=== PATIENT | female | born 1955 | race Caucasian/White ===

== ENCOUNTER 2018-04-19 10:20 | Emergency (ER) | payer SELFPAY ==
--- OUTSIDE RECORDS SUMMARY | 2018-04-19 10:22 | XMS REPORT | Clinical Summary ---
:1955 Author Organization [facility] Address [address] [place] [address] Care Team Providers Name Role Phone Carlos Mccann MD Primary Care Provider Allergies No Known Allergies Medications Medication Sig Dispensed Refills Start Date End Date Status venlafaxine (EFFEXOR) Take 75 mg by 0 Active 75 MG tablet mouth 2 (two) times a day. citalopram (CeleXA) 40 Take 40 mg by 0 Active MG tablet mouth daily. carBAMazepine Take 200 mg by 0 Active (TEGretol) 200 mg mouth 3 (three) tablet times a day. baclofen (LIORESAL) 10 Take 10 mg by 0 Active MG tablet mouth 2 (two) times a day. amLODIPine (NORVASC) 5 Take 5 mg by 0 Active mg tablet mouth 2 (two) times a day. clonAZEPAM (KlonoPIN) Take 0.5 mg by 0 Active 0.5 MG tablet mouth nightly. gabapentin (NEURONTIN) Take 600 mg by 0 Active 600 mg tablet mouth 3 (three) times a day. methocarbamol (ROBAXIN) Take 500 mg by 0 Active 500 MG tablet mouth 4 (four) times a day. clopidogrel (PLAVIX) 75 Take 75 mg by 0 Active mg tablet mouth daily. traMADol (ULTRAM) 50 mg Take 50 mg by 0 Active tablet mouth every 8 (eight) hours as needed for moderate pain. atorvastatin (LIPITOR) Take 40 mg by 0 Active 40 MG tablet mouth daily. aspirin (ECOTRIN) 81 MG Take 81 mg by 0 Active enteric coated tablet mouth daily. Active Problems Problem Noted Date Carotid artery disease 11/13/2016 Overview: Added automatically from request for surgery [id number] Cerebrovascular accident (CVA) 10/15/2016 Bilateral carotid artery disease 10/15/2016 Spinal cord compression 04/18/2016 Family History Medical History Relation Name Comments Dementia Mother Relation Name Status Comments Mother Social History Tobacco Use Types Packs/Day Years Used Date Current Every Day Smoker 1 45 Comments: "Last cigarette an hour ago"04/18/2016 Alcohol Use Drinks/Week oz/Week Comments No "Quit 1992" Sex Assigned at Date Recorded Not on file Job Start Date Occupation Industry Not on file Not on file Not on file Travel History Travel Start Travel End No recent travel history available. Last Filed Vital Signs Not on file Plan of Treatment Health Maintenance Due Date Last Done Comments CERVICAL CANCER SCREENING 11/29/1975 BREAST CANCER SCREENING 2004 COLON CANCER SCREENING 2004 SHINGLES VACCINES (1 of 2) 2004 INFLUENZA VACCINE 10/01/2017 Implants Implanted Type Area Precast Concrete Ironworker Device Shelf Model / Identifier Expiration Serial / Date Lot Kit Hmstc Mtrx W/ F2 8ml Surgiflo - [id number] Surgical N/A: N/A ETHICON - 10/31/2017 [id number] / Implanted: Qty: 1 on 04/21/2016 by Edward Rivera MD Implants; / Expanders; [id number] Extenders; Surgical Wires Results Not on fileafter 04/18/2017 Advance Directives Patient has advance care planning documents on file. For more information, please contact:Ger Jacobson[address] [place] [address]
--- NOTE | 2018-04-19 11:28 | RAD REPORT ---
EXAM DESCRIPTION: CT - Head C Spine Mpr Wo Con - 04/19/2018 11:02 am CLINICAL HISTORY: Seizure. Head and neck injury status post fall. Head and neck pain COMPARISON: 2016 TECHNIQUE: Computed axial tomography of the head and cervical spine was obtained. Sagittal and coronal reconstruction was performed. All CT scans are performed using dose optimization technique as appropriate and may include automated exposure control or mA/KV adjustment according to patient size. FINDINGS: 5 centimeter low-density area has developed within the posterior right frontal/ anterior r ight parietal lobe. Additional low-density within the right cerebrum is secondary to an old infarction. An intracranial bleed is not seen. The ventricles are normal in caliber. An extra-axial fluid collect ion is not noted.Fluid within the visualized sinuses and mastoids is not seen A cervical fracture is not visualized. No dislocation is noted. Spondylosis involves the cervical spi ne. Postsurgical changes are noted. Minimal anterior subluxation of C4 on C5 probably chronic. IMPRESSION: 5 centimeter acute infarct posterior right frontal/anterior right parietal lobe suspecte d. Additional old right cerebral infarct. A cervical fracture is not visualized. If the patient continues to have symptoms to suggest spinal cord/spinal canal pathology then MRI would be recommended
--- NOTE | 2018-04-19 11:33 | RAD REPORT ---
EXAM DESCRIPTION: RAD - Pelvis - 04/19/2018 11:11 am CLINICAL HISTORY: Pelvic pain status post injury FINDINGS: No fracture or dislocation is seen. The bones are osteoporotic If the patient continues to have symptoms to suggest an occult fracture then MRI recommended
[2018-04-19 12:09] LABS: Absolute Lymphocytes (CBC) 1.3 K/uL (0.7-4.9); Absolute Neutrophil 9.6 K/uL (1.8-8.0); Basophils % 0.3 % (0-1.3); Eosinophils % 0.1 % (0-4.4); Hematocrit 40.1 % (36.0-45.0); MPV 8.5 fL (7.6-11.3); Monocytes % 8.3 % (3.3-12.3); RBC Red Blood Cell Count 4.57 M/uL (3.86-4.86)
[2018-04-19 12:19] LABS: Protime INR 1.03
[2018-04-19 12:29] LABS: BUN Blood Urea Nitrogen 14 mg/dL (7-18); Bicarbonate 27 mmol/L (21-32); Creatine Phosphokinase 153 U/L (26-192); Glucose Level 109 mg/dL (74-106); Potassium 3.8 mmol/L (3.5-5.1); Sodium Level 138 mmol/L (136-145)
--- NOTE | 2018-04-19 12:58 | RAD REPORT ---
EXAM DESCRIPTION: Dru Single View04/19/2018 12:41 pm CLINICAL HISTORY: Code stroke / malaise COMPARISON: 2016 FINDINGS: The lungs appear clear of acute infiltrate. The heart is normal size IMPRESSION: No acute abnormalities displayed
--- NOTE | 2018-04-19 13:24 | EDPHYS ---
Physician Documentation [facility] Name: Lynne Urena Age: 62 yrs Sex: Female : 1955 Arrival Date: 04/19/2018 Time: 10:21 Bed 2 Private MD: ED Physician Osiel Delgadillo HPI: 04/19 13:11 This 62 yrs old Female presents to ER via EMS with complaints of Fall Injury, gs Seizure, S/S of Possible Stroke. 13:11 Onset: The symptoms/episode began/occurred this morning, at 04:30. Associated injuries: gs The patient sustained injury to the head, hematoma. Severity of symptoms: At their worst the symptoms were moderate, in the emergency department the symptoms are unchanged. was found on floor by roommate at 430 in am helped her back to bed. last known well last pm. Historical: - Allergies: 10:28 NKA; hj - Home Meds: 10:28 Plavix 75 mg Oral tab [Active]; amlodipine oral [Active]; Baclofen Oral [Active]; hj citalopram oral [Active]; gabapentin Oral [Active]; Robaxin Oral [Active]; meloxicam Oral [Active]; Tegretol Oral [Active]; - PMHx: 10:28 Chronic pain; epilepsy; Hypertension; hj - PSHx: 10:28 Hysterectomy; cervical laminectomy; Carotid surgery; hj - Immunization history:: Adult Immunizations unknown. - Social history:: Smoking status: Patient uses tobacco products, Patient/guardian denies using alcohol. - Immunization history: Last tetanus immunization: - up to date. - Ebola Screening: : Patient negative for fever greater than or equal to 101.5 degrees Fahrenheit, and additional compatible Ebola Virus Disease symptoms Patient denies exposure to infectious person Patient denies travel to an Ebola-affected area in the 21 days before illness onset. ROS: 13:11 All other systems are negative. gs Exam: 13:19 Constitutional: This is a well developed, well nourished patient who is awake, alert, gs and in no acute distress. Eyes: Pupils equal round and reactive to light, extra-ocular motions intact. Lids and lashes normal. Conjunctiva and sclera are non-icteric and not injected. Cornea within normal limits. Periorbital areas with no swelling, redness, or edema. ENT: Nares patent. No nasal discharge, no septal abnormalities noted. Tympanic membranes are normal and external auditory canals are clear. Oropharynx with no redness, swelling, or masses, exudates, or evidence of obstruction, uvula midline. Mucous membranes moist. Chest/axilla: Normal chest wall appearance and motion. Nontender with no deformity. No lesions are appreciated. Cardiovascular: Regular rate and rhythm with a normal S1 and S2. No gallops, murmurs, or rubs. Normal PMI, no JVD. No pulse deficits. Respiratory: Lungs have equal breath sounds bilaterally, clear to auscultation and percussion. No rales, rhonchi or wheezes noted. No increased work of breathing, no retractions or nasal flaring. Abdomen/GI: Soft, non-tender, with normal bowel sounds. No distension or tympany. No guarding or rebound. No evidence of tenderness throughout. 13:19 Back: No spinal tenderness. No costovertebral tenderness. Full range of motion. Skin: Warm, dry with normal turgor. Normal color with no rashes, no lesions, and no evidence of cellulitis. 13:19 Head/face: Noted is contusion, that is superficial. 13:19 Musculoskeletal/extremity: Extremities: noted in the left hip and right hip: Circulation is intact in all extremities. 13:19 Neuro: Orientation: to person, place, time \T\ situation. Cranial nerves: facial droop noted on left, Motor: strength is 5/5 in the right arm and right leg, Strength is 3/5 in the left leg, Strength is 1/5 in the left arm. Vital Signs: 10:30 BP 144 / 86; Pulse 81; Resp 18; Temp 98.1(O); Pulse Ox 95% on 2 lpm NC; Weight 47.17 hj kg; Height 5 ft. 2 in. (157.48 cm); Pain 10/10; 11:14 BP 132 / 90; Pulse 80; Resp 18; Pulse Ox 96% on 2 lpm NC; hj 12:26 BP 154 / 99; Pulse 88; Resp 18; Pulse Ox 99% on 2 lpm NC; hj 13:45 BP 154 / 91; Pulse 84; Resp 18; Pulse Ox 98% on 2 lpm NC; hj 10:30 Body Mass Index 19.02 (47.17 kg, 157.48 cm) NIH Stroke Scale Scores: 12:09 NIHSS Score: 10 gs Arnold Coma Score: 10:33 Eye Response: spontaneous(4). Verbal Response: oriented(5). Motor Response: obeys commands(6). Total: 15. Trauma Score (Adult): 10:33 Eye Response: spontaneous(1); Verbal Response: oriented(1); Motor Response: obeys commands(2); Systolic BP: > 89 mm Hg(4); Respiratory Rate: 10 to 29 per min(4); Arnold Score: 15; Trauma Score: 12 MDM: 10:56 Patient medically screened. gs 13:19 Differential diagnosis: closed head injury, fracture, multiple trauma, cva. Data gs reviewed: vital signs, nurses notes. Response to treatment: the patient's symptoms have mildly improved after treatment. ED course: transfer [facility] neuro. 04/19 11:53 Order name: Basic Metabolic Panel; Complete Time: 12:34 04/19 11:53 Order name: CBC with Diff; Complete Time: 12:34 04/19 10:28 Order name: CT Head C Spine; Complete Time: 11:47 04/19 11:00 Order name: Pelvis XRAY; Complete Time: 11:47 04/19 11:53 Order name: Protime (+inr); Complete Time: 12:34 04/19 11:54 Order name: CPK; Complete Time: 12:34 04/19 11:53 Order name: Stroke CXR 1 View; Complete Time: 13:10 04/19 11:53 Order name: EKG; Complete Time: 11:55 04/19 11:53 Order name: Accucheck; Complete Time: 11:54 04/19 11:53 Order name: Cardiac monitoring; Complete Time: 11:54 04/19 11:53 Order name: EKG - Nurse/Tech; Complete Time: 12:05 04/19 11:53 Order name: IV Saline Lock; Complete Time: 11:55 04/19 11:53 Order name: Labs collected and sent; Complete Time: 12:05 04/19 11:53 Order name: NPO; Complete Time: 11:55 04/19 11:53 Order name: O2 Per Protocol; Complete Time: 11:55 04/19 11:53 Order name: O2 Sat Monitoring; Complete Time: 11:55 gs 04/19 11:53 Order name: Stroke Swallow Screen; Complete Time: 12:26 gs Administered Medications: 13:11 Drug: Aspirin Chewable Tablet 324 mg Route: PO; 13:30 Follow up: Response: No adverse reaction Point of Care Testing: Blood Glucose: 12:26 Blood Glucose: 100 mg/dL; Ranges: Critical Glucose Levels:Adult <50 mg/dl or >400 mg/dl <40 mg/dl or >180 mg/dl Disposition: 04/19/18 13:23 Transfer ordered to Other Acute Care Facility. Diagnosis is Cerebral infarction. - Reason for transfer: Higher level of care. - Accepting physician is raimundo. - Condition is Stable. - Problem is new. - Symptoms are unchanged. Critical care time excluding procedures: 13:23 Critical care time: Bedside Care: 10 minutes, Consultation: 10 minutes, Family gs Intervention: 10 minutes. Total time: 30 minutes NIH Stroke Scale - NIH Stroke Score Date: 04/19/2018 Time: 12:09 Total Score = 10 1a. Level of Consciousness (LOC) - 0(Alert) 1b. Level of Consciousness (LOC) (Year \T\ Age) - 0(Both) 1c. LOC Commands (Open \T\ Closes Eyes/Conical Mixer) - 0(Both) 2. Best Gaze (Lateral Gaze Paresis) - 0(Normal) 3. Visual Field Loss - 0(No visual loss) 4. Facial Palsy - 2(Partial paralysis) 5a. Left Arm: Motor (10-second hold) - 4(No movement) 5b. Right Arm: Motor (10-second hold) - 0(No drift) 6a. Left Leg: Motor (5-second hold - always test supine) - 2(Drift, some effort against gravity) 6b. Right Leg: Motor (5-second hold - always test supine) - 0(No drift) 7. Limb Ataxia (finger/nose \T\ heel/keen - test with eyes open) - 0(Absent) 8. Sensory Loss (pinprick arms/legs/face) - 0(Normal) 9. Best Language: Aphasia (description/naming/reading) - 0(No aphasia) 10. Dysarthria (speech clarity - read or repeat words) - 1(Mild to Moderate) 11. Extinction and Inattention (visual/tactile/auditory/spatial/personal) - 1(Present) Initials: gs Addendum: 04/24/2018 21:00 Addendum: no tpa outside of window of treatment, cerebral infarction not gs traumatic. Signatures: Dispatcher [employer] Osbaldo Springer RN RN hj Osiel Delgadillo MD MD gs Corrections: (The following items were deleted from the chart) 04/19 14:03 13:23 04/19/2018 13:23 Transfer ordered to Other Acute Care Facility. Diagnosis hj is Cerebral infarction. Reason for transfer: Higher level of care. Accepting physician is [facility]. Condition is Stable. Problem is new. Symptoms are unchanged. gs
--- NOTE | 2018-04-19 13:24 | ER ---
Nurse's Notes [facility] Name: Lynne Urena Age: 62 yrs Sex: Female : 1955 Arrival Date: 04/19/2018 Time: 10:21 Bed 2 Private MD: Diagnosis: Cerebral infarction Presentation: 04/19 10:22 Presenting complaint: EMS states: from home, pt had a seizure episode and fell from a hj standing position, with positive LOC per EMS, complaints of L back side of head hematoma, lower back pain, L side deficit from previous strike, BGL- 160; per EMS O2 on RA- 85%, with 2L O2 went up to 93%; hx of COPD; 18g R AC, fentanyl 45 mcg IV given with zofran 4 mg 5 mins BOX OFFICE MANAGER:. Transition of care: patient was not received from another setting of care. Onset of symptoms was April 19, 2018. Risk Assessment: Do you want to hurt yourself or someone else? Patient reports no desire to harm self or others. Initial Sepsis Screen: Does the patient meet any 2 criteria? No. Patient's initial sepsis screen is negative. Does the patient have a suspected source of infection? No. Patient's initial sepsis screen is negative. Care prior to arrival: None. 10:22 Method Of Arrival: EMS: [facility] 10:22 Acuity: YEIMI 2 10:34 Mechanism of Injury: Fall from standing position. Trauma event details: Injury occurred hj in the [facility], Injury occurred: at home. Injury occurred: April 19, 2018. Triage Assessment: 10:29 General: Appears in no apparent distress. uncomfortable, Behavior is calm, cooperative, hj appropriate for age. Pain: Complains of pain in head, neck, lower back. Trauma Activation: Alert Physician: ED Physician; Name: he; Notified At: 10:34; Arrived At: Physician: General Surgeon; Name: ; Notified At: 10:34; Arrived At: Physician: Radiology; Name: ; Notified At: 10:34; Arrived At: Physician: Respiratory; Name: ; Notified At: 10:34; Arrived At: Physician: Lab; Name: ; Notified At: 10:34; Arrived At: Historical: - Allergies: 10:28 NKA; hj - Home Meds: 10:28 Plavix 75 mg Oral tab [Active]; amlodipine oral [Active]; Baclofen Oral [Active]; hj citalopram oral [Active]; gabapentin Oral [Active]; Robaxin Oral [Active]; meloxicam Oral [Active]; Tegretol Oral [Active]; - PMHx: 10:28 Chronic pain; epilepsy; Hypertension; hj - PSHx: 10:28 Hysterectomy; cervical laminectomy; Carotid surgery; hj - Immunization history:: Adult Immunizations unknown. - Social history:: Smoking status: Patient uses tobacco products, Patient/guardian denies using alcohol. - Immunization history: Last tetanus immunization: - up to date. - Ebola Screening: : Patient negative for fever greater than or equal to 101.5 degrees Fahrenheit, and additional compatible Ebola Virus Disease symptoms Patient denies exposure to infectious person Patient denies travel to an Ebola-affected area in the 21 days before illness onset. Screenin:33 Abuse screen: Denies threats or abuse. Denies injuries from another. Nutritional hj screening: No deficits noted. Tuberculosis screening: No symptoms or risk factors identified. Fall Risk Fall in past 12 months (25 points). 12:25 Patient has been NPO before screening. The patient is alert, able to follow commands. hj The patient does not exhibit slurred or garbled speech The patient is not exhibiting difficulty speaking. The patient does not exhibit difficulty understanding words. The patient is able to swallow own secretions with no drooling or need for suction. Patient tolerated one teaspoon of water. No drooling, immediate coughing, gurgling, or clearing of the throat was noted. The patient tolerated 90mL of water. No drooling, immediate coughing, gurgling, or clearing of the throat was noted. The patient passed the bedside swallow screening. Oral medications may be given as ordered. Contact Physician for further diet orders. Provider notified of bedside swallow screening results: Osbaldo King RN. Primary Survey: 10:31 NO uncontrolled hemorrhage observed. A: The patient is alert. Airway: patent, No hj supplemental oxygen in use on arrival. Oral cavity: clear, gag reflex present, Trachea midline. Breathing/Chest: Respiratory pattern: regular, Respiratory effort: spontaneous, unlabored, Breath sounds: clear, Chest inspection: symmetrical rise and fall of the chest. Circulation: Cardiac rhythm: sinus rhythm Heart tones present. Pulses: palpable right radial artery and left radial artery. Skin color: pink, Skin temperature: warm, dry. Disability Alert. Exposure/Environment: All clothing and personal items were removed. Forensic evidence collection is not deemed to be indicated at this time. Items placed in patient belonging bag. There is no evidence of uncontrolled external bleeding. No obvious injuries are noted at this time. A warming method has been applied: A warm blanket has been provided to the patient. Reassessment Airway Airway Patent Oxygen No O2 Oral cavity Clear +Gag reflex Trachea Midline Breathing/Chest Respiratory pattern Regular Respiratory effort Spontaneous Unlabored Breath sounds Clear Chest inspection Symmetrical Circulation Heart rhythm Sinus rhythm Heart tones Present Pulses Palpable Color [place] Temperature Warm Dry Arterial Line Disability Alert. Secondary Survey: 10:43 HEENT: Head Other hematoma back area Face No injury/deformity Eyes: No injury or hj deformity noted. Ears: clear Nose: clear Throat: No injury or deformity noted. is clear. Gastrointestinal: No deficits noted. : No signs and/or symptoms were reported regarding the genitourinary system. Musculoskeletal: Reports pain in head, neck, back. Assessment: 10:51 Reassessment: Pt taken to CT via stretcher. ph 10:51 Reassessment: see triage assessment;. Reassessment: pt wheeled to CT;. hj 11:53 Reassessment: provider in room, per family symptoms of L sided deficits started around hj 4:30 am;. 11:53 Reassessment: code strike called;. hj Vital Signs: 10:30 BP 144 / 86; Pulse 81; Resp 18; Temp 98.1(O); Pulse Ox 95% on 2 lpm NC; Weight 47.17 hj kg; Height 5 ft. 2 in. (157.48 cm); Pain 10/10; 11:14 BP 132 / 90; Pulse 80; Resp 18; Pulse Ox 96% on 2 lpm NC; hj 12:26 BP 154 / 99; Pulse 88; Resp 18; Pulse Ox 99% on 2 lpm NC; hj 13:45 BP 154 / 91; Pulse 84; Resp 18; Pulse Ox 98% on 2 lpm NC; hj 10:30 Body Mass Index 19.02 (47.17 kg, 157.48 cm) hj Arnold Coma Score: 10:33 Eye Response: spontaneous(4). Verbal Response: oriented(5). Motor Response: obeys hj commands(6). Total: 15. Trauma Score (Adult): 10:33 Eye Response: spontaneous(1); Verbal Response: oriented(1); Motor Response: obeys hj commands(2); Systolic BP: > 89 mm Hg(4); Respiratory Rate: 10 to 29 per min(4); Meredith Score: 15; Trauma Score: 12 NIH Stroke Scale Scores: 12:09 NIHSS Score: 10 gs ED Course: 10:21 Patient arrived in ED. hj 10:25 Triage completed. hj 10:28 Osiel He MD is Attending Physician. gs 10:[address] via stretcher. kw1 10:34 Arm band placed on right wrist. hj 10:35 Patient has correct armband on for positive identification. Placed in gown. Bed in low hj position. Call light in reach. Side rails up X2. 10:35 Patient maintains SpO2 saturation greater than 95% on room air. hj 10:35 Thermoregulation: warm blanket given to patient. hj 10:36 Osbaldo King, RN is Primary Nurse. hj 10:44 Inserted saline lock: 18 gauge in right antecubital area, using aseptic technique. hj Blood collected. 11:02 CT completed. Patient tolerated procedure well. Patient moved to CT via stretcher. kw1 Patient moved to radiology. 11:05 CT Head C Spine In Process Unspecified. EDMS 11:11 Pelvis XRAY In Process Unspecified. EDMS 12:41 Stroke CXR 1 View In Process Unspecified. EDMS 13:10 No provider procedures requiring assistance completed. Patient transferred, IV remains hj in place. intact. Administered Medications: 13:11 Drug: Aspirin Chewable Tablet 324 mg Route: PO; hj 13:30 Follow up: Response: No adverse reaction hj Point of Care Testing: Blood Glucose: 12:26 Blood Glucose: 100 mg/dL; hj Ranges: Intake: 13:23 PO: 40ml; Total: 40ml. hj Output: 13:23 Urine: 150ml (Voided); Total: 150ml. hj Outcome: 13:11 Transferred by ground EMS to [facility], Transfer form completed. X-rays sent hj w/ patient. 13:11 Condition: stable 13:11 Instructed on the need for admit, Demonstrated understanding of instructions. 13:23 ER care complete, transfer ordered by . 13:44 Patient's length of stay in the Emergency Department was greater than 2 hours. hj Patient's length of stay was extended due to receiving facility on divert. transferPatient's length of stay extended due to 14:03 Patient left the ED. jaqueline NIH Stroke Scale - NIH Stroke Score Date: 04/19/2018 Time: 12:09 Total Score = 10 1a. Level of Consciousness (LOC) - 0(Alert) 1b. Level of Consciousness (LOC) (Year \T\ Age) - 0(Both) 1c. LOC Commands (Open \T\ Closes Eyes/Maintenance And Engineering Manager) - 0(Both) 2. Best Gaze (Lateral Gaze Paresis) - 0(Normal) 3. Visual Field Loss - 0(No visual loss) 4. Facial Palsy - 2(Partial paralysis) 5a. Left Arm: Motor (10-second hold) - 4(No movement) 5b. Right Arm: Motor (10-second hold) - 0(No drift) 6a. Left Leg: Motor (5-second hold - always test supine) - 2(Drift, some effort against gravity) 6b. Right Leg: Motor (5-second hold - always test supine) - 0(No drift) 7. Limb Ataxia (finger/nose \T\ heel/keen - test with eyes open) - 0(Absent) 8. Sensory Loss (pinprick arms/legs/face) - 0(Normal) 9. Best Language: Aphasia (description/naming/reading) - 0(No aphasia) 10. Dysarthria (speech clarity - read or repeat words) - 1(Mild to Moderate) 11. Extinction and Inattention (visual/tactile/auditory/spatial/personal) - 1(Present) Initials: Signatures: Dispatcher [employer] EDHilda Stewart RN RN Osbaldo King RN RN hj Starr, Gregory, MD MD Mildred Barr1
[2018-04-19] MEDS ORDERED: ASPIRIN 81 MG CHEWABLE TABLET ONE (13:37)
[2018-04-19 14:36] VITALS: TEMP 98.1
[2018-04-19 14:40] VITALS: BP 154/91; O2SAT 98
--- NOTE | 2018-04-20 08:52 | EKG ---
Test Date: 2018-04-19 Test Time: 12:07:10 Senior Systems Developer: PAVITHRA MEASUREMENT RESULTS: Intervals: Rate: 97 MS: 152 QRSD: 88 QT: 370 QTc: 469 Dubois: P: 76 MS: 152 QRS: 56 T: 72 INTERPRETIVE STATEMENTS: Normal sinus rhythm Biatrial enlargement Abnormal ECG Compared to ECG 08/29/2016 10:29:07 Atrial abnormality now present Electronically Signed On 04-20-18 08:52:04 PRESS CLEANER by Julian Brand
== END 2018-04-19 14:03 ==
LOC: ER 10:20
DX: I63.9 Cerebral infarction, unspecified (principal); I10 Essential (primary) hypertension; R29.710 NIHSS score 10; G40.909 Epilepsy, unspecified, not intractable, without status epilepticus; W19.XXXA Unspecified fall, initial encounter; Y93.9 Activity, unspecified; Y92.9 Unspecified place or not applicable; Z72.0 Tobacco use; Z79.01 Long term (current) use of anticoagulants
CPT/HCPCS: 36415; 70450; 71045; 72125; 72170; 80048; 82550; 82962; 85025; 85610; 93005; 99285

== ENCOUNTER 2018-09-24 13:05 | Emergency (ER) | payer OTHER, SELFPAY ==
--- OUTSIDE RECORDS SUMMARY | 2018-09-24 13:07 | XMS REPORT | Clinical Summary ---
:1955 Author Organization [facility] Address [address] [place] [address] Care Team Providers Name Role Phone Carlos [...] Overview: Added automatically from request for surgery [id number] Cerebrovascular accident (CVA) 10/15/2016 Bilateral carotid artery [...] Health Maintenance Due Date Last Done Comments BREAST CANCER SCREENING 2004 COLONOSCOPY SCREENING 2004 SHINGLES VACCINES (#1) 2004 INFLUENZA VACCINE 10/01/2018 Implants Implanted Type Area Coin Machine Servicer Repairer Device Shelf Model / Identifier Expiration Serial / Date Lot Kit Hmstc Mtrx W/ F2 8ml Surgiflo - [id number] Surgical N/A: N/A ETHICON - 10/31/2017 [id number] / Implanted: Qty: 1 on 04/21/2016 by Edward Rivera MD Implants; / Expanders; [id number] Extenders; Surgical Wires Results Not on fileafter 09/23/2017 Advance Directives Patient has advance care planning documents on file. For more information, please contact:Ger Jacobson[address] [place] [address]
--- NOTE | 2018-09-24 13:40 | EDPHYS ---
Physician Documentation [facility] Name: Lynne Urena Age: 62 yrs Sex: Female : 1955 Arrival Date: 09/24/2018 Time: 13:08 Bed 28 Private MD: ED Physician Ace Feng HPI: 09/24 14:57 This 62 yrs old Female presents to ER via Ambulatory with complaints of Leg jr8 Pain, Leg Swelling. 14:57 The patient presents with swelling, local swelling/small mass to right lower leg. The jr8 complaints affect the anterior right keen. Context: noticed it yesterday. Onset: The symptoms/episode began/occurred at an unknown time. Modifying factors: The symptoms are alleviated by nothing. the symptoms are aggravated by nothing. Associated signs and symptoms: Pertinent negatives calf tenderness, pain. Severity of symptoms: At their worst the symptoms were very mild, in the emergency department the symptoms are unchanged, a " 0" out of "10". The patient has not experienced similar symptoms in the past. The patient has not recently seen a physician. Patient reports noticing a small area of localized swelling to right anterior keen yesterday. Denies pain, tenderness, or recent trauma. No generalized swelling to leg. Historical: - Allergies: 13:09 NKA; hj - PMHx: 13:09 Chronic pain; epilepsy; Hypertension; CVA; hj - PSHx: 13:09 Hysterectomy; cervical laminectomy; Carotid surgery; hj - Immunization history:: Flu vaccine status is unknown. - Social history:: Smoking status: unknown. - Ebola Screening: : No symptoms or risks identified at this time. ROS: 14:57 Constitutional: Negative for fever, chills, and weight loss, Eyes: Negative for injury, jr8 pain, redness, and discharge, ENT: Negative for injury, pain, and discharge, Cardiovascular: Negative for chest pain, palpitations, and edema, Respiratory: Negative for shortness of breath, cough, wheezing, and pleuritic chest pain, Abdomen/GI: Negative for abdominal pain, nausea, vomiting, diarrhea, and constipation, Back: Negative for injury and pain, MS/Extremity: Negative for injury and deformity, Neuro: Negative for headache, weakness, numbness, tingling, and seizure. 14:57 Skin: Positive for swelling, of the anterior right keen. Exam: 14:57 Constitutional: This is a well developed, well nourished patient who is awake, alert, jr8 and in no acute distress. Head/Face: Normocephalic, atraumatic. Cardiovascular: Regular rate and rhythm with a normal S1 and S2. No gallops, murmurs, or rubs. Normal PMI, no JVD. No pulse deficits. Respiratory: Lungs have equal breath sounds bilaterally, clear to auscultation and percussion. No rales, rhonchi or wheezes noted. No increased work of breathing, no retractions or nasal flaring. Abdomen/GI: Soft, non-tender, with normal bowel sounds. No distension or tympany. No guarding or rebound. No evidence of tenderness throughout. 14:57 Musculoskeletal/extremity: Extremities: grossly normal except: noted in the brace to left upper arm: 14:57 Skin: Appearance: normal except for affected area, lesion(s), noted, and can be described as nontender, raised, nodule(s) noted, located on the right anterior keen, small, flesh colored nodule to right anterior keen, just lateral to tibia. Nodule is superficial, mobile, non-tender. 14:57 Neuro: Exam negative for acute changes, focal neuro deficits, Orientation: to person, place, time \\T\\ situation. Vital Signs: 13:10 BP 133 / 82; Pulse 73; Resp 18; Temp 98.8(TE); Pulse Ox 96% on R/A; Weight 49.9 kg; hj Height 5 ft. 2 in. (157.48 cm); Pain 0/10; 13:29 BP 137 / 91; Pulse 56; Resp 18; Pulse Ox 100% on R/A; Pain 0/10; mg2 13:10 Body Mass Index 20.12 (49.90 kg, 157.48 cm) MDM: 13:14 Patient medically screened. 8 14:57 Differential diagnosis: closed fracture, contusion, abrasion, lipoma, cyst, hematoma. jr8 Data reviewed: vital signs, nurses notes, and as a result, I will discharge patient. Data interpreted: Pulse oximetry: on room air is 97 %. Interpretation: normal. Counseling: I had a detailed discussion with the patient and/or guardian regarding: the historical points, exam findings, and any diagnostic results supporting the discharge/admit diagnosis, the need for outpatient follow up. ED course: Discussed with patient and family benign appearance of nodule - flesh colored, mobile, superficial, non-tender. No generalized swelling to the calf, no erythema, no calf tenderness, -Jose Luis's sign. No concern for DVT. Patient and family instructed to watch the area and follow up with dermatology or general surgery for any increased size or discomfort. Return to ER for any new or worsening symptoms. Administered Medications: No medications were administered Disposition: 09/25 06:45 Co-signature as Attending Physician, Ace Feng MD I agree with the assessment and kdr plan of care. Disposition: 09/24/18 13:39 Discharged to Home. Impression: Localized swelling, mass and lump of skin and subcutaneous tissue. - Condition is Stable. - Discharge Instructions: Lipoma, Epidermal Cyst. - Medication Reconciliation Form, Thank You Letter, Antibiotic Education, Prescription Opioid Use form. - Follow up: Private Physician; When: As needed; Reason: Recheck today's complaints, Continuance of care, Re-evaluation by your physician. - Problem is new. - Symptoms are unchanged. Signatures: Ace Feng MD MD kdr Marah Boone RN RN iw Dc Chavarria PA PA jr8 Osbaldo King, RN RN Rao Kenney RN RN mg2 Corrections: (The following items were deleted from the chart) 09/24 13:50 13:39 09/24/2018 13:39 Discharged to Home. Impression: Localized swelling, mass and iw lump of skin and subcutaneous tissue. Condition is Stable. Forms are Medication Reconciliation Form, Thank You Letter, Antibiotic Education, Prescription Opioid Use. Follow up: Private Physician; When: As needed; Reason: Recheck today's complaints, Continuance of care, Re-evaluation by your physician. Problem is new. Symptoms are unchanged. jr8
--- NOTE | 2018-09-24 13:40 | ER ---
Nurse's Notes [facility] Name: Lynne Urena Age: 62 yrs Sex: Female : 1955 Arrival Date: 09/24/2018 Time: 13:08 Bed 28 Private MD: Diagnosis: Localized swelling, mass and lump of skin and subcutaneous tissue Presentation: 09/24 13:08 Presenting complaint: Patient states: i have a knot that i noticed on my R leg area, hj just wanna make sure its not a blood clot; denies trauma to the area;. Transition of care: patient was not received from another setting of care. Onset of symptoms was September 24, 2018. Risk Assessment: Do you want to hurt yourself or someone else? Patient reports no desire to harm self or others. Initial Sepsis Screen: Does the patient meet any 2 criteria? No. Patient's initial sepsis screen is negative. Does the patient have a suspected source of infection? No. Patient's initial sepsis screen is negative. Care prior to arrival: None. 13:08 Method Of Arrival: Ambulatory 13:08 Acuity: YEIMI 4 hj Historical: - Allergies: 13:09 NKA; hj - PMHx: 13:09 Chronic pain; epilepsy; Hypertension; CVA; hj - PSHx: 13:09 Hysterectomy; cervical laminectomy; Carotid surgery; hj - Immunization history:: Flu vaccine status is unknown. - Social history:: Smoking status: unknown. - Ebola Screening: : No symptoms or risks identified at this time. Screenin:29 Abuse screen: Denies threats or abuse. Denies injuries from another. Nutritional mg2 screening: No deficits noted. Tuberculosis screening: No symptoms or risk factors identified. Fall Risk Secondary diagnosis (15 points) seizures, CVA, Ambulatory Aid- None/Bed Rest/Nurse Assist (0 pts). Assessment: 13:30 General: Appears in no apparent distress. comfortable, Behavior is calm, cooperative. mg2 Pain: Denies pain. Neuro: Level of Consciousness is awake, alert, obeys commands, Oriented to person, place, time, situation. Cardiovascular: Capillary refill < 3 seconds Patient's skin is warm and dry. Respiratory: Airway is patent Respiratory effort is even, unlabored, Respiratory pattern is regular, symmetrical. GI: No deficits noted. : No deficits noted. EENT: No deficits noted. Derm: Skin is intact, is healthy with good turgor, Skin is pink, warm \T\ dry. normal. Musculoskeletal: Circulation, motion, and sensation intact. Capillary refill < 3 seconds, swelling in the right leg. Vital Signs: 13:10 BP 133 / 82; Pulse 73; Resp 18; Temp 98.8(TE); Pulse Ox 96% on R/A; Weight 49.9 kg; hj Height 5 ft. 2 in. (157.48 cm); Pain 0/10; 13:29 BP 137 / 91; Pulse 56; Resp 18; Pulse Ox 100% on R/A; Pain 0/10; mg2 13:10 Body Mass Index 20.12 (49.90 kg, 157.48 cm) ED Course: 13:08 Patient arrived in ED. as 13:09 Triage completed. hj 13:09 Arm band placed on right wrist. hj 13:14 [facility] jr[facility] 13:14 Ace Feng MD is Attending Physician. jr8 13:29 Rao Kenney, NEGRA is Primary Nurse. mg2 13:29 No provider procedures requiring assistance completed. Patient did not have IV access mg2 during this emergency room visit. 13:32 Patient has correct armband on for positive identification. Pulse ox on. NIBP on. mg2 Administered Medications: No medications were administered Outcome: 13:39 Discharge ordered by . jr8 13:50 Discharged to home ambulatory, with family. iw 13:50 Condition: good 13:50 Discharge instructions given to patient, family, Instructed on discharge instructions, follow up and referral plans. Demonstrated understanding of instructions, follow-up care. 13:50 Patient left the ED. iw Signatures: Glenny Maynard Irene, RN RN Dc Chavarria PA PA jr8 Osbaldo King RN RN Rao Kenney RN RN mg2 Corrections: (The following items were deleted from the chart) 13:11 13:10 Pulse 73bpm; Resp 18bpm; Pulse Ox 96% RA; Temp 98.8F Temporal; 49.9 kg; Height 5 hj ft. 2 in.; BMI: 20.1; Pain 0/10; hj
[2018-09-24 14:17] VITALS: BP 137/91; O2SAT 100
[2018-09-24 14:19] VITALS: TEMP 98.8
== END 2018-09-24 13:50 | disposition home or self-care (01) ==
LOC: ER 13:05
DX: R22.41 Localized swelling, mass and lump, right lower limb (principal); I10 Essential (primary) hypertension; Z86.73 Personal history of transient ischemic attack (TIA), and cerebral infarction without residual deficits
CPT/HCPCS: 99283

== ENCOUNTER 2019-06-19 03:22 | Emergency (ER) | payer OTHER ==
[2019-06-19] MEDS ORDERED: LIDOCAINE 1% MPF 5 ML VIAL ONE (03:45)
[2019-06-19 03:46] LABS: Absolute Lymphocytes (CBC) 1.6 K/uL (0.7-4.9); Basophils % 0.6 % (0-1.3); Hematocrit 38.1 % (36.0-45.0); Lymphocytes % 14.5 % (15.3-44.8); MPV 7.7 fL (7.6-11.3); RBC Red Blood Cell Count 4.54 M/uL (3.86-4.86)
[2019-06-19] MEDS ORDERED: TETANUS & DIPHTHERIA TOX,ADULT 0.5 ML VIAL ONE (03:46)
[2019-06-19 04:00] LABS: Potassium 3.7 mmol/L (3.5-5.1)
[2019-06-19 04:29] LABS: Urine Blood NEGATIVE (NEG); Urine Glucose NEGATIVE (NEG); Urine Protein NEGATIVE (NEG); Urine Specific Gravity 1.015 (1.005-1.030)
[2019-06-19 04:36] LABS: Barbiturates NEGATIVE (NEGATIVE); Benzodiazepines NEGATIVE (NEGATIVE); Cocaine NEGATIVE (NEGATIVE); METHAMPHETAM NEGATIVE (NEGATIVE); Methadone NEGATIVE (NEGATIVE); Opiates NEGATIVE (NEGATIVE); Phencyclidine NEGATIVE (NEGATIVE); THC Cannibis POSITIVE (NEGATIVE)
[2019-06-19] MEDS ORDERED: DERMABOND SKIN ADHESIVE TOP ONE (04:36)
--- NOTE | 2019-06-19 04:41 | ER ---
Nurse's Notes [facility] Name: Lynne Urena Age: 63 yrs Sex: Female : 1955 Arrival Date: 06/19/2019 Time: 03:24 Bed 6 Private MD: Diagnosis: Laceration without foreign body of unspecified part of head;Contusion of unspecified part of head;Concussion without loss of consciousness;Cannabis abuse, uncomplicated Presentation: 06/18 03:20 Chief complaint: EMS states: that they were toned for pt falling off sofa. Pt has fc fallen asleep sitting up and fell forward, hitting head on ground. Was on ground for approx 2 hrs and then found by roommate. Unable to get up due to floor being slippery. Positive blood thinner, Negative LOC. C/O neck pain. Care prior to arrival: Bleeding of injury controlled. Injury dressed. Mechanism of Injury: Fall Sofa. Trauma event details: Injury occurred in the [facility], Injury occurred: at home. Injury occurred: June 19, 2019 Injury occurred at: 01:00. 03:20 Acuity: YEIMI 3 fc 03:20 Method Of Arrival: EMS: [facility] fc 03:20 Coronavirus screen: Proceed with normal triage. Ebola Screen: Patient negative for fc fever greater than or equal to 101.5 degrees Fahrenheit, and additional compatible Ebola Virus Disease symptoms Patient denies exposure to infectious person. Patient denies travel to an Ebola-affected area in the 21 days before illness onset. Initial Sepsis Screen: Does the patient meet any 2 criteria? No. Patient's initial sepsis screen is negative. Does the patient have a suspected source of infection? No. Patient's initial sepsis screen is negative. Risk Assessment: Do you want to hurt yourself or someone else? Patient reports no desire to harm self or others. Onset of symptoms was June 19, 2019 at 01:00. Transition of care: patient was not received from another setting of care. Trauma Activation: Alert Physician: ED Physician; Name: Kashif; Notified At: 03:26; Arrived At: 03:26 Physician: General Surgeon; Name: ; Notified At: 03:26; Arrived At: Physician: Radiology; Name: Yolanda High; Notified At: 03:26; Arrived At: 03:26 Physician: Respiratory; Name: ; Notified At: 03:26; Arrived At: Physician: Lab; Name: ; Notified At: 03:26; Arrived At: Historical: - Allergies: 03:42 NKA; fc - Home Meds: 03:42 amlodipine 5 mg oral tab 1 tab twice a day [Active]; Plavix 75 mg Oral tab 1 tab once fc daily [Active]; gabapentin 600 mg oral tab 1 tab 3 times per day [Active]; atorvastatin 40 mg oral tab 1 tab nightly [Active]; Tegretol 200 mg oral tab 1 tab every 8 hours [Active]; memantine 5 mg oral tab 1 tabs 2 times per day [Active]; citalopram 40 mg oral tab 1 tab once daily [Active]; - PMHx: 03:42 Chronic pain; CVA; epilepsy; Hypertension; High Cholesterol; fc - PSHx: 03:42 Hysterectomy; cervical laminectomy; Carotid surgery; fc - Immunization history: Last tetanus immunization: - up to date. - Social history:: Smoking status: Patient reports the use of cigarette tobacco products, smokes one pack cigarettes per day. Patient/guardian denies using alcohol, street drugs. Screenin:20 Abuse screen: Denies threats or abuse. Tuberculosis screening: No symptoms or risk fc factors identified. 03:20 Nutritional screening: No deficits noted. Fall Risk Fall in past 12 months (25 points). fc Secondary diagnosis (15 points) CVA, No IV (0 pts). Ambulatory Aid- Crutches/Cane/Walker (15 pts). Gait- Weak (10 pts.). Mental Status- Overestimates/Forgets Limitations (15 pts.). Total Collins Fall Scale indicates High Risk Score (45 or more points). Fall prevention measures have been instituted. Side Rails Up X 2 Placed Close to Nursing Station Frequent Obs/Assessments Occuring As available patient and family educated on Fall Prevention Program and Strategies. Primary Survey: 03:38 NO uncontrolled hemorrhage observed. A: The patient is alert. Airway: patent. bb Breathing/Chest: Respiratory pattern: regular, Respiratory effort: spontaneous, unlabored, Breath sounds: coarse, bilaterally. Chest inspection: symmetrical rise and fall of the chest. Circulation: Heart tones present. Pulses: palpable right radial artery and left radial artery. Skin color: pink, Skin temperature: warm. Disability Alert. Exposure/Environment: All clothing and personal items were removed. Forensic evidence collection is not deemed to be indicated at this time. Items placed in patient belonging bag. A warming method has been applied: A warm blanket has been provided to the patient. 04:40 Reassessment Airway Airway Patent Breathing/Chest Respiratory pattern Regular rv Circulation Heart rhythm Sinus rhythm Disability Alert. Secondary Survey: 03:38 HEENT: Face Other laceration to forehead. Gastrointestinal: No deficits noted. : No bb deficits noted. No signs and/or symptoms were reported regarding the genitourinary system. Musculoskeletal: Capillary refill < 3 seconds. Assessment: 03:35 General: Appears uncomfortable, slender, unkempt, Behavior is calm, cooperative. Pain: bb Complains of pain in head. Neuro: Level of Consciousness is awake, alert, obeys commands, Oriented to person, place, situation. Cardiovascular: Heart tones S1 S2 present. Respiratory: Airway is patent Respiratory effort is even, unlabored, Respiratory pattern is regular, Breath sounds are coarse bilaterally. GI: Abdomen is non-distended, Abd is soft and non tender X 4 quads. Derm: laceration to forehead bleeding slightly bandage applied. Musculoskeletal: Circulation, motion, and sensation intact. Injury Description: fall onto coffee table when sitting on couch. 03:35 Reassessment: PATIENT IN CT SCAN. rv 03:53 Reassessment: PATIENT BACK FROM CT SCAN. rv 04:38 Reassessment: CT SCAN REPORT IS NEGATIVE. C COLLAR REMOVED. DERMABOND AND STERI STRIPS rv APPLIED BY DR CARREON ON THE LACERATION ON THE FOREHEAD. 04:48 Reassessment: AWAITING FOR THE SON TO COME AND STRIPPER AND OPAQUER APPRENTICE THE PATIENT. rv Vital Signs: 03:20 BP 159 / 90; Pulse 81; Resp 18; Temp 98.1(O); Pulse Ox 94% on R/A; Weight 44.91 kg (R); fc Height 5 ft. 2 in. (157.48 cm) (R); Pain 8/10; 04:39 BP 145 / 83; Pulse 75; Resp 17; Temp 98; Pulse Ox 94% on R/A; rv 03:20 Body Mass Index 18.11 (44.91 kg, 157.48 cm) fc Skippers Coma Score: 03:20 Eye Response: spontaneous(4). Verbal Response: oriented(5). Motor Response: obeys fc commands(6). Total: 15. 04:39 Eye Response: spontaneous(4). Verbal Response: oriented(5). Motor Response: obeys rv commands(6). Total: 15. Trauma Score (Adult): 03:20 Eye Response: spontaneous(1); Verbal Response: oriented(1); Motor Response: obeys fc commands(2); Systolic BP: > 89 mm Hg(4); Respiratory Rate: 10 to 29 per min(4); Arnold Score: 15; Trauma Score: 12 ED Course: 03:20 Fall risk band placed. Bed in low position. Call light in reach. Side rails up X2. fc 03:20 Arm band placed on right wrist. Patient placed in an exam room. fc 03:20 Patient maintains SpO2 saturation greater than 95% on room air. fc 03:20 No provider procedures requiring assistance completed. fc 03:23 C-collar applied. fc 03:24 Patient arrived in ED. ds1 03:25 Thermoregulation: warm blanket given to patient. fc 03:26 Jasen Carreon MD is Attending Physician. tw4 03:30 Inserted saline lock: 18 gauge in right forearm, using aseptic technique. Blood rv collected. 03:30 Initial lab(s) drawn, by wa, sent to lab. rv 03:33 Triage completed. fc 03:36 Ketan Dickey, RN is Primary Nurse. rv 03:58 CT Head C Spine In Process Unspecified. EDMS 04:41 Assist provider with laceration repair on FOREHEAD using DERMABOND AND STERISTRIPS.. rv Performed by Jasen Carreon MD Patient tolerated well. IV discontinued, intact, bleeding controlled, No redness/swelling at site. Pressure dressing applied. 04:45 Contacted [facility] to initiate transfer. Spoke with Ayesha Ambrose. Administered Medications: 03:42 Not Given (Patient Refused): ADAcel 0.5 ml IM once; indicated for adults and teenagers bb 11 to 64 years of age Intake: 03:38 PO: 0ml; Total: 0ml. bb Outcome: 04:40 Discharged to home via wheelchair, with family. rv 04:40 Condition: good 04:41 Discharge ordered by . tw4 04:42 Patient's length of stay was not longer than 2 hours. rv 04:48 Discharge instructions given to patient, Instructed on discharge instructions, follow rv up and referral plans. wound care, Demonstrated understanding of instructions, follow-up care, wound care. 06:54 Patient left the ED. rv Signatures: Dispatcher [employer] EDAR Ines Carr RN RN Rachel Browne ds1 Shweta Perdue RN RN bb Jasen Carreon MD MD tw4 Ketan Dickey RN RN Abdiel Brown 4 Corrections: (The following items were deleted from the chart) 03:36 03:30 Thermoregulation: warm blanket given to patient. [facility]
--- NOTE | 2019-06-19 04:42 | EDPHYS ---
Physician Documentation [facility] Name: Lynne Urena Age: 63 yrs Sex: Female : 1955 Arrival Date: 06/19/2019 Time: 03:24 Bed 6 Private MD: ED Physician Jasen Rowland HPI: 06/18 03:27 This 63 yrs old Female presents to ER via Unassigned with complaints of Fall tw4 Injury. 03:27 Details of fall: The patient fell from seated position, out of a chair. Onset: The tw4 symptoms/episode began/occurred today. Associated injuries: The patient sustained injury to the head, neck injury, contusion, upper back injury, pain, swelling. Severity of symptoms: At their worst the symptoms were moderate, in the emergency department the symptoms are unchanged. The patient has not experienced similar symptoms in the past. Historical: - Allergies: 03:42 NKA; fc - Home Meds: 03:42 amlodipine 5 mg oral tab 1 tab twice a day [Active]; Plavix 75 mg Oral tab 1 tab once fc daily [Active]; gabapentin 600 mg oral tab 1 tab 3 times per day [Active]; atorvastatin 40 mg oral tab 1 tab nightly [Active]; Tegretol 200 mg oral tab 1 tab every 8 hours [Active]; memantine 5 mg oral tab 1 tabs 2 times per day [Active]; citalopram 40 mg oral tab 1 tab once daily [Active]; - PMHx: 03:42 Chronic pain; CVA; epilepsy; Hypertension; High Cholesterol; fc - PSHx: 03:42 Hysterectomy; cervical laminectomy; Carotid surgery; fc - Immunization history: Last tetanus immunization: - up to date. - Social history:: Smoking status: Patient reports the use of cigarette tobacco products, smokes one pack cigarettes per day. Patient/guardian denies using alcohol, street drugs. ROS: 03:27 Constitutional: Negative for fever, chills, and weight loss, Eyes: Negative for injury, tw4 pain, redness, and discharge, Cardiovascular: Negative for chest pain, palpitations, and edema, Respiratory: Negative for shortness of breath, cough, wheezing, and pleuritic chest pain, Abdomen/GI: Negative for abdominal pain, nausea, vomiting, diarrhea, and constipation, Back: Negative for injury and pain, MS/Extremity: Negative for injury and deformity, Skin: Negative for injury, rash, and discoloration. 03:27 Neck: Positive for injury or acute deformity, pain with movement, swollen nodes. Exam: 03:27 Constitutional: This is a well developed, well nourished patient who is awake, alert, tw4 and in no acute distress. Head/Face: Normocephalic, atraumatic. 03:27 ENT: Nares patent. No nasal discharge, no septal abnormalities noted. Tympanic membranes are normal and external auditory canals are clear. Oropharynx with no redness, swelling, or masses, exudates, or evidence of obstruction, uvula midline. Mucous membranes moist. 03:27 Cardiovascular: Regular rate and rhythm with a normal S1 and S2. No gallops, murmurs, or rubs. Normal PMI, no JVD. No pulse deficits. Respiratory: Lungs have equal breath sounds bilaterally, clear to auscultation and percussion. No rales, rhonchi or wheezes noted. No increased work of breathing, no retractions or nasal flaring. Abdomen/GI: Soft, non-tender, with normal bowel sounds. No distension or tympany. No guarding or rebound. No evidence of tenderness throughout. Back: No spinal tenderness. No costovertebral tenderness. Full range of motion. 03:27 Neck: External neck: C-spine: C-collar placed in ED, Nexus Criteria: tenderness to the posterior midline, the patient shows decreased alertness. Vital Signs: 03:20 BP 159 / 90; Pulse 81; Resp 18; Temp 98.1(O); Pulse Ox 94% on R/A; Weight 44.91 kg (R); fc Height 5 ft. 2 in. (157.48 cm) (R); Pain 8/10; 04:39 BP 145 / 83; Pulse 75; Resp 17; Temp 98; Pulse Ox 94% on R/A; rv 03:20 Body Mass Index 18.11 (44.91 kg, 157.48 cm) Arnold Coma Score: 03:20 Eye Response: spontaneous(4). Verbal Response: oriented(5). Motor Response: obeys commands(6). Total: 15. 04:39 Eye Response: spontaneous(4). Verbal Response: oriented(5). Motor Response: obeys rv commands(6). Total: 15. Trauma Score (Adult): 03:20 Eye Response: spontaneous(1); Verbal Response: oriented(1); Motor Response: obeys fc commands(2); Systolic BP: > 89 mm Hg(4); Respiratory Rate: 10 to 29 per min(4); [place] Score: 15; Trauma Score: 12 Laceration: 04:36 Wound Repair of 5cm ( 2.0in ) subcutaneous laceration to forehead. Distal tw4 neuro/vascular/tendon intact. Anesthesia: Local anesthetic administered with 1% lidocaine. Skin closed with 1-0 Adhesive skin closure using simple sutures and sterile technique. Dressed with bandaid. Patient tolerated well. MDM: 03:26 Patient medically screened. tw4 04:36 Differential diagnosis: abrasion, closed head injury. Data reviewed: vital signs, tw4 nurses notes. Data interpreted: Pulse oximetry: Interpretation: normal. Counseling: I had a detailed discussion with the patient and/or guardian regarding: the historical points, exam findings, and any diagnostic results supporting the discharge/admit diagnosis. Special discussion: Based on the patient's history, exam and DX evaluation, there is no indication for emergent intervention or inpatient TX. It is understood by the patient/guardian that if the SXs persist or worsen they need to return immediately for re-evaluation. I discussed with the patient/guardian in detail that at this point there is no indication for admission to the hospital. It is understood, however, that if the symptoms persist or worsen the patient needs to return immediately for re-evaluation. 04:36 Medication response: Response to treatment: the patient's symptoms have markedly tw4 improved after treatment, and as a result, I will discharge patient. 06/18 03:26 Order name: Basic Metabolic Panel; Complete Time: 04:35 tw4 06/18 04:35 Interpretation: Normal except: GLUC 116; GFR 86. tw4 06/18 03:26 Order name: CBC with Diff; Complete Time: 04:35 tw4 06/18 04:35 Interpretation: Normal except: WBC 11.1; MCV 83.8; LYM% 14.5; TATA% 79.0; RDW 15.5; NEUT tw4 A 8.8. 06/18 03:26 Order name: Creatinine for Radiology; Complete Time: 04:35 tw4 06/18 04:35 Interpretation: Within normal limits: CRE 0.68. tw4 06/18 03:31 Order name: UDS; Complete Time: 04:39 tw4 06/18 04:39 Interpretation: Normal except: THC POSITIVE. tw4 06/18 03:26 Order name: CT Head C Spine tw4 06/18 03:26 Order name: Labs collected and sent; Complete Time: 03:37 tw4 06/18 03:41 Order name: Creatine Phosphokinase; Complete Time: 04:35 EDAZ 06/18 03:42 Order name: Alcohol Serum/Plasma; Complete Time: 04:35 EDAZ 06/18 04:36 Interpretation: Within normal limits: ETOH < 10. tw4 06/18 04:25 Order name: Urine Dipstick--Ancillary (enter results); Complete Time: 04:35 [facility] 06/18 04:35 Interpretation: Normal except: U NIT POSITIVE. tw4 Administered Medications: 03:42 Not Given (Patient Refused): ADAcel 0.5 ml IM once; indicated for adults and teenagers bb 11 to 64 years of age Disposition: 06/19/19 04:41 Discharged to Home. Impression: Laceration without foreign body of unspecified part of head, Contusion of unspecified part of head, Concussion without loss of consciousness, Cannabis abuse, uncomplicated. - Condition is Stable. - Discharge Instructions: Contusion, Cannabis Use Disorder, Substance Use Disorder, Head Injury, Adult, [id number]. - Medication Reconciliation Form, Thank You Letter, Antibiotic Education, Prescription Opioid Use form. - Follow up: Private Physician; When: Upon discharge from the Emergency Department; Reason: Recheck today's complaints, Continuance of care, Re-evaluation by your physician. Signatures: Dispatcher [employer] EDAZ Ines Carr RN RN Jasen Lima MD MD tw4 Ketan Dickey RN RN rv Ballard, Brenda RN bb Corrections: (The following items were deleted from the chart) 03:40 03:31 CREATINE PHOSPHOKINASE+C.LAB.BRZ ordered. EDMS EDMS 03:41 03:27 ETHANOL+C.LAB.BRZ ordered. EDAZ EDMS 04:42 04:41 06/19/2019 04:41 Discharged to Home. Impression: Laceration without foreign body tw4 of unspecified part of head; Contusion of unspecified part of head; Concussion without loss of consciousness. Condition is Stable. Forms are Medication Reconciliation Form, Thank You Letter, Antibiotic Education, Prescription Opioid Use. Follow up: Private Physician; When: Upon discharge from the Emergency Department; Reason: Recheck today's complaints, Continuance of care, Re-evaluation by your physician. tw4 06:54 04:42 06/19/2019 04:41 Discharged to Home. Impression: Laceration without foreign body rv of unspecified part of head; Contusion of unspecified part of head; Concussion without loss of consciousness; Cannabis abuse, uncomplicated. Condition is Stable. Forms are Medication Reconciliation Form, Thank You Letter, Antibiotic Education, Prescription Opioid Use. Follow up: Private Physician; When: Upon discharge from the Emergency Department; Reason: Recheck today's complaints, Continuance of care, Re-evaluation by your physician. tw4
--- NOTE | 2019-06-20 11:46 | RAD REPORT ---
EXAM DESCRIPTION: Head C Spine Mpr Wo Con CLINICAL HISTORY: PAIN COMPARISON: 04/19/2018 TECHNIQUE: Axial CT of the head obtained from the skull apex to the skull base without contrast. Axi al CT images of the cervical spine obtained from the skull base through the thoracic inlet. Sagittal and coronal reformatted images available. FINDINGS: CT head: No acute intracranial hemorrhage identified. No mass, mass effect, shift of the midline, abnormal ext ra-axial fluid collection or CT evidence of acute ischemic change identified. Encephalomalacia in the right frontal, parietal, and temporal lobes compatible with remote infarction. Scattered areas of hy podensity supratentorial white matter are nonspecific and may represent sequela of chronic small vess el ischemic change. The ventricular system and sulcal spaces are age appropriate. The visualized paranasal sinuses and the mastoids are clear. No skull fracture identified. Visual ized orbits and globes are unremarkable. Cervical CT: Straightening of the cervical lordosis may be secondary to patient positioning. Posterior laminectomi es at C3-C6. The atlantoaxial, atlantodental, and occipitoatlantal intervals are preserved. No fr acture identified. Vertebral body height preserved. Prevertebral soft tissues are unremarkable. Moderate to severe multilevel loss of intervertebral disc height with endplate spondylosis and facet arthropathy. Multilevel mild osseous neural foraminal narrowing. Spurring of the atlantodental articu lation. Visualized skull base is intact. No fracture of the visualized facial bones. Visualized mastoid air c ells and paranasal sinuses are well aerated. Visualized thyroid is unremarkable. No cervical lymphadenopathy. No pneumothorax in the visualized lung apices. Atherosclerotic calcification of the carotid arteries. IMPRESSION: 1. No acute intracranial abnormality. 2. No acute fracture or subluxation of the cervical spine. 3. Remote right cerebral infarction. 4. Multilevel degenerative change of the cervical spine with postoperative change at C3-C6. This exam was performed according to our departmental dose-optimization program, which includes autom ated exposure control, adjustment of the mA and/or kV according to patient size and/or use of iterati ve reconstruction technique. Electronically signed by: Allan Vang 06/19/2019 4:13 AM CDT Due to temporary technical issues with the PACS/Fluency reporting system, reports are being signed by the in house radiologist as a courtesy to ensure prompt reporting. The interpreting radiologist is charmaine ully responsible for the content of the report.
== END 2019-06-19 06:54 | disposition home or self-care (01) ==
LOC: ER 03:22
PROC: 0JQ10ZZ Repair Face Subcutaneous Tissue and Fascia, Open Approach (ICD-10-PCS; principal; 2019-06-19)
DX: S06.0X0A Concussion without loss of consciousness, initial encounter (principal); F12.10 Cannabis abuse, uncomplicated; S00.93XA Contusion of unspecified part of head, initial encounter; W07.XXXA Fall from chair, initial encounter; Y93.9 Activity, unspecified; Y92.9 Unspecified place or not applicable; Z79.01 Long term (current) use of anticoagulants; Z86.73 Personal history of transient ischemic attack (TIA), and cerebral infarction without residual deficits; I10 Essential (primary) hypertension; E78.00 Pure hypercholesterolemia, unspecified; G40.909 Epilepsy, unspecified, not intractable, without status epilepticus; F17.210 Nicotine dependence, cigarettes, uncomplicated
CPT/HCPCS: 36415; 70450; 72125; 80048; 80307; 80320; 81003; 82550; 85025; 90714; 99284

== ENCOUNTER 2020-06-01 07:49 | Inpatient (IN) | payer OTHER ==
[2020-06-01] MEDS ORDERED: ETOMIDATE 20 MG/10 ML VIAL IV ONE ×2 (07:50→08:16)
[2020-06-01] MEDS ORDERED: SUCCINYLCHOLINE 20 MG/ML (10 ML) IV ONE (07:50)
[2020-06-01] MEDS ORDERED: RSI MEDICATION KIT IV ONE (08:07)
[2020-06-01] MEDS ORDERED: NA CHLORIDE 0.9% 1,000 ML ONE ×2 (08:17→13:16)
[2020-06-01] MEDS ORDERED: propofoL 1,000 MG/100 ML VIAL IV ONE ×3 (08:22→18:38)
--- NOTE | 2020-06-01 08:39 | RAD REPORT ---
EXAM DESCRIPTION: Dru Single View06/01/2020 8:18 am CLINICAL HISTORY: Endotracheal tube placement COMPARISON: 2018 FINDINGS: The tip of an endotracheal tube lies 8 millimeters above the top of the aortic arch Nasogastric tube within the gastric fundus The lungs appear clear of acute infiltrate. The heart is normal size
--- NOTE | 2020-06-01 09:11 | RAD REPORT ---
EXAM DESCRIPTION: CT - Head C Spine Cap Chris Deshpande - 06/01/2020 8:44 am CLINICAL HISTORY: Head and neck injury with chest and abdominal pain status post fall. Head and neck pain . TECHNIQUE: Computed axial tomography of the head and cervical spine was obtained Computed axial tomography of the chest, abdomen and pelvis was obtained. 100 cc Isovue-300 was given intravenously coronal and sagittal reconstruction was performed. All CT scans are performed using dose optimization technique as appropriate and may include automated exposure control or mA/KV adjustment according to patient size. COMPARISON: CT head and C-spine 2019 FINDINGS: Large right scalp hematoma. No underlying skull fracture is seen. An intracranial bleed is not seen. Large areas of cystic encephalomalacia right cerebral. Presumably this is secondary to an old infarct. An extra-axial fluid collection is not noted. A cervical fracture is not seen. No dislocation is seen. Postsurgical changes involve the cervical sp ine A mediastinal hematoma is not noted. A pleural effusion is not present. Ground-glass opacities are pr esent within the anterior right upper lobe. Endotracheal tube with its tip well above the francesca. A n asogastric tube has its tip in the gastric fundus up against the wall. The liver, spleen, pancreas, adrenals, kidneys and bladder do not demonstrate a traumatic injury. A F oley catheter is present within the bladder. IMPRESSION: 1. No acute intracranial abnormality is seen 2. A cervical fracture is not visualized. If the patient continues have symptoms to suggest intracran ial/spinal cord pathology then MRI would be recommended. 3. No traumatic injury involving the chest, abdomen or pelvis is seen. 4. Ground-glass opacities within the right lung may be secondary to a pneumonia or pneumonitis
--- NOTE | 2020-06-01 09:15 | RAD REPORT ---
EXAM DESCRIPTION: CTOrbits Wo Con W/ Mpr06/01/2020 8:43 am CLINICAL HISTORY: Facial injury status post fall COMPARISON: None. TECHNIQUE: Computed axial tomography of the sinuses were obtained with coronal and sagittal reconstr uction. All CT scans are performed using dose optimization technique as appropriate and may include automated exposure control or mA/KV adjustment according to patient size. FINDINGS: Large right preseptal hematoma extending into the right frontal scalp. The globes are normal size and density. No fracture seen. No TMJ dislocation IMPRESSION: Large right preseptal hematoma extending into the right frontal scalp No fracture visualized
[2020-06-01 10:17] LABS: Barbiturates NEGATIVE (NEGATIVE); Benzodiazepines NEGATIVE (NEGATIVE); Cocaine NEGATIVE (NEGATIVE); METHAMPHETAM NEGATIVE (NEGATIVE); Methadone NEGATIVE (NEGATIVE); Opiates NEGATIVE (NEGATIVE); Phencyclidine NEGATIVE (NEGATIVE); THC Cannibis POSITIVE (NEGATIVE)
[2020-06-01 10:32] LABS: Absolute Lymphocytes (CBC) 0.7 K/uL (0.7-4.9); Basophils % 0.3 % (0-1.3); Hematocrit 34.2 % (36.0-45.0); MPV 7.4 fL (7.6-11.3); RBC Red Blood Cell Count 4.24 M/uL (3.86-4.86)
[2020-06-01 10:40] LABS: Protime INR 1.03
[2020-06-01 10:54] LABS: ALT/SGPT 39 U/L (12-78); AST/SGOT 61 U/L (15-37); Albumin 3.6 g/dL (3.4-5.0); Alkaline Phosphatase 110 U/L (45-117); BUN Blood Urea Nitrogen 7 mg/dL (7-18); Bicarbonate 26 mmol/L (21-32); Bilirubin Direct 0.1 mg/dL (0-0.2); Bilirubin Total 0.5 mg/dL (0.2-1.0); Glucose Level 121 mg/dL (74-106); Magnesium 2.2 mg/dL (1.8-2.4); NT PRO-BNP 174 pg/mL (<125); Potassium 3.9 mmol/L (3.5-5.1); Protein, Total 6.9 g/dL (6.4-8.2); Sodium Level 128 mmol/L (136-145); Troponin (Emerg Dept Use Only) 0.06 ng/mL (0.0-0.045)
[2020-06-01 10:55] LABS: Arterial Blood Carboxyhemoglob 1.6 % (0-1.5); Blood Gas Oxyhemoglobin 94.6 % (94-97); Blood O2 Saturation 97.2 % (92-98.5)
[2020-06-01] MEDS ORDERED: CEFTRIAXONE/SWI 1gm 1 GM/10 ML SYR ONE (11:43)
[2020-06-01 11:47] LABS: Blood Morphology Comment NOTED (NOT SEEN); Platelet Estimate ADEQ
[2020-06-01 11:48] LABS: Anisocytosis SLIGHT; Burr Cells FEW; Hypochromasia 1+
[2020-06-01] MEDS ORDERED: levETIRAcetam 1,000 MG in NA CHLORIDE 0.9% 100 ML IV ONE (12:15)
[2020-06-01] MEDS ORDERED: LORazepam 2 MG/ML VIAL ONE ×3 (12:32→20:35)
[2020-06-01] MEDS ORDERED: NA CHLORIDE 0.9% 500 ML ONE (13:16)
--- NOTE | 2020-06-01 13:43 | EDPHYS ---
Physician Documentation [facility] Name: Lynne Urena Age: 64 yrs Sex: Female : 1955 Arrival Date: 06/01/2020 Time: 07:53 Bed 3 Private MD: ED Physician Ace Feng HPI: 06/01 08:07 This 64 yrs old Female presents to ER via Unassigned with complaints of AMS. kdr 08:07 The patient presents with agitation, confusion, decreased responsiveness, kdr disorientation, to person, to place, to time. Onset: The symptoms/episode began/occurred at an unknown time. The patient was found down at home by her son. He states that she ws striking herself with her hands. She has apparently not been any distress when last seen yesterday but an exact time is not known. Possible causes: CVA or TIA, drug use, alcohol, head injury, seizure. Associated signs and symptoms: The patient has no apparent associated signs or symptoms, Pertinent positives: agitation, combativeness. Current symptoms: In the emergency department the patient's symptoms are unchanged from the initial presentation, EMS had given Ativan IM without much impact. Patient's baseline: Unkown. It is unknown whether or not the patient has had similar symptoms in the past. It is unknown whether or not the patient has recently seen a physician. Historical: - Allergies: 08:22 NKA; sv - PMHx: 08:22 Chronic pain; CVA; epilepsy; High Cholesterol; Hypertension; sv - PSHx: 08:22 Hysterectomy; cervical laminectomy; Carotid surgery; sv - Immunization history: Last tetanus immunization: unknown. - Social history:: Smoking status: unknown. ROS: 08:07 Constitutional: Unable to obtain kdr 08:07 Unable to obtain ROS due to altered mental status, patient's speech is incomprehensible. Exam: 08:11 Constitutional: This is a well developed, well nourished patient who is awake, alert, kdr and in no acute distress. Neck: Trachea midline, no thyromegaly or masses palpated, and no cervical lymphadenopathy. Supple, full range of motion without nuchal rigidity, or vertebral point tenderness. No Meningismus. Chest/axilla: Normal chest wall appearance and motion. Nontender with no deformity. No lesions are appreciated. Cardiovascular: Regular rate and rhythm with a normal S1 and S2. No gallops, murmurs, or rubs. Normal PMI, no JVD. No pulse deficits. Respiratory: Lungs have equal breath sounds bilaterally, clear to auscultation and percussion. No rales, rhonchi or wheezes noted. No increased work of breathing, no retractions or nasal flaring. Abdomen/GI: Soft, non-tender, with normal bowel sounds. No distension or tympany. No guarding or rebound. No evidence of tenderness throughout. Back: No spinal tenderness. No costovertebral tenderness. Full range of motion. 08:11 Head/face: Noted is contusion, that is superficial, of the right eye, ecchymosis, of the right eye, of the The patient has multiple abrasions and hematoma mostly new around her body., hematoma, that is mild, of the right eye. 08:11 Neuro: Orientation: unable to test, Mentation: inappropriate for stated age, confused, Memory: unable to test, Cranial nerves: Motor: the patient is contracted, The patient has had a prior stroke and has left sided hemapresis. 11:19 ECG was reviewed by the Attending Physician. kdr Vital Signs: 07:53 BP 172 / 114; Pulse 115; Resp 23; Pulse Ox 100% on R/A; ss 08:03 BP 199 / 127; Pulse 120; Resp 18 A; Pulse Ox 100% on ETT ambu; ss 08:30 BP 156 / 102; Pulse 95; Resp 18; Pulse Ox 99% on 40% FiO2 ETT vent; hb 08:42 Weight 49.9 kg (R); ss 08:45 BP 145 / 97; Pulse 91; Resp 19; Pulse Ox 100% on 40% FiO2 ETT vent; hb 09:18 BP 140 / 104; Pulse 90; Resp 17; Temp 96.3(C); Pulse Ox 100% on ETT vent; ss 09:30 BP 126 / 96; Pulse 82; hb 09:45 BP 128 / 83; Pulse 95; Temp 96.7; Pulse Ox 100% on R/A; hb 10:00 BP 117 / 88; Pulse 94; Resp 25; Temp 97.1(C); Pulse Ox 99% on 35% FiO2 ETT vent; hb 10:15 BP 120 / 87; Pulse 99; Resp 24; Temp 97.2(C); Pulse Ox 98% on 35% FiO2 ETT vent; hb 10:45 BP 116 / 93; Pulse 92; Resp 25; Temp 97.1(C); Pulse Ox 100% on 35% FiO2 ETT vent; hb 11:00 BP 132 / 99; Pulse 92; Resp 24; Temp 97.2(C); Pulse Ox 100% on 35% FiO2 ETT vent; hb 11:15 BP 143 / 102; Pulse 94; hb 11:30 BP 141 / 98; Pulse 94; Resp 24; Pulse Ox 100% on 35% FiO2 ETT vent; hb 11:45 BP 132 / 88; Pulse 98; Pulse Ox 100% ; hb 12:15 BP 123 / 97; Pulse 98; Resp 24; Temp 98(C); Pulse Ox 100% on 35% FiO2 ETT vent; hb 12:45 BP 135 / 96; Pulse 97; Pulse Ox 100% on 30% FiO2 ETT vent; ss 13:00 BP 124 / 87; Pulse 92; Resp 24; Temp 97.4(C); Pulse Ox 100% on ETT vent; ss 13:15 BP 124 / 87; Pulse 87; Resp 24; Pulse Ox 100% on ETT vent; ss 13:30 BP 147 / 102; Pulse 90; Resp 24; Pulse Ox 100% on ETT vent; ss Pandora Coma Score: 07:53 Eye Response: spontaneous(4). Verbal Response: confused(4). Motor Response: localizes ss pain(5). Total: 13. Trauma Score (Adult): 07:53 Eye Response: spontaneous(1); Verbal Response: confused(1); Motor Response: localizes ss pain(1); Systolic BP: > 89 mm Hg(4); Respiratory Rate: 10 to 29 per min(4); Arnold Score: 13; Trauma Score: 11 08:45 Eye Response: to pain(0); Verbal Response: none(0); Motor Response: withdraws from hb pain(1); Systolic BP: > 89 mm Hg(4); Respiratory Rate: 10 to 29 per min(4); Pandora Score: 7; Trauma Score: 9 09:45 Eye Response: to pain(0); Verbal Response: none(0); Motor Response: withdraws from hb pain(1); Systolic BP: > 89 mm Hg(4); Respiratory Rate: 10 to 29 per min(4); Pandora Score: 7; Trauma Score: 9 10:45 Eye Response: to pain(0); Verbal Response: none(0); Motor Response: withdraws from hb pain(1); Systolic BP: > 89 mm Hg(4); Respiratory Rate: 10 to 29 per min(4); Pandora Score: 7; Trauma Score: 9 11:45 Eye Response: to pain(0); Verbal Response: none(0); Motor Response: extension hb (decerebrate)(0); Systolic BP: > 89 mm Hg(4); Respiratory Rate: 10 to 29 per min(4); Arnold Score: 5; Trauma Score: 8 12:45 Eye Response: to pain(0); Verbal Response: none(0); Motor Response: extension hb (decerebrate)(0); Systolic BP: > 89 mm Hg(4); Respiratory Rate: 10 to 29 per min(4); Arnold Score: 5; Trauma Score: 8 13:45 Eye Response: none(0); Verbal Response: none(0); Motor Response: extension hb (decerebrate)(0); Systolic BP: > 89 mm Hg(4); Respiratory Rate: 10 to 29 per min(4); Arnold Score: 4; Trauma Score: 8 Procedures: 08:14 Intubation: Ventilated with 100% NRB prior to procedure. O2 saturation prior to kdr procedure was 100 %. Intubated orally using # 3 Mary Ellen blade with 7.0 mm ETT. Successful on second attempt. Ventilated with Ambu bag. ventilator. Cricoid pressure applied during procedure. Tube secured with ETT suazo Placement verified by CXR, CO2 detector with (+) color change, auscultating bilateral breath sounds, O2 saturation after procedure was 100 %. Patient tolerated well. MDM: 08:14 Data reviewed: vital signs, nurses notes, lab test result(s). kdr 13:43 Patient medically screened. kdr 06/01 08:05 Order name: Basic Metabolic Panel; Complete Time: 11:11 kdr 06/01 08:05 Order name: CBC with Diff; Complete Time: 13:09 kdr 06/01 08:05 Order name: LFT's; Complete Time: 11:11 kdr 06/01 08:05 Order name: Magnesium; Complete Time: 11:11 kdr 06/01 08:05 Order name: NT PRO-BNP; Complete Time: 11:11 kdr 06/01 08:05 Order name: PT-INR; Complete Time: 11:11 kdr 06/01 08:05 Order name: Troponin (emerg Dept Use Only); Complete Time: 11:11 kdr 06/01 08:05 Order name: ETOH Level; Complete Time: 11:11 kdr 06/01 08:05 Order name: UDS; Complete Time: 11:11 kdr 06/01 10:25 Order name: SARS-COV-2 RT PCR; Complete Time: 11:11 EDMS 06/01 10:26 Order name: ABG; Complete Time: 11:11 em1 06/01 10:40 Order name: Manual Differential; Complete Time: 13:09 EDMS 06/01 11:42 Order name: Blood Culture Adult (2) sv 06/01 08:02 Order name: Chest Single View XRAY; Complete Time: 09:31 em1 06/01 08:05 Order name: CT Traumagram (Head C Spine CAP W Con); Complete Time: 09:31 kdr 06/01 08:10 Order name: Orbits Wo Con W/ Mpr; Complete Time: 09:31 EDMS 06/01 11:42 Order name: Lactate; Complete Time: 13:09 sv 06/01 11:42 Order name: Procalcitonin; Complete Time: 13:09 sv 06/01 12:00 Order name: CT Head Angio kdr 06/01 12:09 Order name: Tegretol Level; Complete Time: 13:09 em1 06/01 13:11 Order name: UPPER EXTREMITY VENOUS UNILATE; Complete Time: 14:15 EDMS 06/01 13:16 Order name: CT Head Brain wo Cont kdr 06/01 13:23 Order name: CREATININE WHOLE BLOOD; Complete Time: 13:43 EDMS 06/01 14:28 Order name: Blood Culture EDMS 06/01 16:59 Order name: Lactate Sepsis 2 HR Follow-up EDMS 06/01 20:01 Order name: Creatine Phosphokinase EDMS 06/01 20:01 Order name: CKMB Creatine Kinase MB EDMS 06/01 20:01 Order name: Troponin I EDMS 06/01 08:05 Order name: EKG; Complete Time: 08:06 kdr 06/01 08:05 Order name: Cardiac monitoring; Complete Time: 08:11 kdr 06/01 08:05 Order name: EKG - Nurse/Tech; Complete Time: 08:11 kdr 06/01 08:05 Order name: IV Saline Lock; Complete Time: 08:10 kdr 06/01 08:05 Order name: Labs collected and sent; Complete Time: 08:10 kdr 06/01 08:05 Order name: O2 Per Protocol; Complete Time: 08:10 kdr 06/01 08:05 Order name: O2 Sat Monitoring; Complete Time: 08:10 kdr 06/01 08:05 Order name: Black; Complete Time: 08:34 kdr 06/01 13:38 Order name: Forearm Right XRAY kdr 06/01 13:38 Order name: Hand Right 3 View XRAY kdr 06/01 14:30 Order name: RAD; Complete Time: 15:52 EDMS 06/01 14:32 Order name: RAD; Complete Time: 15:52 EDMS 06/01 15:22 Order name: US; Complete Time: 15:52 EDMS 06/01 15:58 Order name: CT EDMS EC:19 Rate is 105 beats/min. Rhythm is regular, Sinus tachycardia with No ectopy. QRS Ceres is kdr Normal. VA interval is normal. QRS interval is normal. QT interval is normal. Clinical impression: NSR w/ Non-specific ST/T Changes and Sinus tachycardia. Administered Medications: 07:56 Drug: Etomidate 20 mg Route: IVP; Site: right upper arm; hb 08:05 Follow up: Response: No adverse reaction; Patient is sedated ss 08:00 Drug: Succinylcholine 100 mg Route: IVP; Site: right upper arm; hb 08:05 Follow up: Response: No adverse reaction; Patient is sedated ss 08:15 Drug: Propofol 5 mcg/kg/min {Note: began at 5mcg/kg/min.} Route: IV; Rate: calculated ss rate; Site: right upper arm; 11:36 Not Given (Other Intervention Used): Rocephin - (cefTRIAXone) 1 grams IVPB once over 30 ss mins; (mix in 50 mL NS) 12:22 Drug: Ativan 1 mg Route: IVP; Site: left upper arm; hb 12:30 Follow up: Response: No adverse reaction; No change in condition ss 12:56 Drug: Rocephin (cefTRIAXone) 1 grams Route: IV; Rate: calculated rate; Site: right ss femoral; 13:00 Follow up: IV Status: Completed infusion ss 12:56 Drug: Keppra 1000 mg Route: IV; Rate: calculated rate; Site: right femoral; ss 13:12 Follow up: IV Status: Completed infusion ss 13:01 Drug: NS 0.9% (30 ml/kg) 30 ml/kg Route: IV; Rate: bolus; Site: right femoral; hb 14:00 Follow up: IV Status: Completed infusion; IV Intake: 1500ml ss 13:25 CANCELLED (Duplicate Order): NS 0.9% (30 ml/kg) 30 ml/kg IV at bolus once; Sepsis sv Protocol Disposition: 06/01/20 13:43 Hospitalization ordered by Chava Roque for Inpatient Admission. Preliminary diagnosis are Altered mental status, unspecified, Hypo-osmolality and hyponatremia. - Bed requested for Intensive Care Unit. - Status is Inpatient Admission. bb - Condition is Guarded. - Problem is new. - Symptoms are unchanged. Signatures: [facility] Keli Schroeder, RN RN sv Ace Feng MD MD [facility] Shweta Perdue RN RN bb Poornima Morales RN RN Shannan Leyva, NEGRA RN Corrections: (The following items were deleted from the chart) 09:44 08:47 CORONAVIRUS+MR.LAB.BRZ ordered. EDRI EDMS 13:11 13:09 Extremity Venous Uni Ltd+US.RAD.BRZ ordered. EDRI EDMS 13:25 13:10 NS 0.9% (30 ml/kg) 30 ml/kg IV at bolus once; Sepsis Protocol ordered. kdr sv 13:44 13:43 Hospitalization Ordered by Chava Roque DO for Inpatient Admission. Preliminary kdr diagnosis is Altered mental status, unspecified. Bed requested for Telemetry/MedSurg (Inpatient). Status is Inpatient Admission. Condition is Guarded. Problem is new. Symptoms are unchanged. kdr 13:47 13:44 06/01/2020 13:43 Hospitalization Ordered by Chava Roque DO for Inpatient sv Admission. Preliminary diagnosis is Altered mental status, unspecified; Hypo-osmolality and hyponatremia. Bed requested for Telemetry/MedSurg (Inpatient). Status is Inpatient Admission. Condition is Guarded. Problem is new. Symptoms are unchanged. kdr 22:01 13:47 06/01/2020 13:43 Hospitalization Ordered by Chava Roque DO for Inpatient bb Admission. Preliminary diagnosis is Altered mental status, unspecified; Hypo-osmolality and hyponatremia. Bed requested for [facility] ER HOLD. Status is Inpatient Admission. Condition is Guarded. Problem is new. Symptoms are unchanged. sv 22:22 22:01 06/01/2020 13:43 Hospitalization Ordered by Chava Roque DO for Inpatient bb Admission. Preliminary diagnosis is Altered mental status, unspecified; Hypo-osmolality and hyponatremia. Bed requested for Intensive Care Unit. Status is Inpatient Admission. Condition is Guarded. Problem is new. Symptoms are unchanged. bb
--- NOTE | 2020-06-01 13:43 | ER ---
Nurse's Notes [facility] Name: Lynne Urena Age: 64 yrs Sex: Female : 1955 Arrival Date: 06/01/2020 Time: 07:53 Bed 3 Private MD: Diagnosis: Altered mental status, unspecified;Hypo-osmolality and hyponatremia Presentation: 06/01 07:53 Chief complaint: EMS states: Found in her room, altered and hitting herself at 0700 ss this morning by son. Last seen normal last night. Multiple bruises and scrapes noted to all extremities. Hematoma noted to R upper eyelid and eyebrow. Appears patient may have fallen. Care prior to arrival: Medication(s) given: Ativan 3 mg IM Glucose check: 167. Mechanism of Injury: probable fall. Unwitnessed. Trauma event details: Injury occurred in the [facility], Injury occurred: at home. 07:53 Acuity: YEIMI 1 ss 07:53 Method Of Arrival: EMS: [facility] 07:53 Coronavirus screen: Client denies travel out of the [place] in the last 14 days. Initial ss Sepsis Screen: Does the patient meet any 2 criteria? Altered Mental Status. HR > 90 bpm. Does the patient have a suspected source of infection? No. Patient's initial sepsis screen is negative. Risk Assessment: Do you want to hurt yourself or someone else? Unable to obtain. Onset of symptoms is unknown. 14:30 Ebola Screen: Unable to complete the Ebola screening because: Patient is intubated. Triage Assessment: 08:41 General: SEE INITIAL GENERAL ASSESSMENT . ss Trauma Activation: Alert Physician: ED Physician; Name: ; Notified At: ; Arrived At: Physician: General Surgeon; Name: ; Notified At: ; Arrived At: Physician: Radiology; Name: ; Notified At: ; Arrived At: Physician: Respiratory; Name: ; Notified At: ; Arrived At: Physician: Lab; Name: ; Notified At: ; Arrived At: Historical: - Allergies: 08:22 NKA; sv - PMHx: 08:22 Chronic pain; CVA; epilepsy; High Cholesterol; Hypertension; sv - PSHx: 08:22 Hysterectomy; cervical laminectomy; Carotid surgery; sv - Immunization history: Last tetanus immunization: unknown. - Social history:: Smoking status: unknown. Screenin:03 Abuse screen: Unable to assess at this time. Pt is intubated and sedated. Unknown ss exactly how patient sustained injuries. 10:19 Fall Risk Fall in past 12 months (25 points). Secondary diagnosis (15 points) impaired ss mobility, CVA, IV access (20 points). Ambulatory Aid- None/Bed Rest/Nurse Assist (0 pts). Gait- Normal/Bed Rest/Wheelchair (0 pts) Mental Status- Overestimates/Forgets Limitations (15 pts.). 14:29 Nutritional screening: unable to obtain. Tuberculosis screening: No symptoms or risk ss factors identified. Primary Survey: 07:53 NO uncontrolled hemorrhage observed. Breathing/Chest: Respiratory pattern: regular, ss Respiratory effort: spontaneous, unlabored, Breath sounds: breath sounds appear to be clear. Pt is agitated and yelling, therefore making it difficult to assess. Circulation: Pulses: palpable right radial artery, right posterior tibial artery, left radial artery and left posterior tibial artery. Skin color: pink, Skin temperature: warm. Disability Alert. Exposure/Environment: All clothing and personal items were removed. Forensic evidence collection is not deemed to be indicated at this time. Items placed in patient belonging bag. There is no evidence of uncontrolled external bleeding. Obvious injury(ies) are noted at this time: SEE TRIAGE NOTE AND PRIMARY ASSESSMENT regarding scrapes and bruising to all extremities. 08:45 Reassessment Airway Airway Oral intubation Breathing/Chest Respiratory pattern Regular hb Respiratory effort Spontaneous Unlabored Chest inspection Symmetrical Circulation Color [place] Temperature Warm Dry Disability Painful stimuli. 09:45 Reassessment Airway Airway Oral intubation Breathing/Chest Respiratory pattern Regular hb Respiratory effort Spontaneous Unlabored Chest inspection Symmetrical Circulation Color [place] Temperature Warm Dry Disability Painful stimuli. 10:45 Reassessment Airway Airway Patent Breathing/Chest Respiratory pattern Regular hb Respiratory effort Spontaneous Unlabored Chest inspection Symmetrical Circulation Temperature Warm Dry Disability Painful stimuli. 11:45 Reassessment Airway Airway Oral intubation Oxygen Ventilator Breathing/Chest hb Respiratory effort Spontaneous Unlabored Circulation Temperature Warm Dry Disability Painful stimuli. 12:45 Reassessment Airway Airway Oral intubation Oxygen Ventilator Breathing/Chest hb Respiratory pattern Regular Respiratory effort Spontaneous Unlabored Circulation Color [place] Temperature Warm Dry Disability Painful stimuli. 13:45 Reassessment Airway Airway Oral intubation Breathing/Chest Respiratory effort Unlabored hb Chest inspection Symmetrical Circulation Color [place] Disability Painful stimuli. Secondary Survey: 07:53 HEENT: Head No injury/deformity Eyes: Ecchymosis noted right eyebrow, right upper ss eyelid and right outer canthus. Ears: clear Nose: clear Throat: No injury or deformity noted. is clear. Gastrointestinal: Abdomen is soft, non-distended, Bowel sounds present in all quadrants. Palpation No deficit noted. : No deficits noted. Injury Description: multiple bruises and scrapes noted to all extremities. Assessment: 07:53 General: Appears distressed, uncomfortable, slender, Behavior is agitated, restless, Pt ss is repeating over and over again, "help me! My back hurts" . Pain: Unable to use pain scale. Patient is disoriented. Does not appear to understand pain scale. 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 Swelling noted to R upper eyelid/ eyebrow. EENT: Nares are clear Oral mucosa is dry. Throat is clear. Cardiovascular: Pulses are palpable in right radial artery, right posterior tibial artery, left radial artery and left posterior tibial artery. Respiratory: Airway is patent Trachea midline Respiratory effort is even, unlabored, Respiratory pattern is regular, symmetrical, Breath sounds are diminished in left posterior lower lobe and right posterior lower lobe. GI: Abdomen is non-distended. : No signs and/or symptoms were reported regarding the genitourinary system. Derm: Bruising that is dark purple, on outer aspect of right eyebrow, right supraorbital ridge, right upper eyelid, right arm, left arm, right leg and left leg. 07:55 Reassessment: Decision made to intubate now by Dr. Feng. ss 08:03 Reassessment: Intubation successful. ss 08:30 Reassessment: Pt to CT VIA stretcher with Shannan Leyva RN , Respiratory therapist, mukesh Holloway and CT technicians. 08:47 Reassessment: Pt is back from CT. ss 09:53 Reassessment: Rt at bedside to adjust ETT per Dr. Feng, now 24cm \\T\\lip. hb 09:54 Reassessment: lab called for second recollect. Called phlebotomy to come collect as specimens are hemolyzing so quickly. 10:19 Reassessment: Recollected specimens sent to lab. Awaiting results. ss 10:30 Reassessment: Pt remains intubated and sedated, NAD. VSS. hb 10:57 Respiratory: Respiratory effort is even, unlabored, Ventilator assessment: ET Tube: ss Ventilator Mode: Assist Control (AC) Tidal Volume: 460 Respiratory Rate: 24 FiO2: 30% PEEP: 5 HOB > 30 degrees. 12:10 Reassessment: Dr. Roque at bedside assessing patient. Dr. Roque notified that ss bruising appears to be getting worse to R forearm and increased swelling is present. Radial pulses still palpable and strong. Decision to insert central line access at this time has been made. Tegretol level added to lab specimens that have been sent. Spoke with pharmacist Vargas who states that he will bring Goranjerry ALEX. 12:17 Reassessment: Dr. Feng at bedside preparing to place R femoral central line. ss 14:39 Reassessment: US at bedside obtaining carotid doppler. Vital Signs: 07:53 BP 172 / 114; Pulse 115; Resp 23; Pulse Ox 100% on R/A; ss 08:03 BP 199 / 127; Pulse 120; Resp 18 A; Pulse Ox 100% on ETT ambu; ss 08:30 BP 156 / 102; Pulse 95; Resp 18; Pulse Ox 99% on 40% FiO2 ETT vent; hb 08:42 Weight 49.9 kg (R); ss 08:45 BP 145 / 97; Pulse 91; Resp 19; Pulse Ox 100% on 40% FiO2 ETT vent; hb 09:18 BP 140 / 104; Pulse 90; Resp 17; Temp 96.3(C); Pulse Ox 100% on ETT vent; ss 09:30 BP 126 / 96; Pulse 82; hb 09:45 BP 128 / 83; Pulse 95; Temp 96.7; Pulse Ox 100% on R/A; hb 10:00 BP 117 / 88; Pulse 94; Resp 25; Temp 97.1(C); Pulse Ox 99% on 35% FiO2 ETT vent; hb 10:15 BP 120 / 87; Pulse 99; Resp 24; Temp 97.2(C); Pulse Ox 98% on 35% FiO2 ETT vent; hb 10:45 BP 116 / 93; Pulse 92; Resp 25; Temp 97.1(C); Pulse Ox 100% on 35% FiO2 ETT vent; hb 11:00 BP 132 / 99; Pulse 92; Resp 24; Temp 97.2(C); Pulse Ox 100% on 35% FiO2 ETT vent; hb 11:15 BP 143 / 102; Pulse 94; hb 11:30 BP 141 / 98; Pulse 94; Resp 24; Pulse Ox 100% on 35% FiO2 ETT vent; hb 11:45 BP 132 / 88; Pulse 98; Pulse Ox 100% ; hb 12:15 BP 123 / 97; Pulse 98; Resp 24; Temp 98(C); Pulse Ox 100% on 35% FiO2 ETT vent; hb 12:45 BP 135 / 96; Pulse 97; Pulse Ox 100% on 30% FiO2 ETT vent; ss 13:00 BP 124 / 87; Pulse 92; Resp 24; Temp 97.4(C); Pulse Ox 100% on ETT vent; ss 13:15 BP 124 / 87; Pulse 87; Resp 24; Pulse Ox 100% on ETT vent; ss 13:30 BP 147 / 102; Pulse 90; Resp 24; Pulse Ox 100% on ETT vent; ss Arnold Coma Score: 07:53 Eye Response: spontaneous(4). Verbal Response: confused(4). Motor Response: localizes ss pain(5). Total: 13. Trauma Score (Adult): 07:53 Eye Response: spontaneous(1); Verbal Response: confused(1); Motor Response: localizes ss pain(1); Systolic BP: > 89 mm Hg(4); Respiratory Rate: 10 to 29 per min(4); Pearson Score: 13; Trauma Score: 11 08:45 Eye Response: to pain(0); Verbal Response: none(0); Motor Response: withdraws from hb pain(1); Systolic BP: > 89 mm Hg(4); Respiratory Rate: 10 to 29 per min(4); Arnold Score: 7; Trauma Score: 9 09:45 Eye Response: to pain(0); Verbal Response: none(0); Motor Response: withdraws from hb pain(1); Systolic BP: > 89 mm Hg(4); Respiratory Rate: 10 to 29 per min(4); Arnold Score: 7; Trauma Score: 9 10:45 Eye Response: to pain(0); Verbal Response: none(0); Motor Response: withdraws from hb pain(1); Systolic BP: > 89 mm Hg(4); Respiratory Rate: 10 to 29 per min(4); Arnold Score: 7; Trauma Score: 9 11:45 Eye Response: to pain(0); Verbal Response: none(0); Motor Response: extension hb (decerebrate)(0); Systolic BP: > 89 mm Hg(4); Respiratory Rate: 10 to 29 per min(4); Arnold Score: 5; Trauma Score: 8 12:45 Eye Response: to pain(0); Verbal Response: none(0); Motor Response: extension hb (decerebrate)(0); Systolic BP: > 89 mm Hg(4); Respiratory Rate: 10 to 29 per min(4); Pearson Score: 5; Trauma Score: 8 13:45 Eye Response: none(0); Verbal Response: none(0); Motor Response: extension hb (decerebrate)(0); Systolic BP: > 89 mm Hg(4); Respiratory Rate: 10 to 29 per min(4); Pearson Score: 4; Trauma Score: 8 ED Course: 07:50 Inserted saline lock: 20 gauge in right upper arm, using aseptic technique. Blood ss collected. 07:53 Patient arrived in ED. em1 07:58 Inserted saline lock: 20 gauge in right upper arm, using aseptic technique. ,using hb aseptic technique. done by Keli OMER. 08:00 Thermoregulation: warm blanket given to patient. ss 08:00 Patient has correct armband on for positive identification. Placed in gown. Bed in low hb position. Call light in reach. Side rails up X2. satellite project site monitor on. Pulse ox on. NIBP on. 08:03 Assisted provider with intubation using 7.5 mm ETT via oral route. ET tube secured at ss 22cm at the lips. Set up intubation tray. Intubated by Ace Feng MD Placement verified by CO2 detector w/ + color change, auscultating bilateral breath sounds, Patient tolerated PT is sedated. 08:03 O2 via Pt is intubated and sedated. ss 08:04 Ace Feng MD is Attending Physician. kdr 08:09 16 F OG tube inserted.. Placement verified by return of gastric contents and and ss auscultation. placed to low intermittent suction. 08:16 Chest Single View XRAY In Process Unspecified. EDMS 08:18 Alcazar cath inserted, using sterile technique, 16 Fr., by me, balloon inflated, to ss gravity drainage, Patient tolerated is sedated Criticore alcazar. 08:22 Arm band placed on. sv 08:30 Triage completed. ss 08:43 Orbits Wo Con W/ Mpr In Process Unspecified. EDMS 08:44 CT Traumagram (Head C Spine CAP W Con) In Process Unspecified. EDMS 09:10 Lab(s) recollected, by me, sent to lab. sv 09:15 Inserted saline lock: 20 gauge in left forearm, using aseptic technique. Blood ss collected. 09:17 Poornima Morales, RN is Primary Nurse. ss 12:28 Assisted provider with central line placement. Set up central line tray. Triple lumen sv line placed in right femoral. Line placed by Ace Feng MD Placement verified by blood return, Dressed with Tegaderm, Patient tolerated well. Before procedure, did Practitioner(s) obtain informed consent? No. Patient \\T\\ family education about procedure, CLABSI prevention and S/S of infection? No. Time-out/Briefing performed prior to start of procedure? Yes. Was handwashing/sanitizing done immediately prior to procedure? Yes. Was patient positioned to in a way to prevent air embolism? Yes. Was procedure site sterilized? Yes, with chlorhexidine. Was the site allowed to dry? Yes. Was local anesthetic and/or sedation utilized? No. During the procedure, did the Practitioner(s) maintain a sterile field? Yes. Were unused ports clamped during insertion? Yes. Was a 2nd qualified MD obtained after 3 unsuccessful insertion attempts? Yes. Was blood aspirated from each lumen? Yes. After the procedure, did the Practitioner(s) clean the site and apply a sterile dressing? Yes. 13:41 UPPER EXTREMITY VENOUS UNILATE In Process Unspecified. EDMS 13:41 Chava Roque DO is Hospitalizing Provider. kdr 14:21 Patient admitted, IV remains in place. ss Restraints: 08:15 Non-Violent Restraint: Order obtained. Initiated on June 01, 2020 at 08:15 Unable to hb provide Restraint education. pt is altered. Actions/Behavior observed: Confused/disoriented, has difficulty remembering/follow instructions, has impaired decision making, has decreased level of consciousness, unable to follow instructions, repeated attempts to remove/tamper lines/tubes/IV med devices \\T\\ wound dressing, Less restrictive alternatives attempted: decrease environmental stimuli, 1:1 patient care, placed near Nurse station, reoriented to location, lines/tubes covered, eliminated unnecessary lines/tubes, Alternative interventions: Ineffective. Clinical justification for use: airway protection, line protection, patient safety, Mental status: agitated/restless, confused, Cognition: Unable to assess. poor judgement, poor safety awareness, impulsive, poor attention/concentration, unable to follow commands, Circulation: Within defined parameters (based on Cardiovascular assessment) Skin integrity: Within defined parameters (based on Integumentary assessment) Signs of injury related to restraint: No injuries noted. Restraint status: Side rails up x 4 Started. Soft wrist restraint (Right) Started. Soft wrist restraint (Left) Started. Criteria to discontinue Restraint not met. Restraint continued. 10:15 Non-Violent Restraint: Unable to provide Restraint education. Pt is sedated/ intubated ss . Actions/Behavior observed: unable to follow instructions, Pt is intubated . Less restrictive alternatives attempted: decrease environmental stimuli, placed near Nurse station, Circulation: Within defined parameters (based on Cardiovascular assessment) Skin integrity: Within defined parameters (based on Integumentary assessment) Signs of injury related to restraint: No injuries noted. Restraint status: Side rails up x 4 Soft wrist restraint (Right) Continued. Soft wrist restraint (Left) Continued. Criteria to discontinue Restraint not met. Restraint continued. 12:15 Non-Violent Restraint: Unable to provide Restraint education. Pt is intubated/ sedated ss . Circulation: Within defined parameters (based on Cardiovascular assessment) Skin integrity: Within defined parameters (based on Integumentary assessment) Signs of injury related to restraint: No injuries noted. Restraint status: Side rails up x 4 Continued. Soft wrist restraint (Right) Continued. Soft wrist restraint (Left) Continued. Criteria to discontinue Restraint not met. Restraint continued. 14:15 Non-Violent Restraint: Circulation: Within defined parameters (based on Cardiovascular ss assessment) Skin integrity: Within defined parameters (based on Integumentary assessment) Signs of injury related to restraint: No injuries noted. Restraint status: Side rails up x 4 Continued. Soft wrist restraint (Right) Continued. Soft wrist restraint (Left) Continued. Criteria to discontinue Restraint not met. Restraint continued. Administered Medications: 07:56 Drug: Etomidate 20 mg Route: IVP; Site: right upper arm; hb 08:05 Follow up: Response: No adverse reaction; Patient is sedated ss 08:00 Drug: Succinylcholine 100 mg Route: IVP; Site: right upper arm; hb 08:05 Follow up: Response: No adverse reaction; Patient is sedated ss 08:15 Drug: Propofol 5 mcg/kg/min {Note: began at 5mcg/kg/min.} Route: IV; Rate: calculated ss rate; Site: right upper arm; 11:36 Not Given (Other Intervention Used): Rocephin - (cefTRIAXone) 1 grams IVPB once over 30 ss mins; (mix in 50 mL NS) 12:22 Drug: Ativan 1 mg Route: IVP; Site: left upper arm; hb 12:30 Follow up: Response: No adverse reaction; No change in condition ss 12:56 Drug: Rocephin (cefTRIAXone) 1 grams Route: IV; Rate: calculated rate; Site: right ss femoral; 13:00 Follow up: IV Status: Completed infusion ss 12:56 Drug: Keppra 1000 mg Route: IV; Rate: calculated rate; Site: right femoral; ss 13:12 Follow up: IV Status: Completed infusion ss 13:01 Drug: NS 0.9% (30 ml/kg) 30 ml/kg Route: IV; Rate: bolus; Site: right femoral; hb 14:00 Follow up: IV Status: Completed infusion; IV Intake: 1500ml ss 13:25 CANCELLED (Duplicate Order): NS 0.9% (30 ml/kg) 30 ml/kg IV at bolus once; Sepsis sv Protocol Intake: 14:00 IV: 1500ml; Total: 1500ml. ss 14:31 PO: 0ml; IV: 1600ml (IV Fluid); Total: 3100ml. ss Output: 09:15 Urine: 1000ml (Alcazar); Total: 1000ml. sv 14:31 Urine: 1100ml (Alcazar); Total: 2100ml. ss Outcome: 13:43 Decision to Hospitalize by Provider. kdr 13:47 Admitted to ER Hold. Please see [facility] for further documentation. hb 14:20 Patient's length of stay in the Emergency Department was greater than 2 hours. Pt ss admitted to ICUPatient's length of stay extended due to 14:29 Condition: stable ss 14:29 Instructed on Son instructed on the need for admit. Verbalized understanding 22:22 Patient left the ED. bb Signatures: Dispatcher [employer] Keli De La O, RN RN Ace Ward MD MD [facility] Shweta Perdue RN RN bb Martinez, Eric em1 Poornima Morales RN RN Shannan Leyva RN RN hb Corrections: (The following items were deleted from the chart) 08:19 08:18 Alcazar cath inserted, using sterile technique, 16 Fr., by wv, balloon inflated, to ss gravity drainage, Patient tolerated is sedated Corticore alcazar ss 09:20 09:18 Pulse 90bpm; Resp 17bpm; Pulse Ox 100% ET / Ventilator; Temp 96.3F Catheter; ss ss 09:58 09:55 BP 128 / 83; Pulse 95bpm; Pulse Ox 100% RA; Temp 96.7F; ss hb 09:59 09:30 BP 156 / 102; Pulse 95bpm; hb hb 10:57 08:30 BP 156 / 102; Pulse 95bpm; hb hb 10:58 10:53 Reassessment: Pt remains intubated and sedated, NAD. VSS. hb hb
[2020-06-01] MEDS ORDERED: SODIUM CHLORIDE 0.9% 10ML INJ IV PRN (14:09)
[2020-06-01] MEDS ORDERED: ACETAMINOPHEN 650MG/RECT SUPP PR PRN (14:09)
[2020-06-01] MEDS ORDERED: ONDANSETRON 4 MG/2 ML VIAL IV PRN (14:09)
--- NOTE | 2020-06-01 14:13 | RAD REPORT ---
EXAM DESCRIPTION: US - UPPER EXTREMITY VENOUS UNILATE - 06/01/2020 1:44 pm CLINICAL HISTORY: Right arm pain and swelling COMPARISON: None. TECHNIQUE: Real-time sonographic evaluation of the right upper extremity deep venous systems was per formed. FINDINGS: Normal compressibility, flow augmentation, phasic flow and spontaneous flow are identified in the right upper extremity deep venous system. The right axillary vein could not be optimally visu alized due to patient mobility limitation. No intraluminal filling defects seen. Internal jugular and subclavian veins are normal as well. IMPRESSION: No DVT in the right upper extremity. Axillary vein could not be adequately visualized to allow assessment.
--- NOTE | 2020-06-01 14:30 | RAD REPORT ---
EXAM DESCRIPTION: RAD - Hand Right 3 View - 06/01/2020 2:17 pm CLINICAL HISTORY: SWELLING COMPARISON: No comparisons FINDINGS: No fracture is identified. There is no dislocation or periosteal reaction noted. Soft tis radha swelling present over the dorsum of the hand. No air or foreign body. IMPRESSION: Negative right hand examination for acute bone or joint finding. Dorsal soft tissue swelling.
--- NOTE | 2020-06-01 14:32 | RAD REPORT ---
EXAM DESCRIPTION: RAD - Forearm Right - 06/01/2020 2:17 pm CLINICAL HISTORY: PAINarm trauma COMPARISON: No comparisons FINDINGS: No fracture is identified. There is no dislocation or periosteal reaction noted. Soft tissue swelling is present but no air or foreign body seen. IMPRESSION: Soft tissue swelling without acute bone or joint finding in the right forearm.
[2020-06-01] MEDS ORDERED: NA CHLORIDE 0.9% 250 ML IV PRN (15:00)
[2020-06-01] MEDS: ENOXAPARIN 40 MG/0.4 ML SQ SCH (15:00)
[2020-06-01] MEDS ORDERED: HALOPERIDOL LACT 5 MG/ML INJ IV PRN (15:00)
--- NOTE | 2020-06-01 15:21 | RAD REPORT ---
EXAM DESCRIPTION: US - CP - 06/01/2020 3:02 pm CLINICAL HISTORY: AMS, Hf of CVA COMPARISON: Head C Spine Mpr Wo Con dated 06/19/2019 TECHNIQUE: Real-time sonographic evaluation of bilateral carotid and vertebral systems was performed . Thompson scale and Doppler interrogation were performed with waveform tracing bilaterally. FINDINGS: Normal high resistance waveforms are noted in both external carotid arteries. The common c arotid arteries and internal carotid arteries show normal low resistance waveforms. Patient has significant dense calcified plaquing changes in each carotid bulb and proximal internal c arotid artery. On visual inspection there is significant luminal narrowing bilaterally. The peak syst olic velocities and ICA/CCA ratios do not suggest significant disease. However, the velocity values a nd ratios are felt to significantly under represent the severity of stenosis. Antegrade flow seen in both vertebral arteries. Velocity values and ratios were recorded and are retained in the patient's imaging records. IMPRESSION: Densely calcified plaquing changes at each carotid bulb and internal carotid artery. Although the velocity values and ratios are not outside of normal range, significant greater than 50% bilateral stenosis is suspected.
[2020-06-01 15:27] VITALS: BMI 20.8
--- NOTE | 2020-06-01 15:57 | RAD REPORT ---
EXAM DESCRIPTION: CT - Head Brain Wo Cont - 06/01/2020 3:43 pm CLINICAL HISTORY: CONFUSEDno onset mental status changes, head trauma COMPARISON: Head C Spine Cap W Con dated 06/01/2020 TECHNIQUE: Axial 5 mm thick images of the head were obtained without IV contrast. All CT scans are performed using dose optimization technique as appropriate and may include automated exposure control or mA/KV adjustment according to patient size. FINDINGS: No intracranial hemorrhage is present and no intracranial cerebral edema identified. Sulca l spaces have not changed. Very large old right cerebral CVA changes are again noted. There is been n o midline shift. Ventricles remain in proportion to the atrophy pattern. No acute cortical based infa rction. No abnormal extra-axial fluid collections. No new mastoid air cell or paranasal sinus finding. No skull fracture is seen. The patient has large right-sided scalp and very orbital hematoma changes have not clearly progressed since earlier study. IMPRESSION: No cerebral edema present. No new or progressive intracranial finding since examination earlier in the day. Large periorbital and right scalp hematoma changes are not clearly different from earlier study.
[2020-06-01] MEDS: NA CHLORIDE 0.9% 1,000 ML IV SCH (16:09)
[2020-06-01] MEDS: propofoL 1,000 MG/100 ML VIAL IV PRN (16:26)
[2020-06-01] MEDS: PIPER/TAZO/NS 3.375gm 3.375 GM/100 ML BAG IVPB SCH (17:00)
--- NOTE | 2020-06-01 17:04 | P.HP ---
Certification for Inpatient Patient admitted to: Inpatient With expected LOS: >2 Midnights Patient will require the following post-hospital care: None Practitioner: I am a practitioner with admitting privileges, knowledge of patient current condition, hospital course, and medical plan of care. Services: Services provided to patient in accordance with Admission requirements found in Title 42 Section 412.3 of the Code of Federal Regulations Patient History Date of Service: 06/01/20 Primary Care Provider: Unknown; Neurology-Dr. Leonardo Reason for admission: Altered mental status History of Present Illness: 64-year-old female with history of CVA with left-sided residual weakness, seizure disorder, chronic pain, depression, hypertension and hyperlipidemia. Most of the information came from the son. Son reports that he saw the patient last night. Son reported that the patient was not acting herself. Patient smo kes marijuana regularly. She also uses some vaping marijuana as well. She told him that she was high. Then this morning she came to check on the patient. Patient was altered with increased agitation. Patient had multiple bruises to the legs and arms. She had hit her keen with the dresser. Her room was in disarray. Multiple things were not in order. EMS was called. EMS arrived. Patient was agitated. Patient required Ativan. In the ER patient was evaluated. Patient became very combative. To protect her and her airway and nursing, it was decided the patient needed to be intubated. Patient was intubated and sedated. On labs white count 23, hemoglobin 11.4. Platelet count 470. Sodium 128, potassium 3.9. GFR greater than 90. Glucose 121. Troponin 0 0.06. BNP 174. Procalcitonin 0.15. Patient was positive for THC. Covid test negative. X-rays of the arm showed no fracture. CT head showed no acute stroke. Repeat CT head showed no acute changes. Large right preseptal hematoma extending into the right frontal scalp was noted. X-ray showed possible right-sided pneumonia versus pneumonitis. The patient was stabilized. Central line placed. Case was discussed with neurology. Patient was given Ativan due to some more agitation and possible seizure. Keppra was also added. Patient was admitted for further evaluation and treatment. Son reports patient had been at a skilled facility after her last stroke. She apparently left AMA as the patient did not want to stay in a facility. Patient has been adamant about staying at home. Son reported patient has abuse with THC. Son fears patient is likely using some synthetics as well. Son had reported patient has been having increased cough and congestion. Allergies No Known Allergies Allergy (Unverified 06/01/20 12:15) Home medications list reviewed: Yes Home Medications: Amlodipine [Norvasc] 5 mg PO BID 08/29/16 Carbamazepine [Tegretol] 200 mg PO TID 08/29/16 Gabapentin 600 mg PO TID 08/29/16 Aspirin 325 mg PO DAILY #30 tablet 08/30/16 Atorvastatin Calcium [Lipitor] 40 mg PO BEDTIME #30 tab 08/30/16 Clopidogrel Bisulfate [Plavix] 75 mg PO DAILY #30 tablet 08/30/16 Venlafaxine HCl [Venlafaxine HCl ER] 75 mg PO DAILY 06/01/20 - Past Medical/Surgical History Diabetic: No -: Seizure disorder -: Hypertension -: Chronic pain -: Depression -: Hyperlipidemia -: History of CVA with left-sided residual weakness -: Carotid arterial disease -: THC use -: Hysterectomy -: Cervical laminectomy -: Right carotid enterectomy Psychosocial/ Personal History: Patient lives at home. - Family History Father -: Heart disease - Social History Smoking Status: Unknown if ever smoked Alcohol use: No CD- Drugs: Yes Caffeine use: Yes Place of Residence: Home Review of Systems is unable to be obtained Physical Examination - Vital Signs Temperature: 97 F Blood Pressure: 120/84 Pulse: 94 Respirations: 16 Pulse Ox (%): 100 - Physical Exam General: Other (Patient intubated and sedated.) HEENT: Other (Large right orbital hematoma and frontal hematoma.) Neck: Supple Respiratory: Clear to auscultation bilaterally Cardiovascular: Normal pulses, Regular rate/rhythm Gastrointestinal: Normal bowel sounds Musculoskeletal: Other (Multiple bruises noted throughout her body especially to the lower extremities, right upper extremity. Some excoriated areas to the knees.) Integumentary: Other (Multiple bruises noted throughout her body) Neurological: Other (Patient with history of left-sided residual weakness) - Studies Laboratory Data (last 24 hrs) 06/01/20 10:16: PT 11.8, INR 1.03 06/01/20 10:16: WBC 23.60 H*, Hgb 11.4 L, Hct 34.2 L, Plt Count 470 H 06/01/20 10:16: Sodium 128 L, Potassium 3.9, BUN 7, Creatinine 0.64, Glucose 121 H, Magnesium 2.2, Total Bilirubin 0.5, AST 61 H, ALT 39, Alkaline Phosphatase 110 Assessment and Plan - Plan Impression: Toxic encephalopathy likely with right lower lobe pneumonia suspect aspiration complicated with THC use with possible synthetics Falls with multiple bruises throughout her body complicated with underlying seizure disorder History of CVA with left-sided residual weakness Patient intubated for protection of patient and due to agitation Hyponatremia likely dehydration Hypertension Hyperlipidemia Depression Chronic pain Plan: Toxic encephalopathy likely with right lower lobe pneumonia suspect aspiration complicated with THC use with possible synthetics: Patient will be admitted for further evaluation and treatment. Case discussed with neurology who has seen patient in the past. Repeat CT head showed no acute changes. Patient given Ativan and started on IV Keppra. Will need to obtain home medications likely Tegretol. Check Tegretol level at this time. After confirmation of medications will need to restart home medications. Pulmonology consulted to wean off patient. Suspect aspiration will start IV Zosyn. Blood cultures obtained. Continue aspirin, Plavix, Lipitor, thiamine and folic acid. Once more stable and off ventilator will evaluate with stroke protocol MRI. Suspect encephalopathy related to THC with possible synthetic. Continue IV fluids. Spoke with son in detail. Advance care directives addressed in detail. Son wishes to make patient DNR. Will monitor closely. Anticipate improvement over the next 3 to 5 days. Falls with multiple bruises throughout her body complicated with underlying seizure disorder: We will have wound consulted to evaluate multiple wounds and make recommendations. Continue with IV Keppra. Once home medication verified restart medication. Check Tegretol level. History of CVA with left-sided residual weakness: Continue aspirin, Plavix, statin medication. Right medication for blood pressure. Patient intubated for protection of patient and due to agitation: Patient was intubated due to increased agitation. Agitation likely related to THC use and p ossible synthetics. Pulmonology consulted. Patient with aspiration pneumonia. Will treat with Zosyn. Await further recommendations from pulmonology. Hyponatremia likely dehydration: Continue IV fluids. Monitor closely. Electrolyte protocol in place. Hypertension: Obtain and restart home medication. Hyperlipidemia: Continue home medication Depression: Hold medication Chronic pain: We will provide medication for pain as needed. Discharge Plan: Home Plan to discharge in: Greater than 2 days - Advance Directives Does patient have a Living Will: Yes Does patient have a Durable POA for Healthcare: Yes - Code Status/Comfort Care Code Status Assessed: Yes (Patient is DNR) Time Spent Managing Pts Care (In Minutes): 55
[2020-06-01] MEDS ORDERED: ENOXAPARIN 40 MG/0.4 ML SQ ONE (17:13)
[2020-06-01] MEDS ORDERED: PIPER/TAZO/NS 3.375gm 3.375 GM/100 ML BAG ONE (17:14)
[2020-06-01 19:16] LABS: CKMB Creatine Kinase MB 19.7 ng/mL (0.3-3.6); Troponin I 0.95 ng/mL (0.0-0.045)
[2020-06-01] MEDS: FENTANYL CITR 100 MCG/2 ML IV PRN (19:40)
[2020-06-01] MEDS: LORazepam 2 MG/ML VIAL IV PRN ×2 (19:41→23:09)
[2020-06-01] MEDS ORDERED: FENTANYL CITR 100 MCG/2 ML ONE (19:55)
[2020-06-01] MEDS ORDERED: HALOPERIDOL LACT 5 MG/ML INJ ONE (20:36)
[2020-06-01] MEDS: levETIRAcetam 500 MG in NA CHLORIDE 0.9% 100 ML IV SCH (21:00)
[2020-06-01] MEDS: AMLODIPINE 5 MG TAB PO SCH (21:00)
[2020-06-01] MEDS: GABAPENTIN 300 MG CAP PO SCH (21:00)
[2020-06-01] MEDS ORDERED: HOME MED 1 EA UNK (Gabapentin [Gabapentin] 600 MG Tablet) PO SCH (21:00)
[2020-06-01] MEDS: ATORVASTATIN 40 MG TAB PO SCH (21:00)
[2020-06-01] MEDS: FAMOTIDINE 20 MG/2 ML VIAL IV SCH (21:00)
[2020-06-01] MEDS: carBAMazepine 200 MG TAB PO SCH (21:00)
[2020-06-01] MEDS ORDERED: LEVETIRACETAM 500 MG/5 ML VIAL IV ONE (22:58)
--- NOTE | 2020-06-01 23:08 | CON ---
Date of Consultation: 06/01/2020 Reason For Consultation: Altered mental status, possible seizure, prior stroke. History Of Present Illness: This is a 64-year-old patient, well known to myself with history of seiz ures, prior stroke. She lives at home by herself. She does have a part-time caregiver. We have adv ised her against that, but she is quite adamant about not living in a nursing facility. 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 The seizures actually preceded the stroke. They in general have not been extremely problematic over the years. She is on Tegretol 200 t.i.d. for th at diagnosis. She was found down on at home this morning by her son. He saw her last night and he n oted she was acting unusually, but she just claimed she was high as the patient smokes marijuana freq uently. He came back to check on her again this morning and found her on the floor of the room in [facility]. The patient has multiple ecchymoses, especially on the right side. She was confused and com bative. EMS was summoned. She was brought to the emergency department, where she had to be intubate d for airway protection. She had some jerking seizure-like type activity that is not present current ly. She was given some lorazepam and some Keppra, and then currently she is sedated on a propofol dr ip. There are no fortuitous movements. She has elevated white count. Tegretol was therapeutic at [address] scan of the brain demonstrated the old infarct. CT scan of head to pelvis demonstrated groun d-glass opacities in right long and cystic encephalomalacia, right MCA distribution. Case was review ed with the son. I had actually spoke with the son today as well. He does have a power of litigation attorney, has made her DNR. COVID is negative. Carotid Doppler, no occlusive stenosis. She does have a know n right carotid stenosis, that on angiogram was not felt to be severe enough to warrant revasculariza tion. No fractures of forearm, hand, cervical spine. The patient looks awful. She has a large ecch ymosis over the right eyebrow while. The lid is swollen shut. The right arm has a large ecchymosis as well. Consultation was requested. Past Medical History: As alluded to. Medications: At home, they are normally not too copious, aspirin, Effexor, gabapentin, Plavix, Tegre cliff, Lipitor, and Norvasc. Here, she is continuing those. Thiamine has been added. She is on a pro pofol drip. She is on Zosyn for probable aspiration pneumonia. She is on Keppra IV as well. Physical Examination: Vital Signs: She is afebrile at 98.1, heart rate 106. She is intubated. Respirations 18. She does overbreathe the vent. Blood pressure 121/89, sats 100%, FiO2 30. Heart: Sinus rhythm. Lungs: Sound clear. She is intubated, sedated. Neurologic: She withdraws the right side to painful stimuli. She has a triple flexion response to t he left leg. She has a fixed wrist and finger flexion on the left hand. Pupils reactive on the left , cannot test the right, although is not present. Face appears symmetric. Tone is increased on the left versus the right. Reflexes are generally brisk and toes are bilaterally upgoing. Pertinent Laboratory Data: Tegretol level 8.6. Drug screen positive THC. White count 23,000, hemog lobin 11.4, platelets 470. Sodium 128, creatinine 0.3, glucose 121. CPKs 1368. Troponin I elevated 0.95. Procalcitonin 0.15. COVID negative. Impression: Prior stroke, seizures, possible breakthrough seizure. There is a question if the patie nt may have been also abusing some synthetic marijuana. Plan: Continue general supportive care. Agree with IV thiamine. Continue the Keppra as well as the Tegretol for now. EEG has been ordered. We can obtain an MRI once the patient is weaned off the ve ntilator. She is in the ER hold status right now, so hopefully she will get an ICU bed and can start decreasing sedation and trying to wean her off the vent as tolerated. Thank you for the consult. We will continue to follow with you. ROBERT Voice ID: [id number] Report ID: [id number]
[2020-06-01] MEDS ORDERED: NA CHLORIDE 0.9% 100 ML ONE (23:15)
[2020-06-02] MEDS ORDERED: PIPER/TAZO/NS 3.375gm 3.375 GM/100 ML BAG ONE ×3 (00:06→11:15)
[2020-06-02] MEDS: PIPER/TAZO/NS 3.375gm 3.375 GM/100 ML BAG IVPB SCH ×2 (00:53→10:50)
[2020-06-02] MEDS: FENTANYL CITR 100 MCG/2 ML IV PRN ×2 (01:28→06:10)
[2020-06-02] MEDS: NA CHLORIDE 0.9% 1,000 ML IV SCH ×2 (03:29→19:39)
[2020-06-02] MEDS: propofoL 1,000 MG/100 ML VIAL IV PRN (05:03)
[2020-06-02] MEDS ORDERED: propofoL 1,000 MG/100 ML VIAL IV ONE (05:19)
[2020-06-02 06:04] LABS: Arterial Blood Carboxyhemoglob 1.5 % (0-1.5); Blood Gas Oxyhemoglobin 95.2 % (94-97); Blood O2 Saturation 97.5 % (92-98.5)
[2020-06-02 07:58] LABS: Absolute Lymphocytes (CBC) 1.5 K/uL (0.7-4.9); Basophils % 0.6 % (0-1.3); Hematocrit 27.7 % (36.0-45.0); Lymphocytes % 17.1 % (15.3-44.8); MPV 7.6 fL (7.6-11.3); RBC Red Blood Cell Count 3.44 M/uL (3.86-4.86)
[2020-06-02] MEDS: VENLAFAXINE HCL XR 75 MG CAP PO SCH (08:09)
--- NOTE | 2020-06-02 08:47 | RAD REPORT ---
EXAM DESCRIPTION: RAD - Chest Single View - 06/02/2020 7:10 am CLINICAL HISTORY: RESP FAILURE COMPARISON: CT imaging June 01, portable chest June 01 TECHNIQUE: AP portable chest image was obtained 06/02/2020 7:10 am . FINDINGS: Endotracheal tube is in place with tip mid aortic arch. NG tube is curled in the stomach. Fibrotic lung pattern is present. No new or progressive lung parenchymal process. Heart and vasculatu re are normal. No measurable pleural effusion and no pneumothorax. No acute bony abnormality seen. No acute aortic findings suspected. IMPRESSION: Fibrotic lung pattern with no new or progressive lung parenchymal process. ET tube and NG tube in good position.
[2020-06-02 08:53] LABS: CKMB Creatine Kinase MB 11.5 ng/mL (0.3-3.6); Troponin I 0.53 ng/mL (0.0-0.045)
--- NOTE | 2020-06-02 08:53 | P.PN ---
Subjective Date of Service: 06/02/20 Primary Care Provider: Unknown; Neurology-Dr. Leonardo Chief Complaint: Altered mental status Subjective: Other (Patient remains intubated and sedated.) Physical Examination - Vital Signs Temperature: 98.1 F Blood Pressure: 110/105 Pulse: 101 Respirations: 20 Pulse Ox (%): 100 - Studies Laboratory Data (last 24 hrs) 06/01/20 10:16: PT 11.8, INR 1.03 06/01/20 10:16: WBC 23.60 H*, Hgb 11.4 L, Hct 34.2 L, Plt Count 470 H 06/01/20 10:16: Sodium 128 L, Potassium 3.9, BUN 7, Creatinine 0.64, Glucose 121 H, Magnesium 2.2, Total Bilirubin 0.5, AST 61 H, ALT 39, Alkaline Phosphatase 1 10 Microbiology Data (last 24 hrs): 06/01/20 11:45 Blood - Blood Anaerobic Blood Culture - Final Assessment & Plan Discharge Plan: Home Plan to discharge in: Greater than 2 days Physician Review Additional Text: Physical exam: Patient remains intubated and sedated. Vital signs stable. Heart: Regular rate and rhythm Lungs: Clear to auscultation Abdomen: Soft, nondistended Extremities: Multiple bruises and excoriations to the extremities. This appears slightly improved since yesterday. Swelling to the right arm improved. Multiple bruises noted throughout. Large hematoma to the right orbital and frontal region. Impression: Toxic encephalopathy likely with right lower lobe pneumonia suspect aspiration complicated with THC use with possible synthetics Falls with multiple bruises throughout her body and a large hematoma to the right orbital/frontal region complicated with underlying seizure disorder with possible breakthrough seizure History of CVA with left-sided residual weakness Patient intubated for protection of patient and due to agitation Elevated troponin suspect NSTEMI hyponatremia likely dehydration Hypertension Hyperlipidemia Depression Chronic pain Anemia likely from multiple bruises Plan: Toxic encephalopathy likely with right lower lobe pneumonia suspect aspiration complicated with THC use with possible synthetics: Patient remains intubated and sedated. Repeat CT head unremarkable. Case discussed with neurology. Continue IV Keppra. Tegretol level was appropriate. Continue with Tegretol at this time. Continue with other medications including aspirin, Plavix, Lipitor, thiamine and folic acid. Will discuss with pulmonary to see if patient can be weaned off. Elevated troponin noted. Echocardiogram pending. Will consult cardiology for further recommendation. Anticipate no need for intervention at this time. Suspect encephalopathy related to breakthrough seizure complicated with patient using THC with possible synthetics. Patient also has pneumonia likely aspiration. Continue IV antibiotic therapy. Will discuss case with son. Case discussed with son yesterday. Patient is DNR. We will continue to monitor closely. Anticipate improvement over the next 3 to 5 days pending weaning off the ventilator. Patient likely desires to go home as she has refused long-term placement and skilled placement in the past. Will discuss with social psychologist. Falls with multiple bruises throughout her body and large hematoma to the right orbital/frontal region complicated with underlying seizure disorder with possibl e breakthrough seizure: Continue with current plan of care. Tegretol level within range. Tegretol restarted. Continue with IV Keppra. Continue with neurology recommendations. Need to address THC cessation once the patient is alert and able to be weaned off ventilator. History of CVA with left-sided residual weakness: Continue aspirin, Plavix, statin medication. Medication for blood pressure provided. Patient intubated for protection of patient and due to agitation: Patient remains intubated and sedated. Will have pulmonology wean off ventilator. Continue IV antibiotic therapy. Continue with above plan of care.. Elevated troponin suspect NSTEMI: Echocardiogram pending. Will consult cardiology for further recommendation. Anticipate no need for intervention at this time. Hyponatremia likely dehydration: Continue IV fluids. Monitor closely. Electrolyte protocol in place. Hypertension: Need to review home medication. Hyperlipidemia: Continue home medication Depression: Hold medication Chronic pain: We will provide medication for pain as needed. Need to obtain home medication. Anemia likely from multiple bruises: We will monitor closely. Maintain hemoglobin above 7.0. Time Spent Managing Pts Care (In Minutes): 55
[2020-06-02] MEDS ORDERED: ASPIRIN EC 81 MG TAB PO SCH (09:00)
[2020-06-02] MEDS ORDERED: THIAMINE 200 MG/2 ML INJ IVP SCH (09:00)
[2020-06-02] MEDS: FAMOTIDINE 20 MG/2 ML VIAL IV SCH (09:00)
[2020-06-02] MEDS ORDERED: VENLAFAXINE HCL 75 MG PO SCH (09:00)
[2020-06-02] MEDS ORDERED: FOLIC ACID 5 MG/ML VIAL IVP SCH (09:00)
[2020-06-02 09:02] LABS: BUN Blood Urea Nitrogen 2 mg/dL (7-18); Bicarbonate 28 mmol/L (21-32); Glucose Level 93 mg/dL (74-106); Sodium Level 137 mmol/L (136-145)
[2020-06-02 09:07] LABS: Potassium 2.9 mmol/L (3.5-5.1)
[2020-06-02] MEDS ORDERED: THIAMINE HCL 100 MG TABLET ONE (10:22)
[2020-06-02] MEDS ORDERED: ASPIRIN 81 MG CHEWABLE TABLET ONE (10:22)
[2020-06-02] MEDS ORDERED: CLOPIDOGREL 75 MG TABLET ONE (10:22)
[2020-06-02] MEDS ORDERED: FOLIC ACID 5 MG/ML VIAL ONE (10:23)
[2020-06-02] MEDS ORDERED: PANTOPRAZOLE 40 MG INJ ONE (10:23)
[2020-06-02] MEDS ORDERED: ENOXAPARIN 40 MG/0.4 ML SQ ONE (10:23)
[2020-06-02] MEDS: FOLIC ACID 1 MG in NA CHLORIDE 0.9% 50 ML IV SCH ×2 (10:31→10:32)
[2020-06-02] MEDS: CLOPIDOGREL 75 MG TABLET PO SCH (10:32)
[2020-06-02] MEDS: PANTOPRAZOLE 40 MG INJ IVP SCH (10:32)
[2020-06-02] MEDS: ENOXAPARIN 40 MG/0.4 ML SQ SCH (10:32)
[2020-06-02] MEDS: ASPIRIN 81 MG CHEWABLE TABLET PO SCH (10:32)
[2020-06-02] MEDS: levETIRAcetam 500 MG in NA CHLORIDE 0.9% 100 ML IV SCH ×2 (10:37→20:47)
[2020-06-02] MEDS: AMLODIPINE 5 MG TAB PO SCH ×2 (10:47→20:44)
[2020-06-02] MEDS: carBAMazepine 200 MG TAB PO SCH ×3 (10:47→20:43)
[2020-06-02] MEDS: GABAPENTIN 300 MG CAP PO SCH ×3 (10:48→20:46)
[2020-06-02] MEDS: KCL 20 MEQ/100 mL IVPB 20 MEQ/100 ML BAG IV SCH ×5 (10:50→23:25)
[2020-06-02] MEDS: LORazepam 2 MG/ML VIAL IV PRN ×3 (11:00→18:30)
[2020-06-02] MEDS ORDERED: GABAPENTIN 300 MG CAP ONE ×3 (11:01→21:04)
[2020-06-02] MEDS ORDERED: carBAMazepine 200 MG TAB ONE ×3 (11:01→20:48)
[2020-06-02] MEDS ORDERED: AMLODIPINE 5 MG TAB ONE ×2 (11:01→20:48)
[2020-06-02] MEDS ORDERED: THIAMINE 200 MG/2 ML INJ ONE (11:01)
[2020-06-02] MEDS ORDERED: KCL 20 MEQ/100 mL IVPB 20 MEQ/100 ML BAG IV ONE (11:02)
[2020-06-02] MEDS ORDERED: NA CHLORIDE 0.9% 1,000 ML ONE ×2 (11:15→19:56)
[2020-06-02] MEDS ORDERED: LORazepam 2 MG/ML VIAL ONE ×3 (11:18→18:35)
--- NOTE | 2020-06-02 13:34 | P.CNS ---
Date of Consult: 06/02/20 Reason for Consult: respiratory failure Primary Care Provider: Unknown; Neurology-Dr. Leonardo Chief Complaint: Altered mental status History of Present Illness: patient is 64 years of age with a history of stroke seizure disorders chronic pain depression drug abuse admitted with altered mental status she smokes marijuana regularly till the patient was high a had increasing agitation admitted to the hospital was combative intubated multiple bruises including trauma to the right I is currently stable Allergies No Known Allergies Allergy (Unverified 06/01/20 12:15) Home Medications: Amlodipine [Norvasc] 5 mg PO BID 08/29/16 Carbamazepine [Tegretol] 200 mg PO TID 08/29/16 Gabapentin 600 mg PO TID 08/29/16 Aspirin 325 mg PO DAILY #30 tablet 08/30/16 Atorvastatin Calcium [Lipitor] 40 mg PO BEDTIME #30 tab 08/30/16 Clopidogrel Bisulfate [Plavix] 75 mg PO DAILY #30 tablet 08/30/16 Venlafaxine HCl [Venlafaxine HCl ER] 75 mg PO DAILY 06/01/20 - Past Medical/Surgical History Diabetic: No -: Seizure disorder -: Hypertension -: Chronic pain -: Depression -: Hyperlipidemia -: History of CVA with left-sided residual weakness -: Carotid arterial disease -: THC use -: Hysterectomy -: Cervical laminectomy -: Right carotid enterectomy Psychosocial/ Personal History: Patient lives at home. - Family History Father Medical History: Heart disease - Social History Smoking Status: Unknown if ever smoked Alcohol use: No CD- Drugs: Yes Caffeine use: Yes Place of Residence: Home Review of Systems is unable to be obtained Physical Examination Temp Pulse Resp BP Pulse Ox 98.1 F 105 H 20 126/91 H 100 06/02/20 08:54 06/02/20 10:47 06/02/20 08:54 06/02/20 10:47 06/02/20 08:54 General: Unresponsive Neck: Supple, Other ( extensive bruising of the face including the right eye hematoma) Respiratory: Clear to auscultation bilaterally Cardiovascular: No edema, Normal S1 S2 - Problems (1) Respiratory failure Current Visit: Yes Status: Acute Plan: patient is 64 years of age admitted with agitation altered mental status history of for of a peeing and smoking marijuana patient is stable to be weaned off from the ventilator will Dc the propofol drip white count is now normal CPK elevated she has extensive hematoma of her face Dc antibiotics no evidence of pneumonia poly stress-induced elevated white count
[2020-06-02] MEDS ORDERED: KCL 20 MEQ/100 mL IVPB 40 MEQ/200 ML BAG IV ONE ×2 (13:45→22:02)
[2020-06-02] MEDS: HYDROMORPHONE HCL 2 MG/ML inj IV PRN ×2 (15:20→21:50)
[2020-06-02] MEDS: ACETAMINOPHEN 500 MG TAB PO PRN (17:17)
[2020-06-02] MEDS ORDERED: ACETAMINOPHEN 500 MG TAB ONE (17:31)
--- NOTE | 2020-06-02 19:25 | PN ---
Reason: Altered mental status, respiratory failure. Interval History: The patient is on the ventilator, but propofol has been weaned off. She had been given some sedation with fentanyl as she was agitated, but before then she was following some command s per the nursing staff. White count is much better down at 8.8, hemoglobin 9.3. No seizure activit y noted. EEG and MRI remained pending. Physical Examination: General: The patient is intubated, sedated. HEENT: Pupil reacts on the left, cannot check the right, large ecchymosis over the right eyebrow. O culocephalics are better. Neck: Supple. Extremities: Withdraws lower extremities to painful stimuli, right more briskly than the left. Pertinent Laboratory Data: Sodium 137, creatinine 0.37. White count 8.8. Impression: Prior stroke, complex partial seizures. Plan: Continue general supportive care and present medication. She does have some elevated troponin s and Cardiology has been consulted, although it seems unlikely that an acute cardiac intervention wi ll be performed. We will continue to follow with you. CULLEN/ADAN Voice ID: [id number] Report ID: [id number]
[2020-06-02] MEDS: ATORVASTATIN 40 MG TAB PO SCH (20:43)
[2020-06-02] MEDS ORDERED: ATORVASTATIN 20 MG TAB ONE (20:55)
[2020-06-02] MEDS ORDERED: NA CHLORIDE 0.9% 100 ML ONE (20:56)
[2020-06-02] MEDS ORDERED: LEVETIRACETAM 500 MG/5 ML VIAL IV ONE (20:56)
[2020-06-02] MEDS ORDERED: HYDROMORPHONE HCL 2 MG/ML inj ONE (22:03)
[2020-06-03] MEDS: LORazepam 2 MG/ML VIAL IV PRN ×6 (00:46→19:17)
[2020-06-03] MEDS ORDERED: LORazepam 2 MG/ML VIAL ONE ×7 (00:52→23:15)
[2020-06-03] MEDS: HYDROMORPHONE HCL 2 MG/ML inj IV PRN ×3 (02:20→07:17)
[2020-06-03] MEDS ORDERED: HYDROMORPHONE HCL 2 MG/ML inj ONE ×4 (02:28→10:26)
[2020-06-03] MEDS: MIDAZOLAM HCL 2 MG/2 ML INJ IV PRN ×2 (04:35→08:26)
[2020-06-03] MEDS ORDERED: MIDAZOLAM HCL 2 MG/2 ML INJ ONE ×2 (04:49→08:42)
[2020-06-03 05:15] LABS: Absolute Lymphocytes (CBC) 2.6 K/uL (0.7-4.9); Basophils % 0.7 % (0-1.3); Hematocrit 28.8 % (36.0-45.0); Lymphocytes % 25.3 % (15.3-44.8); MPV 7.5 fL (7.6-11.3); RBC Red Blood Cell Count 3.54 M/uL (3.86-4.86)
[2020-06-03 05:32] LABS: BUN Blood Urea Nitrogen 3 mg/dL (7-18); Bicarbonate 29 mmol/L (21-32); Glucose Level 84 mg/dL (74-106); Magnesium 2.2 mg/dL (1.8-2.4); Potassium 3.7 mmol/L (3.5-5.1); Sodium Level 137 mmol/L (136-145)
[2020-06-03] MEDS: NA CHLORIDE 0.9% 1,000 ML IV SCH (07:27)
[2020-06-03] MEDS ORDERED: NA CHLORIDE 0.9% 1,000 ML ONE (07:43)
[2020-06-03] MEDS: PANTOPRAZOLE 40 MG INJ IVP SCH (08:27)
[2020-06-03] MEDS: levETIRAcetam 500 MG in NA CHLORIDE 0.9% 100 ML IV SCH ×2 (08:27→20:47)
[2020-06-03] MEDS: ASPIRIN 81 MG CHEWABLE TABLET PO SCH (08:27)
[2020-06-03] MEDS: VENLAFAXINE HCL XR 75 MG CAP PO SCH (08:27)
[2020-06-03] MEDS: carBAMazepine 200 MG TAB PO SCH ×3 (08:27→21:00)
[2020-06-03] MEDS: GABAPENTIN 300 MG CAP PO SCH ×3 (08:27→21:00)
[2020-06-03] MEDS: AMLODIPINE 5 MG TAB PO SCH ×2 (08:27→21:00)
[2020-06-03] MEDS: CLOPIDOGREL 75 MG TABLET PO SCH (08:27)
[2020-06-03] MEDS: ENOXAPARIN 40 MG/0.4 ML SQ SCH (08:28)
[2020-06-03] MEDS ORDERED: ASPIRIN 81 MG CHEWABLE TABLET ONE (08:38)
[2020-06-03] MEDS ORDERED: AMLODIPINE 5 MG TAB ONE (08:39)
[2020-06-03] MEDS ORDERED: carBAMazepine 200 MG TAB ONE (08:39)
[2020-06-03] MEDS ORDERED: POTASSIUM 25 MEQ EFFERV TAB ONE (08:39)
[2020-06-03] MEDS ORDERED: GABAPENTIN 300 MG CAP ONE (08:39)
[2020-06-03] MEDS ORDERED: PANTOPRAZOLE 40 MG INJ ONE (08:39)
[2020-06-03] MEDS ORDERED: CLOPIDOGREL 75 MG TABLET ONE (08:39)
[2020-06-03] MEDS ORDERED: ENOXAPARIN 40 MG/0.4 ML SQ ONE (08:40)
[2020-06-03] MEDS ORDERED: POTASSIUM 25 MEQ EFFERV TAB PO ONE (09:00)
[2020-06-03] MEDS: THIAMINE HCL 100 MG TABLET PO SCH (09:22)
[2020-06-03] MEDS ORDERED: THIAMINE HCL 100 MG TABLET ONE (09:39)
[2020-06-03] MEDS: FOLIC ACID 1 MG in NA CHLORIDE 0.9% 50 ML IV SCH (09:40)
--- NOTE | 2020-06-03 09:41 | P.PN ---
Subjective Date of Service: 06/03/20 Primary Care Provider: Unknown; Neurology-Dr. Leonardo Chief Complaint: Altered mental status Subjective: Other (Patient remained stable. Currently intubated and sedated.) Physical Examination - Vital Signs Temperature: 97.4 F Blood Pressure: 131/90 Pulse: 93 Respirations: 12 Pulse Ox (%): 97 - Studies Microbiology Data (last 24 hrs): 06/01/20 11:45 Blood - Blood Anaerobic Blood Culture - Final Assessment & Plan Discharge Plan: Other (Skilled placement versus home) Physician Review Additional Text: Physical exam: Patient remains intubated and sedated. Vital signs stable. Heart: Regular rate and rhythm Lungs: Clear to auscultation Abdomen: Soft, nondistended Extremities: Multiple bruises and excoriations to the extremities. This appears slightly improved since yesterday. Swelling to the right arm improved. Multiple bruises noted throughout. Large hematoma to the right orbital and frontal region. Impression: Toxic encephalopathy likely with right lower lobe pneumonia suspect aspiration complicated with THC use with possible synthetics Falls with multiple bruises throughout her body and a large hematoma to the right orbital/frontal region complicated with underlying seizure disorder with possible breakthrough seizure History of CVA with left-sided residual weakness Patient intubated for protection of patient and due to agitation Elevated troponin suspect NSTEMI hyponatremia likely dehydration Hypertension Hyperlipidemia Depression Chronic pain Anemia likely from multiple bruises Plan: Toxic encephalopathy likely with right lower lobe pneumonia suspect aspiration complicated with THC use with possible synthetics: Patient remains intubated and sedated. No changes since yesterday. Patient was still combated and failed her spontaneous breathing trial. Pulmonology to try to wean off today. Case discussed with pulmonology yesterday. We will again discussed today. Spoke with neurology yesterday. Continue with antiseizure medication. Will obtain MRI and EEG once off sedation and off ventilator. Continue IV Keppra and Tegre cliff at this time. Continue with other medications including aspirin, Plavix, Lipitor, thiamine and folic acid. Elevated troponin noted. Echocardiogram pending. Will consult cardiology for further recommendation. Anticipate no need for intervention at this time. Suspect encephalopathy related to breakthrough seizure complicated with patient using THC with possible synthetics. Spoke with son yesterday. More THC paraphernalia was noted in her home. Patient continue supportive care at this time. Monitor closely. Anticipate improvement over the next 3 to 5 days. Patient likely desires to go home as she has refused long-term placement and skilled placement in the past. Will discuss with addiction social worker. Continue to update son. Will monitor closely. Falls with multiple bruises throughout her body and large hematoma to the right orbital/frontal region complicated with underlying seizure disorder with possible breakthrough seizure: Continue with current plan of care. Tegretol level within range. Tegretol restarted. Continue with IV Keppra. Continue with neurology recommendations. Need to address THC cessation once the patient is alert and able to be weaned off ventilator. Will obtain EEG and MRI once off ventilator and without significant sedation. History of CVA with left-sided residual weakness: Continue aspirin, Plavix, statin medication. Medication for blood pressure provided. Patient intubated for protection of patient and due to agitation: Patient remains intubated and sedated. Will have pulmonology wean off ventilator. Continue IV antibiotic therapy. Continue with above plan of care. Elevated troponin suspect NSTEMI: Echocardiogram pending. Will consult cardiology for further recommendation. Anticipate no need for intervention at this time. Hyponatremia likely dehydration: Continue IV fluids. Monitor closely. Electro lyte protocol in place. Hypertension: Need to review home medication. Hyperlipidemia: Continue home medication Depression: Hold medication Chronic pain: We will provide medication for pain as needed. Need to obtain home medication. Anemia likely from multiple bruises: We will monitor closely. Maintain hemoglobin above 7.0. Time Spent Managing Pts Care (In Minutes): 55
[2020-06-03] MEDS ORDERED: LORazepam 2 MG/ML VIAL IV SCH (14:00)
[2020-06-03] MEDS: D5 0.9 NS 1,000 ML IV SCH (14:57)
[2020-06-03] MEDS: ATORVASTATIN 40 MG TAB PO SCH (21:00)
[2020-06-04] MEDS ORDERED: HALOPERIDOL LACT 5 MG/ML INJ IV ONE (00:46)
[2020-06-04] MEDS ORDERED: HALOPERIDOL LACT 5 MG/ML INJ ONE (01:06)
[2020-06-04] MEDS: D5 0.9 NS 1,000 ML IV SCH ×2 (02:34→17:01)
[2020-06-04] MEDS ORDERED: NA CHLORIDE 0.9% 0 ML ONE (02:46)
[2020-06-04] MEDS ORDERED: D5 0.9 NS 1,000 ML IV ONE ×2 (02:51→17:16)
[2020-06-04] MEDS: LORazepam 2 MG/ML VIAL IV PRN ×6 (04:15→21:02)
[2020-06-04] MEDS ORDERED: LORazepam 2 MG/ML VIAL ONE ×5 (04:15→21:12)
[2020-06-04 05:33] LABS: Absolute Lymphocytes (CBC) 1.4 K/uL (0.7-4.9); Basophils % 0.7 % (0-1.3); Hematocrit 26.5 % (36.0-45.0); Lymphocytes % 10.4 % (15.3-44.8); MPV 7.3 fL (7.6-11.3)
[2020-06-04 05:47] LABS: BUN Blood Urea Nitrogen 2 mg/dL (7-18); Bicarbonate 29 mmol/L (21-32); Glucose Level 131 mg/dL (74-106); Magnesium 1.8 mg/dL (1.8-2.4); Potassium 3.3 mmol/L (3.5-5.1); Sodium Level 136 mmol/L (136-145)
[2020-06-04] MEDS: ASPIRIN 81 MG CHEWABLE TABLET PO SCH (07:11)
[2020-06-04] MEDS: CLOPIDOGREL 75 MG TABLET PO SCH (07:11)
[2020-06-04] MEDS: VENLAFAXINE HCL XR 75 MG CAP PO SCH (07:11)
[2020-06-04] MEDS: GABAPENTIN 300 MG CAP PO SCH ×3 (07:11→20:20)
[2020-06-04] MEDS: AMLODIPINE 5 MG TAB PO SCH ×2 (07:11→20:21)
[2020-06-04] MEDS: THIAMINE HCL 100 MG TABLET PO SCH (07:12)
[2020-06-04] MEDS: carBAMazepine 200 MG TAB PO SCH ×3 (07:12→20:21)
[2020-06-04] MEDS: KCL 20 MEQ/100 mL IVPB 20 MEQ/100 ML BAG IV SCH ×2 (07:50→10:04)
[2020-06-04] MEDS: ENOXAPARIN 40 MG/0.4 ML SQ SCH (07:51)
[2020-06-04] MEDS: levETIRAcetam 500 MG in NA CHLORIDE 0.9% 100 ML IV SCH ×2 (07:52→20:20)
[2020-06-04] MEDS: FOLIC ACID 1 MG in NA CHLORIDE 0.9% 50 ML IV SCH (07:53)
[2020-06-04] MEDS: PANTOPRAZOLE 40 MG INJ IVP SCH (07:53)
[2020-06-04] MEDS ORDERED: MAGNESIUM SULFATE 1 gm IVPB 1 GM/100 ML BAG IV ONE ×2 (08:00→08:04)
[2020-06-04] MEDS ORDERED: ENOXAPARIN 40 MG/0.4 ML SQ ONE (08:02)
[2020-06-04] MEDS ORDERED: PANTOPRAZOLE 40 MG INJ ONE (08:02)
[2020-06-04] MEDS ORDERED: KCL 20 MEQ/100 mL IVPB 40 MEQ/200 ML BAG IV ONE (08:03)
--- NOTE | 2020-06-04 10:15 | P.PN ---
Subjective Date of Service: 06/04/20 Primary Care Provider: Unknown; Neurology-Dr. Leonardo Chief Complaint: Altered mental status Subjective: Other (Patient was extubated yesterday. Patient alert but still not wanting to cooperate. Reports she wants to go home.) Physical Examination - Vital Signs Temperature: 99.1 F Blood Pressure: 136/86 Pulse: 89 Respirations: 16 Pulse Ox (%): 97 Assessment & Plan Discharge Plan: Other (nursing home facility versus inpatient psych) Plan to discharge in: Greater than 2 days Physician Review Additional Text: Physical exam: Patient was extubated yesterday. Patient alert but not cooperative. Heart: Regular rate and rhythm Lungs: Clear to auscultation Abdomen: Soft, nondistended Extremities: Multiple bruises and excoriations to the extremities. This appears slightly improved since yesterday. Swelling to the right arm improved. Multiple bruises noted throughout. Large hematoma to the right orbital and frontal region. This appears improved. Impression: Toxic encephalopathy likely with right lower lobe pneumonia suspect aspiration complicated with THC use with possible synthetics Falls with multiple bruises throughout her body and a large hematoma to the right orbital/frontal region complicated with underlying seizure disorder with possible breakthrough seizure History of CVA with left-sided residual weakness Patient intubated for protection of patient and due to agitation Elevated troponin suspect NSTEMI hyponatremia likely dehydration Hypertension Hyperlipidemia Depression Chronic pain Anemia likely from multiple bruises Plan: Toxic encephalopathy likely with right lower lobe pneumonia suspect aspiration complicated with THC use with possible synthetics: Patient was extubated yesterday. Patient alert. Patient desires to go home. But she is not cooperative. Will get physical therapy, Occupational Therapy to evaluate. We will keep the patient n.p.o. at this time. Nurses to try swallow evaluation. If unsuccessful will pursue speech therapy evaluation. This has been ordered. Continue IV medication for seizure. Will obtain MRI and EEG tomorrow. Continue aspirin, Plavix, Lipitor, thiamine and folic acid. IV blood pressure medication added. Echocardiogram pending. Spoke with cardiology. No intervention needed at this time. Once the patient is more alert and awake will need to investigate mental status. Need to evaluate for suicidal ideation. Suspect encephalopathy related to breakthrough seizure complicated with patient using THC with possible synthetics. Spoke with son yesterday. More THC paraphernalia was noted in her home. There is some concern for the patient going back home. Will need to consider inpatient geriatric psychiatric transfer for evaluation and treatment. Son is agreeable to this. Await for the patient to be more alert and cooperative. Continue to monitor closely. Best case scenario is the patient agrees to go to a long-term care facility but need to consider inpatient psychiatric placement for evaluation considering her home situation. I will turn to service over to the hospitalist team tomorrow. I will go over the plan of care with him. Falls with multiple bruises throughout her body and large hematoma to the right orbital/frontal region complicated with underlying seizure disorder with possible breakthrough seizure: Continue with current plan of care. Tegretol level within range. Tegretol restarted. Continue with IV Keppra. This can be switched once patient is taking good oral intake. Continue with neurology recommendations. Need to address THC cessation. Will obtain EEG and MRI tomorrow. History of CVA with left-sided residual weakness: Continue aspirin, Plavix, statin medication. Medication for blood pressure provided. Patient intubated for protection of patient and due to agitation: Patient no longer intubated. Continue with above plan of care. Elevated troponin suspect NSTEMI: Echocardiogram pending. Cardiology plans for no intervention at this time due to her drug abuse. Hyponatremia likely dehydration: Continue IV fluids. Monitor closely. Electrolyte protocol in place. Hypertension: Education provided. Will transition to oral medication once taking good oral intake. Hyperlipidemia: Continue home medication Depression: Continue home medication medication Chronic pain: We will provide medication for pain as needed. Need to obtain home medication. Anemia likely from multiple bruises: We will monitor closely. Maintain hemoglobin above 7.0. Time Spent Managing Pts Care (In Minutes): 55
--- NOTE | 2020-06-04 11:00 | P.PN ---
Subjective Date of Service: 06/04/20 Primary Care Provider: Unknown; Neurology-Dr. Leonardo Chief Complaint: Respiratory failure Patient was extubated yesterday at least stable unresponsive Review of Systems is unable to be obtained Physical Examination - Vital Signs Temperature: 99.1 F Blood Pressure: 136/86 Pulse: 89 Respirations: 16 Pulse Ox (%): 97 - Physical Exam General: Unresponsive Respiratory: Clear to auscultation bilaterally, Diminished Cardiovascular: No edema, Regular rate/rhythm Assessment & Plan - Problems (Diagnosis) (1) Respiratory failure Current Visit: Yes Status: Acute Plan: Respiratory failure patient was extubated yesterday currently in stable condition not responsive final signs oxygenation all stable chest x-ray shows COPD changes add s bronchodilators patient has a history of seizures labs reviewed hypokalemic cultures negative history of drug abuse
[2020-06-04] MEDS ORDERED: ARFORMOTEROL TARTRATE 15 MCG/2 ML VIAL.NEB NEB SCH (12:00)
[2020-06-04] MEDS: MORPHINE 2 MG/ML SYR IV PRN ×2 (12:16→16:17)
[2020-06-04] MEDS: METOPROLOL TARTRATE 5 MG/5 ML INJ IV PRN ×2 (14:20→21:02)
[2020-06-04] MEDS ORDERED: METOPROLOL TARTRATE 5 MG/5 ML INJ IV ONE ×2 (14:36→21:18)
[2020-06-04] MEDS ORDERED: MORPHINE 2 MG/ML SYR ONE (16:33)
[2020-06-04] MEDS ORDERED: ZIPRASIDONE MESYLA 20 MG/VIAL IM PRN (17:47)
[2020-06-04] MEDS ORDERED: WATER FOR INJ,STERILE 10 ML IM PRN (17:47)
[2020-06-04] MEDS ORDERED: WATER FOR INJ,STERILE 10 ML ONE (18:07)
[2020-06-04] MEDS ORDERED: ZIPRASIDONE MESYLA 20 MG/VIAL IM ONE (18:07)
[2020-06-04] MEDS: ARFORMOTEROL TARTRATE 15 MCG/2 ML VIAL.NEB NEB SCH (20:12)
[2020-06-04] MEDS: ATORVASTATIN 40 MG TAB PO SCH (20:20)
--- NOTE | 2020-06-04 20:33 | CON ---
Date of Consultation: 06/02/2020 Reason For Consultation: Elevated troponin. History Of Present Illness: A 64-year-old female, present illness showed altered mental status, hist ory of CVA, left-sided weakness, seizure disorder, chronic pain, depression, hypertension, dyslipidem ia, and multisubstance drug abuse. Information was obtained from the chart. At the time of my evalu ation, the patient was on the ventilator and was not responsive. Son reports that he saw the patient night prior, was not acting herself, smokes marijuana regularly. She is saying she uses some vaping marijuana as well. He came into the morning to check on her. She was altered with increased agitat ion, multiple bruises, hitting herself, and all her things were not in order in her house. The patie nt was brought into the emergency room, required Ativan for admission. Troponin was slightly elevate d, but CK was elevated as well. No reported chest pain. No cardiac history. Past Medical History: Essential hypertension, seizure disorder, hypertension, chronic pain, depressi on, dyslipidemia, CVA, questionable carotid artery disease. Past Surgical History: Hysterectomy, cervical laminectomy, right carotid endarterectomy. Family History: No premature coronary artery disease or cancer. Social History: She uses marijuana on a regular basis. Social History: Not clear. Review of Systems: All systems reviewed and they were negative except as mentioned in the HPI. Physical Examination: Vital Signs: Reviewed and they were stable. Head and Neck: Multiple bruises of the face. The patient is not responsive on the vent. Lymph Nodes: No cervical lymphadenopathy. Neck: Supple. Thyroid not enlarged. Lungs: Rhonchi bilaterally. No rhonchi, rales, or crackles. No accessory muscle use. Heart: Regular. No extra sounds. Abdomen: Soft, nontender. Bowel sounds positive. No organomegaly. No masses or hernia. No rigidi ty or rebound. Extremities: No clubbing or cyanosis. Intact pulses. Skin: No rash or nodules. Neurologic: Sedated, on the vent. Investigations: Troponin peaked at 0.95 with a CK of 1368 and then trended down. Hemoglobin is 9.3. EKG; without acute specific abnormality. Assessment And Plan: Troponin leak, likely due to rhabdomyolysis. The patient has multiple psych is sues and drug abuse. At this point, recommend echocardiogram to be done and a nuclear stress test if the patient condition becomes more stable and further plan accordingly. Troponin leak is likely due to a mild case of rhabdomyolysis; however, given the fact that the patient has history of carotid st enosis, status post status post endarterectomy, ischemic workup is warranted. Thank you for the consult. /ADAN Voice ID: [id number] Report ID: [id number]
[2020-06-05] MEDS: MORPHINE 2 MG/ML SYR IV PRN ×2 (01:02→15:13)
[2020-06-05] MEDS ORDERED: MORPHINE 2 MG/ML SYR ONE ×2 (01:16→15:29)
[2020-06-05] MEDS: LORazepam 2 MG/ML VIAL IV PRN ×4 (02:28→17:43)
[2020-06-05] MEDS ORDERED: LORazepam 2 MG/ML VIAL ONE ×4 (02:41→17:59)
[2020-06-05 05:27] LABS: Absolute Lymphocytes (CBC) 1.8 K/uL (0.7-4.9); Basophils % 0.9 % (0-1.3); Hematocrit 30.6 % (36.0-45.0); MPV 7.5 fL (7.6-11.3); RBC Red Blood Cell Count 3.82 M/uL (3.86-4.86)
[2020-06-05 05:47] LABS: BUN Blood Urea Nitrogen 3 mg/dL (7-18); Bicarbonate 27 mmol/L (21-32); Glucose Level 122 mg/dL (74-106); Magnesium 2.1 mg/dL (1.8-2.4); Potassium 3.4 mmol/L (3.5-5.1); Sodium Level 137 mmol/L (136-145)
[2020-06-05] MEDS: ARFORMOTEROL TARTRATE 15 MCG/2 ML VIAL.NEB NEB SCH ×2 (08:00→20:15)
[2020-06-05] MEDS: levETIRAcetam 500 MG in NA CHLORIDE 0.9% 100 ML IV SCH (08:31)
--- NOTE | 2020-06-05 08:46 | ECHO ---
HEIGHT: 5 ft 1 in WEIGHT: 110 lb 3.698 oz DATE OF STUDY: 06/02/[address]: Chava Roque DO 2-DIMENSIONAL: YES M.MODE: YES DOPPLER: YES COLOR FLOW: YES TDS: YES PORTABLE: YES DEFINITY: NO BUBBLE STUDY: NO DIAGNOSIS: ALTERED MENTAL STATUS, HISTORY OF CVA CARDIAC HISTORY: CATHERIZATION: SURGERY: PROSTHETIC VALVE: PACEMAKER: MEASUREMENTS (cm) DIASTOLIC (NORMALS) SYSTOLIC (NORMALS) IVSd 0.9 (0.6-1.2) LA Diam 2.2 (1.9-4.0) LVEF 71% LVIDd 2.3 (3.5-5.7) LVIDs 1.4 (2.0-3.5) %FS 38% LVPWd 1.0 (0.6-1.2) Ao Diam 1.9 (2.0-3.7) 2 DIMENSIONAL ASSESSMENT: RIGHT ATRIUM: NORMAL LEFT ATRIUM: NORMAL RIGHT VENTRICLE: NORMAL LEFT VENTRICLE: NORMAL TRICUSPID VALVE: NORMAL MITRAL VALVE: NORMAL PULMONIC VALVE: NORMAL AORTIC VALVE: NORMAL PERICARDIAL EFFUSION: SMALL AORTIC ROOT: NORMAL LEFT VENTRICULAR WALL MOTION: NORMAL DOPPLER/COLOR FLOW: NORMAL COMMENTS: HYPERDYNAMIC LEFT VENTRICLE WITH LEFT VENTRICULAR EJECTION FRACTION >60%. NORMAL WALL MOTION. SMALL PERICARDIAL EFFUSION. TECHNOLOGIST: Morena LERNER
[2020-06-05] MEDS: CLOPIDOGREL 75 MG TABLET PO SCH (08:50)
[2020-06-05] MEDS: carBAMazepine 200 MG TAB PO SCH ×3 (08:50→21:21)
[2020-06-05] MEDS: VENLAFAXINE HCL XR 75 MG CAP PO SCH (08:50)
[2020-06-05] MEDS: AMLODIPINE 5 MG TAB PO SCH ×2 (08:50→21:22)
[2020-06-05] MEDS: GABAPENTIN 300 MG CAP PO SCH ×3 (08:50→21:20)
[2020-06-05] MEDS: ASPIRIN 81 MG CHEWABLE TABLET PO SCH (08:50)
[2020-06-05] MEDS: THIAMINE HCL 100 MG TABLET PO SCH (08:51)
[2020-06-05] MEDS: D5 0.9 NS 1,000 ML IV SCH (08:53)
[2020-06-05] MEDS: FOLIC ACID 1 MG in NA CHLORIDE 0.9% 50 ML IV SCH (08:53)
[2020-06-05] MEDS ORDERED: WATER FOR INJ,STERILE 10 ML ONE (08:57)
[2020-06-05] MEDS ORDERED: ZIPRASIDONE MESYLA 20 MG/VIAL IM ONE (08:57)
--- NOTE | 2020-06-05 08:59 | EKG ---
Test Date: 2020-06-02 Test Time: 11:44:12 Surgery Aid: ALYSA MEASUREMENT RESULTS: Intervals: Rate: 93 TX: 160 QRSD: 84 QT: 370 QTc: 460 [place]: P: 81 TX: 160 QRS: 75 T: 81 INTERPRETIVE STATEMENTS: Normal sinus rhythm Septal infarct, age undetermined Abnormal ECG Compared to ECG 06/01/2020 08:06:57 Myocardial infarct finding now present Sinus tachycardia no longer present Electronically Signed On 06-05-20 08:55:34 CDT by Augie Ahn
[2020-06-05] MEDS ORDERED: D5 0.9 NS 1,000 ML IV ONE (09:10)
[2020-06-05] MEDS: ENOXAPARIN 40 MG/0.4 ML SQ SCH (09:25)
[2020-06-05] MEDS ORDERED: ENOXAPARIN 40 MG/0.4 ML SQ ONE (09:41)
[2020-06-05] MEDS: METOPROLOL TARTRATE 5 MG/5 ML INJ IV PRN (12:41)
[2020-06-05] MEDS ORDERED: METOPROLOL TARTRATE 5 MG/5 ML INJ IV ONE (12:57)
--- NOTE | 2020-06-05 13:01 | RAD REPORT ---
EXAM DESCRIPTION: MRI - Brain W/Wo Cont - 06/05/2020 12:46 pm CLINICAL HISTORY: AMS, Hx of CVA Headache, drowsiness, CVA symptomology COMPARISON: MRA Head Wo Cont dated 06/05/2020; Head Brain Wo Cont dated 06/01/2020; MRA Neck W/Wo Cont d ated 06/05/2020 TECHNIQUE: Multi-sequence, multiplanar MR imaging of the brain was performed with contrast. FINDINGS: No intracranial hemorrhage, hydrocephalus, or extra-axial fluid collection. T2 and FLAIR h yperintensity in the right cerebral hemisphere is noted likely related to gliosis. No intracranial ma ss. DWI is negative for acute CVA. The midline structures are normally formed. Mastoid air cells and paranasal sinuses are clear. Modera te size right scalp hematoma. Post-contrast images show no abnormal enhancement to suggest tumor or infection. IMPRESSION: Negative for acute CVA or other acute intracranial abnormality.
--- NOTE | 2020-06-05 13:05 | RAD REPORT ---
EXAM DESCRIPTION: MRI - MRA Head Wo Cont - 06/05/2020 12:46 pm CLINICAL HISTORY: AMS, Hx of CVA CVA COMPARISON: Head Brain Wo Cont dated 06/01/2020 FINDINGS: 3D noncontrast [id number] MR angiography of the [place] was performed. No aneurysm, flow-limiting stenosis or vascular malformation is seen. Forward flow seen in codominant vertebral arteries. The visualized dural venous sinuses appear patent. IMPRESSION: No significant flow abnormality of the [place] is identified.
--- NOTE | 2020-06-05 13:18 | RAD REPORT ---
EXAM DESCRIPTION: MRI - MRA Neck W/Wo Cont - 06/05/2020 12:46 pm CLINICAL HISTORY: AMS, Hx of CVA Headache, drowsiness COMPARISON: Carotid Artery Bilateral dated 06/01/2020 FINDINGS: Contrast enhance 2D [id number] MR angiography of the neck vessels was performed. A left aortic arch is noted. Both common carotid arteries and subclavian arteries are patent. Both carotid bulbs demonstrate atherosclerotic narrowing. On the right based on NASCET criteria steno sis is estimated at 80%. On the left stenosis is estimated at 60 percent. Antegrade flow seen in both vertebral arteries. IMPRESSION: Bilateral proximal internal carotid artery stenosis is present, more severe on the right estimated at 80% based on NASCET criteria.
[2020-06-05] MEDS ORDERED: AMLODIPINE 5 MG TAB ONE (20:59)
[2020-06-05] MEDS ORDERED: ATORVASTATIN 20 MG TAB ONE (20:59)
[2020-06-05] MEDS ORDERED: GABAPENTIN 300 MG CAP ONE (20:59)
[2020-06-05] MEDS ORDERED: carBAMazepine 200 MG TAB ONE (21:00)
[2020-06-05] MEDS: levETIRAcetam 500 MG TAB PO SCH (21:17)
[2020-06-05] MEDS: ATORVASTATIN 40 MG TAB PO SCH (21:18)
[2020-06-05] MEDS ORDERED: QUETIAPINE 25 MG TAB ONE (21:22)
[2020-06-05] MEDS: QUETIAPINE 25 MG TAB PO SCH (21:22)
--- NOTE | 2020-06-05 23:07 | PN ---
Date of Progress Note: 06/05/2020 Reason: Altered mental status. History: The patient is off the ventilator. She is still in the ICU, less agitated, less confused. She is speaking coherently or at least semi-coherently. Brain MRI, no new stroke. MRA, known right carotid stenosis that has been angiogram in the past been was felt best be managed medically given t he patient's multiple other problems. The patient does express a desire to go home, but I did review with the patient. I think that needs to be done appropriately and safely. We will plan on weaning the Keppra off and we will add low-dose Seroquel in the evening. Ideally, the patient would be lilo ble to going to long-term as I am highly concerned about her returning to prior living situation. Physical Examination: General: She is awake, alert, afebrile. Vital Signs: Stable. Neurologic: She is slightly tangential and goal-directed in her thought process, but is lucid and kn ows she is in the hospital and recognizes me and can count fingers and identify simple objects. Pupi ls are reactive. Ocular motion full. Left hemianopia to confrontation. Spastic left hemiparesis, a rm greater than leg. Left-sided hyperreflexia. Pertinent Laboratory Data: White count is normal. Brain MRI/MRA as noted. Impression: Prior stroke, seizures, polysubstance abuse. Plan: Transfer to the floor. Wean Keppra off. Add Seroquel 25 mg at night. The patient still is h aving some agitation and delusion. She cannot walk herself on. We will continue to follow with you. CULLEN/ADAN Voice ID: [id number] Report ID: [id number]
[2020-06-06] MEDS: D5 0.9 NS 1,000 ML IV SCH ×4 (01:09→20:00)
[2020-06-06] MEDS ORDERED: D5 0.9 NS 1,000 ML IV ONE (01:24)
[2020-06-06 05:42] LABS: BUN Blood Urea Nitrogen 6 mg/dL (7-18); Bicarbonate 25 mmol/L (21-32); Glucose Level 103 mg/dL (74-106); Phosphorus 3.5 mg/dL (2.5-4.9); Potassium 3.6 mmol/L (3.5-5.1); Sodium Level 139 mmol/L (136-145)
[2020-06-06 05:52] LABS: Hematocrit 27.2 % (36.0-45.0); MPV 7.9 fL (7.6-11.3); RBC Red Blood Cell Count 3.35 M/uL (3.86-4.86)
[2020-06-06 08:20] LABS: Blood Morphology Comment NOT SEEN (NOT SEEN); Platelet Estimate INCR; White Blood Cell Scan OK (OK)
[2020-06-06] MEDS ORDERED: POTASSIUM CL SA 10 MEQ TAB PO ONE (09:00)
[2020-06-06] MEDS: CLOPIDOGREL 75 MG TABLET PO SCH (09:08)
[2020-06-06] MEDS: FOLIC ACID 1 MG in NA CHLORIDE 0.9% 50 ML IV SCH (09:08)
[2020-06-06] MEDS: ASPIRIN 81 MG CHEWABLE TABLET PO SCH ×2 (09:08→09:09)
[2020-06-06] MEDS: GABAPENTIN 300 MG CAP PO SCH ×3 (09:08→21:15)
[2020-06-06] MEDS: levETIRAcetam 500 MG TAB PO SCH (09:08)
[2020-06-06] MEDS: AMLODIPINE 5 MG TAB PO SCH ×2 (09:08→21:14)
[2020-06-06] MEDS: carBAMazepine 200 MG TAB PO SCH ×3 (09:08→21:14)
[2020-06-06] MEDS: ENOXAPARIN 40 MG/0.4 ML SQ SCH (09:09)
[2020-06-06] MEDS: VENLAFAXINE HCL XR 75 MG CAP PO SCH (09:10)
[2020-06-06] MEDS: THIAMINE HCL 100 MG TABLET PO SCH (09:11)
[2020-06-06] MEDS: ARFORMOTEROL TARTRATE 15 MCG/2 ML VIAL.NEB NEB SCH ×2 (09:46→20:05)
[2020-06-06] MEDS: ACETAMINOPHEN 500 MG TAB PO PRN (16:19)
[2020-06-06] MEDS: ATORVASTATIN 40 MG TAB PO SCH (21:14)
[2020-06-06] MEDS: QUETIAPINE 25 MG TAB PO SCH (21:14)
--- NOTE | 2020-06-06 23:05 | PN ---
Date of Progress Note: 06/06/2020 Reason: Seizures, prior stroke, confusion. Interval History: The patient is out of the ICU. She is on a floor bed. She is more cooperative an d less agitated today. She is amenable to at least discussing some alternative long-term care plan. I think ideally the patient would go to retirement for PT and OT and rehabilitation. She is maxim um assistance with therapy currently. If not, then she is amenable to home health as well. No seizu res. She is not excessively sedated on the Seroquel. Physical Examination: Vital Signs: Afebrile. Vitals are stable. General: She is awake, alert, oriented, knows she is in the hospital, knows her name, knows my name. She is not nearly as agitated as on yesterday's evaluation. HEENT: Pupils reactive. Ocular motion full. Baron full. Decreased left nasolabial fold. Spastic left hemiparesis unchanged. Left-sided hyperreflexia. Pertinent Laboratory Data: White count 12, hemoglobin 9. Creatinine 1.3. Impression: Stroke, seizures, altered mental status, stable to improving. Plan: Continue to wean the Keppra off. Continue the Seroquel at night. For now, we will check a Te gretol level in the morning. Continue therapy and disposition. I would suggest either ideally a retirement. If not, then alternatively Home Health. We will continue to follow with you. ROBERT Voice ID: [id number] Report ID: [id number]
[2020-06-07 04:52] LABS: Hematocrit 26.5 % (36.0-45.0); MPV 7.6 fL (7.6-11.3); RBC Red Blood Cell Count 3.24 M/uL (3.86-4.86)
[2020-06-07 04:56] LABS: BUN Blood Urea Nitrogen 8 mg/dL (7-18); Bicarbonate 26 mmol/L (21-32); Glucose Level 92 mg/dL (74-106); Phosphorus 3.8 mg/dL (2.5-4.9); Potassium 3.6 mmol/L (3.5-5.1); Sodium Level 141 mmol/L (136-145)
[2020-06-07] MEDS: FOLIC ACID 1 MG in NA CHLORIDE 0.9% 50 ML IV SCH (08:25)
[2020-06-07] MEDS: AMLODIPINE 5 MG TAB PO SCH ×2 (08:25→20:48)
[2020-06-07] MEDS: ARFORMOTEROL TARTRATE 15 MCG/2 ML VIAL.NEB NEB SCH ×2 (08:25→19:35)
[2020-06-07] MEDS: carBAMazepine 200 MG TAB PO SCH ×3 (08:26→20:49)
[2020-06-07] MEDS: GABAPENTIN 300 MG CAP PO SCH ×3 (08:26→20:48)
[2020-06-07] MEDS: THIAMINE HCL 100 MG TABLET PO SCH (08:27)
[2020-06-07] MEDS: CLOPIDOGREL 75 MG TABLET PO SCH (08:27)
[2020-06-07] MEDS: ENOXAPARIN 40 MG/0.4 ML SQ SCH (08:27)
[2020-06-07] MEDS: VENLAFAXINE HCL XR 75 MG CAP PO SCH (08:30)
[2020-06-07] MEDS ORDERED: POTASSIUM CL SA 10 MEQ TAB PO ONE (09:00)
[2020-06-07] MEDS ORDERED: levETIRAcetam 500 MG TAB PO SCH (09:00)
--- NOTE | 2020-06-07 09:23 | P.PN ---
Subjective Date of Service: 06/05/20 Patient waking up but still confused according to the son. She does answer lot of my questions appropriately. She is a little belligerent though. Review of Systems 10-point ROS is otherwise unremarkable Physical Examination - Vital Signs Temperature: 97.7 F Blood Pressure: 170/91 Pulse: 87 Respirations: 16 Pulse Ox (%): 95 - Physical Exam General: Alert, In no apparent distress, Oriented x1, Confused HEENT: Atraumatic, PERRLA, EOMI Neck: Supple, JVD not distended Respiratory: Clear to auscultation bilaterally, Normal air movement Cardiovascular: Regular rate/rhythm, Normal S1 S2 Gastrointestinal: Normal bowel sounds, Soft and benign, Non-distended, No tenderness Musculoskeletal: No clubbing, No swelling, No tenderness Neurological: Normal speech, Sensation intact, Cranial nerves 3-12 intact, Abnormal gait, Abnormal strength Lymphatics: No axilla or inguinal lymphadenopathy - Studies Microbiology Data (last 24 hrs): 06/01/20 11:58 Blood - Blood Aerobic Blood Culture - Final No growth in 5 days. 06/01/20 11:58 Blood - Blood Anaerobic Blood Culture - Final 06/01/20 11:58 Blood - Blood Gram Stain - Final 06/01/20 11:45 Blood - Blood Aerobic Blood Culture - Final No growth in 5 days. 06/01/20 11:45 Blood - Blood Anaerobic Blood Culture - Final Medications List Reviewed: Yes Assessment & Plan - Problems (Diagnosis) (1) Overdose Current Visit: Yes Status: Acute (2) Substance abuse Current Visit: Yes Status: Acute (3) Altered mental status Current Visit: Yes Status: Acute (4) Respiratory failure Current Visit: Yes Status: Acute (5) Paresthesia Onset Date: 08/30/16 Current Visit: No Status: Acute (6) Stenosis of right carotid artery greater than 50% Current Visit: No Status: Acute (7) Weakness Onset Date: 08/30/16 Current Visit: No Status: Acute - Plan Plan: 1. Continue with IV fluids 2. Continue with physical therapy 3. Monitor neurologic status closely 4. nursing home facility placement 5. Monitor electrolytes closely 6. GI and DVT prophylaxis Discharge Plan: Longterm Plan to discharge in: 72 Hours - Advance Directives Does patient have a Living Will: No Does patient have a Durable POA for Healthcare: Yes - Code Status/Comfort Care Code Status: Full Code Critical Care: No Time Spent Managing PTS Care (In Minutes): 45
--- NOTE | 2020-06-07 09:24 | P.PN ---
Date of Service: 06/06/20 Subjective Patient much more awake and alert. Patient following commands. Otherwise no new complaints. Working on custodial facility placement Review of Systems 10-point ROS is otherwise unremarkable Physical Examination - Vital Signs Reviewed - Physical Exam General: Alert, In no apparent distress, Oriented x1, Confused Respiratory: Clear to auscultation bilaterally, Normal air movement Cardiovascular: Regular rate/rhythm, Normal S1 S2 Gastrointestinal: Normal bowel sounds, Soft and benign, Non-distended, No tenderness Musculoskeletal: No clubbing, No swelling, No tenderness Neurological: Normal speech, Sensation intact, Cranial nerves 3-12 intact, Abnormal gait, Abnormal strength Assessment & Plan - Problems (Diagnosis) (1) Overdose Current Visit: Yes Status: Acute (2) Substance abuse Current Visit: Yes Status: Acute (3) Altered mental status Current Visit: Yes Status: Acute (4) Respiratory failure Current Visit: Yes Status: Acute (5) Paresthesia Onset Date: 08/30/16 Current Visit: No Status: Acute (6) Stenosis of right carotid artery greater than 50% Current Visit: No Status: Acute (7) Weakness Onset Date: 08/30/16 Current Visit: No Status: Acute - Plan Plan: Continue with plan of care as mentioned below 1. Continue with IV fluids 2. Continue with physical therapy 3. Monitor neurologic status closely 4. long-term facility placement 5. Monitor electrolytes closely 6. GI and DVT prophylaxis
--- NOTE | 2020-06-07 09:25 | P.PN ---
Date of Service: 06/07/20 Subjective Patient is doing well with no new complaints. Clinical symptoms have improved. She is contemplating going to a Residential Facility. She will either go to a custodial facility or she will go home. Review of Systems 10-point ROS is otherwise unremarkable Physical Examination - Vital Signs Reviewed - Physical Exam General: Alert, In no apparent distress, Oriented x1, Confused Respiratory: Clear to auscultation bilaterally, Normal air movement Cardiovascular: Regular rate/rhythm, Normal S1 S2 Gastrointestinal: Normal bowel sounds, Soft and benign, Non-distended, No tenderness Musculoskeletal: No clubbing, No swelling, No tenderness Neurological: Normal speech, Sensation intact, Cranial nerves 3-12 intact, Abnormal gait, Abnormal strength Assessment & Plan - Problems (Diagnosis) (1) Overdose Current Visit: Yes Status: Acute (2) Substance abuse Current Visit: Yes Status: Acute (3) Altered mental status Current Visit: Yes Status: Acute (4) Respiratory failure Current Visit: Yes Status: Acute (5) Paresthesia Onset Date: 08/30/16 Current Visit: No Status: Acute (6) Stenosis of right carotid artery greater than 50% Current Visit: No Status: Acute (7) Weakness Onset Date: 08/30/16 Current Visit: No Status: Acute - Plan Plan: Continue with plan of care as mentioned below 1. Continue with IV fluids 2. Continue with physical therapy 3. Monitor neurologic status closely 4. [facility] facility placement 5. Monitor electrolytes closely 6. GI and DVT prophylaxis
[2020-06-07] MEDS: D5 0.9 NS 1,000 ML IV SCH (13:02)
[2020-06-07 13:51] LABS: Urine Blood Negative (Negative); Urine Glucose Negative (Negative); Urine Protein Negative (Negative)
[2020-06-07] MEDS: ACETAMINOPHEN 500 MG TAB PO PRN ×2 (20:47)
[2020-06-07] MEDS: ATORVASTATIN 40 MG TAB PO SCH (20:48)
[2020-06-07] MEDS: QUETIAPINE 25 MG TAB PO SCH (20:48)
[2020-06-07] MEDS: ENSURE ENLIVE 237 ML CAN PO SCH (20:49)
[2020-06-08] MEDS: D5 0.9 NS 1,000 ML IV SCH ×2 (00:23→15:00)
--- NOTE | 2020-06-08 00:33 | PN ---
Date of Progress Note: 06/07/2020 Reason: Seizures, prior stroke. Interval History: No seizures. Tegretol level 11.9. I would not change the Tegretol dose. No recu rrent stroke-like symptoms. The patient is back to her baseline. The patient would benefit from goi ng to a long-term. She is somewhat agreeable to that. No new problems otherwise. Physical Examination: Vital Signs: She is afebrile. Vitals are stable. General: Awake, alert, conversant. HEENT: Pupils reactive. Left hemianopsia to confrontation. Spastic left hemiparesis unchanged. Le ft-sided hyperreflexia. Pertinent Laboratory Data: White count 8, hemoglobin 9, platelets 386. Tegretol 11.9. Impression: Prior stroke; seizures; altered mental status, stable, improved. Plan: Discontinue the Keppra. Discontinue the Seroquel. Ideally, the patient will go to nursing [facility] for therapy and some strengthening before transitioning back to home. If not, then I guess the ne best option would be for home health to evaluate the patient and then she can have home health. Thank you for the consult. We will continue to follow. ROBERT Voice ID: [id number] Report ID: [id number]
[2020-06-08 04:12] VITALS: O2SAT 96
[2020-06-08 05:12] LABS: BUN Blood Urea Nitrogen 7 mg/dL (7-18); Bicarbonate 28 mmol/L (21-32); Glucose Level 97 mg/dL (74-106); Magnesium 2.2 mg/dL (1.8-2.4); Phosphorus 3.4 mg/dL (2.5-4.9); Potassium 3.9 mmol/L (3.5-5.1); Sodium Level 140 mmol/L (136-145)
[2020-06-08] MEDS: THIAMINE HCL 100 MG TABLET PO SCH (07:53)
[2020-06-08] MEDS: AMLODIPINE 5 MG TAB PO SCH (07:53)
[2020-06-08] MEDS: ASPIRIN 81 MG CHEWABLE TABLET PO SCH (07:53)
[2020-06-08] MEDS: VENLAFAXINE HCL XR 75 MG CAP PO SCH (07:53)
[2020-06-08] MEDS: carBAMazepine 200 MG TAB PO SCH ×2 (07:53→15:21)
[2020-06-08] MEDS: ENOXAPARIN 40 MG/0.4 ML SQ SCH (07:53)
[2020-06-08] MEDS: CLOPIDOGREL 75 MG TABLET PO SCH (07:54)
[2020-06-08] MEDS: GABAPENTIN 300 MG CAP PO SCH ×2 (07:54→15:21)
[2020-06-08] MEDS: ENSURE ENLIVE 237 ML CAN PO SCH (07:54)
[2020-06-08] MEDS: ARFORMOTEROL TARTRATE 15 MCG/2 ML VIAL.NEB NEB SCH (08:15)
[2020-06-08] MEDS ORDERED: CLONIDINE HCL 0.3 MG TAB PO ONE (08:16)
[2020-06-08] MEDS ORDERED: HYDRALAZINE HCL 20 MG/ML VIAL IV ONE (08:16)
[2020-06-08] MEDS: FOLIC ACID 1 MG in NA CHLORIDE 0.9% 50 ML IV SCH (08:56)
[2020-06-08] MEDS ORDERED: POTASSIUM CL SA 10 MEQ TAB PO ONE (09:00)
--- NOTE | 2020-06-08 15:48 | P.DS ---
Discharge Date: 06/08/20 Primary Care Provider: Unknown; Neurology-Dr. Leonardo Disposition: DC HOME/HOME HEALTH CARE Discharge Condition: GOOD Reason for Admission: Respiratory failure Consultations: Neurology, cardiology, pulmonary - Problems (1) Overdose Status: Acute (2) Substance abuse Status: Acute (3) Altered mental status Status: Acute (4) Respiratory failure Status: Acute (5) Paresthesia Onset Date: 08/30/16 Status: Acute (6) Stenosis of right carotid artery greater than 50% Status: Acute (7) Weakness Onset Date: 08/30/16 Status: Acute Brief History of Present Illness: 64-year-old female with history of CVA with left-sided residual weakness, seizure disorder, chronic pain, depression, hypertension and hyperlipidemia. Most of the information came from the son. Son reports that he saw the patient last night. Son reported that the patient was not acting herself. Patient smokes marijuana regularly. She also uses some vaping marijuana as well. She told him that she was high. Then this morning she came to check on the patient. Patient was altered with increased agitation. Patient had multiple bruises to the legs and arms. She had hit her keen with the dresser. Her room was in disarray. Multiple things were not in order. EMS was called. EMS arrived. Patient was agitated. Patient required Ativan. In the ER patient was evaluated. Patient became very combative. To protect her and her airway and nursing, it was decided the patient needed to be intubated. Patient was intubated and sedated. On labs white count 23, hemoglobin 11.4. Platelet count 470. Sodium 128, potassium 3.9. GFR greater than 90. Glucose 121. Troponin 0 0.06. BNP 174. Procalcitonin 0.15. Patient was positive for THC. Covid test negative. X-rays of the arm showed no fracture. CT head showed no acute stroke. Repeat CT head showed no acute changes. Large right preseptal hematoma extending into the right frontal scalp was noted. X-ray showed possible right-sided pneumonia versus pneumonitis. The patient was stabilized. Central line placed. Case was discussed with neurology. Patient was given Ativan due to some more agitation and possible seizure. Keppra was also added. Patient was admitted for further evaluation and treatment. Son reports patient had been at a skilled facility after her last stroke. She apparently left AMA as the patient did not want to stay in a facility. Patient has been adamant about staying at home. Son reported patient has abuse with THC. Son fears patient is likely using some synthetics as well. Son had reported patient has been having increased cough and congestion. Hospital Course: Patient has improved throughout hospital stay. Patient is clinically doing better. Patient is not wanting to go to a [facility] facility and she would rather go home with home health. At this time, patient is stable for discharge home. Vital Signs/Physical Exam: Temp Pulse Resp BP Pulse Ox 98.2 F 91 H 18 137/95 H 98 06/08/20 11:50 06/08/20 11:50 06/08/20 11:50 06/08/20 11:50 06/08/20 11:50 General: Alert, In no apparent distress, Oriented x3 Laboratory Data at Discharge: WBC 8.10 K/uL (4.3-10.9) D 06/07/20 04:20 Hgb 9.0 g/dL (12.0-15.0) L 06/07/20 04:20 Hct 26.5 % (36.0-45.0) L 06/07/20 04:20 Plt Count 386 K/uL (152-406) 06/07/20 04:20 PT 11.8 SECONDS (9.5-12.5) 06/01/20 10:16 INR 1.03 06/01/20 10:16 Sodium 140 mmol/L (136-145) 06/08/20 04:45 Potassium 3.9 mmol/L (3.5-5.1) 06/08/20 04:45 BUN 7 mg/dL (7-18) 06/08/20 04:45 Creatinine 0.37 mg/dL (0.55-1.3) L 06/08/20 04:45 Glucose 97 mg/dL (74-106) 06/08/20 04:45 Phosphorus 3.4 mg/dL (2.5-4.9) 06/08/20 04:45 Magnesium 2.2 mg/dL (1.8-2.4) 06/08/20 04:45 Total Bilirubin 0.5 mg/dL (0.2-1.0) 06/01/20 10:16 AST 61 U/L (15-37) H 06/01/20 10:16 ALT 39 U/L (12-78) 06/01/20 10:16 Alkaline Phosphatase 110 U/L (45-117) 06/01/20 10:16 Troponin I 0.53 ng/mL (0.0-0.045) H* 06/02/20 07:40 Home Medications: Amlodipine [Norvasc*] 5 mg PO BID 08/29/16 Carbamazepine [Tegretol] 200 mg PO TID 08/29/16 Gabapentin 600 mg PO TID 08/29/16 Aspirin 325 mg PO DAILY #30 tablet 08/30/16 Atorvastatin Calcium [Lipitor] 40 mg PO BEDTIME #30 tab 08/30/16 Clopidogrel Bisulfate [Plavix*] 75 mg PO DAILY #30 tablet 08/30/16 Venlafaxine HCl [Venlafaxine HCl ER] 75 mg PO DAILY 06/01/20 Arformoterol Tartrate [Brovana] 15 mcg NEB BIDRESP #60 vial.neb 06/08/20 Atorvastatin Calcium [Lipitor] 40 mg PO BEDTIME #30 tab 06/08/20 Clopidogrel Bisulfate [Plavix] 75 mg PO DAILY #30 tablet 06/08/20 Ensure Enlive 237 ml PO BID #60 can 06/08/20 Metoprolol Tartrate [Lopressor] 50 mg PO BID #60 tab 06/08/20 Thiamine HCl [Vitamin B-1*] 100 mg PO DAILY #30 tablet 06/08/20 New Medications: Arformoterol Tartrate [Brovana] 15 mcg NEB BIDRESP #60 vial.neb Ensure Enlive 237 ml PO BID #60 can Atorvastatin Calcium [Lipitor] 40 mg PO BEDTIME #30 tab Metoprolol Tartrate [Lopressor] 50 mg PO BID #60 tab Clopidogrel Bisulfate [Plavix] 75 mg PO DAILY #30 tablet Thiamine HCl [Vitamin B-1*] 100 mg PO DAILY #30 tablet Physician Discharge Instructions: OK TO DC IV AND DC HOME with home health care if patient refuses [facility] facility placement FOLLOW-UP WITH PRIMARY CARE PROVIDER IN 1-2 WEEKS FOLLOW-UP WITH Neurologist IN 1-2 WEEKS New meds have been sent to [facility] pharmacy. Please take as prescribed. RETURN TO THE ER IF symptoms worsen CALL or TEXT DR. MARCIAL AT [phone] IF ANY QUESTIONS REGARDING HOSPITAL STAY. PLEASE CALL THE FLOOR AT [phone] IF ANY MEDICATION OR NURSING QUESTIONS. Diet: AHA Activity: Fall precautions Followup: NONE,NONE [Primary Care Provider] - Time spent managing pt's care (in minutes): 35
[2020-06-08 16:07] VITALS: BP 156/79; TEMP 98.3
== END 2020-06-08 20:00 | disposition home health service (06) | DRG 208 ==
LOC: ER 07:49 → ERHOLD 14:07 → 4TH 06-06 06:00
PROVIDERS: ADMIT Family Medicine; ATTEND Hospitalist
PROC: 5A1945Z Respiratory Ventilation, 24-96 Consecutive Hours (ICD-10-PCS; principal; 2020-06-01)
PROC: 0BH17EZ Insertion of Endotracheal Airway into Trachea, Via Natural or Artificial Opening (ICD-10-PCS; 2020-06-01)
PROC: 05HY33Z Insertion of Infusion Device into Upper Vein, Percutaneous Approach (ICD-10-PCS; 2020-06-01)
DX: J69.0 Pneumonitis due to inhalation of food and vomit (principal); J96.00 Acute respiratory failure, unspecified whether with hypoxia or hypercapnia; G92 Toxic encephalopathy; I69.354 Hemiplegia and hemiparesis following cerebral infarction affecting left non-dominant side; E87.1 Hypo-osmolality and hyponatremia; G40.209 Localization-related (focal) (partial) symptomatic epilepsy and epileptic syndromes with complex partial seizures, not intractable, without status epilepticus; T40.7X1A Poisoning by cannabis (derivatives), accidental (unintentional), initial encounter; E78.5 Hyperlipidemia, unspecified; G89.29 Other chronic pain; E86.0 Dehydration; F32.9 Major depressive disorder, single episode, unspecified; D64.9 Anemia, unspecified; I65.21 Occlusion and stenosis of right carotid artery; I10 Essential (primary) hypertension; S00.11XA Contusion of right eyelid and periocular area, initial encounter; S00.03XA Contusion of scalp, initial encounter; R53.1 Weakness; R20.2 Paresthesia of skin; R58 Hemorrhage, not elsewhere classified; W18.30XA Fall on same level, unspecified, initial encounter; Z66 Do not resuscitate; Z90.710 Acquired absence of both cervix and uterus; Z79.82 Long term (current) use of aspirin; Z79.02 Long term (current) use of antithrombotics/antiplatelets; Z60.2 Problems related to living alone; Z79.899 Other long term (current) drug therapy; Z20.822 Contact with and (suspected) exposure to COVID-19; Z78.1 Physical restraint status
CPT/HCPCS: 31500; 36415; 51702; 70450; 70480; 70544; 70549; 70553; 71045; 71260; 72125; 74177; 76377; 80048; 80076; 80156; 80307; 80320; 81003; 82550; 82553; 82565; 82805; 83605; 83735; 83880; 84100; 84132; 84145; 84439; 84443; 84484; 85025; 85027; 85610; 87040; 87070; 87205; 92610; 93005; 93306; 93880; 93971; 94002; 94003; 97110; 97112; 97116; 97161; 97530; 99251; 99291; 99292; A9577; C9113; G0390; J0330; J0696; J1170; J1630; J1650; J1953; J2250; J2270; J2543; J2704; J3010; J3411; J3475; J3480; J3486; J7030; J7040; J7042; J7605; Q9967; U0003

== ENCOUNTER 2020-06-27 15:45 | Emergency (ER) | payer OTHER ==
--- NOTE | 2020-06-27 18:54 | ER ---
Nurse's Notes [facility] Name: Lynne Urena Age: 64 yrs Sex: Female : 1955 Arrival Date: 06/27/2020 Time: 15:48 Bed External Waiting Private MD: Diagnosis: Presentation: 06/27 16:40 Chief complaint: Patient states: reports right forearm swelling that started 1 week em ago, described as tight, denies trauma, fever or pain. Coronavirus screen: Client denies travel out of the [place] in the last 14 days. Ebola Screen: Patient negative for fever greater than or equal to 101.5 degrees Fahrenheit, and additional compatible Ebola Virus Disease symptoms Patient denies exposure to infectious person. Patient denies travel to an Ebola-affected area in the 21 days before illness onset. No symptoms or risks identified at this time. Initial Sepsis Screen: Does the patient meet any 2 criteria? HR > 90 bpm. No. Patient's initial sepsis screen is negative. Does the patient have a suspected source of infection? No. Patient's initial sepsis screen is negative. Risk Assessment: Do you want to hurt yourself or someone else? Patient reports no desire to harm self or others. Onset of symptoms was June 27, 2020. 16:40 Method Of Arrival: Wheelchair em 16:40 Acuity: YEIMI 3 em Historical: - Allergies: 16:43 NKA; em - PMHx: 16:43 Chronic pain; CVA; epilepsy; High Cholesterol; Hypertension; em - PSHx: 16:43 Hysterectomy; cervical laminectomy; Carotid surgery; em - Immunization history:: Adult Immunizations up to date. - Social history:: Smoking status: Patient reports the use of cigarette tobacco products, smokes one-half pack cigarettes per day. Assessment: 18:11 Reassessment: no answer from the lobby at this time, registration staff did not see pt em leave. Vital Signs: 16:40 BP 142 / 82; Pulse 97; Resp 18; Temp 98.4(O); Pulse Ox 99% on R/A; Weight 47.63 kg; em Height 5 ft. 0 in. (152.40 cm); Pain 0/10; 16:40 Body Mass Index 20.51 (47.63 kg, 152.40 cm) em ED Course: 15:48 Patient arrived in ED. mr 16:42 Triage completed. em 16:43 Arm band placed on. em 18:53 Jasen Rowland MD is Attending Physician. aa5 Administered Medications: No medications were administered Outcome: 18:53 Patient left the ED. aa5 Signatures: Ese Choe mr IngramKirill, RN RN em Marisa Groves RN RN aa5
[2020-06-27 19:05] VITALS: BP 142/82; TEMP 98.4; O2SAT 99
== END 2020-06-27 18:53 | disposition left against medical advice (07) ==
LOC: ER 15:45
DX: R22.31 Localized swelling, mass and lump, right upper limb (principal); G89.29 Other chronic pain; G40.909 Epilepsy, unspecified, not intractable, without status epilepticus; E78.00 Pure hypercholesterolemia, unspecified; I10 Essential (primary) hypertension; Z86.73 Personal history of transient ischemic attack (TIA), and cerebral infarction without residual deficits; F17.210 Nicotine dependence, cigarettes, uncomplicated
CPT/HCPCS: 99281

== ENCOUNTER 2020-07-04 14:45 | Inpatient (IN) | payer OTHER ==
[2020-07-04 15:45] LABS: Urine Blood Negative (Negative); Urine Glucose Negative (Negative); Urine Protein Negative (Negative); Urine Specific Gravity 1.015 (1.005-1.030); Urine pH 6.5 (5.0-7.0)
[2020-07-04 15:58] LABS: Absolute Lymphocytes (CBC) 1.9 K/uL (0.7-4.9); Basophils % 0.7 % (0-1.3); Lymphocytes % 19.5 % (15.3-44.8); MPV 7.3 fL (7.6-11.3); RBC Red Blood Cell Count 4.69 M/uL (3.86-4.86)
[2020-07-04 16:15] LABS: ALT/SGPT 24 U/L (12-78); AST/SGOT 20 U/L (15-37); Alkaline Phosphatase 122 U/L (45-117); BUN Blood Urea Nitrogen 8 mg/dL (7-18); Bicarbonate 28 mmol/L (21-32); Bilirubin Direct < 0.1 mg/dL (0-0.2); Bilirubin Total 0.2 mg/dL (0.2-1.0); Glucose Level 104 mg/dL (74-106); Lipase 839 U/L (73-393); Magnesium 2.5 mg/dL (1.8-2.4); Potassium 3.6 mmol/L (3.5-5.1); Protein, Total 7.8 g/dL (6.4-8.2); Sodium Level 136 mmol/L (136-145); Troponin (Emerg Dept Use Only) < 0.02 ng/mL (0.0-0.045)
[2020-07-04] MEDS ORDERED: NA CHLORIDE 0.9% 1,000 ML ONE (16:21)
--- NOTE | 2020-07-04 16:28 | RAD REPORT ---
EXAM DESCRIPTION: CT - Head C Spine Cap Wo Con - 07/04/2020 4:06 pm TECHNIQUE: Computed axial tomography of the head and cervical spine was obtained. Coronal and sagitt al reconstruction was performed Computed axial tomography of the chest, abdomen and pelvis was obtained. Contrast was not requested. All CT scans are performed using dose optimization technique as appropriate and may include automated exposure control or mA/KV adjustment according to patient size. CLINICAL HISTORY: Head and neck injury with chest and abdominal pain status post fall COMPARISON: MRI June 2020 FINDINGS: An intracranial bleed is not seen. Large low-density area right cerebrum unchanged probably old infar ction. No hydrocephalus. An extra-axial fluid collection is not noted. . Fluid within the sinuses/mastoids is not seen. A cervical fracture is not seen. No dislocation is noted. Postsurgical changes involve cervical spine The evaluation of mediastinum, juan josé, vessels, solid organs and bowel are limited secondary to the lac k of contrast administration. A mediastinal hematoma is not noted. A pleural effusion is not seen. A lung contusion is not present. The liver,spleen, pancreas, adrenals,kidneys and bladder do not demonstrate traumatic injury. A Black catheter is present within the bladder IMPRESSION: 1. No acute intracranial abnormality is seen. 2. A cervical fracture is not visualized. If the patient continues have symptoms to suggest intracran ial/spinal cord pathology MRI be recommended 3. No traumatic abnormality involving the chest/abdomen/pelvis.
--- NOTE | 2020-07-04 16:49 | RAD REPORT ---
EXAM DESCRIPTION: Dru Single View07/04/2020 4:41 pm CLINICAL HISTORY: Chest pain COMPARISON: June 2020 FINDINGS: The lungs appear clear of acute infiltrate. The heart is normal size IMPRESSION: No acute abnormalities displayed
--- NOTE | 2020-07-04 16:50 | RAD REPORT ---
EXAM DESCRIPTION: RAD - Forearm Right - 07/04/2020 4:42 pm CLINICAL HISTORY: Right arm pain status post fall FINDINGS: Questionable nondisplaced radial neck fracture. Osteoporosis
--- NOTE | 2020-07-04 17:55 | ER ---
Nurse's Notes [facility] Name: Lynne Urena Age: 64 yrs Sex: Female : 1955 Arrival Date: 07/04/2020 Time: 14:58 Bed 17 Private MD: Diagnosis: Fall due to bumping against object;Low back pain;Strain of muscle and tendon of back wall of thorax;Hemiplegia and hemiparesis-right cva, left sided weakness Presentation: 07/04 14:58 Chief complaint: EMS states: s/p fall today while getting up out of her wheelchair and sv fell onto her back and hit her right forearm on her wheelchair. c/o left posterior shoulder pain. Hematoma noted to right forearm. Denies LOC. Pt reports having multiple falls, lives home alone and has been trying to get herself in a NH but her insurance is not helping. 93% RA 118/79 HR-84 BS-155. Pt had a family friend come help her about 1445 today and said that the pt had some memory loss that did not last very long and then her memory was good. Care prior to arrival: None. Mechanism of Injury: Fall from standing position. Trauma event details: Injury occurred in the [facility], Injury occurred: at home. Injury occurred: July 04, 2020. 14:58 Acuity: YEIMI 3 sv 14:58 Method Of Arrival: EMS: [facility] sv 15:03 Coronavirus screen: Client denies travel out of the [place] in the last 14 days. At this sv time, the client does not indicate any symptoms associated with coronavirus-19. Ebola Screen: No symptoms or risks identified at this time. Initial Sepsis Screen: Does the patient meet any 2 criteria? No. Patient's initial sepsis screen is negative. Does the patient have a suspected source of infection? No. Patient's initial sepsis screen is negative. Risk Assessment: Do you want to hurt yourself or someone else? Patient reports no desire to harm self or others. Onset of symptoms was July 04, 2020. Trauma Activation: Not Applicable Physician: ED Physician; Name: ; Notified At: ; Arrived At: Physician: General Surgeon; Name: ; Notified At: ; Arrived At: Physician: Radiology; Name: ; Notified At: ; Arrived At: Physician: Respiratory; Name: ; Notified At: ; Arrived At: Physician: Lab; Name: ; Notified At: ; Arrived At: Historical: - Allergies: 15:06 NKA; sv - Home Meds: 15:06 amlodipine 5 mg tab 1 tab twice a day [Active]; baclofen 20 mg Oral tab nightly sv [Active]; atorvastatin 40 mg Oral tab 1 tab nightly [Active]; carbamazepine 200 mg Oral tab three times a day [Active]; Plavix 75 mg Oral tab 1 tab once daily [Active]; gabapentin 600 mg Oral tab 1 tab 3 times per day [Active]; venlafaxine 75 mg oral cp24 1 cap once daily [Active]; - PMHx: 15:06 Chronic pain; CVA; left side paralysis; epilepsy; High Cholesterol; Hypertension; sv - PSHx: 15:06 Hysterectomy; Carotid surgery; cervical laminectomy; sv - Immunization history:: Client reports having NOT received the Covid vaccine. Flu vaccine is not up to date. - Social history:: Smoking status: Patient reports the use of cigarette tobacco products, smokes one-half pack cigarettes per day. - Immunization history: Last tetanus immunization: unknown. Screenin:07 Abuse screen: Denies threats or abuse. Denies injuries from another. Nutritional sv screening: No deficits noted. Tuberculosis screening: No symptoms or risk factors identified. Fall Risk None identified. Primary Survey: 14:58 NO uncontrolled hemorrhage observed. A: The patient is alert. Airway: patent, Oxygen sv via nasal cannula at 2 liters per minute. Oral cavity: clear, Trachea midline. Breathing/Chest: Respiratory pattern: regular, Respiratory effort: spontaneous, unlabored, Chest inspection: symmetrical rise and fall of the chest. Circulation: Cardiac rhythm: sinus rhythm Heart tones present. Pulses: palpable right radial artery and left radial artery. Skin color: pink, Skin temperature: warm, dry. Disability Alert. Exposure/Environment: All clothing and personal items were removed. Forensic evidence collection is not deemed to be indicated at this time. Items placed in patient belonging bag. There is no evidence of uncontrolled external bleeding. Obvious injury(ies) are noted at this time: hematoma to right forearm A warming method has been applied: A warm blanket has been provided to the patient. 15:45 Reassessment Airway Airway Patent Oxygen Nasal cannula Oral cavity Clear Trachea sv Midline Breathing/Chest Respiratory pattern Regular Respiratory effort Spontaneous Unlabored Chest inspection Symmetrical Circulation Heart rhythm Sinus rhythm Heart tones Present Pulses Palpable Color [place] Temperature Warm Dry Disability Alert. Secondary Survey: 14:58 HEENT: No deficits noted. Gastrointestinal: No deficits noted. : No signs and/or sv symptoms were reported regarding the genitourinary system. Musculoskeletal: Swelling present in dorsal aspect of right forearm Reports pain in left scapular area and dorsal aspect of right forearm. Injury Description: hematoma to dorsal aspect of right forearm. Assessment: 15:27 Reassessment: Rizwana Urena [phone] daughter in law. sv 16:27 Reassessment: Patient appears in no apparent distress at this time. No changes from sv previously documented assessment. Pt asleep in bed at this time. 20:07 Reassessment: patient sleeping. mg2 Vital Signs: 15:03 BP 121 / 73; Pulse 81; Resp 16; Temp 97.9; Pulse Ox 100% ; Weight 47.63 kg; Height 5 sv ft. 2 in. (157.48 cm); Pain 5/10; 15:45 BP 130 / 71; Pulse 82; Resp 15; Temp 97.9; Pulse Ox 100% ; sv 16:27 BP 122 / 66; Pulse 78; Resp 16; Pulse Ox 97% on 2 lpm NC; sv 17:15 BP 130 / 75; Pulse 101; Resp 20; Pulse Ox 95% on 3 lpm NC; sv 18:00 BP 156 / 99; Pulse 94; Resp 16; Pulse Ox 96% on 3 lpm NC; sv 18:45 BP 144 / 78; Pulse 88; Resp 16; Pulse Ox 96% on 3 lpm NC; sv 19:20 BP 123 / 85; Pulse 71; Resp 18; Pulse Ox 99% on 3 lpm NC; mg2 20:08 BP 146 / 89; Pulse 89; Resp 18; Pulse Ox 92% on 3 lpm NC; mg2 15:03 Body Mass Index 19.20 (47.63 kg, 157.48 cm) sv Arnold Coma Score: 15:03 Eye Response: spontaneous(4). Verbal Response: oriented(5). Motor Response: obeys sv commands(6). Total: 15. Trauma Score (Adult): 15:03 Eye Response: spontaneous(1); Verbal Response: oriented(1); Motor Response: obeys sv commands(2); Systolic BP: > 89 mm Hg(4); Respiratory Rate: 10 to 29 per min(4); [place] Score: 15; Trauma Score: 12 15:45 Eye Response: spontaneous(1); Verbal Response: oriented(1); Motor Response: obeys sv commands(2); Systolic BP: > 89 mm Hg(4); Respiratory Rate: 10 to 29 per min(4); [place] Score: 15; Trauma Score: 12 16:27 Eye Response: spontaneous(1); Verbal Response: oriented(1); Motor Response: obeys sv commands(2); Systolic BP: > 89 mm Hg(4); Respiratory Rate: 10 to 29 per min(4); [place] Score: 15; Trauma Score: 12 17:15 Eye Response: spontaneous(1); Verbal Response: oriented(1); Motor Response: obeys sv commands(2); Systolic BP: > 89 mm Hg(4); Respiratory Rate: 10 to 29 per min(4); [place] Score: 15; Trauma Score: 12 18:00 Eye Response: spontaneous(1); Verbal Response: oriented(1); Motor Response: obeys sv commands(2); Systolic BP: > 89 mm Hg(4); Respiratory Rate: 10 to 29 per min(4); Arnold Score: 15; Trauma Score: 12 18:45 Eye Response: spontaneous(1); Verbal Response: oriented(1); Motor Response: obeys sv commands(2); Systolic BP: > 89 mm Hg(4); Respiratory Rate: 10 to 29 per min(4); Arnold Score: 15; Trauma Score: 12 ED Course: 14:58 Patient arrived in ED. bp 14:58 Keli Schroeder, NEGRA is Primary Nurse. sv 15:00 Oxygen administration via nasal cannula \T\ 2L/min. Thermoregulation: warm blanket given sv to patient. 15:03 Triage completed. sv 15:06 Arm band placed on. sv 15:07 Patient has correct armband on for positive identification. Bed in low position. Call sv light in reach. Side rails up X2. care tech on. Pulse ox on. NIBP on. Door closed. Warm blanket given. Head of bed elevated. Elevated right arm. 15:08 Alfred Bourne MD is Attending Physician. madeleine 15:35 Black cath inserted, using sterile technique, 16 Fr., by pr, balloon inflated, to sv gravity drainage, urine specimen collected. returned clear yellow urine. Patient tolerated well. 15:40 Inserted saline lock: 22 gauge in right wrist, using aseptic technique. ,using aseptic sv technique. diffusics Blood collected. Flushed right with 2 ml normal saline. 16:06 CT Traumagram (Head C Spine CAP wo con) In Process Unspecified. EDMS 16:20 X-ray(s) taken. sv 16:20 Urine Culture Sent. sv 16:20 Basic Metabolic Panel Sent. sv 16:20 CBC with Diff Sent. sv 16:20 LFT's Sent. sv 16:20 Magnesium Sent. sv 16:21 Troponin (emerg Dept Use Only) Sent. sv 16:21 XRAY Chest (1 view) Sent. sv 16:41 EKG done, by ED staff, reviewed by Alfred Bourne MD. sv 16:43 XRAY Chest (1 view) In Process Unspecified. EDMS 16:43 Forearm Right XRAY In Process Unspecified. EDMS 17:55 Julien Rhodes MD is Referral Physician. madeleine 17:57 Chris Bailey is Hospitalizing Provider. madeleine 19:02 Report given to Rao OMER and Viviane RN. sv 19:10 Primary Nurse role handed off by Keli Schroeder RN sv 19:19 Rao Kenney, NEGRA is Primary Nurse. mg2 05 06:48 Primary Nurse role handed off by Rao Kenney, NEGRA tt3 Administered Medications: 07/04 16:00 Drug: NS 0.9% 1000 ml Route: IV; Rate: 125 ml/hr; Site: right antecubital; bp 18:14 CANCELLED (Physician Discretion): Rocephin (cefTRIAXone) 1 grams IV at per protocol sv once; Given slow IV push per pharmacy instructions Intake: 15:03 PO: 0ml; Total: 0ml. sv 15:45 PO: 0ml; Total: 0ml. sv 17:15 PO: 0ml; Total: 0ml. sv Output: 15:03 Urine: 0ml; Total: 0ml. sv 17:15 Urine: 0ml; Total: 0ml. sv 18:15 Urine: 900ml (Black); Total: 900ml. sv Outcome: 17:55 Discharge ordered by . madeleine 17:59 Decision to Hospitalize by Provider. madeleine 20:16 Condition: stable ad5 20:16 Instructed on the need for admit, Demonstrated understanding of instructions. 07/06 00:23 Admitted to Med/surg accompanied by nurse, via stretcher, with chart, Report called to torito Parra RN Patient's length of stay in the Emergency Department was greater than 2 hours. no beds in hospitalPatient's length of stay extended due to 00:24 Patient left the ED. torito Signatures: Dispatcher [employer] Keli De La O, RN RN Alfred Castellanos MD MD cha Peltier, Brian, RN RN Rao Mchugh, RN RN mg2 Gavin Tavares tt3 Chris Cochran RN RN Ryan James ad5
--- NOTE | 2020-07-04 17:55 | EDPHYS ---
Physician Documentation [facility] Name: Lynne Urena Age: 64 yrs Sex: Female : 1955 Arrival Date: 07/04/2020 Time: 14:58 Bed 17 Private MD: ED Physician Alfred Bourne HPI: 07/04 15:28 This 64 yrs old Female presents to ER via EMS with complaints of Fall Injury. madeleine 15:28 Details of fall: The patient fell from an upright position, while standing. Onset: The madeleine symptoms/episode began/occurred just prior to arrival. Associated injuries: The patient sustained neck injury, upper back injury, injury to the low back. Severity of symptoms: At their worst the symptoms were mild, in the emergency department the symptoms are unchanged. The patient has not experienced similar symptoms in the past. Historical: - Allergies: 15:06 NKA; sv - Home Meds: 15:06 amlodipine 5 mg tab 1 tab twice a day [Active]; baclofen 20 mg Oral tab nightly sv [Active]; atorvastatin 40 mg Oral tab 1 tab nightly [Active]; carbamazepine 200 mg Oral tab three times a day [Active]; Plavix 75 mg Oral tab 1 tab once daily [Active]; gabapentin 600 mg Oral tab 1 tab 3 times per day [Active]; venlafaxine 75 mg oral cp24 1 cap once daily [Active]; - PMHx: 15:06 Chronic pain; CVA; left side paralysis; epilepsy; High Cholesterol; Hypertension; sv - PSHx: 15:06 Hysterectomy; Carotid surgery; cervical laminectomy; sv - Immunization history:: Client reports having NOT received the Covid vaccine. Flu vaccine is not up to date. - Social history:: Smoking status: Patient reports the use of cigarette tobacco products, smokes one-half pack cigarettes per day. - Immunization history: Last tetanus immunization: unknown. ROS: 15:29 Constitutional: Negative for fever, chills, and weight loss, Eyes: Negative for injury, madeleine pain, redness, and discharge, ENT: Negative for injury, pain, and discharge, Neck: Negative for injury, pain, and swelling, Cardiovascular: Negative for chest pain, palpitations, and edema, Respiratory: Negative for shortness of breath, cough, wheezing, and pleuritic chest pain, Abdomen/GI: Negative for abdominal pain, nausea, vomiting, diarrhea, and constipation, : Negative for injury, bleeding, discharge, and swelling, Skin: Negative for injury, rash, and discoloration, Neuro: Negative for headache, weakness, numbness, tingling, and seizure, Psych: Negative for depression, anxiety, suicide ideation, homicidal ideation, and hallucinations, Allergy/Immunology: Negative for hives, rash, and allergies, Endocrine: Negative for neck swelling, polydipsia, polyuria, polyphagia, and marked weight changes, Hematologic/Lymphatic: Negative for swollen nodes, abnormal bleeding, and unusual bruising. 15:29 Back: Positive for injury or acute deformity, decreased range of motion, of the thoracic area and lumbar area. 15:29 MS/extremity: Positive for pain, swelling, tenderness, of the dorsal aspect of right forearm and palmar aspect of right forearm. Exam: 15:29 Constitutional: This is a well developed, well nourished patient who is awake, alert, madeleine and in no acute distress. Head/Face: Normocephalic, atraumatic. Eyes: Pupils equal round and reactive to light, extra-ocular motions intact. Lids and lashes normal. Conjunctiva and sclera are non-icteric and not injected. Cornea within normal limits. Periorbital areas with no swelling, redness, or edema. ENT: Nares patent. No nasal discharge, no septal abnormalities noted. Tympanic membranes are normal and external auditory canals are clear. Oropharynx with no redness, swelling, or masses, exudates, or evidence of obstruction, uvula midline. Mucous membranes moist. Neck: Trachea midline, no thyromegaly or masses palpated, and no cervical lymphadenopathy. Supple, full range of motion without nuchal rigidity, or vertebral point tenderness. No Meningismus. Chest/axilla: Normal chest wall appearance and motion. Nontender with no deformity. No lesions are appreciated. Cardiovascular: Regular rate and rhythm with a normal S1 and S2. No gallops, murmurs, or rubs. Normal PMI, no JVD. No pulse deficits. Respiratory: Lungs have equal breath sounds bilaterally, clear to auscultation and percussion. No rales, rhonchi or wheezes noted. No increased work of breathing, no retractions or nasal flaring. Abdomen/GI: Soft, non-tender, with normal bowel sounds. No distension or tympany. No guarding or rebound. No evidence of tenderness throughout. Female : Normal external genitalia. Skin: Warm, dry with normal turgor. Normal color with no rashes, no lesions, and no evidence of cellulitis. Neuro: Awake and alert, GCS 15, oriented to person, place, time, and situation. Cranial nerves II-XII grossly intact. Motor strength 5/5 in all extremities. Sensory grossly intact. Cerebellar exam normal. Normal gait. Psych: Awake, alert, with orientation to person, place and time. Behavior, mood, and affect are within normal limits. 15:29 Back: pain, that is mild, that is moderate, ROM is painful, normal spinal alignment noted, CVA tenderness, that is moderate, vertebral tenderness, is not appreciated, muscle spasm, is appreciated in the left low back, left mid back, right mid back and right low back. 15:29 Musculoskeletal/extremity: ROM: limited active range of motion, limited passive range of motion, in the dorsal aspect of right forearm and palmar aspect of right forearm, Pulses: noted to be 4+ in the bilateral radial, brachial, femoral, popliteal, posterior tibial and and dorsalis pedis arteries., Sensation intact. Compartment Syndrome exam of affected extremity: is normal. Weight bearing: can bear weight with assistance only, left side hemiparesis, Tendon exam: specific tendon testing normal through active and passive range of motion DVT Exam: no pain, no swelling, no tenderness, negative Homans' sign noted on exam, no appreciated bluish discoloration, no erythema, no increased warmth. 17:52 ECG was reviewed by the Attending Physician. madeleine Vital Signs: 15:03 BP 121 / 73; Pulse 81; Resp 16; Temp 97.9; Pulse Ox 100% ; Weight 47.63 kg; Height 5 sv ft. 2 in. (157.48 cm); Pain 5/10; 15:45 BP 130 / 71; Pulse 82; Resp 15; Temp 97.9; Pulse Ox 100% ; sv 16:27 BP 122 / 66; Pulse 78; Resp 16; Pulse Ox 97% on 2 lpm NC; sv 17:15 BP 130 / 75; Pulse 101; Resp 20; Pulse Ox 95% on 3 lpm NC; sv 18:00 BP 156 / 99; Pulse 94; Resp 16; Pulse Ox 96% on 3 lpm NC; sv 18:45 BP 144 / 78; Pulse 88; Resp 16; Pulse Ox 96% on 3 lpm NC; sv 19:20 BP 123 / 85; Pulse 71; Resp 18; Pulse Ox 99% on 3 lpm NC; mg2 20:08 BP 146 / 89; Pulse 89; Resp 18; Pulse Ox 92% on 3 lpm NC; mg2 15:03 Body Mass Index 19.20 (47.63 kg, 157.48 cm) sv Arnold Coma Score: 15:03 Eye Response: spontaneous(4). Verbal Response: oriented(5). Motor Response: obeys sv commands(6). Total: 15. Trauma Score (Adult): 15:03 Eye Response: spontaneous(1); Verbal Response: oriented(1); Motor Response: obeys sv commands(2); Systolic BP: > 89 mm Hg(4); Respiratory Rate: 10 to 29 per min(4); Roby Score: 15; Trauma Score: 12 15:45 Eye Response: spontaneous(1); Verbal Response: oriented(1); Motor Response: obeys sv commands(2); Systolic BP: > 89 mm Hg(4); Respiratory Rate: 10 to 29 per min(4); Arnold Score: 15; Trauma Score: 12 16:27 Eye Response: spontaneous(1); Verbal Response: oriented(1); Motor Response: obeys sv commands(2); Systolic BP: > 89 mm Hg(4); Respiratory Rate: 10 to 29 per min(4); Roby Score: 15; Trauma Score: 12 17:15 Eye Response: spontaneous(1); Verbal Response: oriented(1); Motor Response: obeys sv commands(2); Systolic BP: > 89 mm Hg(4); Respiratory Rate: 10 to 29 per min(4); Arnold Score: 15; Trauma Score: 12 18:00 Eye Response: spontaneous(1); Verbal Response: oriented(1); Motor Response: obeys sv commands(2); Systolic BP: > 89 mm Hg(4); Respiratory Rate: 10 to 29 per min(4); Roby Score: 15; Trauma Score: 12 18:45 Eye Response: spontaneous(1); Verbal Response: oriented(1); Motor Response: obeys sv commands(2); Systolic BP: > 89 mm Hg(4); Respiratory Rate: 10 to 29 per min(4); Roby Score: 15; Trauma Score: 12 MDM: 15:08 Patient medically screened. [facility] 15:33 Differential diagnosis: chronic back pain, Fracture Osteoporosis sprain, madeleine Ureterolithiasis vertebral fracture. Differential diagnosis: contusion, fracture, multiple trauma, sprain. Data reviewed: vital signs, nurses notes, lab test result(s), EKG, radiologic studies, CT scan, plain films. Data interpreted: site monitor: rate is 81 beats/min, rhythm is regular, Pulse oximetry: on room air is 100 %. Test interpretation: by ED physician or midlevel provider: ECG, plain radiologic studies. Counseling: I had a detailed discussion with the patient and/or guardian regarding: the historical points, exam findings, and any diagnostic results supporting the discharge/admit diagnosis, lab results, radiology results. 07/04 15:22 Order name: Basic Metabolic Panel [facility] 07/04 15:22 Order name: CBC with Diff [facility] 07/04 15:22 Order name: LFT's [facility] 07/04 15:22 Order name: Magnesium [facility] 07/04 15:22 Order name: Troponin (emerg Dept Use Only) [facility] 07/04 15:22 Order name: Urine Culture [facility] 07/04 15:23 Order name: Basic Metabolic Panel; Complete Time: 16:22 [facility] 07/04 15:23 Order name: CBC with Automated Diff; Complete Time: 16:22 [facility] 07/04 15:23 Order name: Lipase; Complete Time: 16:22 [facility] 07/04 15:23 Order name: Liver (Hepatic) Function; Complete Time: 16:22 [facility] 07/04 15:23 Order name: Magnesium; Complete Time: 16:22 [facility] 07/04 15:23 Order name: Troponin (Emerg Dept Use Only); Complete Time: 16:22 [facility] 07/04 15:23 Order name: Urine Culture [facility] 07/04 15:45 Order name: Urine Dipstick-Ancillary; Complete Time: 16:22 [facility] 07/04 17:56 Order name: Tegretol Level [facility] 07/04 18:41 Order name: SARS-COV-2 RT PCR [facility] 07/04 22:28 Order name: Urine Drug Screen [facility] 07/04 22:29 Order name: Comprehensive Metabolic Panel [facility] 07/04 22:29 Order name: Carbamazepine (Tegretol) Level [facility] 07/04 22:29 Order name: Carbamazepine (Tegretol) Level [facility] 07/04 22:29 Order name: Urinalysis [facility] 07/04 22:29 Order name: CBC with Automated Diff [facility] 07/04 22:29 Order name: CBC with Automated Diff [facility] 07/04 22:29 Order name: Comprehensive Metabolic Panel [facility] 07/04 22:29 Order name: Lipid Profile [facility] 07/04 22:29 Order name: Lipid Profile [facility] 07/04 22:29 Order name: Magnesium [facility] 07/04 22:29 Order name: Magnesium [facility] 07/04 22:29 Order name: Phosphorus [facility] 07/04 15:22 Order name: XRAY Chest (1 view); Complete Time: 17:49 [facility] 07/04 15:22 Order name: EKG; Complete Time: 15:23 [facility] 07/04 15:22 Order name: Cardiac monitoring; Complete Time: 16:21 [facility] 07/04 15:22 Order name: EKG - Nurse/Tech; Complete Time: 16:41 [facility] 07/04 15:22 Order name: IV Saline Lock; Complete Time: 16:21 [facility] 07/04 15:22 Order name: Labs collected and sent; Complete Time: 16:21 [facility] 07/04 15:22 Order name: O2 Per Protocol; Complete Time: 16:21 [facility] 07/04 15:22 Order name: O2 Sat Monitoring; Complete Time: 16:21 [facility] 07/04 15:22 Order name: Urine Dipstick-Ancillary (obtain specimen); Complete Time: 16:31 [facility] 07/04 15:22 Order name: CT Traumagram (Head C Spine CAP wo con); Complete Time: 17:49 [facility] 07/04 15:22 Order name: Forearm Right XRAY; Complete Time: 17:49 [facility] 07/04 18:04 Order name: Misc. Order: cath ua, please; Complete Time: 18:11 [facility] 07/04 22:00 Order name: CONS Physician Consult [facility] 07/04 22:28 Order name: Heart Healthy [facility] 07/04 22:28 Order name: Case Management Consult [facility] 07/04 22:29 Order name: Dietitian Consult [facility] 07/04 22:29 Order name: Patient Safety Orders [facility] 07/04 22:29 Order name: Physical Therapy Consult [facility] 07/04 22:29 Order name: Phosphorus [facility] 07/04 22:29 Order name: Occupational Therapy Consult [facility] EC:52 Rate is 89 beats/min. Rhythm is regular. QRS [place] is Normal. [place] interval is normal. QRS madeleine interval is normal. QT interval is normal. No Q waves. T waves are Normal. No ST changes noted. Clinical impression: NSR w/ Non-specific ST/T Changes and No evidence of ischemia. Interpreted by me. Reviewed by me. Administered Medications: 16:00 Drug: NS 0.9% 1000 ml Route: IV; Rate: 125 ml/hr; Site: right antecubital; bp 18:14 CANCELLED (Physician Discretion): Rocephin (cefTRIAXone) 1 grams IV at per protocol sv once; Given slow IV push per pharmacy instructions Disposition: 07/04/20 17:59 Hospitalization ordered by Chris Bailey for Inpatient Admission. Preliminary diagnosis are Fall due to bumping against object, Low back pain, Strain of muscle and tendon of back wall of thorax, Hemiplegia and hemiparesis - right cva, left sided weakness. - Bed requested for Telemetry/MedSurg (Inpatient). - Status is Inpatient Admission. jm8 - Condition is Stable. - Problem is new. - Symptoms have improved. Signatures: Dispatcher [employer] [facility] Keli Schroeder, Alfred Agee RN, MD MD cha Garcia, Cindy, RN RN cg Peltier, Brian, RN RN bp Trim, Tyler tt3 Chris Cochran RN RN jm8 Corrections: (The following items were deleted from the chart) 17:50 17:11 CORONAVIRUS+ ordered. [facility] 17:55 17:55 07/04/2020 17:55 Discharged to Home. Impression: Fall due to bumping against madeleine object; Low back pain; Hemiplegia and hemiparesis - hx of right cva,left side hemiparesis. Condition is Stable. Discharge Instructions: Back Pain, Adult, Chronic Back Pain, Musculoskeletal Pain, Back Pain, Adult, [id number], Fall Prevention in the Home, [id number]. Prescriptions for Tylenol-Codeine #3 300-30 mg Oral Tablet - take 1 tablet by ORAL route every 4-6 hours As needed; 20 tablet. and Forms are Medication Reconciliation Form, Thank You Letter, Antibiotic Education, Prescription Opioid Use. Follow up: Private Physician; When: 2 - 3 days; Reason: Recheck today's complaints, Re-evaluation by your physician. Follow up: Julien Rhodes; When: 2 - 3 days; Reason: Recheck today's complaints, Re-evaluation by your physician. Problem is new. Symptoms have improved. madeleine 18:14 18:04 Rocephin (cefTRIAXone) 1 grams IV at per protocol once; Given slow IV push per pharmacy instructions ordered. madeleine 18:14 18:14 Rocephin (cefTRIAXone) 1 grams IV at per protocol once; Given slow IV push per pharmacy instructions ordered. 21:24 17:59 Hospitalization Ordered by Chris Bailey for Inpatient Admission. Preliminary cg diagnosis is Fall due to bumping against object; Low back pain; Strain of muscle and tendon of back wall of thorax; Hemiplegia and hemiparesis - right cva, left sided weakness. Bed requested for Telemetry/MedSurg (Inpatient). Status is Inpatient Admission. Condition is Stable. Problem is new. Symptoms have improved. [facility] 07/05 22:23 07/04 21:24 07/04/2020 17:59 Hospitalization Ordered by Chris Bailey for Inpatient tt3 Admission. Preliminary diagnosis is Fall due to bumping against object; Low back pain; Strain of muscle and tendon of back wall of thorax; Hemiplegia and hemiparesis - right cva, left sided weakness. Bed requested for [facility] ER HOLD. Status is Inpatient Admission. Condition is Stable. Problem is new. Symptoms have improved. 07/06 00:24 07/05 22:23 07/04/2020 17:59 Hospitalization Ordered by Chris Bailey for Inpatient jm8 Admission. Preliminary diagnosis is Fall due to bumping against object; Low back pain; Strain of muscle and tendon of back wall of thorax; Hemiplegia and hemiparesis - right cva, left sided weakness. Bed requested for Telemetry/MedSurg (Inpatient). Status is Inpatient Admission. Condition is Stable. Problem is new. Symptoms have improved. tt3
[2020-07-04] MEDS ORDERED: ONDANSETRON 4 MG/2 ML VIAL IV PRN (22:27)
[2020-07-04] MEDS: NA CHLORIDE 0.9% 1,000 ML IV SCH (22:27)
[2020-07-04 22:56] VITALS: BMI 19.2
--- NOTE | 2020-07-05 00:37 | P.HP ---
Certification for Inpatient Patient admitted to: Observation With expected LOS: <2 Midnights Patient will require the following post-hospital care: Long Term Practitioner: I am a practitioner with admitting privileges, knowledge of patient current condition, hospital course, and medical plan of care. Services: Services provided to patient in accordance with Admission requirements found in Title 42 Section 412.3 of the Code of Federal Regulations <Franky Saucedo Edu - Last Filed: 07/05/20 00:31> Patient History Date of Service: 07/04/20 Primary Care Provider: none Reason for admission: fall History of Present Illness: Ms. Urena is a 64 yo female with HTN, HLD, CVA (2017) with left sided hemipleg ia, h/o epilepsy here today after falling from a chair. Reports pain in her right forearm, and aching pain in her left leg. She denies hitting her head. Denies lightheadedness, dizziness. She says she has fallen approximately 10 times in the last 6 months. 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 She smokes 1/2 ppd. Imaging significant for questionable nondisplaced radial neck fracture. - Past Medical/Surgical History Has patient received pneumonia vaccine in the past: No Diabetic: No -: Seizure disorder -: Hypertension -: Chronic pain -: Depression -: Hyperlipidemia -: History of CVA with left-sided residual weakness -: Carotid arterial disease -: THC use -: Hysterectomy -: Cervical laminectomy -: Right carotid enterectomy Psychosocial/ Personal History: Patient lives at home. - Family History Father -: Heart disease Mother -: Diabetes Sister -: Cancer Notes: pancreatic - Social History Smoking Status: Current every day smoker Counseled patient to stop smoking for: less than 10 minutes Smoking therapy provided: Yes Patient receptive to therapy: No Alcohol use: No CD- Drugs: Yes Caffeine use: Yes Place of Residence: Home <Franky Saucedo - Last Filed: 07/05/20 00:31> Date of Service: 07/04/20 <Nirav Wong - Last Filed: 07/07/20 14:23> Allergies No Known Allergies Allergy (Verified 07/06/20 04:26) Home Medications: Amlodipine [Norvasc*] 5 mg PO BID 08/29/16 Carbamazepine [Tegretol] 200 mg PO TID 08/29/16 Gabapentin 600 mg PO TID 08/29/16 Atorvastatin Calcium [Lipitor] 40 mg PO BEDTIME #30 tab 08/30/16 Venlafaxine HCl [Venlafaxine HCl ER] 75 mg PO DAILY 06/01/20 Clopidogrel Bisulfate [Plavix] 75 mg PO DAILY #30 tablet 06/08/20 Baclofen 5 mg PO BEDTIME 07/06/20 Review of Systems General: Unremarkable Eyes: Unremarkable ENT: Unremarkable Respiratory: Unremarkable Cardiovascular: Unremarkable Gastrointestinal: Unremarkable Genitourinary: Unremarkable Musculoskeletal: Arm Pain, Leg Pain, As per HPI Integumentary: Bruising Neurological: Unremarkable Lymphatics: Unremarkable <LewisFranky S - Last Filed: 07/05/20 00:31> Physical Examination - Physical Exam General: Alert, In no apparent distress, Oriented x3, Cooperative HEENT: Atraumatic, Normocephalic, PERRLA, Mucous membr. moist/pink, EOMI, Sclerae nonicteric Neck: Supple, 2+ carotid pulse no bruit, JVD not distended, No Thyromegaly, No LAD Respiratory: Clear to auscultation bilaterally, Normal air movement Cardiovascular: No edema, Normal pulses, Regular rate/rhythm, Normal S1 S2, No gallops, No rubs, No murmurs Capillary refill: <2 Seconds Gastrointestinal: Normal bowel sounds, Soft and benign, Non-distended, No ascites, No tenderness, No masses, No rebound, No guarding Musculoskeletal: No clubbing, No contractures, No erythema, No warmth, Swelling, Tenderness Integumentary: No rashes, No breakdown, No erythema, No warmth, No cyanosis, Skin lesion, Tenderness/swelling, Other (R arm hematoma ) Neurological: Normal speech, Sensation intact, Cranial nerves 3-12 intact, Normal affect, Abnormal gait, Abnormal strength, Abnormal tone Lymphatics: No axilla or inguinal lymphadenopathy Urinary: Black catheter - Studies Laboratory Data (last 24 hrs) 07/04/20 15:47: WBC 9.90, Hgb 12.7, Hct 39.0, Plt Count 452 H 07/04/20 15:47: Sodium 136, Potassium 3.6, BUN 8, Creatinine 0.49 L, Glucose 104, Magnesium 2.5 H, Total Bilirubin 0.2, AST 20, ALT 24, Alkaline Phosphatase 122 H, Lipase 839 H <Franky Saucedo - Last Filed: 07/05/20 00:31> Assessment and Plan - Problems (Diagnosis) (1) HLD (hyperlipidemia) Current Visit: Yes Status: Chronic Qualifiers: Hyperlipidemia type: unspecified Qualified Code(s): E78.5 - Hyperlipidemia, unspecified (2) HTN (hypertension) Current Visit: Yes Status: Chronic Qualifiers: Hypertension type: essential hypertension Qualified Code(s): I10 - Essential (primary) hypertension (3) Epilepsy Current Visit: Yes Status: Chronic Qualifiers: Epilepsy type: unspecified Intractability: not intractable Status epilepticus: without status epilepticus Qualified Code(s): G40.909 - Epilepsy, unspecified, not intractable, without status epilepticus (4) Falls Current Visit: Yes Status: Acute Qualifiers: Encounter type: initial encounter Qualified Code(s): W19.XXXA - Unspecified fall, initial encounter (5) Traumatic hematoma of right forearm Current Visit: Yes Status: Acute Qualifiers: Encounter type: initial encounter Qualified Code(s): S50.11XA - Contusion of right forearm, initial encounter (6) Non-hemorrhagic cerebrovascular accident (CVA) Onset Date: 08/30/16 Current Visit: No Status: Chronic - Plan will reconcile and continue home medications continue to monitor BP, hydralazine PRN ortho consulted for evaluation of R arm PT and OT pending for SNF, rehab or home health recommendations pain management as needed Discharge Plan: Residential Plan to discharge in: 24 Hours - Advance Directives Does patient have a Living Will: No Does patient have a Durable POA for Healthcare: No - Code Status/Comfort Care Code Status Assessed: Yes (dnr) Critical Care: No Time Spent Managing Pts Care (In Minutes): 70 <Franky Saucedo - Last Filed: 07/05/20 00:31>
[2020-07-05] MEDS: MORPHINE 2 MG/ML SYR IV PRN ×3 (01:38→22:39)
[2020-07-05] MEDS ORDERED: MORPHINE 2 MG/ML SYR ONE ×3 (01:50→22:52)
[2020-07-05] MEDS ORDERED: NA CHLORIDE 0.9% 1,000 ML ONE ×3 (01:52→22:53)
[2020-07-05 04:30] LABS: Absolute Lymphocytes (CBC) 2.1 K/uL (0.7-4.9); Basophils % 1.4 % (0-1.3); Hematocrit 35.7 % (36.0-45.0); Lymphocytes % 25.6 % (15.3-44.8); MPV 7.1 fL (7.6-11.3); RBC Red Blood Cell Count 4.28 M/uL (3.86-4.86)
[2020-07-05 04:50] LABS: ALT/SGPT 20 U/L (12-78); AST/SGOT 15 U/L (15-37); Albumin 3.6 g/dL (3.4-5.0); Alkaline Phosphatase 114 U/L (45-117); BUN Blood Urea Nitrogen 7 mg/dL (7-18); Bicarbonate 25 mmol/L (21-32); Bilirubin Total 0.2 mg/dL (0.2-1.0); Glucose Level 93 mg/dL (74-106); HDL Cholesterol 122 mg/dL (40-60); LDL Cholesterol, Calculated 63 (<130); Magnesium 2.2 mg/dL (1.8-2.4); Phosphorus 3.7 mg/dL (2.5-4.9); Potassium 3.9 mmol/L (3.5-5.1); Protein, Total 6.7 g/dL (6.4-8.2); Sodium Level 139 mmol/L (136-145)
[2020-07-05] MEDS: HYDRALAZINE HCL 20 MG/ML VIAL IV PRN ×2 (05:33→22:39)
[2020-07-05] MEDS ORDERED: HYDRALAZINE HCL 20 MG/ML VIAL ONE ×2 (05:48→22:52)
[2020-07-05] MEDS ORDERED: PNEUMOCOCCAL VACCINE 0.5 ML IMVAC ONE (08:00)
[2020-07-05] MEDS: NA CHLORIDE 0.9% 1,000 ML IV SCH ×2 (08:27→18:27)
[2020-07-05] MEDS: VENLAFAXINE HCL XR 75 MG CAP PO SCH (08:57)
[2020-07-05] MEDS: NICOTINE 7 MG/PAT TD SCH (08:57)
[2020-07-05] MEDS: GABAPENTIN 300 MG CAP PO SCH ×3 (08:57→21:00)
[2020-07-05] MEDS: AMLODIPINE 5 MG TAB PO SCH ×2 (09:00→21:00)
[2020-07-05] MEDS: carBAMazepine 200 MG TAB PO SCH ×3 (09:00→21:00)
[2020-07-05] MEDS ORDERED: AMLODIPINE 5 MG TAB ONE ×2 (09:03→22:52)
[2020-07-05] MEDS ORDERED: GABAPENTIN 300 MG CAP ONE ×3 (09:03→22:52)
[2020-07-05] MEDS ORDERED: carBAMazepine 200 MG TAB ONE ×3 (09:04→22:53)
[2020-07-05] MEDS ORDERED: METOPROLOL TAR 50 MG TAB PO ONE (13:09)
[2020-07-05] MEDS ORDERED: cloNIDine HCL 0.1 MG TAB PO ONE (13:10)
[2020-07-05] MEDS ORDERED: METOPROLOL TAR 50 MG TAB ONE (13:34)
[2020-07-05] MEDS ORDERED: cloNIDine HCL 0.1 MG TAB ONE (13:34)
[2020-07-05] MEDS: ATORVASTATIN 40 MG TAB PO SCH (21:00)
[2020-07-05] MEDS ORDERED: ATORVASTATIN 20 MG TAB ONE (22:50)
[2020-07-06] MEDS: NA CHLORIDE 0.9% 1,000 ML IV SCH ×3 (02:00→23:06)
[2020-07-06 03:09] LABS: Barbiturates NEGATIVE (NEGATIVE); Benzodiazepines NEGATIVE (NEGATIVE); Cocaine NEGATIVE (NEGATIVE); METHAMPHETAM NEGATIVE (NEGATIVE); Methadone NEGATIVE (NEGATIVE); Opiates NEGATIVE (NEGATIVE); Phencyclidine NEGATIVE (NEGATIVE); THC Cannibis POSITIVE (NEGATIVE)
[2020-07-06 03:23] LABS: Urine Appearance CLEAR (Clear); Urine Bilirubin NEGATIVE (Negataive); Urine Blood NEGATIVE (Negative); Urine Color YELLOW (Yellow); Urine Glucose NEGATIVE (Negative); Urine Protein NEGATIVE (Negative); Urine Urobilinogen 0.2 mg/dL (0.2-1.0); Urine pH 6.5 (5.0-7.0)
[2020-07-06 03:24] LABS: Urine Microscopic Reflex NO UMIC
[2020-07-06] MEDS: MORPHINE 2 MG/ML SYR IV PRN ×4 (04:47→23:07)
--- NOTE | 2020-07-06 07:24 | EKG ---
Test Date: 2020-07-04 Test Time: 16:35:15 [facility] Laboratory Technician: PHYLLIS MEASUREMENT RESULTS: Intervals: Rate: 89 MS: 162 QRSD: 88 QT: 368 QTc: 447 [place]: P: 83 MS: 162 QRS: 70 T: 80 INTERPRETIVE STATEMENTS: Normal sinus rhythm Biatrial enlargement Abnormal ECG Compared to ECG 06/02/2020 11:44:12 Atrial abnormality now present Myocardial infarct finding no longer present Electronically Signed On 07-06-20 07:18:37 CDT by Augie Ahn
[2020-07-06] MEDS: GABAPENTIN 300 MG CAP PO SCH ×3 (09:01→20:37)
[2020-07-06] MEDS: VENLAFAXINE HCL XR 75 MG CAP PO SCH (09:01)
[2020-07-06] MEDS: carBAMazepine 200 MG TAB PO SCH ×3 (09:02→20:37)
[2020-07-06] MEDS: AMLODIPINE 5 MG TAB PO SCH ×2 (09:02→20:37)
[2020-07-06] MEDS: ACETAMINOPHEN 500 MG TAB PO PRN (15:51)
[2020-07-06] MEDS: NICOTINE 7 MG/PAT TD SCH (18:06)
[2020-07-06] MEDS: ATORVASTATIN 40 MG TAB PO SCH (20:37)
[2020-07-07] MEDS: MORPHINE 2 MG/ML SYR IV PRN ×3 (06:23→21:07)
[2020-07-07 06:40] LABS: Absolute Lymphocytes (CBC) 1.4 K/uL (0.7-4.9); Basophils % 0.8 % (0-1.3); Hematocrit 38.4 % (36.0-45.0); Lymphocytes % 17.8 % (15.3-44.8); MPV 7.4 fL (7.6-11.3); RBC Red Blood Cell Count 4.61 M/uL (3.86-4.86)
[2020-07-07 06:49] LABS: ALT/SGPT 20 U/L (12-78); AST/SGOT 19 U/L (15-37); Albumin 3.9 g/dL (3.4-5.0); Alkaline Phosphatase 120 U/L (45-117); BUN Blood Urea Nitrogen 5 mg/dL (7-18); Bicarbonate 29 mmol/L (21-32); Bilirubin Total 0.3 mg/dL (0.2-1.0); Glucose Level 99 mg/dL (74-106); Magnesium 2.2 mg/dL (1.8-2.4); Phosphorus 2.9 mg/dL (2.5-4.9); Potassium 3.5 mmol/L (3.5-5.1); Protein, Total 7.3 g/dL (6.4-8.2); Sodium Level 139 mmol/L (136-145)
[2020-07-07] MEDS: AMLODIPINE 5 MG TAB PO SCH ×2 (08:17→20:22)
[2020-07-07] MEDS: GABAPENTIN 300 MG CAP PO SCH ×3 (08:17→20:22)
[2020-07-07] MEDS: VENLAFAXINE HCL XR 75 MG CAP PO SCH (08:17)
[2020-07-07] MEDS: NA CHLORIDE 0.9% 1,000 ML IV SCH ×3 (08:18→20:27)
[2020-07-07] MEDS: carBAMazepine 200 MG TAB PO SCH ×3 (08:18→20:22)
[2020-07-07] MEDS ORDERED: POTASSIUM CL SA 10 MEQ TAB PO ONE (09:00)
[2020-07-07] MEDS: NICOTINE 7 MG/PAT TD SCH (11:02)
--- NOTE | 2020-07-07 12:41 | P.CNS ---
Date of Consult: 07/07/20 patient with mondisplaced radial head fracture sergey need management on sling only f/u 4 weeks post discharge
--- NOTE | 2020-07-07 14:26 | P.PN ---
Subjective Date of Service: 07/06/20 Subjective: No new changes, No C/O voiced, Improving Review of Systems 10-point ROS is otherwise unremarkable Physical Examination - Vital Signs Temperature: 98.7 F Blood Pressure: 181/98 Pulse: 115 Respirations: 16 Pulse Ox (%): 96 - Physical Exam General: Alert, In no apparent distress, Oriented x3 Respiratory: Clear to auscultation bilaterally, Normal air movement Cardiovascular: Regular rate/rhythm, Normal S1 S2 Assessment & Plan - Problems (Diagnosis) (1) HLD (hyperlipidemia) Current Visit: Yes Status: Chronic Qualifiers: Hyperlipidemia type: unspecified Qualified Code(s): E78.5 - Hyperlipidemia, unspecified (2) HTN (hypertension) Current Visit: Yes Status: Chronic Qualifiers: Hypertension type: essential hypertension Qualified Code(s): I10 - Essential (primary) hypertension (3) Substance abuse Current Visit: No Status: Acute (4) Weakness Onset Date: 08/30/16 Current Visit: No Status: Acute - Plan PLAN: transfer to senior living Discharge Plan: Home Plan to discharge in: Greater than 2 days - Advance Directives Does patient have a Living Will: No Does patient have a Durable POA for Healthcare: No - Code Status/Comfort Care Code Status: Full Code Critical Care: No Time Spent Managing PTS Care (In Minutes): 35
--- NOTE | 2020-07-07 14:28 | P.DS ---
Discharge Date: 07/10/20 Primary Care Provider: none Disposition: ROUTINE DISCHARGE Discharge Condition: GOOD Reason for Admission: fall - Problems (1) HLD (hyperlipidemia) Current Visit: Yes Status: Chronic Qualifiers: Hyperlipidemia type: unspecified Qualified Code(s): E78.5 - Hyperlipidemia, unspecified (2) HTN (hypertension) Current Visit: Yes Status: Chronic Qualifiers: Hypertension type: essential hypertension Qualified Code(s): I10 - Essential (primary) hypertension (3) Substance abuse Current Visit: No Status: Acute (4) Weakness Onset Date: 08/30/16 Current Visit: No Status: Acute Brief History of Present Illness: Ms. 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 Reports pain in her right forearm, and aching pain in her left leg. She denies hitting her head. Denies lightheadedness, dizziness. She says she has fallen approximately 10 times in the last 6 months. 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 She smokes 1/2 ppd. Imaging significant for questionable nondisplaced radial neck fracture. Hospital Course: Patient continues to improve. At this time, patient is stable for discharge to the [facility]. Patient will coated for senior living facility placement and if patient improves then hopefully patient can get home. Vital Signs/Physical Exam: Temp Pulse Resp BP Pulse Ox 98.7 F 115 H 16 181/98 H 96 07/07/20 14:26 07/07/20 14:26 07/07/20 14:26 07/07/20 14:26 07/07/20 14:26 General: Alert, In no apparent distress, Oriented x3 Laboratory Data at Discharge: WBC 7.80 K/uL (4.3-10.9) 07/07/20 06:09 Hgb 12.5 g/dL (12.0-15.0) 07/07/20 06:09 Hct 38.4 % (36.0-45.0) 07/07/20 06:09 Plt Count 475 K/uL (152-406) H 07/07/20 06:09 Sodium 139 mmol/L (136-145) 07/07/20 06:09 Potassium 3.5 mmol/L (3.5-5.1) 07/07/20 06:09 BUN 5 mg/dL (7-18) L 07/07/20 06:09 Creatinine 0.40 mg/dL (0.55-1.3) L 07/07/20 06:09 Glucose 99 mg/dL (74-106) 07/07/20 06:09 Phosphorus 2.9 mg/dL (2.5-4.9) 07/07/20 06:09 Magnesium 2.2 mg/dL (1.8-2.4) 07/07/20 06:09 Total Bilirubin 0.3 mg/dL (0.2-1.0) 07/07/20 06:09 AST 19 U/L (15-37) 07/07/20 06:09 ALT 20 U/L (12-78) 07/07/20 06:09 Alkaline Phosphatase 120 U/L (45-117) H 07/07/20 06:09 Triglycerides 75 mg/dL (<150) 07/05/20 04:20 Cholesterol 200 mg/dL (<200) 07/05/20 04:20 HDL Cholesterol 122 mg/dL (40-60) H 07/05/20 04:20 Cholesterol/HDL Ratio 1.64 07/05/20 04:20 Lipase 839 U/L (73-393) H 07/04/20 15:47 Home Medications: Amlodipine [Norvasc*] 5 mg PO BID 08/29/16 Carbamazepine [Tegretol] 200 mg PO TID 08/29/16 Gabapentin 600 mg PO TID 08/29/16 Atorvastatin Calcium [Lipitor] 40 mg PO BEDTIME #30 tab 08/30/16 Venlafaxine HCl [Venlafaxine HCl ER] 75 mg PO DAILY 06/01/20 Clopidogrel Bisulfate [Plavix] 75 mg PO DAILY #30 tablet 06/08/20 Baclofen 5 mg PO BEDTIME 07/06/20 Physician Discharge Instructions: OK TO DC IV AND DC HOME FOLLOW-UP WITH PCP IN 1-2 WEEKS RETURN TO THE ER IF SYMPTOMS WORSENS FOLLOW-UP WITH NEUROLOGY IN 1-[address] MARCIAL AT [phone] IF ANY QUESTIONS REGARDING HOSPITAL STAY Diet: AHA Activity: Fall precautions Followup: NONE,NONE [Primary Care Provider] - Time spent managing pt's care (in minutes): 35
--- NOTE | 2020-07-07 14:29 | P.PN ---
Date of Service: 07/05/20 Subjective Subjective: Pt doing well Review of Systems 10-point ROS is otherwise unremarkable Physical Examination - Vital Signs reviewed - Physical Exam General: Alert, In no apparent distress, Oriented x3 Respiratory: Clear to auscultation bilaterally, Normal air movement Cardiovascular: Regular rate/rhythm, Normal S1 S2 Assessment & Plan - Problems (Diagnosis) (1) HLD (hyperlipidemia) Current Visit: Yes Status: Chronic Qualifiers: Hyperlipidemia type: unspecified Qualified Code(s): E78.5 - Hyperlipidemia, unspecified (2) HTN (hypertension) Current Visit: Yes Status: Chronic Qualifiers: Hypertension type: essential hypertension Qualified Code(s): I10 - Essential (primary) hypertension (3) Substance abuse Current Visit: No Status: Acute (4) Weakness Onset Date: 08/30/16 Current Visit: No Status: Acute - Plan PLAN: transfer to [facility]
[2020-07-07] MEDS ORDERED: METOPROLOL TARTRATE 5 MG/5 ML INJ IV STA (14:43)
[2020-07-07] MEDS: ACETAMINOPHEN 500 MG TAB PO PRN (15:49)
[2020-07-07] MEDS: METOPROLOL TAR 50 MG TAB PO SCH (17:08)
[2020-07-07] MEDS: ATORVASTATIN 40 MG TAB PO SCH (20:22)
[2020-07-08] MEDS: NA CHLORIDE 0.9% 1,000 ML IV SCH (02:29)
[2020-07-08] MEDS: MORPHINE 2 MG/ML SYR IV PRN ×2 (05:55→16:57)
[2020-07-08 06:03] LABS: BUN Blood Urea Nitrogen 9 mg/dL (7-18); Bicarbonate 27 mmol/L (21-32); Glucose Level 93 mg/dL (74-106); Potassium 3.7 mmol/L (3.5-5.1); Sodium Level 140 mmol/L (136-145)
[2020-07-08] MEDS: METOPROLOL TAR 50 MG TAB PO SCH ×2 (06:05→17:07)
[2020-07-08] MEDS ORDERED: POTASSIUM CL SA 10 MEQ TAB PO ONE (09:00)
[2020-07-08] MEDS: NICOTINE 7 MG/PAT TD SCH (09:07)
[2020-07-08] MEDS: VENLAFAXINE HCL XR 75 MG CAP PO SCH (09:08)
[2020-07-08] MEDS: GABAPENTIN 300 MG CAP PO SCH ×4 (09:08→20:28)
[2020-07-08] MEDS: carBAMazepine 200 MG TAB PO SCH ×3 (09:08→20:27)
[2020-07-08] MEDS: AMLODIPINE 5 MG TAB PO SCH ×2 (09:08→20:28)
[2020-07-08] MEDS: HYDRALAZINE HCL 20 MG/ML VIAL IV PRN (12:42)
[2020-07-08] MEDS ORDERED: LORazepam 2 MG/ML VIAL IV ONE (19:00)
--- NOTE | 2020-07-08 19:20 | P.PN ---
Date of Service: 07/07/20 Subjective Patient is a little anxious today. Patient denies any new complaints. Review of Systems 10-point ROS is otherwise unremarkable Physical Examination - Vital Signs Reviewed - Physical Exam General: Alert, In no apparent distress, Oriented x3 Respiratory: Clear to auscultation bilaterally, Normal air movement Cardiovascular: Regular rate/rhythm, Normal S1 S2 Assessment & Plan - Problems (Diagnosis) (1) HLD (hyperlipidemia) Current Visit: Yes Status: Chronic Qualifiers: Hyperlipidemia type: unspecified Qualified Code(s): E78.5 - Hyperlipidemia, unspecified (2) HTN (hypertension) Current Visit: Yes Status: Chronic Qualifiers: Hypertension type: essential hypertension Qualified Code(s): I10 - Essential (primary) hypertension (3) Substance abuse Current Visit: No Status: Acute (4) Weakness Onset Date: 08/30/16 Current Visit: No Status: Acute - Plan PLAN: -transfer to alf once accepted -anxiolytics -nicotine patch -out of bed and ambulate
[2020-07-08] MEDS: BACLOFEN 10 MG TAB PO SCH (20:27)
[2020-07-08] MEDS: ATORVASTATIN 40 MG TAB PO SCH (20:27)
[2020-07-08] MEDS: clonazePAM 1 MG TAB PO SCH (21:00)
[2020-07-09] MEDS: METOPROLOL TAR 50 MG TAB PO SCH ×2 (05:24→17:21)
[2020-07-09 06:31] LABS: BUN Blood Urea Nitrogen 9 mg/dL (7-18); Bicarbonate 26 mmol/L (21-32); Glucose Level 90 mg/dL (74-106); Potassium 3.4 mmol/L (3.5-5.1); Sodium Level 141 mmol/L (136-145)
[2020-07-09] MEDS ORDERED: POTASSIUM CL SA 10 MEQ TAB PO ONE (08:00)
[2020-07-09] MEDS ORDERED: VENLAFAXINE HCL XR 75 MG CAP PO SCH (09:00)
[2020-07-09] MEDS: GABAPENTIN 300 MG CAP PO SCH ×4 (09:00→20:04)
[2020-07-09] MEDS: clonazePAM 1 MG TAB PO SCH ×3 (09:11→20:04)
[2020-07-09] MEDS: AMLODIPINE 5 MG TAB PO SCH ×2 (09:11→20:05)
[2020-07-09] MEDS: VENLAFAXINE HCL XR 75 MG CAP PO SCH (09:11)
[2020-07-09] MEDS: CLOPIDOGREL 75 MG TABLET PO SCH (09:12)
[2020-07-09] MEDS: NICOTINE 7 MG/PAT TD SCH (09:12)
[2020-07-09] MEDS: carBAMazepine 200 MG TAB PO SCH ×3 (09:12→20:05)
[2020-07-09] MEDS: MORPHINE 2 MG/ML SYR IV PRN (09:26)
[2020-07-09] MEDS: BACLOFEN 10 MG TAB PO SCH (20:04)
[2020-07-09] MEDS: ATORVASTATIN 40 MG TAB PO SCH (20:05)
--- NOTE | 2020-07-09 23:57 | P.PN ---
Date of Service: 07/08/20 Subjective Patient is feeling much better. Patient denies any new complaints. Review of Systems 10-point ROS is otherwise unremarkable Physical Examination - Vital Signs Reviewed - Physical Exam General: Alert, In no apparent distress, Oriented x3 Respiratory: Clear to auscultation bilaterally, Normal air movement Cardiovascular: Regular rate/rhythm, Normal S1 S2 Assessment & Plan - Problems (Diagnosis) (1) HLD (hyperlipidemia) Current Visit: Yes Status: Chronic Qualifiers: Hyperlipidemia type: unspecified Qualified Code(s): E78.5 - Hyperlipidemia, unspecified (2) HTN (hypertension) Current Visit: Yes Status: Chronic Qualifiers: Hypertension type: essential hypertension Qualified Code(s): I10 - Essential (primary) hypertension (3) Substance abuse Current Visit: No Status: Acute (4) Weakness Onset Date: 08/30/16 Current Visit: No Status: Acute - Plan PLAN: -transfer to skilled nursing once accepted -continue with low-dose anxiolytics -continue with nicotine patch -strict blood pressure control -out of bed and ambulate
--- NOTE | 2020-07-09 23:58 | P.PN ---
Date of Service: 07/09/20 Subjective Patient doing well with no new complaints Review of Systems 10-point ROS is otherwise unremarkable Physical Examination - Vital Signs Reviewed - Physical Exam General: Alert, In no apparent distress, Oriented x3 Respiratory: Clear to auscultation bilaterally, Normal air movement Cardiovascular: Regular rate/rhythm, Normal S1 S2 Assessment & Plan - Problems (Diagnosis) (1) HLD (hyperlipidemia) Current Visit: Yes Status: Chronic Qualifiers: Hyperlipidemia type: unspecified Qualified Code(s): E78.5 - Hyperlipidemia, unspecified (2) HTN (hypertension) Current Visit: Yes Status: Chronic Qualifiers: Hypertension type: essential hypertension Qualified Code(s): I10 - Essential (primary) hypertension (3) Substance abuse Current Visit: No Status: Acute (4) Weakness Onset Date: 08/30/16 Current Visit: No Status: Acute - Plan PLAN: Continue with plan of care as below: -transfer to [facility] once accepted; according to patient [facility] as [facility] resident Medicaid pending. At this time, would try to work on patient getting excepted to a care home facility -continue with low-dose anxiolytics -continue with nicotine patch -strict blood pressure control -out of bed and ambulate
[2020-07-10] MEDS: METOPROLOL TAR 50 MG TAB PO SCH ×2 (05:28→16:53)
[2020-07-10] MEDS: NICOTINE 7 MG/PAT TD SCH (09:24)
[2020-07-10] MEDS: AMLODIPINE 5 MG TAB PO SCH ×2 (09:24→21:30)
[2020-07-10] MEDS: carBAMazepine 200 MG TAB PO SCH ×3 (09:24→20:18)
[2020-07-10] MEDS: clonazePAM 1 MG TAB PO SCH ×3 (09:24→20:19)
[2020-07-10] MEDS: GABAPENTIN 300 MG CAP PO SCH ×3 (09:24→20:18)
[2020-07-10] MEDS: VENLAFAXINE HCL XR 75 MG CAP PO SCH (09:25)
[2020-07-10] MEDS: CLOPIDOGREL 75 MG TABLET PO SCH (09:25)
--- NOTE | 2020-07-10 14:08 | P.PN ---
Subjective Date of Service: 07/10/20 Primary Care Provider: none Chief Complaint: fall Subjective: Improving, Doing well Physical Examination - Vital Signs Temperature: 98.2 F Blood Pressure: 114/70 Pulse: 73 Respirations: 16 Pulse Ox (%): 96 Assessment & Plan Discharge Plan: Other (jail facility then long-term care) Plan to discharge in: 48 Hours Physician Review Additional Text: Physical Exam: GENERAL: The patient is a well-developed, well-nourished, in no apparent distress. Alert and oriented x3. VITAL SIGNS: Reviewed NECK: Supple. No carotid bruits. No lymphadenopathy or thyromegaly. LUNGS: Clear to auscultation. No crackles or wheezes are heard. HEART: Regular rate and rythem, no appreciable gallops, rubs, murmurs or extra heart sounds ABDOMEN: Soft, nontender, and nondistended. Positive bowel sounds. No hepatosplenomegaly was noted. EXTREMITIES: Overall stable. Left-sided residual weakness noted NEUROLOGIC: Face is symmetric. SKIN: Normal color, turgor and temperature. No ulcerations or rashes noted. Impression: Falls with history of seizure disorder with nondisplaced right radial neck fracture Hypertension Hyperlipidemia Depression Chronic pain Anemia of chronic disease Plan: Falls with history of seizure disorder with nondisplaced right radial neck fracture: Patient overall stable. Orthopedics has evaluated patient. Continue with sling for the next 4 weeks. Patient no longer able to take care of herself at home. Currently awaiting approval to go to skilled facility then long-term care. Care discussed in detail with social director and patient. Await approval. Medications reviewed. History of CVA with left-sided residual weakness: Continue current medication Hypertension: Continue current medication Hyperlipidemia: Continue current medication Depression: Continue medication Chronic pain: Continue medication Anemia of chronic disease: Overall stable. Code Status: Patient is DNR DVT prophylaxis: Lovenox Advanced Care Planning-30 minutes: Plan of care for the patient's discharge was discussed in detail with the the patient. Awaiting approval for skilled placement. Then patient will pursue long-term care. Time Spent Managing Pts Care (In Minutes): 55
[2020-07-10] MEDS: ENOXAPARIN 30 MG/0.3 ML SQ SCH (16:52)
[2020-07-10] MEDS: ACETAMINOPHEN 500 MG TAB PO PRN ×2 (16:56→22:37)
[2020-07-10] MEDS ORDERED: HYDROCODONE/APAP 5/325 MG TAB PO ONE (19:07)
[2020-07-10] MEDS: ATORVASTATIN 40 MG TAB PO SCH (20:18)
[2020-07-10] MEDS: BACLOFEN 10 MG TAB PO SCH (20:19)
[2020-07-11] MEDS: METOPROLOL TAR 50 MG TAB PO SCH (05:19)
--- NOTE | 2020-07-11 07:18 | P.PN ---
Subjective Date of Service: 07/11/20 Primary Care Provider: none Chief Complaint: fall Subjective: No new changes, Doing well Physical Examination - Vital Signs Temperature: 98.0 F Blood Pressure: 105/55 Pulse: 55 Respirations: 16 Pulse Ox (%): 93 Assessment & Plan Discharge Plan: Detention Plan to discharge in: 24 Hours Physician Review Additional Text: Physical Exam: GENERAL: The patient is a well-developed, well-nourished, in no apparent distress. Alert and oriented x3. VITAL SIGNS: Reviewed NECK: Supple. No carotid bruits. No lymphadenopathy or thyromegaly. LUNGS: Clear to auscultation. No crackles or wheezes are heard. HEART: Regular rate and rythem, no appreciable gallops, rubs, murmurs or extra heart sounds ABDOMEN: Soft, nontender, and nondistended. Positive bowel sounds. No hepatosplenomegaly was noted. EXTREMITIES: Overall stable. Left-sided residual weakness noted. Mild back pain noted NEUROLOGIC: Face is symmetric. SKIN: Normal color, turgor and temperature. No ulcerations or rashes noted. Impression: Falls with history of seizure disorder with nondisplaced right radial neck fracture Hypertension Hyperlipidemia Depression Chronic pain Anemia of chronic disease Plan: Falls with history of seizure disorder with nondisplaced right radial neck fracture: Patient doing well overall. Patient continues to work with physical therapy and Occupational Therapy. Will discontinue Black catheter. Orthopedics has evaluated patient. Continue with sling for the next 4 weeks. Patient no longer able to take care of herself at home. Currently awaiting approval to go to skilled facility then long-term care. Care discussed in detail with director social service and patient. Await approval. Medications reviewed and adjusted. Anticipate possible discharge to skilled facility today. History of CVA with left-sided residual weakness: Continue current medication Hypertension: Blood pressure on the low side. Will decrease Norvasc to 5 mg daily and metoprolol to 25 mg 1 pill twice daily. Parameters in place to hold blood pressure medication if systolic less than 110. Continue current medication Hyperlipidemia: Continue current medication Depression: Continue medication Chronic pain: Continue medication Anemia of chronic disease: Overall stable. Code Status: Patient is DNR DVT prophylaxis: Lovenox Advanced Care Planning-30 minutes: Plan of care for the patient's discharge was discussed in detail with the the patient. Awaiting approval for skilled placement. Then patient will pursue long-term care. Time Spent Managing Pts Care (In Minutes): 55
[2020-07-11] MEDS: NICOTINE 7 MG/PAT TD SCH (08:12)
[2020-07-11] MEDS: AMLODIPINE 5 MG TAB PO SCH (08:13)
[2020-07-11] MEDS: clonazePAM 1 MG TAB PO SCH ×3 (08:13→20:29)
[2020-07-11] MEDS: VENLAFAXINE HCL XR 75 MG CAP PO SCH (08:13)
[2020-07-11] MEDS: CLOPIDOGREL 75 MG TABLET PO SCH (08:13)
[2020-07-11] MEDS: GABAPENTIN 300 MG CAP PO SCH ×3 (08:14→20:29)
[2020-07-11] MEDS: carBAMazepine 200 MG TAB PO SCH ×3 (08:14→20:29)
[2020-07-11] MEDS: METOPROLOL TAR 25 MG TAB PO SCH (17:05)
[2020-07-11] MEDS: ENOXAPARIN 30 MG/0.3 ML SQ SCH (17:05)
[2020-07-11] MEDS ORDERED: TRAMADOL HCL 50 MG TAB PO PRN (18:06)
[2020-07-11] MEDS: ATORVASTATIN 40 MG TAB PO SCH (20:28)
[2020-07-11] MEDS: BACLOFEN 10 MG TAB PO SCH (20:29)
[2020-07-12] MEDS: METOPROLOL TAR 25 MG TAB PO SCH (05:37)
[2020-07-12] MEDS: GABAPENTIN 300 MG CAP PO SCH ×2 (07:51→14:19)
[2020-07-12] MEDS: CLOPIDOGREL 75 MG TABLET PO SCH (07:52)
[2020-07-12] MEDS: carBAMazepine 200 MG TAB PO SCH ×2 (07:52→14:20)
[2020-07-12] MEDS: AMLODIPINE 5 MG TAB PO SCH (07:52)
[2020-07-12] MEDS: clonazePAM 1 MG TAB PO SCH ×2 (07:52→14:20)
[2020-07-12] MEDS: VENLAFAXINE HCL XR 75 MG CAP PO SCH (07:52)
[2020-07-12] MEDS: NICOTINE 7 MG/PAT TD SCH (07:55)
--- NOTE | 2020-07-12 10:04 | P.PN ---
Subjective Date of Service: 07/12/20 Primary Care Provider: none Chief Complaint: fall Subjective: Improving (Patient required straight catheter last night with some mild urinary retention. Patient refused Black catheter.) Physical Examination - Vital Signs Temperature: 98.7 F Blood Pressure: 118/64 Pulse: 66 Respirations: 16 Pulse Ox (%): 94 Assessment & Plan Discharge Plan: [facility] Plan to discharge in: 24 Hours Physician Review Additional Text: Physical Exam: GENERAL: The patient is a well-developed, well-nourished, in no apparent distress. Alert and oriented x3. VITAL SIGNS: Reviewed NECK: Supple. No carotid bruits. No lymphadenopathy or thyromegaly. LUNGS: Clear to auscultation. No crackles or wheezes are heard. HEART: Regular rate and rythem, no appreciable gallops, rubs, murmurs or extra heart sounds ABDOMEN: Soft, nontender, and nondistended. Positive bowel sounds. No hepatosplenomegaly was noted. EXTREMITIES: Overall stable. Left-sided residual weakness noted. Mild back pain noted NEUROLOGIC: Face is symmetric. SKIN: Normal color, turgor and temperature. No ulcerations or rashes noted. Impression: Falls with history of seizure disorder with nondisplaced right radial neck fracture Hypertension Hyperlipidemia Depression Chronic pain Anemia of chronic disease Mild urinary retention Plan: Falls with history of seizure disorder with nondisplaced right radial neck fracture: Patient continues to do well with physical therapy. Patient making progress with physical therapy. Mild urine retention noted. We will monitor closely. Patient had straight cath done yesterday. Patient may require Black catheter at discharge if this persist. Orthopedics has evaluated patient. Continue with sling for the next 4 weeks. Patient no longer able to take care of herself at home. Currently awaiting approval to go to skilled facility then long-term care. I will continue to recommend skilled placement then long-term care. [place] to be done for skilled placement. Await approval. History of CVA with left-sided residual weakness: Continue current medication Hypertension: Pressure medication has been adjusted. Norvasc decreased to 5 mg daily and metoprolol to 25 mg twice daily. We will continue to monitor and adjust medication Hyperlipidemia: Continue current medication Depression: Continue medication Chronic pain: Continue medication Anemia of chronic disease: Overall stable. Mild urinary retention: Patient required straight catheter last night. Will monitor urinary output. If abnormal patient may require Black catheter. Patient refused Black catheter last night. Other consideration would be doing straight caths as needed. Code Status: Patient is DNR DVT prophylaxis: Lovenox Advanced Care Planning-30 minutes: Plan of care for the patient's discharge was discussed in detail with the the patient. Awaiting approval for skilled placement. Then patient will pursue long-term care. Time Spent Managing Pts Care (In Minutes): 55
[2020-07-12 11:11] VITALS: O2SAT 93
[2020-07-12] MEDS: ACETAMINOPHEN 500 MG TAB PO PRN (12:35)
--- NOTE | 2020-07-12 14:19 | P.DS ---
Admission Date: 07/06/20 Discharge Date: 07/12/20 Primary Care Provider: none Disposition: TRANSFER TO SNF - MEDICAL Discharge Condition: GOOD Reason for Admission: fall Consultations: none Procedures: COVID: Negative CT scan: COMPARISON: MRI June 2020 FINDINGS: An intracranial bleed is not seen. Large low-density area right cerebrum unchanged probably old infarction. No hydrocephalus. An extra-axial fluid collection is not noted. . Fluid within the sinuses/mastoids is not seen. A cervical fracture is not seen. No dislocation is noted. Postsurgical changes involve cervical spine The evaluation of mediastinum, juan josé, vessels, solid organs and bowel are limited secondary to the lack of contrast administration. A mediastinal hematoma is not noted. A pleural effusion is not seen. A lung contusion is not present. The liver,spleen, pancreas, adrenals,kidneys and bladder do not demonstrate traumatic injury. A Black catheter is present within the bladder IMPRESSION: 1. No acute intracranial abnormality is seen. 2. A cervical fracture is not visualized Xray: CLINICAL HISTORY: Right arm pain status post fall FINDINGS: Questionable nondisplaced radial neck fracture. Osteoporosis Medical Problem List: Falls with history of seizure disorder with nondisplaced right radial neck fracture History of CVA with left-sided residual weakness Hypertension Hyperlipidemia Depression Chronic pain Anemia of chronic disease Mild urinary retention Brief History of Present Illness: 64 yo female with HTN, HLD, CVA (2017) with left sided hemiplegia, h/o epilepsy here today after falling from a chair. Reports pain in her right forearm, and aching pain in her left leg. She denies hitting her head. Denies lightheadedness, dizziness. She says she has fallen approximately 10 times in the last 6 months. 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 She smokes 1/2 ppd. Imaging significant for questionable nondisplaced radial neck fracture. Patient admitted for further evaluation and treatment. Hospital Course: Patient presented with multiple falls at home. Patient with underlying CVA with left-sided residual weakness and seizure disorder. Patient found to have nondisplaced radial neck fracture. Patient was admitted for further evaluation and treatment. Patient reports that she is not able to take care of herself. Patient was seen by orthopedics. Per Orthopedics recommend to continue with sling for the next 4 weeks. Patient can follow up with orthopedics as directed. Since the patient cannot take care of herself social work help to arrange for skilled placement then long-term care placement. Patient has been approved to go to a skilled facility. From there she hopefully remain in that facility for long-term care. Fall precautions in place. Patient will continue physical therapy at this time. Patient with history of CVA and left-sided residual weakness. Patient also with history of seizure disorder. At discharge she will continue with Plavix 75 mg d aily, Lipitor 40 mg daily, Tegretol 200 mg 3 times a day, gabapentin 600 mg 3 times a day, and baclofen 5 mg at bedtime. Fall precautions in place. She can follow up with her PCP as an outpatient to further monitor and address her condition. Patient with hypertension. Medications have been adjusted. Norvasc has been decreased. Blood pressure stable. At discharge she will continue with Norvasc 5 mg daily and metoprolol 25 mg 1 pill twice daily. Recommend to maintain blood pressure less than 130/80. Hold medication if blood pressure systolic less than 110 or heart rate less than 50. This can be further monitored and managed by alf physician. Patient with hyperlipidemia. At discharge she will continue with Lipitor 40 mg daily. Patient with depression. At discharge she will continue with Effexor 75 mg daily. Patient with chronic pain. Patient will continue with gabapentin 600 mg 3 times a day. Patient with anemia of chronic disease. This appears stable. This can be monitored closely by alf physician. Patient had some mild urinary retention. Patient refused Black catheter. This was reassessed prior to discharge. Patient may continue with in-and out c atheters if required at the alf. If this persists consideration of Black catheter. Patient may follow up with urology as an outpatient if this persists. Vital Signs/Physical Exam: Temp Pulse Resp BP Pulse Ox 98.1 F 66 16 104/64 93 07/12/20 12:00 07/12/20 12:00 07/12/20 12:00 07/12/20 12:07/12/20 12:00 General: Alert, In no apparent distress, Oriented x3, Cooperative HEENT: Atraumatic Neck: Supple Respiratory: Clear to auscultation bilaterally, Normal air movement Cardiovascular: Normal pulses, Regular rate/rhythm Gastrointestinal: Normal bowel sounds Integumentary: No tenderness/swelling Neurological: Other (Left-sided residual weakness) Laboratory Data at Discharge: WBC 7.80 K/uL (4.3-10.9) 07/07/20 06:09 Hgb 12.5 g/dL (12.0-15.0) 07/07/20 06:09 Hct 38.4 % (36.0-45.0) 07/07/20 06:09 Plt Count 475 K/uL (152-406) H 07/07/20 06:09 Sodium 141 mmol/L (136-145) 07/09/20 05:47 Potassium 4.3 mmol/L (3.5-5.1) 07/09/20 14:15 BUN 9 mg/dL (7-18) 07/09/20 05:47 Creatinine 0.42 mg/dL (0.55-1.3) L 07/09/20 05:47 Glucose 90 mg/dL (74-106) 07/09/20 05:47 Phosphorus 2.9 mg/dL (2.5-4.9) 07/07/20 06:09 Magnesium 2.2 mg/dL (1.8-2.4) 07/07/20 06:09 Total Bilirubin 0.3 mg/dL (0.2-1.0) 07/07/20 06:09 AST 19 U/L (15-37) 07/07/20 06:09 ALT 20 U/L (12-78) 07/07/20 06:09 Alkaline Phosphatase 120 U/L (45-117) H 07/07/20 06:09 Triglycerides 75 mg/dL (<150) 07/05/20 04:20 Cholesterol 200 mg/dL (<200) 07/05/20 04:20 HDL Cholesterol 122 mg/dL (40-60) H 07/05/20 04:20 Cholesterol/HDL Ratio 1.64 07/05/20 04:20 Lipase 839 U/L (73-393) H 07/04/20 15:47 Home Medications: Carbamazepine [Tegretol] 200 mg PO TID 08/29/16 Gabapentin 600 mg PO TID 08/29/16 Atorvastatin Calcium [Lipitor] 40 mg PO BEDTIME #30 tab 08/30/16 Venlafaxine HCl [Venlafaxine HCl ER] 75 mg PO DAILY 06/01/20 Clopidogrel Bisulfate [Plavix] 75 mg PO DAILY #30 tablet 06/08/20 Baclofen 5 mg PO BEDTIME 07/06/20 Amlodipine [Norvasc*] 5 mg PO DAILY #30 tab 07/12/20 Metoprolol Tartrate [Lopressor*] 25 mg PO BID 6AM 6PM #60 tab 07/12/20 New Medications: Metoprolol Tartrate [Lopressor*] 25 mg PO BID 6AM 6PM #60 tab Amlodipine [Norvasc*] 5 mg PO DAILY #30 tab Physician Discharge Instructions: Patient presented with multiple falls at home. Patient with underlying CVA with left-sided residual weakness and seizure disorder. Patient found to have nondisplaced radial neck fracture. Patient was admitted for further evaluation and treatment. Patient reports that she is not able to take care of herself. Patient was seen by orthopedics. Per Orthopedics recommend to continue with sling for the next 4 weeks. Patient can follow up with orthopedics as directed. Since the patient cannot take care of herself social work help to arrange for skilled placement then long-term care placement. Patient has been approved to go to a skilled facility. From there she hopefully remain in that facility for long-term care. Fall precautions in place. Patient will continue physical therapy at this time. Patient with history of CVA and left-sided residual weakness. Patient also with history of seizure disorder. At discharge she will continue with Plavix 75 mg daily, Lipitor 40 mg daily, Tegretol 200 mg 3 times a day, gabapentin 600 mg 3 times a day, and baclofen 5 mg at bedtime. Fall precautions in place. She can follow up with her PCP as an outpatient to further monitor and address her condition. Patient with hypertension. Medications have been adjusted. Norvasc has been decreased. Blood pressure stable. At discharge she will continue with Norvasc 5 mg daily and metoprolol 25 mg 1 pill twice daily. Recommend to maintain blood pressure less than 130/80. Hold medication if blood pressure systolic less than 110 or heart rate less than 50. This can be further monitored and managed by alf physician. Patient with hyperlipidemia. At discharge she will continue with Lipitor 40 mg daily. Patient with depression. At discharge she will continue with Effexor 75 mg daily. Patient with chronic pain. Patient will continue with gabapentin 600 mg 3 times a day. Patient with anemia of chronic disease. This appears stable. This can be monitored closely by alf physician. Patient had some mild urinary retention. Patient refused Black catheter. This was reassessed prior to discharge. Patient may continue with in-and out catheters if required at the alf. If this persists consideration of Black catheter. Patient may follow up with urology as an outpatient if this persists. Diet: AHA Activity: Fall precautions Followup: NONE,NONE [Primary Care Provider] - Time spent managing pt's care (in minutes): 55
[2020-07-12 18:25] VITALS: BP 131/90; TEMP 97.4
== END 2020-07-12 16:20 | DRG 563 ==
LOC: ER 14:45 → ERHOLD 21:59 → 2ND 07-05 22:26 → OBSVTOIN 07-06 12:19
PROVIDERS: ADMIT Hospitalist; ATTEND Family Medicine
DX: S52.126A Nondisplaced fracture of head of unspecified radius, initial encounter for closed fracture (principal); I69.354 Hemiplegia and hemiparesis following cerebral infarction affecting left non-dominant side; I10 Essential (primary) hypertension; F17.210 Nicotine dependence, cigarettes, uncomplicated; E78.5 Hyperlipidemia, unspecified; G40.909 Epilepsy, unspecified, not intractable, without status epilepticus; F19.10 Other psychoactive substance abuse, uncomplicated; F41.9 Anxiety disorder, unspecified; F32.9 Major depressive disorder, single episode, unspecified; G89.29 Other chronic pain; D63.8 Anemia in other chronic diseases classified elsewhere; S50.11XA Contusion of right forearm, initial encounter; R33.9 Retention of urine, unspecified; W18.00XA Striking against unspecified object with subsequent fall, initial encounter; Z66 Do not resuscitate; Z79.02 Long term (current) use of antithrombotics/antiplatelets; Z90.710 Acquired absence of both cervix and uterus; Z79.899 Other long term (current) drug therapy; Z20.822 Contact with and (suspected) exposure to COVID-19
CPT/HCPCS: 36415; 51702; 70450; 71045; 71250; 72125; 80048; 80053; 80061; 80076; 80156; 80307; 81003; 82947; 83690; 83735; 84100; 84132; 84484; 85025; 87086; 87088; 93005; 94760; 97112; 97161; 97165; 97504; 97530; 97542; 99285; G0378; J0360; J1650; J2270; J7030; U0003

== ENCOUNTER 2020-09-24 06:14 | Emergency (ER) | payer OTHER ==
[2020-09-24] MEDS ORDERED: NA CHLORIDE 0.9% 1,000 ML ONE (06:59)
[2020-09-24 07:17] LABS: Absolute Lymphocytes (CBC) 0.9 K/uL (0.7-4.9); Basophils % 0.7 % (0-1.3); Hematocrit 29.2 % (36.0-45.0); Lymphocytes % 10.1 % (15.3-44.8); MPV 7.2 fL (7.6-11.3); RBC Red Blood Cell Count 4.03 M/uL (3.86-4.86)
[2020-09-24 07:18] LABS: ALT/SGPT 20 U/L (12-78); AST/SGOT 20 U/L (15-37); Albumin 4.2 g/dL (3.4-5.0); Alkaline Phosphatase 121 U/L (45-117); BUN Blood Urea Nitrogen 9 mg/dL (7-18); Bicarbonate 27 mmol/L (21-32); Bilirubin Direct < 0.1 mg/dL (0-0.2); Bilirubin Total 0.2 mg/dL (0.2-1.0); Glucose Level 118 mg/dL (74-106); Lipase 54 U/L (73-393); Potassium 3.2 mmol/L (3.5-5.1); Protein, Total 7.8 g/dL (6.4-8.2); Sodium Level 141 mmol/L (136-145)
--- NOTE | 2020-09-24 08:01 | RAD REPORT ---
EXAM DESCRIPTION: CTAbdomen Pelvis W Contrast - 09/24/2020 7:52 am CLINICAL HISTORY: Abdominal pain. ABD PAIN COMPARISON: No comparisons TECHNIQUE: Biphasic CT imaging of the abdomen and pelvis was performed with 100 ml non-ionic IV cont rast. All CT scans are performed using dose optimization technique as appropriate and may include automated exposure control or mA/KV adjustment according to patient size. FINDINGS: The lung bases are clear. No focal liver lesions. The gallbladder is unremarkable. The adrenal glands are thickened but otherwi se unremarkable. Low-density left renal lesion which is likely a cyst. No suspicious renal lesions id entified. No stones or hydronephrosis. Bladder is unremarkable. Hysterectomy. No bowel obstruction is identified. Pancreas is within normal limits. The stomach is within normal limits. No osseous abnorm ality is identified. Multilevel degenerative changes are present spine. No bowel obstruction, free air, free fluid or abscess. IMPRESSION: No acute intra-abdominal or pelvic finding.
--- NOTE | 2020-09-24 08:44 | EDPHYS ---
Physician Documentation [facility] Name: Lynne Urena Age: 64 yrs Sex: Female : 1955 Arrival Date: 09/24/2020 Time: 06:26 Bed 7 Private MD: ED Physician Hira Carbone HPI: 09/24 06:38 This 64 yrs old Female presents to ER via EMS with complaints of Diarrhea. kb 06:38 The patient presents to the emergency department with diarrhea, 18 times since the kb onset of symptoms. Onset: The symptoms/episode began/occurred yesterday. Possible causes: unknown. The symptoms are aggravated by nothing. The symptoms are alleviated by nothing. Associated signs and symptoms: Pertinent positives: diarrhea, Pertinent negatives: abdominal pain, fever, nausea, vomiting. Severity of symptoms: At their worst the symptoms were moderate in the emergency department the symptoms are unchanged. The patient has not experienced similar symptoms in the past. The patient has not recently seen a physician. Historical: - Allergies: 06:29 NKA; aj1 - Home Meds: 06:29 amlodipine 5 mg tab 1 tab twice a day [Active]; atorvastatin 40 mg Oral tab 1 tab aj1 nightly [Active]; carbamazepine 200 mg Oral tab three times a day [Active]; gabapentin 600 mg Oral tab 1 tab 3 times per day [Active]; venlafaxine 75 mg Oral cp24 1 cap once daily [Active]; Plavix 75 mg Oral tab 1 tab once daily [Active]; Tegretol 200 mg Oral tab 1 tab every 8 hours [Active]; baclofen 20 mg Oral tab nightly [Active]; citalopram 40 mg tab 1 tab once daily [Active]; memantine 5 mg Oral tab 1 tabs 2 times per day [Active]; - PMHx: 06:29 Chronic pain; CVA; left side paralysis; epilepsy; High Cholesterol; Hypertension; aj1 - Immunization history:: Client reports receiving the 1st dose of the Covid vaccine, Flu vaccine is up to date. - Social history:: Smoking status: Patient reports the use of cigarette tobacco products, smokes one-half pack cigarettes per day. ROS: 06:37 Constitutional: Negative for fever, chills, and weight loss. kb 06:37 Abdomen/GI: Positive for diarrhea, Negative for abdominal pain, nausea and vomiting. 06:37 All other systems are negative. Exam: 06:37 Constitutional: This is a well developed, well nourished patient who is awake, alert, kb and in no acute distress. Head/Face: Normocephalic, atraumatic. ENT: Moist Mucous membranes Cardiovascular: Regular rate and rhythm with a normal S1 and S2. No gallops, murmurs, or rubs. No pulse deficits. Respiratory: Respirations even and unlabored. No increased work of breathing, no retractions or nasal flaring. Skin: Warm, dry with normal turgor. Normal color. MS/ Extremity: Pulses equal, no cyanosis. Neurovascular intact. Full, normal range of motion. Psych: Awake, alert, with orientation to person, place and time. Behavior, mood, and affect are within normal limits. 06:37 Abdomen/GI: Inspection: abdomen appears normal, Bowel sounds: normal, in all quadrants, Palpation: soft, in all quadrants, mild abdominal tenderness, in all quadrants. 06:37 Neuro: Exam negative for acute changes. Vital Signs: 06:27 BP 164 / 93; Pulse 104; Resp 22; Temp 97.5; Pulse Ox 92% on R/A; Weight 49.9 kg (R); aj1 Height 5 ft. 2 in. (157.48 cm) (R); Pain 0/10; 08:05 BP 149 / 107; Pulse 100; Resp 20; Pulse Ox 94% ; jl7 06:27 Body Mass Index 20.12 (49.90 kg, 157.48 cm) aj1 MDM: 06:28 Patient medically screened. kb 06:37 Data reviewed: vital signs, nurses notes. Data interpreted: Pulse oximetry: on room air kb is 92 %. Interpretation: borderline. 08:43 Counseling: I had a detailed discussion with the patient and/or guardian regarding: the kb historical points, exam findings, and any diagnostic results supporting the discharge/admit diagnosis, lab results, radiology results, the need for outpatient follow up, a family practitioner, to return to the emergency department if symptoms worsen or persist or if there are any questions or concerns that arise at home. 09/24 06:34 Order name: Basic Metabolic Panel; Complete Time: 07:19 kb 09/24 06:34 Order name: CBC with Diff; Complete Time: 07:19 kb 09/24 06:34 Order name: Hepatic Function; Complete Time: 07:19 kb 09/24 06:34 Order name: Lipase; Complete Time: 07:19 kb 09/24 06:34 Order name: IV Saline Lock; Complete Time: 07:03 kb 09/24 06:34 Order name: Labs collected and sent; Complete Time: 07:03 kb 09/24 07:20 Order name: CT Abd/Pelvis - IV Contrast Only; Complete Time: 08:02 kb 09/24 08:06 Order name: SARS-COV-2 RT PCR; Complete Time: 08:07 EDMS 09/24 08:41 Order name: Diet Plumas; Complete Time: 08:42 jl7 Administered Medications: 07:03 Drug: NS 0.9% 1000 ml Route: IV; Rate: 1000 ml; Site: right forearm; aj1 08:00 Follow up: Response: No adverse reaction; IV Status: Completed infusion; IV Intake: jl7 1000ml 09:09 Drug: Potassium Chloride 20 mEq Route: PO; jl7 Disposition: 19:08 Co-signature as Attending Physician, Hira Carbone MD. [facility] Disposition Summary: 09/24/20 08:44 Discharge Ordered Location: Home kb Condition: Stable kb Diagnosis - Diarrhea, unspecified kb Followup: kb - With: Emergency Department - When: As needed - Reason: Worsening of condition Followup: kb - With: Private Physician - When: 2 - 3 days - Reason: Recheck today's complaints, Continuance of care, Re-evaluation by your physician Discharge Instructions: - Discharge Summary Sheet kb - Food Choices to Help Relieve Diarrhea, Adult kb - Diarrhea, Adult, [id number] kb Forms: - Medication Reconciliation Form kb - Thank You Letter kb - Antibiotic Education kb - Prescription Opioid Use kb Signatures: Dispatcher [employer] EDMS Maame Ibrahim, SETUP OPERATOR-C SETUP OPERATOR-Mony Hay RN RN aj1 Gianfranco Juarez RN RN jl7 Hira Carbone MD MD 7 Corrections: (The following items were deleted from the chart) 07:05 06:35 CORONAVIRUS+ ordered. EDMS EDMS
--- NOTE | 2020-09-24 08:44 | ER ---
Nurse's Notes [facility] Name: Lynne Urena Age: 64 yrs Sex: Female : 1955 Arrival Date: 09/24/2020 Time: : Bed 7 Private MD: Diagnosis: Diarrhea, unspecified Presentation: 09/24 06:27 Chief complaint: Patient states: Diarrhea for the past 2 days. Denies abdominal pain, aj1 denies N/V, denies fever. Coronavirus screen: Client denies travel out of the [place] in the last 14 days. Ebola Screen: Patient denies travel to an Ebola-affected area in the 21 days before illness onset. Initial Sepsis Screen: Does the patient meet any 2 criteria? RR > 20 per min. HR > 90 bpm. Does the patient have a suspected source of infection? No. Patient's initial sepsis screen is negative. Risk Assessment: Do you want to hurt yourself or someone else? Patient reports no desire to harm self or others. Onset of symptoms was August 2020. 06:27 Method Of Arrival: EMS: [facility] aj 06:27 Acuity: YEIMI 3 aj1 Triage Assessment: :29 General: Appears in no apparent distress. uncomfortable, Behavior is calm, cooperative, aj1 appropriate for age. Pain: Denies pain. GI: Reports diarrhea. Historical: - Allergies: 06: NKA; aj1 - Home Meds: : amlodipine 5 mg tab 1 tab twice a day [Active]; atorvastatin 40 mg Oral tab 1 tab aj1 nightly [Active]; carbamazepine 200 mg Oral tab three times a day [Active]; gabapentin 600 mg Oral tab 1 tab 3 times per day [Active]; venlafaxine 75 mg Oral cp24 1 cap once daily [Active]; Plavix 75 mg Oral tab 1 tab once daily [Active]; Tegretol 200 mg Oral tab 1 tab every 8 hours [Active]; baclofen 20 mg Oral tab nightly [Active]; citalopram 40 mg tab 1 tab once daily [Active]; memantine 5 mg Oral tab 1 tabs 2 times per day [Active]; - PMHx: 06:29 Chronic pain; CVA; left side paralysis; epilepsy; High Cholesterol; Hypertension; aj1 - Immunization history:: Client reports receiving the 1st dose of the Covid vaccine, Flu vaccine is up to date. - Social history:: Smoking status: Patient reports the use of cigarette tobacco products, smokes one-half pack cigarettes per day. Screenin:30 Abuse screen: Denies threats or abuse. Denies injuries from another. Nutritional aj1 screening: No deficits noted. Tuberculosis screening: No symptoms or risk factors identified. 08:03 Fall Risk IV access (20 points). Total Collins Fall Scale indicates No Risk (0-24 pts). jl7 Assessment: 06:30 General: Appears in no apparent distress. uncomfortable, Behavior is calm, cooperative, aj1 appropriate for age. Pain: Denies pain. Neuro: Level of Consciousness is awake, alert, obeys commands, Oriented to person, place, time, situation. Cardiovascular: Patient's skin is warm and dry. Respiratory: Airway is patent Respiratory effort is even, unlabored, Respiratory pattern is regular, symmetrical. GI: Abdomen is non-distended, Reports diarrhea, Patient currently denies abdominal pain. : No signs and/or symptoms were reported regarding the genitourinary system. EENT: No signs and/or symptoms were reported regarding the EENT system. Derm: No signs and/or symptoms reported regarding the dermatologic system. Skin is pink, warm \T\ dry. normal. Musculoskeletal: No signs and/or symptoms reported regarding the musculoskeletal system. Circulation, motion, and sensation intact. 07:30 Reassessment: Patient appears in no apparent distress at this time. No changes from 7 previously documented assessment. Patient and/or family updated on plan of care and expected duration. Pain level reassessed. Patient is alert, oriented x 3, equal unlabored respirations, skin warm/dry/pink. 08:25 Reassessment: Patient appears in no apparent distress at this time. No changes from 7 previously documented assessment. Patient and/or family updated on plan of care and expected duration. Pain level reassessed. Patient is alert, oriented x 3, equal unlabored respirations, skin warm/dry/pink. Vital Signs: 06:27 BP 164 / 93; Pulse 104; Resp 22; Temp 97.5; Pulse Ox 92% on R/A; Weight 49.9 kg (R); aj1 Height 5 ft. 2 in. (157.48 cm) (R); Pain 0/10; 08:05 BP 149 / 107; Pulse 100; Resp 20; Pulse Ox 94% ; jl7 06:27 Body Mass Index 20.12 (49.90 kg, 157.48 cm) aj1 ED Course: 06:26 Patient arrived in ED. aj1 06:26 Mony Saucedo, RN is Primary Nurse. aj1 06:28 [facility]-C [facility] kb 06:28 Hira Carbone MD is Attending Physician. kb 06:29 Triage completed. aj1 06:29 Arm band placed on Patient placed in an exam room. aj1 06:30 Patient has correct armband on for positive identification. Bed in low position. Call [facility] light in reach. Side rails up X 1. 06:30 No provider procedures requiring assistance completed. aj1 07:03 Initial lab(s) drawn, by me, sent to lab. Inserted saline lock: 20 gauge in right aj forearm, using aseptic technique. Blood collected. 07:52 CT Abd/Pelvis - IV Contrast Only In Process Unspecified. EDMS 09:51 IV discontinued, intact, bleeding controlled, No redness/swelling at site. Pressure jl7 dressing applied. Administered Medications: 07:03 Drug: NS 0.9% 1000 ml Route: IV; Rate: 1000 ml; Site: right forearm; aj1 08:00 Follow up: Response: No adverse reaction; IV Status: Completed infusion; IV Intake: jl7 1000ml 09:09 Drug: Potassium Chloride 20 mEq Route: PO; jl7 Intake: 08:00 IV: 1000ml; Total: 1000ml. jl7 Outcome: 08:44 Discharge ordered by . kb 09:51 Discharged to home via wheelchair, with family. jl7 09:51 Condition: stable 09:51 Discharge instructions given to patient, family, Instructed on discharge instructions, follow up and referral plans. Demonstrated understanding of instructions, follow-up care. 09:51 Patient left the ED. jl7 Signatures: Dispatcher [employer] EDMS Maame Ibrahim FNP-C FNP-CkMony Ramos, RN RN aj1 Gianfranco Juarez RN RN jl7
[2020-09-24] MEDS ORDERED: POTASSIUM CL SA 10 MEQ TAB PO ONE (09:22)
[2020-09-24 09:59] VITALS: TEMP 97.5
[2020-09-24 10:01] VITALS: BP 149/107; O2SAT 94
== END 2020-09-24 09:51 | disposition home or self-care (01) ==
LOC: ER 06:14
DX: R19.7 Diarrhea, unspecified (principal); I10 Essential (primary) hypertension; Z20.822 Contact with and (suspected) exposure to COVID-19; Z86.73 Personal history of transient ischemic attack (TIA), and cerebral infarction without residual deficits; Z79.01 Long term (current) use of anticoagulants
CPT/HCPCS: 85025; 80048; 36415; 80076; 83690; 74177; 96360; 99284; U0003; Q9967; J7030

== ENCOUNTER 2023-06-21 15:50 | Emergency (ER) | payer OTHER ==
[2023-06-21] MEDS ORDERED: HYDROCODONE/APAP 5/325 MG TAB ONE (16:30)
--- NOTE | 2023-06-21 17:05 | RAD REPORT ---
EXAM DESCRIPTION: RAD - Shoulder Left 2 View - 06/21/2023 4:49 pm CLINICAL HISTORY: PAIN COMPARISON: Chest Single View dated 07/04/2020 TECHNIQUE: Internal and external rotation views of the left shoulder were obtained. FINDINGS: Displaced fracture of the surgical neck of the humerus, with medial and cranial translatio n of the distal fragment. AC joint is normal in appearance. No acute or suspicious findings. IMPRESSION: Displaced fracture of the surgical neck of the humerus as above.
--- NOTE | 2023-06-21 17:21 | RAD REPORT ---
EXAM DESCRIPTION: RAD - Hip Left 2 View - 06/21/2023 4:49 pm CLINICAL HISTORY: PAIN COMPARISON: Abdomen Pelvis W Contrast dated 09/24/2020 TECHNIQUE: Left hip, AP and frogleg views of the left hip. FINDINGS: Corticated osseous density along the anterior aspect of the greater trochanter, likely rel ated to remote trauma. There is no evidence of acute fracture or dislocation. No acute or destructive bony process seen. IMPRESSION: No acute findings of the left hip. Osseous fragment along the anterior aspect of the gr eater trochanter, likely of chronic nature.
--- NOTE | 2023-06-21 17:40 | EDPHYS ---
Physician Documentation [facility] Name: Lynne Urena Age: 67 yrs Sex: Female : 1955 Arrival Date: 06/21/2023 Time: 15:50 Bed 7 Private MD: ED Physician Delvin Saldivar HPI: 06/20 18:36 This 67 yrs old Female presents to ER via EMS with complaints of Hip Pain. rt 18:36 Patient presents to the ED with a left hip pain after a fall. Patient was on a mat, rt fell less than 6 inches. She had pre-existing left shoulder fracture, states that hurts as well as her hip. Is unable to move her hip chronically due to previous stroke. Denies other acute complaints, symptoms are mild in severity, no other aggravating or alleviating factors.. Historical: - Allergies: 15:52 NKA; bp - PMHx: 15:52 Chronic pain; High Cholesterol; epilepsy; Hypertension; CVA; left side paralysis; bp - Immunization history:: Adult Immunizations up to date. - Infectious Disease History:: Denies. - Social history:: Smoking status: Patient denies any tobacco usage or history of. - Family history:: not pertinent. ROS: 18:36 Constitutional: Negative for fever, chills, and weight loss, Cardiovascular: Negative rt for chest pain, palpitations, and edema, Respiratory: Negative for shortness of breath, cough, wheezing, and pleuritic chest pain, Abdomen/GI: Negative for abdominal pain, nausea, vomiting, diarrhea, and constipation, Neuro: Negative for headache, weakness, numbness, tingling, and seizure, Psych: Negative for depression, anxiety, suicide ideation, homicidal ideation, and hallucinations, 18:36 MS/extremity: Positive for pain, Negative for deformity, Exam: 18:36 Constitutional: This is a well developed, well nourished patient who is awake, alert, rt and in no acute distress. Head/Face: Normocephalic, atraumatic. Chest/axilla: Normal chest wall appearance and motion. Nontender with no deformity. No lesions are appreciated. Cardiovascular: Regular rate and rhythm with a normal S1 and S2. No gallops, murmurs, or rubs. Normal PMI, no JVD. No pulse deficits. Respiratory: Lungs have equal breath sounds bilaterally, clear to auscultation and percussion. No rales, rhonchi or wheezes noted. No increased work of breathing, no retractions or nasal flaring. Abdomen/GI: Soft, non-tender, with normal bowel sounds. No distension or tympany. No guarding or rebound. No evidence of tenderness throughout. 18:36 Musculoskeletal/extremity: No tenderness to palpation along left hip, no deformities noted, pulses intact. Is noted there is hemiparesis from previous stroke.. Vital Signs: 15:51 BP 144 / 98; Pulse 91; Resp 17; Temp 98; Pulse Ox 100% ; bp 15:55 BP 138 / 96; Pulse 94; Resp 16; Pulse Ox 97% ; bp 17:02 BP 127 / 96; Pulse 99; Resp 16; Pulse Ox 97% ; bp MDM: 16:00 Patient medically screened. rt 18:36 Differential diagnosis: Fracture, contusion. Data reviewed: vital signs, nurses notes, rt radiologic studies. Independent interpretation of the following test(s) in the Emergency Department X-Ray: My interpretation is No hip fracture seen on my interpretation of x-ray images. Care significantly affected by the following chronic conditions: Hypertension. Counseling: I had a detailed discussion with the patient and/or guardian regarding the historical points, exam findings, and any diagnostic results supporting the discharge/admit diagnosis, radiology results, the need for outpatient follow up. ED course: Patient had pre-existing proximal humerus fracture, she was instructed to follow-up with orthopedics for this. Does not require immediate intervention at this time.. 06/20 15:56 Order name: Shoulder Left (2 View) XRAY; Complete Time: 17:23 bp 06/20 15:56 Order name: Hip Left 2 View XRAY; Complete Time: 17:23 bp Administered Medications: 16:35 Drug: HYDROcodone-acetaminophen PO 5 mg-325 mg 1 tabs PO once Route: PO; bp 17:01 Follow up: Response: No adverse reaction bp Disposition Summary: 06/21/23 17:39 Discharge Ordered Notes: Location: Home rt Problem: new rt Symptoms: are unchanged rt Condition: Stable rt Diagnosis - Contusion of left hip rt - Subacute fracture of left proximal humerus rt Followup: rt - With: Juan Gaming MD - When: 5 - 6 days - Reason: Discharge Instructions: - Discharge Summary Sheet rt - Contusion rt Forms: - Medication Reconciliation Form rt - Thank You Letter rt - Antibiotic Education rt - Prescription Opioid Use rt - Patient Portal Instructions rt - Leadership Thank You Letter rt Signatures: Dispatcher [employer] Vargas [place], RN RN Delvin Lawrence MD MD rt
--- NOTE | 2023-06-21 17:40 | ER ---
Nurse's Notes [facility] Name: Lynne Urena Age: 67 yrs Sex: Female : 1955 Arrival Date: 06/21/2023 Time: 15:50 Bed 7 Private MD: Diagnosis: Contusion of left hip;Subacute fracture of left proximal humerus Presentation: 06/20 15:51 Chief complaint: EMS states: ROLLED ONTO GROUND FROM FLOOR MAT, FALL <2 INCH, C/O LEFT bp HIP PAIN. Coronavirus screen: At this time, the client does not indicate any symptoms associated with coronavirus-19. Ebola Screen: No symptoms or risks identified at this time. Initial Sepsis Screen: Does the patient meet any 2 criteria? No. Patient's initial sepsis screen is negative. Does the patient have a suspected source of infection? No. Patient's initial sepsis screen is negative. Risk Assessment: Do you want to hurt yourself or someone else? Patient reports no desire to harm self or others. Note PT D/C FROM PSYCH <24 HR AND UPSET WITH CURRENT LIVING CONDITIONS AT [place]. Onset of symptoms is unknown. 15:51 Method Of Arrival: EMS: [facility] bp 15:51 Acuity: YEIMI 3 bp 15:55 Note PT HAS KNOWN LEFT HUMERUS FX. bp Triage Assessment: 15:52 General: Appears in no apparent distress. unkempt, Behavior is calm, cooperative. Pain: bp Complains of pain in left hip. Historical: - Allergies: 15:52 NKA; bp - PMHx: 15:52 Chronic pain; High Cholesterol; epilepsy; Hypertension; CVA; left side paralysis; bp - Immunization history:: Adult Immunizations up to date. - Infectious Disease History:: Denies. - Social history:: Smoking status: Patient denies any tobacco usage or history of. - Family history:: not pertinent. Screenin:53 [facility] ED Fall Risk Assessment (Adult) History of falling in the last 3 months, bp including since admission Yes- single mechanical fall (1 pt). Abuse screen: Denies threats or abuse. Denies injuries from another. Nutritional screening: No deficits noted. Tuberculosis screening: No symptoms or risk factors identified. Assessment: 15:53 General: SEE TRIAGE NOTE. bp 17:02 Reassessment: No changes from previously documented assessment. Patient is alert, bp oriented x 3, equal unlabored respirations, skin warm/dry/pink. 18:00 Reassessment: [facility] CONTACT[facility] FOR DC TRANSPORT. bp Vital Signs: 15:51 BP 144 / 98; Pulse 91; Resp 17; Temp 98; Pulse Ox 100% ; bp 15:55 BP 138 / 96; Pulse 94; Resp 16; Pulse Ox 97% ; bp 17:02 BP 127 / 96; Pulse 99; Resp 16; Pulse Ox 97% ; bp ED Course: 15:50 Patient arrived in ED. bp 15:52 Triage completed. bp 15:52 Arm band placed on. bp 15:53 Patient has correct armband on for positive identification. bp 15:55 Vargas Coe, NEGRA is Primary Nurse. bp 15:58 Delvin Saldivar MD is Attending Physician. rt 16:51 Shoulder Left (2 View) XRAY In Process Unspecified. EDMS 16:51 Hip Left 2 View XRAY In Process Unspecified. EDMS 17:23 No provider procedures requiring assistance completed. ph 17:38 Juan Gaming MD is Referral Physician. rt 18:00 Provided Education on: N/A. bp 18:00 Patient did not have IV access during this emergency room visit. bp Administered Medications: 16:35 Drug: HYDROcodone-acetaminophen PO 5 mg-325 mg 1 tabs PO once Route: PO; bp 17:01 Follow up: Response: No adverse reaction bp Medication: 15:53 VIS not applicable for this client. bp Outcome: 17:39 Discharge ordered by . rt 19:48 [facility] to [facility]. Transfer form completed. km8 19:48 Condition: good 19:48 Discharge instructions given to EMS, Instructed on discharge instructions, follow up and referral plans. Demonstrated understanding of instructions, follow-up care, 19:49 Patient left the ED. km8 Signatures: Dispatcher [employer] EDMS Hilda Faulkner RN RN Vargas Coe, NEGRA RN bp Delvin Saldivar MD MD rt Maria Luisa Poole RN RN km8
[2023-06-21 20:03] VITALS: BP 148/83; TEMP 98.4; O2SAT 100
== END 2023-06-21 19:49 | disposition home or self-care (01) ==
LOC: ER 15:50
DX: S70.02XA Contusion of left hip, initial encounter (principal); S42.202A Unspecified fracture of upper end of left humerus, initial encounter for closed fracture; G81.94 Hemiplegia, unspecified affecting left nondominant side
CPT/HCPCS: 99283

== ENCOUNTER 2023-07-03 19:14 | Inpatient (IN) | payer OTHER ==
[2023-07-03] MEDS ORDERED: NA CHLORIDE 0.9% 1,000 ML ONE (20:20)
[2023-07-03 20:29] LABS: Absolute Monocytes 0.5 K/uL (0.1-1.3); Basophils % 0.3 % (0-1.3); Eosinophils % 0.4 % (0-4.4); Hematocrit 31.6 % (36.0-45.0); Hemoglobin 10.4 g/dL (12.0-15.0); Lymphocytes % 36.2 % (15.3-44.8); MCH 27.6 pg (27.0-35.0); MCHC 32.9 g/dL (32.0-36.0); MCV 83.9 fL (80-100); MPV 7.6 fL (7.6-11.3); Monocytes % 9.4 % (3.3-12.3); Neutrophils % 53.7 % (41.7-73.7); Nucleated Red Blood Cells % 0.1 % (0-0); Platelets 384 thou/uL (152-406); RBC Red Blood Cell Count 3.76 M/uL (3.86-4.86); Red Cell Distribution Width 19.4 % (12.1-15.2)
[2023-07-03 20:38] LABS: PT Prothrombin Time 10.5 SECONDS (9.5-12.5); Protime INR 0.95
[2023-07-03 20:48] LABS: ALT/SGPT 27 U/L (13-56); AST/SGOT 15 U/L (15-37); Albumin 2.8 g/dL (3.4-5.0); Albumin/Globulin Ratio 0.8 (1.1-1.8); Alkaline Phosphatase 186 U/L (45-117); Anion Gap 5.8 mEq/L (5.0-15.0); BUN Blood Urea Nitrogen 12 mg/dL (7-18); Bicarbonate 30 mEq/L (21-32); Bilirubin Direct < 0.1 mg/dL (0-0.2); Bilirubin Indirect, Calculated ND mg/dL (0.2-0.8); Bilirubin Total 0.1 mg/dL (0.2-1.0); Globulin 3.3 g/dL (2.3-3.5); Glomerular Filtration Rate 94 ml/min (=/>90); Glucose Level 132 mg/dL (74-106); Magnesium 2.3 mg/dL (1.6-2.4); NT PRO-BNP 249 pg/mL (<125); Potassium 3.8 mEq/L (3.5-5.1); Protein, Total 6.1 g/dL (6.4-8.2); Sodium Level 137 mEq/L (136-145); Troponin High Sensitivity 4.2 pg/mL (<58.9)
--- NOTE | 2023-07-03 21:04 | RAD REPORT ---
EXAM DESCRIPTION: RAD - Shoulder Left 2 View - 07/03/2023 8:50 pm CLINICAL HISTORY: PAIN COMPARISON: Shoulder Left 2 View dated 06/21/2023 FINDINGS: There is a moderately displaced fracture of the proximal left humerus. The bones are diffu sely demineralized. Glenohumeral articulation is maintained.
--- NOTE | 2023-07-03 21:04 | RAD REPORT ---
EXAM DESCRIPTION: RAD - Chest Single View - 07/03/2023 8:50 pm CLINICAL HISTORY: COUGH Chest pain. COMPARISON: Chest Single View dated 07/04/2020; Chest Single View dated 06/02/2020; Chest Single View da jasper 06/01/2020; Chest Single View dated 04/19/2018 FINDINGS: Portable technique limits examination quality. Interstitial markings are prominent bilaterally which may represent interstitial pulmonary edema. No focal consolidation to suggest pneumonia. The heart is upper limit normal in size. No displaced fract ures. IMPRESSION: Mild CHF
--- NOTE | 2023-07-03 21:09 | RAD REPORT ---
EXAM DESCRIPTION: US - UPPER EXTREMITY VENOUS UNILATE - 07/03/2023 9:01 pm CLINICAL HISTORY: PAIN Leg swelling and edema. COMPARISON: UPPER EXTREMITY VENOUS UNILATE dated 06/01/2020 FINDINGS: Left lower extremity venous system was interrogated with Doppler technique. Thrombus is se en in the left brachial vein as well as the basilic vein proximal and mid aspect. IMPRESSION: Positive for left upper extremity DVT.
[2023-07-03 21:49] LABS: Specific Gravity 1.023 (1.005-1.030); Urine Bacteria >50 /HPF (<20); Urine Bilirubin NEGATIVE (Negative); Urine Blood Negative (Negative); Urine Clarity Extremely Turbid (Clear); Urine Color Light-Orange (Yellow); Urine Culture Reflex Order REFLEXED; Urine Glucose NEGATIVE (Negative); Urine Ketones NEGATIVE (Negative); Urine Microscopic Reflex YN ORDER UMIC; Urine Mucus 4+ /HPF (None Seen); Urine Nitrite 2+ (Negative); Urine Protein 1+ (Negative); Urine RBC None Seen /HPF (None Seen); Urine Urobilinogen Normal (Normal); Urine WBC >50 /HPF (<5)
--- NOTE | 2023-07-03 21:55 | ER ---
Nurse's Notes [facility] Name: Lynne Urena Age: 67 yrs Sex: Female : 1955 Arrival Date: 07/03/2023 Time: 19:14 Bed 3 Private MD: Diagnosis: Chronic combined systolic (congestive) and diastolic (congestive) heart failure;2-part displaced fracture of surgical neck of left humerus, sequela-displaced;Acute embolism and thrombosis of deep veins of left upper extremity Presentation: 07/02 19:18 Chief complaint: EMS states: Called to [facility] due to patient complaining of cm10 left shoulder pain. shelter staff noted that patient had swelling and pain to left shoulder and did an x-ray and patient was noted to have a left shoulder dislocation. Pt states that she has had pain in that left shoulder for some time now. Coronavirus screen: Client denies travel out of the [place] in the last 14 days. At this time, the client does not indicate any symptoms associated with coronavirus-19. Ebola Screen: Patient denies travel to an Ebola-affected area in the 21 days before illness onset. No symptoms or risks identified at this time. Initial Sepsis Screen: Does the patient meet any 2 criteria? No. Patient's initial sepsis screen is negative. Does the patient have a suspected source of infection? No. Patient's initial sepsis screen is negative. Risk Assessment: Do you want to hurt yourself or someone else? Patient reports no desire to harm self or others. Onset of symptoms was July 03, 2023. 19:18 Method Of Arrival: EMS: [facility] cm10 19:18 Acuity: YEIMI 3 cm10 Triage Assessment: 19:22 General: Appears in no apparent distress. comfortable, Behavior is calm, cooperative. cm10 Pain: Complains of pain in left arm. Neuro: No deficits noted. Level of Consciousness is awake, alert, obeys commands, Oriented to person, place, time, situation. Cardiovascular: No deficits noted. Patient's skin is warm and dry. Respiratory: No deficits noted. Airway is patent Respiratory effort is even, unlabored, Respiratory pattern is regular, symmetrical. Musculoskeletal: Range of motion: limited in left shoulder Swelling present in left arm. Historical: - Allergies: 19:21 NKA; cm10 - PMHx: 19:21 Chronic pain; High Cholesterol; epilepsy; CVA; left side paralysis; Hypertension; cm10 - Immunization history:: Adult Immunizations up to date. - Infectious Disease History:: Denies. - Social history:: Smoking status: Patient denies any tobacco usage or history of. - Family history:: not pertinent. Screenin:23 [facility] ED Fall Risk Assessment (Adult) History of falling in the last 3 months, cm10 including since admission Yes- single mechanical fall (1 pt) Confusion or Disorientation No (0 pts) Intoxicated or Sedated No (0 pts) Impaired Gait Yes (1 pt) Mobility Assist Device Used Yes (1 pt) Altered Elimination No (0 pt) Score/Fall Risk Level 3 or more points = High Risk Oriented to surroundings, Maintained a safe environment, Hourly rounding (assess needs \T\ fall precautionary measures) done. Abuse screen: Denies threats or abuse. Denies injuries from another. Nutritional screening: No deficits noted. Tuberculosis screening: No symptoms or risk factors identified. Assessment: 19:43 General: Appears in no apparent distress. Behavior is calm, cooperative. Pain: mb9 Complains of pain in left arm Pain does not radiate. Quality of pain is described as throbbing, Pain began suddenly, Is continuous, Aggravated by increased activity, repositioning. Neuro: Romano Agitation-Sedation Scale (RASS): 0 - Alert and Calm Level of Consciousness is awake, obeys commands, Oriented to person, place, time, situation, Appropriate for age. Cardiovascular: Patient's skin is warm and dry. Respiratory: Airway is patent Respiratory effort is even, unlabored, Respiratory pattern is regular, symmetrical. GI: No signs and/or symptoms were reported involving the gastrointestinal system. : No signs and/or symptoms were reported regarding the genitourinary system. EENT: No signs and/or symptoms were reported regarding the EENT system. Derm: Skin is pink, warm \T\ dry. Musculoskeletal: Range of motion: limited in left shoulder Swelling present in left arm. 21:21 Reassessment: No changes from previously documented assessment. Patient and/or family mb9 updated on plan of care and expected duration. Pain level reassessed. Patient is alert, oriented x 3, equal unlabored respirations, skin warm/dry/pink. 21:59 Reassessment: Spoke with staff from [facility] facility, updated on admission and diagnosis. tl4 Staff member states she has notified pt daughter Marlyn. 23:10 Reassessment: Pt self removed IV and alcazar catheter with balloon intact. No urine noted tl4 in alcazar drainage bag. 07/03 00:41 Reassessment: Patient appears in no apparent distress at this time. No changes from km8 previously documented assessment. Patient and/or family updated on plan of care and expected duration. Pain level reassessed. Patient is alert, oriented x 3, equal unlabored respirations, skin warm/dry/pink. pt waiting to be transferred up to her room; denies any needs at this time. Vital Signs: 07/02 19:18 BP 122 / 82; Pulse 77; Resp 18; Temp 97.5(O); Pulse Ox 99% on R/A; Weight 52.16 kg (M); cm10 Pain 10/10; 21:21 Pulse 73; Resp 16; Pulse Ox 99% on R/A; mb9 22:19 BP 101 / 63; Pulse 77; Resp 20; Pulse Ox 100% on R/A; tl4 23:30 BP 123 / 79 RL; Pulse 75; Resp 18; Pulse Ox 98% on R/A; tl4 07/03 00:00 BP 133 / 81; Pulse 77; Resp 16; Pulse Ox 98% on R/A; km8 00:30 BP 115 / 82; Pulse 74; Resp 16; Pulse Ox 98% on R/A; km8 07/02 19:18 Pain Scale: Adult cm10 ED Course: 07/02 19:18 Patient arrived in ED. cm10 19:21 Triage completed. cm10 19:22 Arm band placed on Patient placed in an exam room, on a stretcher. cm10 19:23 Patient has correct armband on for positive identification. Placed in gown. Bed in low cm10 position. Call light in reach. Side rails up X2. 19:30 Missed attempt(s): 24 gauge Bleeding controlled, band aid applied, catheter tip intact. ty 19:42 Ese Breaux, NEGRA is Primary Nurse. mb9 19:42 Missed attempt(s): 24 gauge in right forearm. Bleeding controlled, band aid applied, mb9 catheter tip intact. 19:52 Warm blanket given. ty 20:00 Inserted saline lock: 22 gauge in right antecubital area, using aseptic technique. tl4 Blood collected. 20:09 Alfred Bourne MD is Attending Physician. madeleine 20:20 Warm blanket given. ty 20:42 Cleaned of incontinence. mb9 20:42 Alcazar cath inserted, using sterile technique, 16 Fr., by me, balloon inflated, to mb9 gravity drainage, returned cloudy urine. Patient tolerated well. 20:52 XRAY Chest (1 view) In Process Unspecified. EDMS 20:52 Shoulder Left (2 View) XRAY In Process Unspecified. EDMS 21:02 UPPER EXTREMITY VENOUS UNILATE In Process Unspecified. EDMS 21:21 EKG done, by ED staff, reviewed by Alfred Bourne MD. mb9 21:26 Tegretol Level Sent. mb9 21:31 Warm blanket given. ty 21:52 Abran Salguero MD is Hospitalizing Provider. madeleine 23:55 IV discontinued, intact, bleeding controlled, No redness/swelling at site. IV removed tl4 by patient. 23:56 Inserted saline lock: 22 gauge in right antecubital area, using aseptic technique. tl4 23:56 Alcazar cath removed intact, Removed by patient, balloon intact. tl4 23:57 Urine collected: Alcazar catheter specimen, meli colored, Amount Returned: 900mL. Alcazar tl4 cath inserted, using sterile technique, 16 Fr., by me, balloon inflated, to gravity drainage, urine specimen collected. other Approx 900 mL dark yellow urine drained and emptied. 23:58 No provider procedures requiring assistance completed. tl4 05 00:42 Provided Education on: admission process. km8 Administered Medications: 07/02 20:38 Drug: NS 0.9% IV 1000 ml IV at 125 ml/hr continuous Route: IV; Rate: 125 ml/hr; Site: mb9 right antecubital; 22:18 Follow up: Response: No adverse reaction; IV Status: Infusion continued tl4 20:55 CANCELLED (Duplicate Order): [id number] mg PO once madeleine 22:15 Drug: Famotidine IVP 20 mg IVP once; dilute with 10 mL 0.9% NaCl; give over 2 minutes tl4 Route: IVP; Infused Over: 2 mins; Site: left antecubital; 23:58 Follow up: Response: No adverse reaction tl4 22:17 Drug: Enoxaparin Sub-Q 1 mg/kg Sub-Q once Route: Sub-Q; Site: right upper abdomen; tl4 23:59 Follow up: Response: No adverse reaction tl4 Medication: 19:23 VIS not applicable for this client. cm10 Outcome: 21:55 Decision to Hospitalize by Provider. madeleine 07/03 01:09 Admitted to Med/surg accompanied by nurse, via stretcher, room 202, with chart, Report km8 called to NEGRA sun Condition: stable Instructed on the need for admit, 01:16 Patient left the ED. ha1 Signatures: Dispatcher [employer] EDMS Alfred Bourne MD MD cha Ayala, Heidy, RN RN ha1 Saeid, Ese Tim RN RN mb9 Kerrie Maynard RN RN cm10 Maria Luisa Poole RN RN km8 Jose Parson RN RN tl4 Onel Walter [employer]: (The following items were deleted from the chart) 07/02 22:06 21:21 Pulse 73bpm; Resp 16bpm; Pulse Ox 99% RA; karlee [email or web address]
--- NOTE | 2023-07-03 21:55 | EDPHYS ---
Physician Documentation [facility] Name: Lynne Urena Age: 67 yrs Sex: Female : 1955 Arrival Date: 07/03/2023 Time: 19:14 Bed 3 Private MD: ED Physician Alfred Bourne HPI: 07/02 21:46 This 67 yrs old Female presents to ER via EMS with complaints of Shoulder madeleine Pain. 21:46 The patient or guardian complains of decreased range of motion, deformity, pain. left madeleine shoulder. Context: The problem was sustained at home. Onset: The symptoms/episode began/occurred 13 day(s) ago. Modifying factors: the symptoms are alleviated by nothing. remaining still, The symptoms are aggravated by movement. Associated signs and symptoms: Pertinent positives: of the left upper extremity swelling, continued left shoulder pain. Severity of symptoms: At their worst the symptoms were mild, moderate, in the emergency department the symptoms are unchanged. Historical: - Allergies: 19:21 NKA; cm10 - PMHx: 19:21 Chronic pain; High Cholesterol; epilepsy; CVA; left side paralysis; Hypertension; cm10 - Immunization history:: Adult Immunizations up to date. - Infectious Disease History:: Denies. - Social history:: Smoking status: Patient denies any tobacco usage or history of. - Family history:: not pertinent. ROS: 21:46 Constitutional: Negative for fever, chills, and weight loss, Eyes: Negative for injury, madeleine pain, redness, and discharge, ENT: Negative for injury, pain, and discharge, Neck: Negative for injury, pain, and swelling, Cardiovascular: Negative for chest pain, palpitations, and edema, Respiratory: Negative for shortness of breath, cough, wheezing, and pleuritic chest pain, Abdomen/GI: Negative for abdominal pain, nausea, vomiting, diarrhea, and constipation, Back: Negative for injury and pain, : Negative for injury, bleeding, discharge, and swelling, Skin: Negative for injury, rash, and discoloration, Neuro: Negative for headache, weakness, numbness, tingling, and seizure, Psych: Negative for depression, anxiety, suicide ideation, homicidal ideation, and hallucinations, Allergy/Immunology: Negative for hives, rash, and allergies, Endocrine: Negative for neck swelling, polydipsia, polyuria, polyphagia, and marked weight changes, Hematologic/Lymphatic: Negative for swollen nodes, abnormal bleeding, and unusual bruising, 21:46 MS/extremity: Positive for injury or acute deformity, decreased range of motion, pain, swelling, tenderness, of the left arm, Exam: 21:46 Constitutional: This is a well developed, well nourished patient who is awake, alert, madeleine and in no acute distress. Head/Face: Normocephalic, atraumatic. Eyes: Pupils equal round and reactive to light, extra-ocular motions intact. Lids and lashes normal. Conjunctiva and sclera are non-icteric and not injected. Cornea within normal limits. Periorbital areas with no swelling, redness, or edema. ENT: Nares patent. No nasal discharge, no septal abnormalities noted. Tympanic membranes are normal and external auditory canals are clear. Oropharynx with no redness, swelling, or masses, exudates, or evidence of obstruction, uvula midline. Mucous membranes moist. Neck: Trachea midline, no thyromegaly or masses palpated, and no cervical lymphadenopathy. Supple, full range of motion without nuchal rigidity, or vertebral point tenderness. No Meningismus. Chest/axilla: Normal chest wall appearance and motion. Nontender with no deformity. No lesions are appreciated. Cardiovascular: Regular rate and rhythm with a normal S1 and S2. No gallops, murmurs, or rubs. Normal PMI, no JVD. No pulse deficits. Respiratory: Lungs have equal breath sounds bilaterally, clear to auscultation and percussion. No rales, rhonchi or wheezes noted. No increased work of breathing, no retractions or nasal flaring. Abdomen/GI: Soft, non-tender, with normal bowel sounds. No distension or tympany. No guarding or rebound. No evidence of tenderness throughout. Back: No spinal tenderness. No costovertebral tenderness. Full range of motion. Female : Normal external genitalia. Skin: Warm, dry with normal turgor. Normal color with no rashes, no lesions, and no evidence of cellulitis. Neuro: Awake and alert, GCS 15, oriented to person, place, time, and situation. Cranial nerves II-XII grossly intact. Motor strength 5/5 in all extremities. Sensory grossly intact. Cerebellar exam normal. Normal gait. Psych: Awake, alert, with orientation to person, place and time. Behavior, mood, and affect are within normal limits. 21:46 ECG was reviewed by the Attending Physician. 21:46 Musculoskeletal/extremity: Extremities: grossly normal except: noted in the anterior aspect of left shoulder and posterior aspect of left shoulder: decreased ROM, pain, swelling, tenderness, DVT Exam: pain, swelling, tenderness, that is moderate, of the left arm, Vital Signs: 19:18 BP 122 / 82; Pulse 77; Resp 18; Temp 97.5(O); Pulse Ox 99% on R/A; Weight 52.16 kg (M); cm10 Pain 10/10; 21:21 Pulse 73; Resp 16; Pulse Ox 99% on R/A; mb9 22:19 BP 101 / 63; Pulse 77; Resp 20; Pulse Ox 100% on R/A; tl4 23:30 BP 123 / 79 RL; Pulse 75; Resp 18; Pulse Ox 98% on R/A; tl4 07/03 00:00 BP 133 / 81; Pulse 77; Resp 16; Pulse Ox 98% on R/A; km8 00:30 BP 115 / 82; Pulse 74; Resp 16; Pulse Ox 98% on R/A; km8 07/02 19:18 Pain Scale: Adult cm10 MDM: 07/02 20:09 Patient medically screened. madeleine 21:50 Differential diagnosis: Anterior dislocation with fracture, Posterior dislocation with madeleine fracture, humeral head fracture, glenoid fracture, DJD, tendonitis. Data reviewed: vital signs, nurses notes, EMS record, lab test result(s), EKG, radiologic studies, doppler, plain films. Consideration of Admission/Observation Patient was admitted/placed on observation. Escalation of care including admission/observation considered. I considered the following discharge prescriptions or medication management in the emergency department Medications were administered in the Emergency Department. See MAR. Independent interpretation of the following test(s) in the Emergency Department EKG: See my EKG interpretation above. Test considered but Not performed: MRI: no mri shoulder. Care significantly affected by the following chronic conditions: Hypertension, Congestive Heart Failure, chronic pain, cva, left hemiparesis, high chleterol. Counseling: I had a detailed discussion with the patient and/or guardian regarding the historical points, exam findings, and any diagnostic results supporting the discharge/admit diagnosis, lab results, radiology results, the need for further work-up and treatment in the hospital. 07/02 20:18 Order name: Basic Metabolic Panel; Complete Time: 21:43 [facility] 07/02 20:18 Order name: CBC with Diff; Complete Time: 21:43 [facility] 07/02 20:18 Order name: LFT's; Complete Time: 21:43 [facility] 07/02 20:18 Order name: Magnesium; Complete Time: 21:43 [facility] 07/02 20:18 Order name: NT PRO-BNP; Complete Time: 21:43 [facility] 07/02 20:18 Order name: PT-INR; Complete Time: 21:43 [facility] 07/02 20:18 Order name: Troponin HS; Complete Time: 21:43 [facility] 07/02 20:18 Order name: Urinalysis w/ reflexes [facility] 07/02 20:55 Order name: Tegretol Level [facility] 07/02 21:52 Order name: Urine Culture [facility] 07/02 23:13 Order name: Urinalysis w/ reflexes [facility] 07/02 23:13 Order name: CBC with Automated Diff [facility] 07/02 23:13 Order name: CBC with Automated Diff [facility] 07/02 23:13 Order name: Comprehensive Metabolic Panel [facility] 07/02 23:13 Order name: Comprehensive Metabolic Panel [facility] 07/02 20:18 Order name: XRAY Chest (1 view); Complete Time: 21:43 [facility] 07/02 20:18 Order name: Shoulder Left (2 View) XRAY; Complete Time: 21:43 [facility] 07/02 20:27 Order name: UPPER EXTREMITY VENOUS UNILATE; Complete Time: 21:43 [facility] 07/02 23:42 Order name: US Extremity Venous W Compression Ran [facility] 07/02 23:42 Order name: Tib Fib Left XRAY [facility] 07/02 23:42 Order name: Foot Left 3 View XRAY [facility] 07/02 23:13 Order name: CONS Physician Consult [facility] 07/02 20:18 Order name: Cardiac monitoring; Complete Time: 20:19 [facility] 07/02 20:18 Order name: EKG - Nurse/Tech; Complete Time: 21:21 [facility] 07/02 20:18 Order name: IV Saline Lock; Complete Time: 20:19 [facility] 07/02 20:18 Order name: Labs collected and sent; Complete Time: 20:19 [facility] 07/02 20:18 Order name: O2 Per Protocol; Complete Time: 20:19 madeleine 07/02 20:18 Order name: O2 Sat Monitoring; Complete Time: 20:19 madeleine 07/02 20:39 Order name: Black; Complete Time: 21:21 mb9 EC:46 Rate is 72 beats/min. Rhythm is regular. QRS [place] is Normal. NE interval is normal. QRS madeleine interval is normal. QT interval is normal. No Q waves. T waves are Normal. No ST changes noted. Clinical impression: NSR w/ Non-specific ST/T Changes and No evidence of ischemia. Interpreted by me. Reviewed by me. Administered Medications: 20:38 Drug: NS 0.9% IV 1000 ml IV at 125 ml/hr continuous Route: IV; Rate: 125 ml/hr; Site: mb9 right antecubital; 22:18 Follow up: Response: No adverse reaction; IV Status: Infusion continued tl4 20:55 CANCELLED (Duplicate Order): [id number] mg PO once madeleine 22:15 Drug: Famotidine IVP 20 mg IVP once; dilute with 10 mL 0.9% NaCl; give over 2 minutes tl4 Route: IVP; Infused Over: 2 mins; Site: left antecubital; 23:58 Follow up: Response: No adverse reaction tl4 22:17 Drug: Enoxaparin Sub-Q 1 mg/kg Sub-Q once Route: Sub-Q; Site: right upper abdomen; tl4 23:59 Follow up: Response: No adverse reaction tl4 Disposition Summary: 07/03/23 21:55 Hospitalization Ordered Notes: Hospitalization Status: Inpatient Admission madeleine Provider: Abran Salguero cha Location: Telemetry/MedSurg (Inpatient) maedleine Condition: Fair madeleine Problem: new madeleine Symptoms: have improved madeleine Bed/Room Type: Standard madeleine Room Assignment: 228(07/03/23 23:18) rv1 Diagnosis - Chronic combined systolic (congestive) and diastolic (congestive) heart failure madeleine - 2-part displaced fracture of surgical neck of left humerus, sequela - displaced madeleine - Acute embolism and thrombosis of deep veins of left upper extremity madeleine Forms: - Medication Reconciliation Form madeleine - SBAR form madeleine - Leadership Thank You Letter madeleine Signatures: Dispatcher [employer] Alfred Krishnamurthy MD MD cha Breneman, Ese Tim RN RN mb9 Freida Diaz rv1 Kerrie Maynard RN RN cm10 Jose Parson RN RN tl4 Corrections: (The following items were deleted from the chart) 20:19 20:19 BASIC METABOLIC PANEL+C.LAB.BRZ ordered. EDMS EDMS 20:19 20:19 CBC+H.LAB.BRZ ordered. EDMS EDMS 20:19 20:19 HEPATIC FUNCTION+C.LAB.BRZ ordered. EDMS EDMS 20:19 20:19 MAGNESIUM+C.LAB.BRZ ordered. EDMS EDMS 20:19 20:19 PROBNP+C.LAB.BRZ ordered. EDMS EDMS 20:19 20:19 PROTIME (+INR)+COAG.LAB.BRZ ordered. EDMS EDMS 20:19 20:19 Troponin High Sensitivity+C.LAB.BRZ ordered. EDMS EDMS 20:19 20:19 Urinalysis+U.LAB.BRZ ordered. EDMS EDMS 20:19 20:19 Chest Single View+RAD.RAD.BRZ ordered. EDMS EDMS 20:19 20:19 Shoulder Left 2 View+RAD.RAD.BRZ ordered. EDMS EDMS 20:19 20:19 Extremity Venous Uni Ltd+US.RAD.BRZ ordered. EDMS EDMS 20:55 20:55 carBAMazepine PO 100 mg PO once ordered. madeleine madeleine 23:18 21:55 madeleine rv1
[2023-07-03] MEDS ORDERED: FAMOTIDINE 20 MG/2 ML VIAL IV ONE (22:07)
[2023-07-03] MEDS ORDERED: ENOXAPARIN 60 MG/0.6 ML SQ ONE (22:07)
--- NOTE | 2023-07-03 22:53 | P.HP ---
Certification for Inpatient Patient admitted to: Inpatient With expected LOS: >2 Midnights Practitioner: I am a practitioner with admitting privileges, knowledge of patient current condition, hospital course, and medical plan of care. Services: Services provided to patient in accordance with Admission requirements found in Title 42 Section 412.3 of the Code of Federal Regulations Patient History Date of Service: 07/03/23 Reason for admission: Left upper extremity pain and swelling History of Present Illness: 67 yrs old Female with a past medical history of hypertension, CVA, history of seizure disorder, hyperlipidemia, chronic pain who was transferred from senior care because of shoulder pain of left shoulder. Denies any trauma.The patient complains of decreased range of motion, deformity, pain. left shoulder. Started 13 days ago and has been progressively worsening. Associated with left upper extremity pain and swelling along with shoulder pain. Patient is a poor historian hence most of the history is obtained from the chart review and after talking with the ER physician. Patient was assessed in the ER and was found to have DVT of the left upper extremity fracture of left humerus and was admitted for further management Allergies No Known Allergies Allergy (Verified 07/06/20 04:26) Home medications list reviewed: Yes Home Medications: Carbamazepine [Tegretol] 200 mg PO TID 08/29/16 Gabapentin 600 mg PO TID 08/29/16 Atorvastatin Calcium [Lipitor] 40 mg PO BEDTIME #30 tab 08/30/16 Venlafaxine HCl [Venlafaxine HCl ER] 75 mg PO DAILY 06/01/20 Clopidogrel Bisulfate [Plavix] 75 mg PO DAILY #30 tablet 06/08/20 Baclofen 5 mg PO BEDTIME 07/06/20 Amlodipine [Norvasc*] 5 mg PO DAILY #30 tab 07/12/20 Metoprolol Tartrate [Lopressor*] 25 mg PO BID 6AM 6PM #60 tab 07/12/20 - Past Medical/Surgical History Diabetic: No Past Medical History: Reviewed- Non-Contributory -: Seizure disorder -: Hypertension -: Chronic pain -: Depression -: Hyperlipidemia -: History of CVA with left-sided residual weakness -: Carotid arterial disease -: THC use Past Surgical History: Reviewed- Non-Contributory -: Hysterectomy -: Cervical laminectomy -: Right carotid enterectomy Psychosocial/ Personal History: Patient lives at home. - Family History Father -: Heart disease Mother -: Diabetes Sister -: Cancer Notes: pancreatic - Social History Smoking Status: Never smoker Alcohol use: No CD- Drugs: Yes Caffeine use: Yes Review of Systems is unable to be obtained Physical Examination - Vital Signs Temperature: 98.2 F Blood Pressure: 128/72 Pulse: 78 Respirations: 18 Pulse Ox (%): 94 - Physical Exam General: Alert, In no apparent distress, Confused HEENT: Atraumatic, Normocephalic Neck: Supple, No Thyromegaly, No LAD Respiratory: Clear to auscultation bilaterally, Normal air movement Cardiovascular: Regular rate/rhythm, Normal S1 S2, No gallops Capillary refill: <2 Seconds Gastrointestinal: Soft and benign, W/out hepatosplenomegaly, No ascites Musculoskeletal: Swelling, Tenderness, Warmth Integumentary: No rashes, No breakdown Neurological: Abnormal strength, Abnormal tone, Abnormal sensation, Abnormal reflexes Lymphatics: No axilla or inguinal lymphadenopathy - Studies Laboratory Data (last 24 hrs) 07/03/23 07/03/23 07/03/23 20:21 20:21 20:21 WBC 5.60 Hgb 10.4 L Hct 31.6 L Plt Count 384 PT 10.5 INR 0.95 Sodium 137 Potassium 3.8 BUN 12 Creatinine 0.69 Glucose 132 H Magnesium 2.3 Total Bilirubin 0.1 L AST 15 ALT 27 Alkaline Phosphatase 186 H Assessment and Plan - Problems (Diagnosis) (1) DVT (deep venous thrombosis) Current Visit: Yes Status: Acute (2) Epilepsy Current Visit: No Status: Chronic Qualifiers: Epilepsy type: unspecified Intractability: not intractable Status epilepticus: without status epilepticus Qualified Code(s): G40.909 - Epilepsy, unspecified, not intractable, without status epilepticus (3) HLD (hyperlipidemia) Current Visit: No Status: Chronic Qualifiers: Hyperlipidemia type: unspecified Qualified Code(s): E78.5 - Hyperlipidemia, unspecified (4) HTN (hypertension) Current Visit: No Status: Chronic Plan: Left upper extremity DVT Started on Lovenox Pain controlled Monitor closely Will change to oral anticoagulant at the time of discharge Fracture left proximal humerus Pain control Orthopedic consultation in a.m. UTI Started on IV antibiotic Monitor closely on telemetry History of CVA Hypertension Hyperlipidemia Seizure disorder Continue home medications and titrate as needed Seizure precautions GI/DVT prophylaxis Advanced directive full code Qualifiers: Hypertension type: essential hypertension Discharge Plan: Care Home Plan to discharge in: 48 Hours - Advance Directives Does patient have a Living Will: No Does patient have a Durable POA for Healthcare: No - Code Status/Comfort Care Code Status: Full Code Time Spent Managing Pts Care (In Minutes): 48
[2023-07-03] MEDS ORDERED: ONDANSETRON 4 MG/2 ML VIAL IV PRN (23:08)
[2023-07-03] MEDS: CEFTRIAXONE 1,000 MG in NA CHLORIDE 0.9% 50 ML IVPB SCH (23:12)
[2023-07-03] MEDS: NA CHLORIDE 0.9% 1,000 ML IV SCH (23:45)
[2023-07-04] MEDS: LORazepam 2 MG/ML VIAL ONE (05:38)
[2023-07-04] MEDS: METOPROLOL TAR 25 MG TAB PO SCH (06:00)
[2023-07-04] MEDS ORDERED: AMLODIPINE 5 MG TAB PO SCH (09:00)
[2023-07-04] MEDS: VENLAFAXINE HCL XR 75 MG CAP PO SCH (09:00)
[2023-07-04] MEDS: HOME MED 1 EA UNK (Gabapentin [Gabapentin] 600 MG Tablet) PO SCH (09:00)
[2023-07-04 10:03] LABS: Albumin 2.7 g/dL (3.4-5.0); Albumin/Globulin Ratio 0.8 (1.1-1.8); Anion Gap 6.3 mEq/L (5.0-15.0); Bilirubin Total 0.1 mg/dL (0.2-1.0); Globulin 3.2 g/dL (2.3-3.5); Potassium 4.3 mEq/L (3.5-5.1); Protein, Total 5.9 g/dL (6.4-8.2)
[2023-07-04 10:04] LABS: Absolute Lymphocytes (CBC) 1.9 K/uL (0.7-4.9); Absolute Monocytes 0.7 K/uL (0.1-1.3); Absolute Neutrophil 3.4 K/uL (1.8-8.0); Basophils % 0.3 % (0-1.3); Eosinophils % 0.2 % (0-4.4); Hematocrit 30.8 % (36.0-45.0); Hemoglobin 9.9 g/dL (12.0-15.0); Lymphocytes % 31.6 % (15.3-44.8); MCH 27.4 pg (27.0-35.0); MCHC 32.2 g/dL (32.0-36.0); MCV 85.1 fL (80-100); Monocytes % 12.1 % (3.3-12.3); Neutrophils % 55.8 % (41.7-73.7); Nucleated Red Blood Cells % 0.2 % (0-0); Platelets 364 thou/uL (152-406); RBC Red Blood Cell Count 3.61 M/uL (3.86-4.86); Red Cell Distribution Width 19.1 % (12.1-15.2)
[2023-07-04] MEDS: ENOXAPARIN 60 MG/0.6 ML SQ SCH (10:30)
[2023-07-04] MEDS: PNEUMOCOCCAL VACCINE 0.5 ML IMVAC ONE (10:37)
[2023-07-04] MEDS: HYDROCODONE/APAP 5/325 MG TAB PO PRN (11:37)
[2023-07-04] MEDS ORDERED: TRIAMCINOLONE 0.1% TOP SCH (13:00)
[2023-07-04] MEDS ORDERED: DENTAL PASTE TOP SCH (13:00)
[2023-07-04] MEDS: TRIAMCINOLONE 0.1% TOP PRN (13:30)
[2023-07-04] MEDS: DENTAL PASTE TOP PRN (13:30)
--- NOTE | 2023-07-04 14:36 | EKG ---
Test Date: 2023-07-03 Test Time: 21:25:41 Life Consultant: LAYNE MEASUREMENT RESULTS: Intervals: Rate: 72 IA: 168 QRSD: 88 QT: 406 QTc: 444 [place]: P: 74 IA: 168 QRS: 44 T: 48 INTERPRETIVE STATEMENTS: Normal sinus rhythm Low voltage QRS Borderline ECG Compared to ECG 07/04/2020 16:35:15 Low QRS voltage now present Atrial abnormality no longer present Electronically Signed On 07-04-23 14:35:20 CDT by Nino Donahue
[2023-07-04] MEDS: HALOPERIDOL LACT 5 MG/ML INJ IV PRN ×2 (15:45→22:51)
[2023-07-04] MEDS: LORazepam 2 MG/ML VIAL IV PRN (17:08)
--- NOTE | 2023-07-04 19:20 | P.PN ---
Subjective Date of Service: 07/04/23 Chief Complaint: Left upper extremity pain and swelling Patient has no new complaint. She is alert and oriented. There is a report of agitation last night which patient attributed to discomfort. Physical Examination - Vital Signs Temperature: 97.8 F Blood Pressure: 133/72 Pulse: 74 Respirations: 16 Pulse Ox (%): 96 - Studies Laboratory Data (last 24 hrs) 07/03/23 07/03/23 07/03/23 20:21 20:21 20:21 WBC 5.60 Hgb 10.4 L Hct 31.6 L Plt Count 384 PT 10.5 INR 0.95 Sodium 137 Potassium 3.8 BUN 12 Creatinine 0.69 Glucose 132 H Magnesium 2.3 Total Bilirubin 0.1 L AST 15 ALT 27 Alkaline Phosphatase 186 H Assessment And Plan - Plan Physical Exam General: Alert, In no apparent distress, alert and oriented x 4 Neck: Supple, No LAD Respiratory: Clear to auscultation bilaterally, Normal air movement Cardiovascular: Regular rate/rhythm, Normal S1 S2, No gallops Gastrointestinal: Soft and benign, W/out hepatosplenomegaly, No ascites Musculoskeletal: Swelling, Tenderness, Warmth Integumentary: No rashes, No breakdown Neurological: Left-sided weakness Assessment and Plan Diagnosis DVT of left upper extremity Acute cystitis without hematuria Left proximal humerus fracture Epilepsy Hyperlipidemia Hypertension Plan: Left upper extremity DVT Patient started on full dose Lovenox. Transition to oral Eliquis. Pain controlled Fracture left proximal humerus Pain control Discussed with orthopedic Dr. Duque. Patient is fracture appears old with callus formation. No indication for surgery at this time per orthopedics. Acute cystitis without hematuria Urine cultures growing gram-negative rods She is high risk for ESBL infection Continue current antibiotics and follow urine culture organism identification and antibiotic sensitivity History of CVA Hypertension Hyperlipidemia Seizure disorder Continue home medications and titrate as needed Seizure precautions. Hyperactive delirium Zyprexa as needed. DVT prophylaxis: Patient started on Eliquis. Advanced directive: full code
[2023-07-04] MEDS ORDERED: WATER FOR INJ,STERILE 10 ML IM PRN (19:39)
[2023-07-04] MEDS: SERTRALINE HCL 50 MG TAB ONE (20:40)
[2023-07-04] MEDS: QUETIAPINE 25 MG TAB PO SCH (20:46)
[2023-07-04] MEDS: CLOPIDOGREL 75 MG TABLET PO SCH (20:47)
[2023-07-04] MEDS: ZIPRASIDONE MESYLA 20 MG/VIAL IM ONE (20:47)
[2023-07-04] MEDS: BACLOFEN 10 MG TAB PO SCH (20:47)
[2023-07-04] MEDS: ATORVASTATIN 40 MG TAB PO SCH (20:48)
[2023-07-04] MEDS: APIXABAN 5 MG TABLET PO SCH (20:48)
[2023-07-04] MEDS: carBAMazepine 200 MG TAB PO SCH (20:49)
[2023-07-04] MEDS: JUVEN PACKET PO SCH (20:50)
[2023-07-04] MEDS: OLANZapine 10 MG TABLET PO SCH (20:50)
--- NOTE | 2023-07-04 21:30 | RAD REPORT ---
EXAM DESCRIPTION: Extrem Venous W Compress Ran [employer]: US EXTREMITY VEINS BILATERAL CLINICAL HISTORY: 67 years Female; Pain;Swelling TECHNIQUE: Spectral analysis and color/grayscale sonographic images of both legs were obtained utili zing a high-frequency linear array transducer supplemented with color Doppler, compression and augmen tation techniques. COMPARISON: None. FINDINGS: Right leg veins: Common femoral: normal Greater saphenous: normal Superficial femoral: normal Popliteal: normal Calf Veins: normal Left leg veins: Common femoral: normal Greater saphenous: normal Superficial femoral: normal Popliteal: normal Calf Veins: normal IMPRESSION: 1. No sonographic evidence for lower extremity deep venous thrombosis in either leg. Electronically signed by: Jadiel Martinez MD 07/04/2023 01:40 AM CDT Due to temporary technical issues with the PACS/Fluency reporting system, reports are being signed by the in house radiologists without review as a courtesy to insure prompt reporting. The interpreting radiologist is fully responsible for the content of the report.
--- NOTE | 2023-07-04 21:32 | RAD REPORT ---
EXAM DESCRIPTION: XR Left Tibia and Fibula, 2 Views CLINICAL HISTORY: PAIN TECHNIQUE: Frontal and lateral views of the left tibia and fibula. COMPARISON: No relevant prior studies available. FINDINGS: Bones/joints: Unremarkable. No acute fracture. No dislocation. Soft tissues: Unremarkable. No radiopaque foreign body. * A single impression for all exams can be found at the end of this report EXAM DESCRIPTION: XR Left Foot Complete, 3 Views CLINICAL HISTORY: PAIN TECHNIQUE: Frontal, lateral and oblique views of the left foot. COMPARISON: No relevant prior studies available. 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 No acute fracture. N o dislocation. Soft tissues: Unremarkable. No radiopaque foreign body. * A single impression for all exams can be found at the end of this report IMPRESSION: XR Left Tibia and Fibula, 2 Views: No acute injury. XR Left Foot Complete, 3 Views: No acute injury. Electronically signed by: Antwon Gauthier MD 07/04/2023 01:12 AM CDT Due to temporary technical issues with the PACS/Fluency reporting system, reports are being signed by the in house radiologists without review as a courtesy to insure prompt reporting. The interpreting radiologist is fully responsible for the content of the report.
[2023-07-05] MEDS: LORazepam 2 MG/ML VIAL IV PRN (00:26)
[2023-07-05] MEDS: METOPROLOL XL 25 MG TAB PO SCH (05:39)
[2023-07-05] MEDS: GABAPENTIN 300 MG CAP PO SCH (08:58)
[2023-07-05] MEDS: carBAMazepine 200 MG TAB PO SCH ×2 (09:00→20:12)
[2023-07-05] MEDS: BACLOFEN 10 MG TAB PO SCH (09:01)
[2023-07-05] MEDS: AMLODIPINE 5 MG TAB PO SCH (09:01)
--- NOTE | 2023-07-05 11:26 | P.PN ---
Subjective Date of Service: 07/05/23 Chief Complaint: Left upper extremity pain and swelling Patient has no new complaint. Some agitation reported last night. No recorded fever, patient is tolerating diet. Physical Examination - Vital Signs Temperature: 97.6 F Blood Pressure: 143/87 Pulse: 94 Respirations: 17 Pulse Ox (%): 97 - Studies Microbiology Data (last 24 hrs): 07/03/23 21:36 Clean Catch Urine [place] Count - Final >100,000 CFU/ML. 07/03/23 21:36 Clean Catch Urine - Final Escherichia Coli Esbl Assessment And Plan - Plan Physical Exam General: Alert, In no apparent distress, alert and oriented x 4 Neck: Supple, No LAD Respiratory: Clear to auscultation bilaterally, Normal air movement Cardiovascular: Regular rate/rhythm, Normal S1 S2, No gallops Gastrointestinal: Soft and benign, W/out hepatosplenomegaly, No ascites Musculoskeletal: Left arm swelling and Tenderness. Integumentary: No rashes, No breakdown Neurological: Left-sided weakness Assessment and Plan Diagnosis DVT of left upper extremity Acute cystitis without hematuria Left proximal humerus fracture Epilepsy Hyperlipidemia Hypertension Plan: Left upper extremity DVT Status post full dose Lovenox. Continue oral Eliquis. Pain control with [place]. Fracture left proximal humerus Discussed with orthopedic Dr. Duque. Patient is fracture appears old with callus formation. No indication for surgery at this time per orthopedics. Acute cystitis without hematuria Urine cultures ESBL E. coli Is midline for outpatient IV meropenem/Invanz Antibiotics changed to meropenem. History of CVA Hypertension Hyperlipidemia Seizure disorder Continue home medications and titrate as needed Seizure precautions. Hyperactive delirium Zyprexa and Ativan as needed. DVT prophylaxis: Eliquis. Advanced directive: full code
[2023-07-05] MEDS: Meropenem 1,000 MG in NA CHLORIDE 0.9% 100 ML IV SCH (12:36)
[2023-07-05] MEDS: ACETAMINOPHEN 325 MG TABLET PO PRN (19:28)
--- NOTE | 2023-07-05 20:58 | RAD REPORT ---
EXAM DESCRIPTION: CT - Head Brain Wo Cont - 07/05/2023 8:47 pm CLINICAL HISTORY: AMS COMPARISON: Head Brain Wo Cont dated 06/01/2020; Ct Stroke Brain Wo Cont dated 08/29/2016 TECHNIQUE: All CT scans are performed using dose optimization technique as appropriate and may inclu de automated exposure control or mA/KV adjustment according to patient size. FINDINGS: No intracranial hemorrhage, hydrocephalus or extra-axial fluid collection.No areas of brai n edema or evidence of midline shift. Large remote right MCA territory infarct. The paranasal sinuses and mastoids are clear. The calvarium is intact. IMPRESSION: No acute intracranial abnormality. Large remote right MCA territory infarct.
[2023-07-06 01:58] VITALS: BMI 21.0
--- NOTE | 2023-07-06 10:48 | P.PN ---
Subjective Date of Service: 07/06/23 Chief Complaint: Left upper extremity pain and swelling Patient states she feels much better today. She is eating well. Midline is in place. Physical Examination - Vital Signs Temperature: 97.7 F Blood Pressure: 118/60 Pulse: 77 Respirations: 16 Pulse Ox (%): 96 - Studies Microbiology Data (last 24 hrs): 07/03/23 21:36 Clean Catch Urine [place] Count - Final >100,000 CFU/ML. 07/03/23 21:36 Clean Catch Urine - Final Escherichia Coli Esbl Assessment And Plan - Plan Physical Exam General: Alert, In no apparent distress, alert and oriented x 3 Respiratory: Clear to auscultation bilaterally, Normal air movement Cardiovascular: Regular rate/rhythm, Normal S1 S2, No gallops Gastrointestinal: Soft and benign, W/out hepatosplenomegaly, No ascites Musculoskeletal: Left arm swelling and Tenderness. Integumentary: No rashes, No breakdown Neurological: Left-sided weakness Assessment and Plan Diagnosis DVT of left upper extremity Acute cystitis without hematuria Left proximal humerus fracture Epilepsy Hyperlipidemia Hypertension Plan: Left upper extremity DVT Status post full dose Lovenox. Continue oral Eliquis. Pain control with [place]. Fracture left proximal humerus Discussed with orthopedic Dr. Duque. Patient is fracture appears old with callus formation. No indication for surgery at this time per orthopedics. Acute cystitis without hematuria Urine cultures ESBL E. coli Is midline for outpatient IV meropenem/Invanz Continue IV meropenem. Patient slated for 7 days of antibiotics. History of CVA Hypertension Hyperlipidemia Seizure disorder Continue home medications and titrate as needed Seizure precautions. Hyperactive delirium Zyprexa and Ativan as needed. DVT prophylaxis: Eliquis. Advanced directive: full code Disposition: NH to complete IV Invanz pending arangement.
[2023-07-06] MEDS: ARIPiprazole 5 MG TAB PO SCH (11:48)
[2023-07-06] MEDS: BUSPIRONE HCL 5 MG TABLET PO SCH (14:11)
[2023-07-06] MEDS: MIRTAZAPINE 15 MG TAB PO SCH (20:42)
[2023-07-06] MEDS: FAMOTIDINE 20 MG TAB PO SCH (20:43)
[2023-07-07] MEDS: FERROUS SULFATE 325 MG TAB PO SCH (09:00)
[2023-07-07 10:19] VITALS: O2SAT 93
[2023-07-07] MEDS ORDERED: ERTAPENEM SODIUM 1 GM VIAL IVPB ONE (12:46)
[2023-07-07 16:23] LABS: Absolute Lymphocytes (CBC) 1.7 K/uL (0.7-4.9); Absolute Monocytes 0.5 K/uL (0.1-1.3); Absolute Neutrophil 3.1 K/uL (1.8-8.0); Basophils % 0.6 % (0-1.3); Eosinophils % 0.3 % (0-4.4); Hematocrit 34.1 % (36.0-45.0); Hemoglobin 11.3 g/dL (12.0-15.0); MCH 27.7 pg (27.0-35.0); MCHC 33.1 g/dL (32.0-36.0); MCV 83.8 fL (80-100); MPV 7.4 fL (7.6-11.3); Monocytes % 8.9 % (3.3-12.3); Neutrophils % 58.2 % (41.7-73.7); Nucleated Red Blood Cells % 0.1 % (0-0); Platelets 416 thou/uL (152-406); RBC Red Blood Cell Count 4.06 M/uL (3.86-4.86); Red Cell Distribution Width 19.4 % (12.1-15.2)
[2023-07-07 16:39] LABS: Anion Gap 3.2 mEq/L (5.0-15.0); Potassium 5.2 mEq/L (3.5-5.1)
[2023-07-07] MEDS: Meropenem 1,000 MG in NA CHLORIDE 0.9% 100 ML IV SCH (17:45)
--- NOTE | 2023-07-07 18:32 | P.PN ---
Subjective Date of Service: 07/07/23 Chief Complaint: Left upper extremity pain and swelling Patient has no new complaint. She is eating well. No issues overnight. Physical Examination - Vital Signs Temperature: 97.7 F Blood Pressure: 124/81 Pulse: 71 Respirations: 17 Pulse Ox (%): 95 Assessment And Plan - Plan Physical Exam General: Alert, In no apparent distress, alert and oriented x 3 Respiratory: Clear to auscultation bilaterally, Normal air movement Cardiovascular: Regular rate/rhythm, Normal S1 S2. Gastrointestinal: Soft and benign, W/out hepatosplenomegaly, No ascites Musculoskeletal: Left arm swelling. Integumentary: No rashes, No breakdown Neurological: Left-sided weakness Assessment and Plan Diagnosis DVT of left upper extremity Acute cystitis without hematuria Left proximal humerus fracture Epilepsy Hyperlipidemia Hypertension Plan: Left upper extremity DVT Status post full dose Lovenox. Continue oral Eliquis. Pain control with [place]. Fracture left proximal humerus Discussed with orthopedic Dr. Duque. Patient is fracture appears old with callus formation. No indication for surgery at this time per orthopedics. Acute cystitis without hematuria Urine cultures ESBL E. coli. Wound culture is also growing Enterococcus faecalis Midline in place for outpatient IV meropenem. Continue IV meropenem. Patient slated for 7 days of antibiotics. History of CVA Hypertension Hyperlipidemia Seizure disorder Continue home medications and titrate as needed Seizure precautions. Hyperactive delirium Zyprexa and Ativan as needed. Also resumed patient home psych medications-Abilify, buspirone, Tegretol, venlafaxine. Patient send requested neurology Dr. Leonardo to evaluation. Dr. Leonardo has been consulted and informed. DVT prophylaxis: Eliquis. Advanced directive: full code Disposition: NH to complete IV Merrem.
[2023-07-07] MEDS: MEMANTINE HCL 10 MG TABLET PO SCH (20:30)
--- NOTE | 2023-07-08 15:11 | P.PN ---
Date of Service: 07/08/23 Subjective: doing better reports some loose stool last night and again this morning - started within last 24hrs no abdominal pain ROS: 10 point ROS as noted above, otherwise negative Physical exam GEN: Alert, orientedx3, NAD, some memory impairment CV: Regular rate and rhythm, no edema Pulm: Nonlabored respirations on room air ABD: Soft, nontender, nondistended Integumentary: sacrum with stool obscuring exam of pressure sore Neuro: L-sided weakness, normal speech Problem List DVT of left upper extremity Acute cystitis without hematuria sacral pressure store, present on admission Left proximal humerus fracture Epilepsy Hyperlipidemia Hypertension hyperactive delirium LUE DVT - received lovenox, and transitioned to eliquis - continue, and will need prescription on discharge L proximal humerus fracture discussed with Ortho who state fracture appears old with callus formation on imaging, not acute; no indication for srugery at this time Acute cystitis Urine cx: ESBL e.coli wound culture -sacral - enterrococcus fasecalis midline in place, will need 7 days total IV antibiotics - merrem end date: 07/11 Continue home medications and titrate as needed Seizure precautions. Hyperactive delirium, much improved/resolved Zyprexa and Ativan as needed. resumed patient home psych medications-Abilify, buspirone, Tegretol, venlafaxine. VTE: eliquis Code: full Dispo: back to [facility], today vs tomorrow pending loose stool Time Spent Managing Pts Care (In Minutes): 35
[2023-07-09 03:08] LABS: Absolute Lymphocytes (CBC) 2.2 K/uL (0.7-4.9); Absolute Monocytes 0.6 K/uL (0.1-1.3); Absolute Neutrophil 2.1 K/uL (1.8-8.0); Basophils % 0.6 % (0-1.3); Eosinophils % 0.2 % (0-4.4); Hematocrit 32.4 % (36.0-45.0); Hemoglobin 10.7 g/dL (12.0-15.0); Lymphocytes % 44.6 % (15.3-44.8); MCH 27.5 pg (27.0-35.0); MCHC 32.9 g/dL (32.0-36.0); MCV 83.5 fL (80-100); MPV 7.4 fL (7.6-11.3); Monocytes % 11.9 % (3.3-12.3); Neutrophils % 42.7 % (41.7-73.7); Platelets 371 thou/uL (152-406); RBC Red Blood Cell Count 3.89 M/uL (3.86-4.86); Red Cell Distribution Width 18.7 % (12.1-15.2)
[2023-07-09 03:21] LABS: Anion Gap 6.9 mEq/L (5.0-15.0); Magnesium 2.2 mg/dL (1.6-2.4); Potassium 3.9 mEq/L (3.5-5.1)
--- NOTE | 2023-07-09 07:31 | P.DS ---
Admission Date: 07/03/23 Discharge Date: 07/09/23 Disposition: TRANSFER TO [facility] Discharge Condition: GOOD Reason for Admission: Left upper extremity pain and swelling Consultations: Ortho - Dr. Duque Neurology - Dr. Leonardo Brief History of Present Illness: 67yo F, PMH: hypertension, CVA, history of seizure disorder, hyperlipidemia, chronic pain Patient was transferred from detention because of shoulder pain of left shoulder. Denies any trauma.The patient complains of decreased range of motion, deformity, pain. left shoulder. Started 13 days ago and has been progressively worsening. Associated with left upper extremity pain and swelling along with shoulder pain. Patient is a poor historian hence most of the history is obtained from the chart review and after talking with the ER physician. Patient was assessed in the ER and was found to have DVT of the left upper extremity fracture of left humerus and was admitted for further management Hospital Course: Problem List DVT of left upper extremity Acute cystitis without hematuria sacral pressure store, present on admission Left proximal humerus fracture Epilepsy Hyperlipidemia Hypertension hyperactive delirium Physician discharge instructions: Patient presented with worsening left shoulder pain and was found to have an old fractured left proximal humerus seen on x-ray. Discussed with Dr. Duque who recommended pain control with norco as there was no indication for surgery given old fracture with callus formation seen on im aging. Patient was also noted to have acute DVT in left upper extremity, seen on Venous ultrasound. Patient initially received therapeutic lovenox and was later transitioned to oral eliquis. During her hospitalization patient was noted to have an acute cystitis. Urine culture grew E. coli Esbl sensitive to Merrem. Midline was placed this hospitalization for outpatient IV antibiotics and patient was started on IV merrem. Patient is to complete 4 more days of Merrem for a total of 1 week sensitive antibiotic therapy. (through 07/12/23) On intake, she was noted to have a pressure sore on sacrum, without appearance of acute infection, however a superficial swab was obtained and grew enterococcus. Dr. Leonardo, neurology was consulted per patients request to eval psych/neuro meds and recommended starting trial of memantine. She was noted to have some loose stools 2-3x / day on 07/06 and 07/07, and she was monitored overnight with improvement, without any change in treatment. She was deemed stable for discharge back to detention to complete antibiotic course. Medications: Merrem 1000 mg q8h (end date 07/12/23) [place] 5/325 as needed for pain - anticipate deescalate to tylenol #3 over the next few days as needed for pain once not needing norco Eliquis 10 mg twice daily until 07/14/23 then deescalate to 5 mg twice daily starting 07/15/23 morning Memantine 5 mg twice daily Follow up: PCP 3-5 days Neurology in 1-2 weeks as previously scheduled Please call to schedule / confirm appointments Physical exam GEN: Alert, orientedx3, NAD, some memory impairment CV: Regular rate and rhythm, no edema Pulm: Nonlabored respirations on room air ABD: Soft, nontender, nondistended Integumentary: sacrum pressure sore Neuro: L-sided weakness, normal speech Vital Signs/Physical Exam: Temp Pulse Resp BP Pulse Ox 97.1 F 82 19 152/68 H 94 07/09/23 04:00 07/09/23 05:18 07/09/23 04:00 07/09/23 05:18 07/09/23 04:00 Laboratory Data at Discharge: WBC 5.00 thou/uL (4.3-10.9) 07/09/23 02:39 Hgb 10.7 g/dL (12.0-15.0) L 07/09/23 02:39 Hct 32.4 % (36.0-45.0) L 07/09/23 02:39 Plt Count 371 thou/uL (152-406) 07/09/23 02:39 PT 10.5 SECONDS (9.5-12.5) 07/03/23 20:21 INR 0.95 07/03/23 20:21 Sodium 137 mEq/L (136-145) 07/09/23 02:39 Potassium 3.9 mEq/L (3.5-5.1) 07/09/23 02:39 BUN 19 mg/dL (7-18) H 07/09/23 02:39 Creatinine 0.48 mg/dL (0.55-1.02) L 07/09/23 02:39 Glucose 86 mg/dL (74-106) 07/09/23 02:39 Magnesium 2.2 mg/dL (1.6-2.4) 07/09/23 02:39 Total Bilirubin 0.1 mg/dL (0.2-1.0) L 07/04/23 06:59 AST 14 U/L (15-37) L 07/04/23 06:59 ALT 24 U/L (13-56) 07/04/23 06:59 Alkaline Phosphatase 174 U/L (45-117) H 07/04/23 06:59 Home Medications: Carbamazepine [Tegretol] 300 mg PO BID 08/29/16 Gabapentin 300 mg PO BID 08/29/16 Atorvastatin Calcium [Lipitor] 40 mg PO BEDTIME #30 tab 08/30/16 Venlafaxine HCl [Venlafaxine HCl ER] 75 mg PO DAILY 06/01/20 Clopidogrel Bisulfate [Plavix] 75 mg PO DAILY #30 tablet 06/08/20 Baclofen 5 mg PO TID 07/06/20 Amlodipine [Norvasc*] 5 mg PO DAILY #30 tab 07/12/20 ARIPiprazole [Abilify*] 5 mg PO DAILY 07/04/23 Buspirone HCl [Buspar*] 10 mg PO TID 07/04/23 Famotidine [Pepcid*] 20 mg PO BEDTIME 07/04/23 Ferrous Sulfate [Feosol] 325 mg PO DAILY 07/04/23 Metoprolol Succinate [Toprol Xl*] 25 mg PO DAILY 07/04/23 Mirtazapine [Remeron*] 15 mg PO BEDTIME 07/04/23 OLANZapine [Olanzapine] 5 mg PO BEDTIME 07/04/23 hydrOXYzine pamoate [Hydroxyzine Pamoate] 50 mg PO Q4H PRN 07/04/23 Apixaban [Eliquis] 10 mg PO BID 07/09/23 Hydrocodone 5/APAP 325 [[place] 5/325*] 1 tab PO Q4H PRN tab 07/09/23 Memantine HCl [Namenda*] 5 mg PO BID 07/09/23 Physician Discharge Instructions: Physician discharge instructions: Patient presented with worsening left shoulder pain and was found to have an old fractured left proximal humerus seen on x-ray. Discussed with Dr. Duque who recommended pain control with norco as there was no indication for surgery given old fracture with callus formation seen on imaging. Patient was also noted to have acute DVT in left upper extremity, seen on Venous ultrasound. Patient initially received therapeutic lovenox and was later transitioned to oral eliquis. During her hospitalization patient was noted to have an acute cystitis. Urine culture grew E. coli Esbl sensitive to Merrem. Midline was placed this hospitalization for outpatient IV antibiotics and patient was started on IV merrem. Patient is to complete 4 more days of Merrem for a total of 1 week sensitive antibiotic therapy. (through 07/12/23) On intake, she was noted to have a pressure sore on sacrum, without appearance of acute infection, however a superficial swab was obtained and grew enterococcus. Dr. Leonardo, neurology was consulted per patients request to [facility] psych/neuro meds and recommended starting trial of memantine. She was noted to have some loose stools 2-3x / day on 07/06 and 07/07, and she was monitored overnight with improvement, without any change in treatment. She was deemed stable for discharge back to detention to complete antibiotic course. Medications: Merrem 1000 mg q8h (end date 07/12/23) [place] 5/325 as needed for pain - anticipate deescalate to tylenol #3 over the next few days as needed for pain once not needing norco Eliquis 10 mg twice daily until 07/14/23 then deescalate to 5 mg twice daily starting 07/15/23 morning Memantine 5 mg twice daily Follow up: PCP 3-5 days Please call to schedule / confirm appointments Followup: Beck Chen MD [Primary Care Provider] - Time spent managing pt's care (in minutes): 45
--- NOTE | 2023-07-09 07:54 | CON ---
Date of Consultation: 07/07/2023 Reason: Confusion. History: A 67-year-old lady, actually very well known to myself, probably known her 15 or 20 years b ecause she has chronic seizures and she is on Tegretol, and that problem has actually been fairly sta ble. She is in a halfway now. She had a cervical myelopathy and that was decompressed, and she had a stroke with carotid stenosis and fixed the stenosis, but she has very significant residual lef t hemiparesis with left tamela neglect, and she has been in the halfway for several years and as f ar as this year mostly because she has been having worsening confusion and memory loss and we suspect that she may be developing dementia and really horrible anxiety as well struggling to kind of get th at worked up, because after seeing the patient, she has had multiple hospitalizations, some in medica l facilities, UTIs, etc., a few trips to psychiatric facilities for behavioral disturbance, and she i s on antipsychotics now. She is in the hospital now because at one institution, the left arm was bro jimmy while she was there, how that happened I do not fully know, although the patient states that one of the staff broke her arm, and now she is in a different facility and she get a DVT in the broken ar m, so no surgery. She has been having episodes at night where she is very agitated, combative, delir ious, and sundowning type symptoms. CT scan of the brain demonstrates a prior large right MCA infarc t. Labs are generally unrevealing. Sodium is 132 and the Tegretol level on admission 12.9, but whit e count is normal and hemoglobin is 11.3, and I was just asked to kind of render an opinion with ther e may be any additional pharmacologic interventions that might be helpful with regard to the confusio n in the evenings. Past Medical History: Neurologic history as alluded to stroke; prior myelopathy, status post decompr ession; the seizures; memory problems. She has hypertension and hyperlipidemia. Now, she has a DVT in the left arm as well. Medications: Routinely, Tegretol, gabapentin, Lipitor, Effexor, baclofen, Norvasc, metoprolol, and P lavix. The Tegretol 200 t.i.d. on admission, and now she is on Eliquis and there is a pretty signifi cant drug interaction with regard to the Eliquis and the Tegretol. The Tegretol is going to make the Eliquis less effective. She is on 100 t.i.d. of the Tegretol now. Physical Examination: General: On exam, she is awake. She is alert. She knows she is in the hospital. She recognizes me . She is not agitated or combative. HEENT: Pupils are reactive. Ocular motion full. [place] full. No field cut on the left. Decreased left nasolabial fold. Neurologic: She has a spastic left hemiparesis, 2/5. Some intermittent left tamela neglect to double simultaneous stimulation. Reflexes are generally brisk throughout and toes are bilaterally upgoing. Pertinent Laboratory Data: As alluded to in the history, Tegretol level 12.9. White count normal. Sodium 132. Impression: 1.Memory loss. 2.Delirium. 3.Prior stroke. 4.Seizures even before the stroke. Plan: We will add some Namenda for the memory. She said her BMI is 21. Would be concerned about ch olinesterase inhibitors, perhaps even worsening the weight loss, and we will check a Tegretol level i n the morning given all behavioral problems even if the Tegretol needs to be changed which hopefully it does not. An anticonvulsant with some additional mood stabilization may be helpful for the overal l symptom complex. Thank you for the consult. We will continue to follow with you. ROBERT Voice ID: [id number] Report ID: [id number]
[2023-07-09 08:30] VITALS: BP 142/77; TEMP 97.3
[2023-07-09] MEDS: POTASSIUM CL SA 10 MEQ TAB PO ONE (09:39)
[2023-07-14] MEDS ORDERED: APIXABAN 5 MG TABLET PO SCH (21:00)
== END 2023-07-09 11:47 | DRG 300 ==
LOC: ER 19:14 → ERHOLD 23:08 → 2ND 07-04 00:27
PROVIDERS: ADMIT Family Medicine; ATTEND Hospitalist
PROC: 02HV33Z Insertion of Infusion Device into Superior Vena Cava, Percutaneous Approach (ICD-10-PCS; principal; 2023-07-05)
DX: I82.622 Acute embolism and thrombosis of deep veins of left upper extremity (principal); F05 Delirium due to known physiological condition; N30.00 Acute cystitis without hematuria; Z16.12 Extended spectrum beta lactamase (ESBL) resistance; I10 Essential (primary) hypertension; G89.29 Other chronic pain; E78.00 Pure hypercholesterolemia, unspecified; L89.159 Pressure ulcer of sacral region, unspecified stage; F90.9 Attention-deficit hyperactivity disorder, unspecified type; G40.909 Epilepsy, unspecified, not intractable, without status epilepticus; S42.222D 2-part displaced fracture of surgical neck of left humerus, subsequent encounter for fracture with routine healing; B95.2 Enterococcus as the cause of diseases classified elsewhere; B96.20 Unspecified Escherichia coli [E. coli] as the cause of diseases classified elsewhere; R41.3 Other amnesia; R45.1 Restlessness and agitation; Z79.02 Long term (current) use of antithrombotics/antiplatelets; Z79.899 Other long term (current) drug therapy
CPT/HCPCS: 36415; 51702; 70450; 71045; 80048; 80053; 80076; 80156; 81001; 83735; 83880; 84484; 85025; 85610; 87070; 87077; 87086; 87088; 87186; 87205; 93005; 93970; 93971; 96361; 96372; 96374; 99285; J0696; J1630; J1650; J2185; J3486; J7030

== ENCOUNTER 2023-07-12 09:51 | Emergency (ER) | payer OTHER ==
[2023-07-12] MEDS ORDERED: ACETAMINOPHEN 325 MG TABLET ONE (10:14)
--- NOTE | 2023-07-12 10:42 | RAD REPORT ---
EXAM DESCRIPTION: CT - [id number] - 07/12/2023 10:07 am CLINICAL HISTORY: Trauma, head and neck injury. TRAUMA COMPARISON: Head C Spine Mpr Wo Con dated 06/19/2019; Head C Spine Mpr Wo Con dated 04/19/2018 TECHNIQUE: Axial 5 mm thick images of the head were obtained. Axial 2 mm thick images of the cervical spine were obtained with sagittal and coronal reconstruction images generated and reviewed. All CT scans are performed using dose optimization technique as appropriate and may include automated exposure control or mA/KV adjustment according to patient size. FINDINGS: CT HEAD WITHOUT CONTRAST: No acute hemorrhage, hydrocephalus or extra-axial collection is identified.There is significant glios is seen right cerebral hemisphere presumably related to remote infarct. The paranasal sinuses and mastoids are clear.The calvarium is intact. CT CERVICAL SPINE WITHOUT CONTRAST: No fracture or subluxation.Postsurgical changes of multilevel laminectomy. Significant atherosclerosi s of both carotid systems.No prevertebral soft tissues swelling is identified. IMPRESSION: No acute intracranial or cervical spine findings.
[2023-07-12] MEDS ORDERED: TRAMADOL HCL 50 MG TAB ONE (10:58)
--- NOTE | 2023-07-12 11:01 | ER ---
Nurse's Notes [facility] Name: Lynne Urena Age: 67 yrs Sex: Female : 1955 Arrival Date: 07/12/2023 Time: 09:51 Bed 19 Private MD: Diagnosis: Unspecified injury of head, initial encounter;Fall on same level, unspecified Presentation: 07/11 09:56 Chief complaint: EMS states: "Fell out of bed this morning and hit the back of her rs5 head. Fall was unwitnessed, pt reports LOC for a few seconds". Coronavirus screen: At this time, the client does not indicate any symptoms associated with coronavirus-19. Ebola Screen: No symptoms or risks identified at this time. Initial Sepsis Screen: Does the patient meet any 2 criteria? No. Patient's initial sepsis screen is negative. Does the patient have a suspected source of infection? No. Patient's initial sepsis screen is negative. Risk Assessment: Do you want to hurt yourself or someone else? Patient reports no desire to harm self or others. Onset of symptoms was July 12, 2023. 09:56 Method Of Arrival: EMS: [facility] rs5 09:56 Acuity: YEIMI 3 rs5 Triage Assessment: 10:01 General: Appears in no apparent distress. uncomfortable, Behavior is calm, cooperative. rs5 Pain: Complains of pain in back of head Pain currently is 7 out of 10 on a pain scale. Quality of pain is described as aching, Pain began 1 hour ago. Is continuous. Historical: - Allergies: 10:01 NKA; rs5 - PMHx: 10:01 Chronic pain; CVA; left side paralysis; epilepsy; High Cholesterol; Hypertension; rs5 - PSHx: 10:01 None; rs5 - Immunization history:: Adult Immunizations up to date. - Infectious Disease History:: Denies. - Social history:: Smoking status: Patient denies any tobacco usage or history of. Screenin:53 [facility] ED Fall Risk Assessment (Adult) History of falling in the last 3 months, rs5 including since admission Yes- single mechanical fall (1 pt) Confusion or Disorientation No (0 pts) Intoxicated or Sedated No (0 pts) Impaired Gait Yes (1 pt) Mobility Assist Device Used Yes (1 pt) Altered Elimination No (0 pt) Score/Fall Risk Level 0 - 2 = Low Risk Oriented to surroundings, Maintained a safe environment. 09:53 Abuse screen: Denies threats or abuse. Nutritional screening: No deficits noted. rs5 Tuberculosis screening: No symptoms or risk factors identified. Assessment: 09:53 General: Appears in no apparent distress. comfortable, Behavior is calm, cooperative. rs5 Pain: Complains of pain in back of head Pain currently is 7 out of 10 on a pain scale. Quality of pain is described as aching, Is continuous. Neuro: Level of Consciousness is awake, alert, obeys commands, Oriented to person, place, time, situation. Cardiovascular: Patient's skin is warm and dry. Rhythm is regular. Respiratory: Airway is patent Respiratory effort is even, unlabored, Respiratory pattern is regular, symmetrical. GI: Abdomen is round non-distended, Abd is soft and non tender X 4 quads. : Reports pt states "I have a UTI so the doctor put midline on my right arm and is giving me abx through it, I am almost finished" single lumen midline noted to right upper inner arm. 09:53 EENT: No signs and/or symptoms were reported regarding the EENT system. Derm: Skin is rs5 intact, Skin is pink, warm \\T\\ dry. Musculoskeletal: Range of motion: limited in left arm pt states "I fell a few weeks or so ago and I hurt my left arm. My doctor and everyone already knows about it" no redness, swelling, or deformity noted to affected extremity. 10:40 Reassessment: Pt pulled mid line out, gauze and pressure dressing applied, bleeding rs5 controlled, provider notified. 11:05 Reassessment: Pt up for discharge, [facility] called, nurse from [place] rs5 states "I will arrange for transportation". 11:25 Reassessment: to bedside with bedside commode, . rs5 12:06 Reassessment: 2 failed attempts to contact [place] for transportation, no answer rs5 charge nurse notified. 12:38 Reassessment: Successful attempt to contact [place], nurse states "I will arrange for rs5 transportation now, I will call back with an ETA", charge nurse notified. 12:56 Reassessment: Patient and/or family updated on plan of care and expected duration. Pain rs5 level reassessed. Patient is alert, oriented x 3, equal unlabored respirations, skin warm/dry/pink. Vital Signs: 09:56 BP 130 / 71; Pulse 77; Resp 18; Temp 98.4(O); Pulse Ox 99% ; rs5 12:01 BP 137 / 73; Pulse 68; Resp 18; Pulse Ox 99% on R/A; rs5 12:56 BP 135 / 74; Pulse 70; Resp 18; Pulse Ox 99% on R/A; rs5 Arnold Coma Score: 09:52 Eye Response: spontaneous(4). Motor Response: obeys commands(6). Verbal Response: jh7 oriented(5). Total: 15. ED Course: 09:52 Patient arrived in ED. jh7 09:52 [facility]donado [facility] jh[facility] 09:52 Edis Kaur MD is Attending Physician. jh7 09:53 Patient has correct armband on for positive identification. Placed in gown. Bed in low rs5 position. Call light in reach. Side rails up X2. 09:53 No provider procedures requiring assistance completed. rs5 09:56 Joe Campos, RN is Primary Nurse. rs5 10:01 Triage completed. rs5 10:08 CT Head C Spine In Process Unspecified. EDMS 12:23 spoke with Mony at [facility] about patient transportation she stated eb she would get back with me with an ETA. 12:27 Mony called back with hollis ETA of 30 min with [facility] ambulance. eb 13:00 Patient did not have IV access during this emergency room visit. rs5 Administered Medications: 10:15 Drug: Acetaminophen PO 650 mg PO once Route: PO; rs5 11:01 Follow up: Response: No adverse reaction rs5 11:14 Drug: traMADol PO 50 mg PO once Route: PO; rs5 12:39 Follow up: Response: No adverse reaction; Pain is decreased rs5 Medication: 12:35 VIS not applicable for this client. rs5 Outcome: 11:00 Discharge ordered by . jh7 13:00 Discharged to home via ambulance, rs5 13:00 Condition: stable 13:00 Discharge instructions given to patient, family, Instructed on discharge instructions, follow up and referral plans. Demonstrated understanding of instructions, follow-up care, 13:06 Patient left the ED. rs5 Signatures: Dispatcher [employer] EDMS Vanessa Santiago Jennifer, CABLE SWAGER CABLE SWAGER jh7 Joe Campos, RN RN rs5 Corrections: (The following items were deleted from the chart) 10:29 09:56 BP 145 / 81; Pulse 77bpm; Resp 18bpm; Pulse Ox 99%; Temp 98.4F Oral; rs5 rs5 12:37 12:35 Reassessment: Pt up for discharge, [facility] called, nurse from [place] rs5 states "I will arrange for transportation". rs5
--- NOTE | 2023-07-12 11:01 | EDPHYS ---
Physician Documentation [facility] Name: Lynne Urena Age: 67 yrs Sex: Female : 1955 Arrival Date: 07/12/2023 Time: 09:51 Bed 19 Private MD: ED Physician Edis Kaur HPI: 07/11 09:52 This 67 yrs old Female presents to ER via Unassigned with complaints of closed head jh7 injury, fall. 09:52 The patient or guardian reports injury. The complaints affect the. The complaints jh7 affect the head. Context of injury: The problem was sustained at a group home or assisted living facility, resulted from a fall, out of bed. Onset: The symptoms/episode began/occurred acutely. Associated signs and symptoms: Pertinent positives: loss of conciousness, headache, neck pain, Pertinent negatives: double vision, nausea, seizure, shortness of breath, vomiting, weakness in extremities, generalized weakness. 67-year-old female presents from [facility] via EMS with a past medical history of DVT, hemorrhagic stroke in 1972 (pole vaulting accident) and laminectomy presents to the ER post fall. She reports that the staff put her on the edge of the bed and that this morning she accidentally rolled out of bed. Reports that she lost consciousness for a few seconds. She reports that she is currently on Plavix. She complains of a headache and neck pain, but reports that she does have chronic neck pain. Denies dizziness, chest pain, shortness of breath, visual changes, extremity weakness, or any other symptoms at this time.. Historical: - Allergies: 10:01 NKA; rs5 - PMHx: 10:01 Chronic pain; CVA; left side paralysis; epilepsy; High Cholesterol; Hypertension; rs5 - PSHx: 10:01 None; rs5 - Immunization history:: Adult Immunizations up to date. - Infectious Disease History:: Denies. - Social history:: Smoking status: Patient denies any tobacco usage or history of. ROS: 09:52 Constitutional: Per HPI jh7 Exam: 09:52 Constitutional: This is a well developed, well nourished patient who is awake, alert, jh7 and in no acute distress. Head/Face: Normocephalic, atraumatic. Eyes: Pupils equal round and reactive to light, extra-ocular motions intact. Lids and lashes normal. Conjunctiva and sclera are non-icteric and not injected. Cornea within normal limits. Periorbital areas with no swelling, redness, or edema. ENT: Nares patent. No nasal discharge, no septal abnormalities noted. Tympanic membranes are normal and external auditory canals are clear. Oropharynx with no redness, swelling, or masses, exudates, or evidence of obstruction, uvula midline. Mucous membranes moist. Neck: Trachea midline, no thyromegaly or masses palpated, and no cervical lymphadenopathy. Supple, full range of motion without nuchal rigidity, or vertebral point tenderness. No Meningismus. Cardiovascular: Regular rate and rhythm with a normal S1 and S2. No gallops, murmurs, or rubs. Normal PMI, no JVD. No pulse deficits. Respiratory: Lungs have equal breath sounds bilaterally, clear to auscultation and percussion. No rales, rhonchi or wheezes noted. No increased work of breathing, no retractions or nasal flaring. Abdomen/GI: Soft, non-tender, with normal bowel sounds. No distension or tympany. No guarding or rebound. No evidence of tenderness throughout. Skin: Warm, dry with normal turgor. Normal color with no rashes, no lesions, and no evidence of cellulitis. MS/ Extremity: Pulses equal, no cyanosis. Neurovascular intact. Full, normal range of motion. Neuro: Awake and alert, GCS 15, oriented to person, place, time, and situation. Cranial nerves II-XII grossly intact. Sensory grossly intact. Cerebellar exam normal. Vital Signs: 09:56 BP 130 / 71; Pulse 77; Resp 18; Temp 98.4(O); Pulse Ox 99% ; rs5 12:01 BP 137 / 73; Pulse 68; Resp 18; Pulse Ox 99% on R/A; rs5 12:56 BP 135 / 74; Pulse 70; Resp 18; Pulse Ox 99% on R/A; rs5 Arnold Coma Score: 09:52 Eye Response: spontaneous(4). Motor Response: obeys commands(6). Verbal Response: jh7 oriented(5). Total: 15. MDM: 09:52 Patient medically screened. [facility] 11:04 Differential diagnosis: Contusion of Hematoma on Intracranial bleed- Concussion with jh7 LOC. Data reviewed: vital signs, nurses notes, radiologic studies, CT scan. I considered the following discharge prescriptions or medication management in the emergency department Medications were administered in the Emergency Department. See MAR. Independent interpretation of the following test(s) in the Emergency Department CT Scan: My interpretation is no acute findings. Care significantly affected by the following chronic conditions: Hypertension. Counseling: I had a detailed discussion with the patient and/or guardian regarding the historical points, exam findings, and any diagnostic results supporting the discharge/admit diagnosis, to return to the emergency department if symptoms worsen or persist or if there are any questions or concerns that arise at home. Response to treatment: the patient's symptoms have mildly improved after treatment. ED course: Inform the patient that the CT scan was negative and that she would be discharged. She stated " will do not discharge me too quickly, because I do not like that group home and I do not want to go back." Informed her that we cannot keep her just because she does not want to go back, and that there is no reason for her to stay in the hospital. She stated " while I am on IV antibiotics at the group home so I can stay here and get them instead." Informed her once again that she would be discharged. The RN, Joe, stated that the patient ripped out her PICC line and attempt to stay in the hospital.. 07/11 09:53 Order name: CT Head C Spine; Complete Time: 10:55 [facility] Administered Medications: 10:15 Drug: Acetaminophen PO 650 mg PO once Route: PO; rs5 11:01 Follow up: Response: No adverse reaction rs5 11:14 Drug: traMADol PO 50 mg PO once Route: PO; rs5 12:39 Follow up: Response: No adverse reaction; Pain is decreased rs5 Disposition Summary: 07/12/23 11:00 Discharge Ordered Notes: Location: Home [facility] Problem: new [facility] Symptoms: have improved jh Condition: Stable jh Diagnosis - Unspecified injury of head, initial encounter jh7 - Fall on same level, unspecified jh7 Followup: 7 - With: Private Physician - When: 2 - 3 days - Reason: Recheck today's complaints Discharge Instructions: - Discharge Summary Sheet 7 - Head Injury, Adult jh7 - Fall Prevention in the Home, Adult [facility] Forms: - Medication Reconciliation Form jh7 - Patient Portal Instructions jh7 - Leadership Thank You Letter [facility] Signatures: Dispatcher [employer] EDBabs Beasley, MILLWRIGHT HELPER MILLWRIGHT HELPER 7 Joe Campos RN RN rs5 Corrections: (The following items were deleted from the chart) 09:56 09:52 67-year-old female presents from [facility] via EMS with a past [facility] medical history of DVT and laminectomy presents to the ER post fall. She reports that the staff put her on the edge of the bed and that this morning she accidentally rolled out of bed. Reports that she lost consciousness for a few seconds. She reports that she is currently on Plavix. She complains of a headache and neck pain, but reports that she does have chronic neck pain.. [facility] 10:57 09:52 67-year-old female presents from [facility] via EMS with a past [facility] medical history of DVT and laminectomy presents to the ER post fall. She reports that the staff put her on the edge of the bed and that this morning she accidentally rolled out of bed. Reports that she lost consciousness for a few seconds. She reports that she is currently on Plavix. She complains of a headache and neck pain, but reports that she does have chronic neck pain. Denies dizziness, chest pain, shortness of breath, visual changes, extremity weakness, or any other symptoms at this time.. [facility]
[2023-07-12 13:15] VITALS: BP 135/74; TEMP 98.4; O2SAT 99
== END 2023-07-12 13:06 | disposition home or self-care (01) ==
LOC: ER 09:51
DX: S09.90XA Unspecified injury of head, initial encounter (principal); W18.30XA Fall on same level, unspecified, initial encounter; G81.94 Hemiplegia, unspecified affecting left nondominant side; Z86.73 Personal history of transient ischemic attack (TIA), and cerebral infarction without residual deficits
CPT/HCPCS: 70450; 72125; 99283

== ENCOUNTER 2024-10-16 07:39 | Emergency (ER) | payer OTHER ==
[2024-10-16 08:20] LABS: Absolute Lymphocytes (CBC) 1.2 K/uL (0.7-4.9); Hematocrit 39.3 % (36.0-45.0); Hemoglobin 13.3 g/dL (12.0-15.0); MCH 29.2 pg (27.0-35.0); MCHC 33.9 g/dL (32.0-36.0); MCV 86.0 fL (80-100); MPV 7.4 fL (7.6-11.3); Nucleated RBC Absolute Count 0.0 (0-0); Nucleated Red Blood Cells % 0.1 % (0-0); RBC Red Blood Cell Count 4.57 M/uL (3.86-4.86); White Blood Count 8.60 thou/uL (4.3-10.9)
[2024-10-16 08:31] LABS: PT Prothrombin Time 12.9 SECONDS (10-13.0); Protime INR 1.15
--- NOTE | 2024-10-16 08:34 | RAD REPORT ---
EXAMINATION: CT HEAD WITHOUT CONTRAST CT CERVICAL SPINE WITHOUT CONTRAST CLINICAL INDICATION: Head and neck injury status post fall. Head and neck pain TECHNIQUE: Axial CT images from the skull base to the vertex without intravenous contrast. Axial CT i mages through the cervical spine were obtained without intravenous contrast. Sagittal and coronal reformatted images were created from the data set. Coronal and sagittal reformatted images were creat ed from the data set. One or more of the following dose reduction techniques were used: Automated exposure control, adjustment of the mA and/or kV according to patient size, and/or iterative reconstr uction. Unless otherwise specified, incidental findings do not require dedicated imaging follow-up. [id number]. Comparison: 2023 FINDINGS: An intracranial bleed is not seen. Ventricles are normal in caliber. Large old right cerebral infarction. No extra-axial fluid collection. No fluid within the sinuses/mastoids No fracture or dislocation is seen involving the cervical spine. Post surgical changes involve the cervical spine. IMPRESSION: No acute intracranial abnormality noted A cervical fracture is not seen. If the patient continues to have symptoms to suggest acute PRESS SET UP PERSON/spinal pathology then MRI would be rec ommended
--- NOTE | 2024-10-16 08:50 | RAD REPORT ---
EXAM: CT CHEST, ABDOMEN AND PELVIS WITHOUT CONTRAST CLINICAL INDICATION: Chest and abdominal pain TECHNIQUE: CT chest, abdomen and pelvis was performed, without IV contrast, as per department protoco l. Axial, sagittal and coronal reconstructions were obtained. One or more of the following dose reduction techniques were used: Automated exposure control, adjustment of the mA and/or kV according to the patient size, and/or iterative reconstruction. Unless otherwise specified, incidental findings do not require dedicated imaging follow-up. The lack of IV and oral contrast limits evaluation of the mediastinum, juan josé, vessels, organs and lito l. COMPARISON: 2020 CT abdomen FINDINGS: No pulmonary contusion. Minimal lung opacities are present.[id number] A mediastinal hematoma not seen. No pleural effusion. No pericardial effusion. Liver, spleen, pancreas, adrenals kidneys and bladder do not demonstrate a traumatic injury. Bladder is distended. The ureter is dilated. Mild to moderate right hydronephrosis. Small lipoma second portion duodenum. Old left humeral and left femoral fractures. Rectum mildly distended with stool. Moderate amount stool throughout the colon. There is no evidence of diverticulitis. Spondylosis lumbar spine. Chronic air within the vagina. Contusion subcutaneous tissues right flank. IMPRESSION: Contusion subcutaneous tissues right flank. Mild to moderate right hydronephrosis. Right ureter dilated. An obstructing UVJ calculus not seen. Th is could be the result of a UPJ stricture or reflux.
[2024-10-16 08:52] LABS: Anion Gap 11.6 mEq/L (5.0-15.0); BUN Blood Urea Nitrogen 11 mg/dL (7-18); Glucose Level 91 mg/dL (74-106)
[2024-10-16 09:02] LABS: Potassium 4.6 mEq/L (3.5-5.1); Troponin High Sensitivity < 3.0 pg/mL (<58.9)
--- NOTE | 2024-10-16 09:09 | EDPHYS ---
Physician Documentation [facility] Name: Lynne Urena Age: 68 yrs Sex: Female : 1955 Arrival Date: 10/16/2024 Time: 07:39 Bed 5 Private MD: ED Physician Clark Jamison HPI: 10/16 07:52 This 68 yrs old Female presents to ER via EMS with complaints of Fall Injury. sp3 07:52 68-year-old female with history of epilepsy, hyperlipidemia, CVA with chronic sp3 left-sided weakness, on Eliquis presents via EMS for chief complaint headache and neck pain after mechanical fall due to her "silk sheets" slipping out of bed. She also states she has got bruising on her right flank. She denies any other symptoms. . Historical: - Allergies: 07:50 NKA; ar8 - PMHx: 07:50 Chronic pain; Hypertension; High Cholesterol; epilepsy; CVA; left side paralysis; ar8 - Immunization history:: Adult Immunizations unknown. - Infectious Disease History:: Denies. - Social history:: Smoking status: unknown. ROS: 07:53 Constitutional: Negative for fever, chills, and weight loss, Eyes: Negative for injury, sp3 pain, redness, and discharge, Respiratory: Negative for shortness of breath, cough, wheezing, and pleuritic chest pain, Abdomen/GI: Negative for abdominal pain, nausea, vomiting, diarrhea, and constipation, Skin: Negative for injury, rash, and discoloration, Psych: Negative for depression, anxiety, suicide ideation, homicidal ideation, and hallucinations, Allergy/Immunology: Negative for hives, rash, and allergies, Endocrine: Negative for neck swelling, polydipsia, polyuria, polyphagia, and marked weight changes, Hematologic/Lymphatic: Negative for swollen nodes, abnormal bleeding, and unusual bruising, 07:53 All other systems are negative, Exam: 07:54 Constitutional: This is a well developed, well nourished patient who is awake, alert, sp3 and in no acute distress. Eyes: Pupils equal round and reactive to light, extra-ocular motions intact. Lids and lashes normal. Conjunctiva and sclera are non-icteric and not injected. Cornea within normal limits. Periorbital areas with no swelling, redness, or edema. ENT: Nares patent. No nasal discharge, no septal abnormalities noted. External auditory canals are clear. Oropharynx with no redness, swelling, or masses, exudates, or evidence of obstruction, uvula midline. Mucous membranes moist. Neck: Trachea midline, no thyromegaly or masses palpated, and no cervical lymphadenopathy. Supple, full range of motion without nuchal rigidity, or vertebral point tenderness. No Meningismus. Chest/axilla: Normal chest wall appearance and motion. Nontender with no deformity. No lesions are appreciated. Cardiovascular: Regular rate and rhythm with a normal S1 and S2. No gallops, murmurs, or rubs. Normal PMI, no JVD. No pulse deficits. Respiratory: Lungs have equal breath sounds bilaterally, clear to auscultation and percussion. No rales, rhonchi or wheezes noted. No increased work of breathing, no retractions or nasal flaring. Skin: Warm, dry with normal turgor. Normal color with no rashes, no lesions, and no evidence of cellulitis. MS/ Extremity: Pulses equal, no cyanosis. Neurovascular intact. Full, normal range of motion. Psych: Awake, alert, with orientation to person, place and time. Behavior, mood, and affect are within normal limits. 07:54 Head/face: Patient with midline neck tenderness in the upper neck. Also paracervical muscular pain. Limited range of motion due to prior CVA. Patient has chronic left-sided contractures secondary to her prior CVA. Ecchymoses noted on the right flank approximately 4 cm x 6 cm. Heart rate 123 slightly irregular with EKG pending blood pressure 136/115 and we will retake as that is likely errant.. 08:05 ECG was reviewed by the Attending Physician. EKG demonstrates atrial fibrillation with sp3 ventricular response at 93 bpm, normal axis, nonspecific diffuse ST/T changes without evidence of acute ischemia. Vital Signs: 07:43 BP 136 / 115; Pulse 123; Resp 22; Temp 98.6(O); Pulse Ox 96% on R/A; Weight 54.43 kg; ar8 Height 5 ft. 2 in. ; Pain 8/10; 09:39 BP 142 / 114; Pulse 91; Resp 20; Pulse Ox 93% on R/A; ar8 07:43 Body Mass Index 21.95 (54.43 kg, 157.48 cm) ar8 07:43 Pain Scale: Adult ar8 MDM: 07:45 Medical Screening Exam initiated sp3 07:55 Data reviewed: vital signs, nurses notes, old medical records, lab test result(s), EKG, sp3 radiologic studies. ED course: 68-year-old female on Eliquis with mechanical fall with headache, neck pain and right flank pain. Differential diagnosis broad includes intracranial hemorrhage, fracture, other traumatic injury, intrathoracic or intra-abdominal bleeding, atrial fibrillation, electrolyte abnormality, among others. I am not highly suspicious of prodromal event causing her fall. Workup will include CT scan of the head, C-spine, chest abdomen pelvis and a trauma protocol along with general labs and EKG. Will likely need to rate control regardless of traumatic outcome. Disposition pending workup and patient course with probable admission pending workup.. 08:53 ED course: CTs are negative for any acute abnormality. Once labs reviewed, we will sp3 safely discharge patient home. Rate is now at 90s.. 10/16 07:51 Order name: Basic Metabolic Panel; Complete Time: 09:08 sp3 10/16 07:51 Order name: CBC with Diff; Complete Time: 08:51 sp3 10/16 07:51 Order name: PT-INR; Complete Time: 08:51 sp3 10/16 07:51 Order name: Troponin HS; Complete Time: 09:08 sp3 10/16 07:49 Order name: CT Head C Spine; Complete Time: 08:51 sp3 10/16 07:49 Order name: CT Chest Abdomen Pelvis W/O Contrast; Complete Time: 08:51 sp3 10/16 07:51 Order name: Cardiac monitoring; Complete Time: 07:56 sp3 10/16 07:51 Order name: EKG - Nurse/Tech; Complete Time: 07:59 sp3 10/16 07:51 Order name: IV Saline Lock; Complete Time: 09:11 sp3 10/16 07:51 Order name: Labs collected and sent; Complete Time: 09:09 sp3 10/16 07:51 Order name: O2 Per Protocol; Complete Time: 07:56 sp3 10/16 07:51 Order name: O2 Sat Monitoring; Complete Time: 07:56 sp3 Administered Medications: 09:45 Drug: ToPROL XL PO 25 mg PO once Route: PO; ar8 Disposition Summary: 08/16/25 09:09 Discharge Ordered Notes: Location: Home sp3 Condition: Stable sp3 Diagnosis - Right flank contusion, closed head injury, mechanical fall, atrial fibrillation sp3 known Followup: sp3 - With: Private Physician - When: Upon discharge from the Emergency Department - Reason: Continuance of care Discharge Instructions: - Discharge Summary Sheet sp3 - Head Injury, Adult sp3 - Fall Prevention in the Home, Adult sp3 Forms: - Medication Reconciliation Form sp3 - Antibiotic Education sp3 - Prescription Opioid Use sp3 - Patient Portal Instructions sp3 - Leadership Thank You Letter sp3 Signatures: Dispatcher [employer] EDMS Clark Jamison MD MD sp3 Ryan Garcia RN RN ar8 Corrections: (The following items were deleted from the chart) 07:49 07:49 Chest Abdomen Pelvis Wo Con+CT.RAD.BRZ ordered. EDMS EDMS 07:51 07:51 BASIC METABOLIC PANEL+C.LAB.BRZ ordered. EDMS EDMS 07:51 07:51 CBC+H.LAB.BRZ ordered. EDMS EDMS 07:51 07:51 PROTIME (+INR)+COAG.LAB.BRZ ordered. EDMS EDMS 07:51 07:51 Troponin High Sensitivity+C.LAB.BRZ ordered. EDMS EDMS
--- NOTE | 2024-10-16 09:09 | ER ---
Nurse's Notes [facility] Name: Lynne Urena Age: 68 yrs Sex: Female : 1955 Arrival Date: 10/16/2024 Time: 07:39 Bed 5 Private MD: Diagnosis: Right flank contusion, closed head injury, mechanical fall, atrial fibrillation known Presentation: 10/16 07:43 Chief complaint: Patient states: Patient arrived to ED via [facility]. Patient states ar8 that she slid out of her bed around 0430, landed on her right side, and hit the back of her head and neck on the bed rail. This occurred at [place]. Care prior to arrival: None. Mechanism of Injury: Fall out of bed. Trauma event details: Injury occurred in the [facility], Injury occurred: [place]. Trauma event details: Injury occurred: October 16, 2024 Injury occurred at: 04:30. 07:43 Acuity: YEIMI 3 ar8 07:43 Method Of Arrival: EMS: [facility] ar8 07:43 Initial Sepsis Screen: Does the patient meet any 2 criteria? No. Patient's initial ar8 sepsis screen is negative. Does the patient have a suspected source of infection? No. Patient's initial sepsis screen is negative. Risk Assessment: Do you want to hurt yourself or someone else? Patient reports no desire to harm self or others. Onset of symptoms was October 16, 2024. 07:48 Coronavirus screen: At this time, the client does not indicate any symptoms associated ar8 with coronavirus-19. Ebola Screen: No symptoms or risks identified at this time. Triage Assessment: 07:50 General: Appears in no apparent distress. Behavior is calm, cooperative. Pain: ar8 Complains of pain in right flank Pain does not radiate. Pain currently is 8 out of 10 on a pain scale. EENT: No deficits noted. Neuro: Level of Consciousness is awake, alert, obeys commands, Oriented to person, place, time, situation, left sided weakness noted- hx of CVA. Cardiovascular: Denies chest pain, Rhythm is sinus tachycardia. Respiratory: No deficits noted. Airway is patent Respiratory effort is even, unlabored, Respiratory pattern is regular, symmetrical. Derm: Bruising that is dark purple, on right flank. Historical: - Allergies: 07:50 NKA; ar8 - PMHx: 07:50 Chronic pain; Hypertension; High Cholesterol; epilepsy; CVA; left side paralysis; ar8 - Immunization history:: Adult Immunizations unknown. - Infectious Disease History:: Denies. - Social history:: Smoking status: unknown. Screenin:53 [facility] ED Fall Risk Assessment (Adult) History of falling in the last 3 months, ar8 including since admission Yes- single mechanical fall (1 pt). [facility] ED Fall Risk Assessment (Adult) Confusion or Disorientation No (0 pts) Intoxicated or Sedated No (0 pts) Impaired Gait Yes (1 pt) Mobility Assist Device Used Yes (1 pt) Altered Elimination No (0 pt) Score/Fall Risk Level 3 or more points = High Risk. [facility] ED Fall Risk Assessment (Adult) Score/Fall Risk Level 3 or more points = High Risk Oriented to surroundings, Maintained a safe environment. Abuse screen: Denies threats or abuse. Nutritional screening: No deficits noted. Tuberculosis screening: No symptoms or risk factors identified. Assessment: 07:43 General: Appears in no apparent distress. Behavior is calm, cooperative. Pain:. ar8 Vital Signs: 07:43 BP 136 / 115; Pulse 123; Resp 22; Temp 98.6(O); Pulse Ox 96% on R/A; Weight 54.43 kg; ar8 Height 5 ft. 2 in. ; Pain 8/10; 09:39 BP 142 / 114; Pulse 91; Resp 20; Pulse Ox 93% on R/A; ar8 07:43 Body Mass Index 21.95 (54.43 kg, 157.48 cm) ar8 07:43 Pain Scale: Adult ar8 ED Course: 07:41 Patient arrived in ED. ss 07:43 Ryan Garcia, RN is Primary Nurse. ar8 07:45 Clark Jamison MD is Attending Physician. sp3 07:47 Triage completed. ar8 07:50 Arm band placed on. ar8 07:53 Bed in low position. Call light in reach. Side rails up X2. Provided Education on: plan ar8 of care. Client placed on continuous cardiac and pulse oximetry monitoring. NIBP monitoring applied. 07:53 No provider procedures requiring assistance completed. ar8 07:59 EKG done, by ED staff, reviewed by Clark Jamison MD. em1 08:08 Missed attempt(s): 20 gauge in right antecubital area. Missed attempt(s): 20 gauge in af3 right forearm. 08:23 CT Head C Spine In Process Unspecified. EDMS 08:23 CT Chest Abdomen Pelvis W/O Contrast In Process Unspecified. EDMS Administered Medications: 09:45 Drug: ToPROL XL PO 25 mg PO once Route: PO; ar8 Outcome: 09:09 Discharge ordered by . sp3 10:22 Patient left the ED. ss 10:22 [facility]charged to [facility]. Transfer form completed. ap3 10:22 Condition: good 10:22 Discharge instructions given to EMS, Instructed on discharge instructions, follow up and referral plans. Demonstrated understanding of instructions, follow-up care, Signatures: Dispatcher [employer] EDJeffrey Florez em1 Poornima Miramontes, NEGRA RN Alessandra Guillory RN RN ap3 Clark Jamison MD MD sp3 Deann Xiao RN RN af3 Ryan Garcia RN RN ar8
[2024-10-16] MEDS ORDERED: METOPROLOL XL 25 MG TAB PO ONE (10:00)
[2024-10-16 14:05] VITALS: TEMP 98.6
[2024-10-16 14:09] VITALS: BP 142/114; O2SAT 93
== END 2024-10-16 10:22 | disposition home or self-care (01) ==
LOC: ER 07:39
DX: S30.1XXA Contusion of abdominal wall, initial encounter (principal); S09.90XA Unspecified injury of head, initial encounter; W06.XXXA Fall from bed, initial encounter; I48.91 Unspecified atrial fibrillation; Z79.01 Long term (current) use of anticoagulants
CPT/HCPCS: 36415; 70450; 71250; 72125; 74176; 80048; 84484; 85025; 85610; 93005; 99284

== ENCOUNTER 2024-12-04 09:37 | Inpatient (IN) | payer OTHER ==
[2024-12-04 10:22] LABS: Absolute Lymphocytes (CBC) 1.6 K/uL (0.7-4.9); Hematocrit 38.9 % (36.0-45.0); Hemoglobin 12.8 g/dL (12.0-15.0); MCH 28.7 pg (27.0-35.0); MCHC 33.1 g/dL (32.0-36.0); MCV 86.8 fL (80-100); MPV 7.2 fL (7.6-11.3); Nucleated RBC Absolute Count 0.0 (0-0); Nucleated Red Blood Cells % 0.0 % (0-0); RBC Red Blood Cell Count 4.48 M/uL (3.86-4.86); White Blood Count 7.60 thou/uL (4.3-10.9)
[2024-12-04 10:30] LABS: PT Prothrombin Time 15.4 SECONDS (10-13.0); Protime INR 1.38
[2024-12-04 10:41] LABS: ALT/SGPT 26 U/L (13-56); AST/SGOT 15 U/L (15-37); Albumin 3.4 g/dL (3.4-5.0); Albumin/Globulin Ratio 0.8 (1.1-1.8); Alkaline Phosphatase 160 U/L (45-117); Anion Gap 10.5 mEq/L (5.0-15.0); BUN Blood Urea Nitrogen 16 mg/dL (7-18); Globulin 4.1 g/dL (2.3-3.5); Glucose Level 89 mg/dL (74-106); Magnesium 2.4 mg/dL (1.6-2.4); NT PRO-BNP 198 pg/mL (<125); Potassium 4.5 mEq/L (3.5-5.1); Troponin High Sensitivity 3.3 pg/mL (<58.9)
[2024-12-04 10:42] LABS: Bilirubin Indirect, Calculated 0.0 mg/dL (0.2-0.8)
--- NOTE | 2024-12-04 11:10 | RAD REPORT ---
Procedure: Chest Single View HISTORY: Cough COMPARISON: October 2024 FINDINGS: The lungs appear clear of acute infiltrate. No significant pleural effusion noted. The heart is borderline enlarged. Old left humeral fracture. IMPRESSION: No acute abnormality is displayed.
--- NOTE | 2024-12-04 11:27 | ER ---
Nurse's Notes [facility] Name: Lynne Urena Age: 69 yrs Sex: Female : 1955 Arrival Date: 12/04/2024 Time: 09:37 Bed 8 Private MD: Diagnosis: New onset atrial flutter with RVR Presentation: 12/04 09:38 Chief complaint: EMS states: TONED OUT TO [place] DUE TO PATIENT BEING IN A-FLUTTER. cm10 PT HAS NO COMPLAINTS AT THIS TIME. Coronavirus screen: Client denies travel out of the [place] in the last 14 days. Ebola Screen: Patient denies travel to an Ebola-affected area in the 21 days before illness onset. Initial Sepsis Screen: Does the patient meet any 2 criteria? HR > 90 bpm. Does the patient have a suspected source of infection? No. Patient's initial sepsis screen is negative. Risk Assessment: Do you want to hurt yourself or someone else? Patient reports no desire to harm self or others. Onset of symptoms was December 04, 2024. 09:38 Method Of Arrival: EMS: [facility] 10 09:38 Acuity: YEIMI 3 cm10 Triage Assessment: 09:45 General: Appears in no apparent distress. comfortable, Behavior is calm, cooperative. cm10 Pain: Denies pain. Neuro: No deficits noted. Level of Consciousness is awake, alert, obeys commands, Oriented to person, place, time, situation, Appropriate for age. Cardiovascular: Rhythm is atrial flutter. Respiratory: No deficits noted. Airway is patent Respiratory effort is even, unlabored, Respiratory pattern is regular, symmetrical. Historical: - Allergies: 09:40 NKA; cm10 - PMHx: 09:40 Chronic pain; CVA; left side paralysis; epilepsy; High Cholesterol; Hypertension; cm10 - Immunization history:: Adult Immunizations up to date. - Infectious Disease History:: Denies. - Social history:: Smoking status: unknown. Screenin:45 [facility] ED Fall Risk Assessment (Adult) History of falling in the last 3 months, cm10 including since admission No falls in past 3 months (0 pts) Confusion or Disorientation No (0 pts) Intoxicated or Sedated No (0 pts) Impaired Gait Yes (1 pt) Mobility Assist Device Used Yes (1 pt) Altered Elimination Yes (1 pt) Score/Fall Risk Level 3 or more points = High Risk Oriented to surroundings, Maintained a safe environment, Hourly rounding (assess needs \T\ fall precautionary measures) done. Abuse screen: Denies threats or abuse. Denies injuries from another. Nutritional screening: No deficits noted. Tuberculosis screening: No symptoms or risk factors identified. Assessment: 11:15 Reassessment: Patient appears in no apparent distress at this time. Patient and/or cm10 family updated on plan of care and expected duration. Pain level reassessed. Patient is alert, oriented x 3, equal unlabored respirations, skin warm/dry/pink. 11:45 Reassessment: Pts brief changed at this time and pt placed in gown. cm10 Vital Signs: 09:38 BP 118 / 58; Pulse 120; Resp 16; Temp 98.4(O); Pulse Ox 96% on R/A; Weight 54.43 kg; cm10 Height 5 ft. 2 in. ; Pain 0/10; 11:15 BP 127 / 107; Pulse 111; Resp 16; Pulse Ox 99% on R/A; cm10 12:13 BP 137 / 104; Pulse 108; Resp 17; Pulse Ox 95% on R/A; cm10 09:38 Body Mass Index 21.95 (54.43 kg, 157.48 cm) cm10 09:38 Pain Scale: Adult cm10 ED Course: 09:38 Patient arrived in ED. eb 09:38 Kerrie Maynard, RN is Primary Nurse. cm10 09:40 Triage completed. cm10 09:40 Arm band placed on right wrist. Patient placed in an exam room, on a stretcher, on cm10 potline monitor, on pulse oximetry. 09:41 Clark Jamison MD is Attending Physician. sp3 10:06 Patient has correct armband on for positive identification. Bed in low position. Call cm10 light in reach. Side rails up X2. Client placed on continuous cardiac and pulse oximetry monitoring. NIBP monitoring applied. panel monitor on. 10:06 Missed attempt(s): 20 gauge in right forearm. antecubital area. Bleeding controlled, cm10 band aid applied, catheter tip intact. 10:06 EKG done, by ED staff, reviewed by Clark Jamison MD. cm10 10:13 Missed attempt(s): 22 gauge in right hand. Bleeding controlled, band aid applied, aa5 catheter tip intact. 10:16 Inserted saline lock: 22 gauge in right hand, using aseptic technique. Blood collected. aa5 Flushed with 10 mL NS. 10:30 Provided Education on: using call light for assistance. nh2 10:40 XRAY Chest (1 view) In Process Unspecified. EDMS 11:26 Zia Addison MD is Hospitalizing Provider. sp3 13:15 No provider procedures requiring assistance completed. Patient admitted, IV remains in nh2 place. Administered Medications: 11:52 Drug: Metoprolol IVP 5 mg IVP once; Hold for SBP <100 or HR <60. Route: IVP; Site: [facility] right hand; Medication: 11:29 VIS not applicable for this client. 10 Outcome: 11:27 Decision to Hospitalize by Provider. sp3 13:18 Admitted to Med/surg accompanied by tech, via stretcher, room 212, with chart, nh2 13:18 Condition: stable 13:18 Instructed on the need for admit, Demonstrated understanding of instructions, follow-up care, 13:19 Patient left the ED. iw Signatures: Dispatcher [employer] EDMS Marah Boone RN RN iw Marisa Groves RN RN aa5 Vanessa Santiago Setul, MD MD sp3 Kerrie Maynard RN RN cm10 Yong Stephen Jr RN RN nh2
--- NOTE | 2024-12-04 11:27 | EDPHYS ---
Physician Documentation [facility] Name: Lynne Urena Age: 69 yrs Sex: Female : 1955 Arrival Date: 12/04/2024 Time: 09:37 Bed 8 Private MD: ED Physician Clark Jamison HPI: 12/04 09:58 This 69 yrs old Female presents to ER via EMS with complaints of atrial flutter. sp3 09:58 69-year-old female with history of CVA, DVT, on Eliquis, epilepsy, hyperlipidemia, sp3 hypertension, chronic pain now presents to the ED from long term via EMS for chief complaint high heart rate and atrial flutter. Patient has no prior history of arrhythmia or coronary artery disease. Patient is having no symptoms other than she can feel her palpitations. She denies fever, headache, neck pain, chest pain, shortness breath, abdominal pain, vomiting, diarrhea, syncope, or any other signs or symptoms on ROS at this time.. Historical: - Allergies: 09:40 NKA; cm10 - PMHx: 09:40 Chronic pain; CVA; left side paralysis; epilepsy; High Cholesterol; Hypertension; cm10 - Immunization history:: Adult Immunizations up to date. - Infectious Disease History:: Denies. - Social history:: Smoking status: unknown. ROS: 10:02 Constitutional: Negative for fever, chills, and weight loss, Eyes: Negative for injury, sp3 pain, redness, and discharge, ENT: Negative for injury, pain, and discharge, Neck: Negative for injury, pain, and swelling, Respiratory: Negative for shortness of breath, cough, wheezing, and pleuritic chest pain, Abdomen/GI: Negative for abdominal pain, nausea, vomiting, diarrhea, and constipation, Back: Negative for injury and pain, MS/Extremity: Negative for injury and deformity, Skin: Negative for injury, rash, and discoloration, Neuro: Negative for headache, weakness, numbness, tingling, and seizure, Psych: Negative for depression, anxiety, suicide ideation, homicidal ideation, and hallucinations, Allergy/Immunology: Negative for hives, rash, and allergies, Endocrine: Negative for neck swelling, polydipsia, polyuria, polyphagia, and marked weight changes, Hematologic/Lymphatic: Negative for swollen nodes, abnormal bleeding, and unusual bruising, 10:02 All other systems are negative, Exam: 10:02 Constitutional: This is a well developed, well nourished patient who is awake, alert, sp3 and in no acute distress. Head/Face: Normocephalic, atraumatic. Eyes: Pupils equal round and reactive to light, extra-ocular motions intact. Lids and lashes normal. Conjunctiva and sclera are non-icteric and not injected. Cornea within normal limits. Periorbital areas with no swelling, redness, or edema. Neck: Trachea midline, no thyromegaly or masses palpated, and no cervical lymphadenopathy. Supple, full range of motion without nuchal rigidity, or vertebral point tenderness. No Meningismus. Chest/axilla: Normal chest wall appearance and motion. Nontender with no deformity. No lesions are appreciated. Respiratory: Lungs have equal breath sounds bilaterally, clear to auscultation and percussion. No rales, rhonchi or wheezes noted. No increased work of breathing, no retractions or nasal flaring. Abdomen/GI: Soft, non-tender, with normal bowel sounds. No distension or tympany. No guarding or rebound. No evidence of tenderness throughout. Back: No spinal tenderness. No costovertebral tenderness. Full range of motion. Skin: Warm, dry with normal turgor. Normal color with no rashes, no lesions, and no evidence of cellulitis. MS/ Extremity: Pulses equal, no cyanosis. Neurovascular intact. Full, normal range of motion. Neuro: Awake and alert, GCS 15, oriented to person, place, time, and situation. Cranial nerves II-XII grossly intact. Motor strength 5/5 in all extremities. Sensory grossly intact. Cerebellar exam normal. Normal gait. Psych: Awake, alert, with orientation to person, place and time. Behavior, mood, and affect are within normal limits. 10:02 Cardiovascular: Rate: tachycardic, 10:02 ECG was reviewed by the Attending Physician. EKG demonstrates atrial flutter with ventricular capture at 108 bpm and irregular fashion with normal QRS, normal axis and diffuse nonspecific ST/T changes limited by atrial flutter/noise. Vital Signs: 09:38 BP 118 / 58; Pulse 120; Resp 16; Temp 98.4(O); Pulse Ox 96% on R/A; Weight 54.43 kg; cm10 Height 5 ft. 2 in. ; Pain 0/10; 11:15 BP 127 / 107; Pulse 111; Resp 16; Pulse Ox 99% on R/A; cm10 12:13 BP 137 / 104; Pulse 108; Resp 17; Pulse Ox 95% on R/A; cm10 09:38 Body Mass Index 21.95 (54.43 kg, 157.48 cm) cm10 09:38 Pain Scale: Adult cm10 MDM: 09:41 Medical Screening Exam initiated sp3 10:03 Data reviewed: vital signs, nurses notes, lab test result(s), EKG, radiologic studies. sp3 ED course: 6-year-old female with PMH above now with new onset atrial flutter and tachycardia. We will perform AV ana blockade. Patient is already anticoagulated due to her other past medical history. Will place under hospitalist service with cardiology consultation once rate is controlled. Clinically from a differential diagnosis standpoint patient has idiopathic arrhythmia, acute coronary syndrome, electrolyte disturbance, among others.. 12/04 09:42 Order name: Basic Metabolic Panel; Complete Time: 10:53 sp3 12/04 09:42 Order name: CBC with Diff; Complete Time: 10:53 sp3 12/04 09:42 Order name: LFT's; Complete Time: 10:53 sp3 12/04 09:42 Order name: Magnesium; Complete Time: 10:53 sp3 12/04 09:42 Order name: NT PRO-BNP; Complete Time: 10:53 sp3 12/04 09:42 Order name: PT-INR; Complete Time: 10:53 sp3 12/04 09:42 Order name: Troponin HS; Complete Time: 10:53 sp3 12/04 11:44 Order name: CBC with Automated Diff EDMS 12/04 11:44 Order name: CBC with Automated Diff EDMS 12/04 11:44 Order name: Comprehensive Metabolic Panel EDMS 12/04 11:44 Order name: Comprehensive Metabolic Panel EDMS 12/04 09:42 Order name: XRAY Chest (1 view); Complete Time: 11:26 sp3 12/04 09:42 Order name: EKG; Complete Time: 09:42 sp3 12/04 11:44 Order name: CONS Physician Consult EDMS 12/04 09:42 Order name: Cardiac monitoring; Complete Time: 10:06 sp3 12/04 09:42 Order name: EKG - Nurse/Tech; Complete Time: 10: sp3 12/04 09:42 Order name: IV Saline Lock; Complete Time: 10: sp3 12/04 09:42 Order name: Labs collected and sent; Complete Time: 10: sp3 12/04 09:42 Order name: O2 Per Protocol; Complete Time: 10: sp3 12/04 09:42 Order name: O2 Sat Monitoring; Complete Time: : sp3 Administered Medications: 11:52 Drug: Metoprolol IVP 5 mg IVP once; Hold for SBP <100 or HR <60. Route: IVP; Site: [facility] right hand; Disposition Summary: 12/04/24 11:27 Hospitalization Ordered Notes: Hospitalization Status: Observation sp3 Provider: Zia Addison sp3 Location: Telemetry/MedSurg (observation) sp3 Condition: Stable sp3 Problem: new sp3 Symptoms: are unchanged sp3 Bed/Room Type: Standard sp3 Room Assignment: [facility](12/04/24 12:00) eb Diagnosis - New onset atrial flutter with RVR sp3 Forms: - Medication Reconciliation Form sp3 - SBAR form sp3 - Leadership Thank You Letter sp3 Signatures: Dispatcher [employer] EDVanessa Gama Setul, MD MD sp3 Kerrie Maynard RN RN cm10 Corrections: (The following items were deleted from the chart) 12:00 11:27 sp3 eb
[2024-12-04] MEDS ORDERED: METOPROLOL TARTRATE 5 MG/5 ML INJ IV ONE (11:34)
[2024-12-04] MEDS: APIXABAN 5 MG TABLET PO SCH ×2 (11:43→15:09)
[2024-12-04] MEDS ORDERED: METOPROLOL TARTRATE 5 MG/5 ML INJ IV PRN ×2 (11:44→18:39)
[2024-12-04] MEDS: METOPROLOL TAR 50 MG TAB PO SCH ×2 (11:44→15:08)
--- NOTE | 2024-12-04 11:48 | P.HP ---
Certification for Inpatient With expected LOS: >2 Midnights Practitioner: I am a practitioner with admitting privileges, knowledge of patient current condition, hospital course, and medical plan of care. Services: Services provided to patient in accordance with Admission requirements found in Title 42 Section 412.3 of the Code of Federal Regulations Patient History Date of Service: 12/04/24 Reason for admission: Atrial flutter History of Present Illness: Patient is 69 years of age and snf resident admitted with tachycardia- found to have new onset of atrial flutter patient denies any palpitation shortness of breath no prior history of SVT currently denies any problems Allergies No Known Allergies Allergy (Verified 07/04/23 01:44) Home Medications: Carbamazepine [Tegretol] 300 mg PO BID 08/29/16 Gabapentin 300 mg PO BID 08/29/16 Atorvastatin Calcium [Lipitor] 40 mg PO BEDTIME #30 tab 08/30/16 Venlafaxine HCl [Venlafaxine HCl ER] 75 mg PO DAILY 06/01/20 Clopidogrel Bisulfate [Plavix] 75 mg PO DAILY #30 tablet 06/08/20 Baclofen 5 mg PO TID 07/06/20 Amlodipine [Norvasc*] 5 mg PO DAILY #30 tab 07/12/20 ARIPiprazole [Abilify*] 5 mg PO DAILY 07/04/23 Buspirone HCl [Buspar*] 10 mg PO TID 07/04/23 Famotidine [Pepcid*] 20 mg PO BEDTIME 07/04/23 Ferrous Sulfate [Feosol] 325 mg PO DAILY 07/04/23 Metoprolol Succinate [Toprol Xl*] 25 mg PO DAILY 07/04/23 Mirtazapine [Remeron*] 15 mg PO BEDTIME 07/04/23 OLANZapine [Olanzapine] 5 mg PO BEDTIME 07/04/23 hydrOXYzine pamoate [Hydroxyzine Pamoate] 50 mg PO Q4H PRN 07/04/23 Apixaban [Eliquis] 10 mg PO BID 07/09/23 Hydrocodone 5/APAP 325 [[place] 5/325*] 1 tab PO Q4H PRN tab 07/09/23 Memantine HCl [Namenda*] 5 mg PO BID 07/09/23 - Past Medical/Surgical History Diabetic: No -: Seizure disorder -: Hypertension -: Chronic pain -: Depression -: Hyperlipidemia -: History of CVA with left-sided residual weakness -: Carotid arterial disease -: THC use -: Hysterectomy -: Cervical laminectomy -: Right carotid enterectomy Psychosocial/ Personal History: Patient lives at home. - Family History Father -: Heart disease Mother -: Diabetes Sister -: Cancer Notes: pancreatic - Social History Alcohol use: No CD- Drugs: No Caffeine use: Yes Review of Systems 10-point ROS is otherwise unremarkable Physical Examination - Vital Signs Blood Pressure: 127/107 Pulse: 96 Respirations: 14 Pulse Ox (%): 100 - Physical Exam General: Alert, Oriented x3 Neck: Supple Respiratory: Clear to auscultation bilaterally Cardiovascular: No edema, Irregular heart rate/rhythm, Abnormal S1 S2 Gastrointestinal: Normal bowel sounds, Soft and benign, Non-distended Musculoskeletal: No clubbing Integumentary: No rashes Neurological: Other (Patient has had left-sided paralysis from a prior stroke) - Studies Laboratory Data (last 24 hrs) 12/04/24 12/04/24 12/04/24 10:16 10:16 10:16 WBC 7.60 Hgb 12.8 Hct 38.9 Plt Count 398 PT 15.4 H INR 1.38 Sodium 135 L Potassium 4.5 BUN 16 Creatinine 0.71 Glucose 89 Magnesium 2.4 Total Bilirubin 0.2 AST 15 ALT 26 Alkaline Phosphatase 160 H Assessment and Plan - Problems (Diagnosis) (1) Atrial flutter Current Visit: Yes Status: Acute Plan: Patient is 69 years of age admitted with new onset of atrial flutter has a history of a stroke before is on Eliquis also takes a beta-wyatt currently asymptomatic labs reviewed CBC unremarkable alkaline phosphatase mildly elevated patient is an active smoker no history of COPD plan to admit echocardiogram cardiology consult continue with Eliquis check thyroid function test rate controlled with beta-blockers - Advance Directives Does patient have a Living Will: Yes Does patient have a Durable POA for Healthcare: Yes
[2024-12-04 13:32] VITALS: BMI 21.9
[2024-12-04] MEDS ORDERED: LORATADINE 10 MG TAB PO PRN (15:54)
[2024-12-04 16:11] LABS: Sqamous Epithelial None Seen /HPF (None Seen); Urine Culture Reflex Order NOT NEEDED; Urine Microscopic Reflex YN ORDER UMIC
[2024-12-04 16:34] LABS: Thyroid Stimulating Hormone 2.04 uIU/mL (0.358-3.740)
[2024-12-04] MEDS: NICOTINE 14 MG/PAT TD SCH (16:40)
[2024-12-04] MEDS: BUSPIRONE HCL 5 MG TABLET PO SCH (20:38)
[2024-12-04] MEDS: ATORVASTATIN 20 MG TAB PO SCH (20:39)
[2024-12-04] MEDS: carBAMazepine 200 MG TAB PO SCH (20:40)
[2024-12-04] MEDS: FAMOTIDINE 20 MG TAB PO SCH (20:40)
[2024-12-04] MEDS: MIRTAZAPINE 15 MG TAB PO SCH (20:40)
[2024-12-05 06:59] LABS: Absolute Lymphocytes (CBC) 1.3 K/uL (0.7-4.9); Hematocrit 41.1 % (36.0-45.0); Hemoglobin 13.9 g/dL (12.0-15.0); MCH 29.3 pg (27.0-35.0); MCHC 33.8 g/dL (32.0-36.0); MCV 86.6 fL (80-100); MPV 7.7 fL (7.6-11.3); Nucleated RBC Absolute Count 0.0 (0-0); Nucleated Red Blood Cells % 0.0 % (0-0); RBC Red Blood Cell Count 4.75 M/uL (3.86-4.86); White Blood Count 7.60 thou/uL (4.3-10.9)
[2024-12-05 07:13] LABS: ALT/SGPT 21.0 U/L (13-56); AST/SGOT 15.0 U/L (15-37); Albumin 3.5 g/dL (3.4-5.0); Albumin/Globulin Ratio 0.9 (1.1-1.8); Alkaline Phosphatase 167.0 U/L (45-117); Anion Gap 8.0 mEq/L (5.0-15.0); BUN Blood Urea Nitrogen 15.0 mg/dL (7-18); Globulin 4.0 g/dL (2.3-3.5); Glucose Level 104.0 mg/dL (74-106); Potassium 4.0 mEq/L (3.5-5.1)
[2024-12-05] MEDS: AMLODIPINE 5 MG TAB PO SCH (08:35)
[2024-12-05] MEDS: VENLAFAXINE HCL XR 37.5MG CAP PO SCH (08:35)
[2024-12-05] MEDS: CLOPIDOGREL 75 MG TABLET PO SCH (08:38)
[2024-12-05] MEDS: DOCUSATE NA 100 MG CAP PO SCH ×2 (09:00→17:43)
--- NOTE | 2024-12-05 09:38 | P.CNS ---
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 Allergies No Known Allergies Allergy (Verified 07/04/23 01:44) Home medications list reviewed: Yes Home Medications: RX: Carbamazepine [Tegretol] 300 mg PO BID 08/29/16 RX: Gabapentin 300 mg PO BID 08/29/16 RX: Venlafaxine HCl [Venlafaxine HCl ER] 75 mg PO DAILY 06/01/20 RX: Clopidogrel Bisulfate [Plavix] 75 mg PO DAILY #30 tablet 06/08/20 RX: Buspirone HCl [Buspar*] 30 mg PO BID 07/04/23 RX: Famotidine [Pepcid*] 20 mg PO BEDTIME 07/04/23 RX: Ferrous Sulfate [Feosol] 325 mg PO DAILY 07/04/23 RX: Mirtazapine [Remeron*] 15 mg PO BEDTIME 07/04/23 RX: OLANZapine [Olanzapine] 5 mg PO BEDTIME 07/04/23 RX: Amlodipine [Norvasc*] 10 mg PO DAILY 12/04/24 RX: Apixaban [Eliquis] 5 mg PO BID 12/04/24 RX: Atorvastatin Calcium [Lipitor] 20 mg PO BEDTIME 12/04/24 RX: Budesonide/Formoterol Fumarate [Symbicort 160-4.5 Mcg Inhaler] 1 puff IN BID 12/04/24 RX: Docusate Sodium 200 mg PO DAILY 12/04/24 RX: Loratadine [Claritin*] 10 mg PO DAILY PRN 12/04/24 RX: Mirtazapine 7.5 mg PO BEDTIME 12/04/24 RX: clonazePAM [Clonazepam] 0.125 mg PO BID 12/04/24 RX: oxyBUTYnin chloride [Oxybutynin Chloride] 5 mg PO TID 12/04/24 RX: Metoprolol Succinate 50 mg PO BID 6AM 6PM 30 Days #60 tab 12/05/24 - Past Medical/Surgical History Diabetic: No -: Seizure disorder -: Hypertension -: Chronic pain -: Depression -: Hyperlipidemia -: History of CVA with left-sided residual weakness -: Carotid arterial disease -: THC use -: Hysterectomy -: Cervical laminectomy -: Right carotid enterectomy Psychosocial/ Personal History: Patient lives at home. - Family History Father Medical History: Heart disease Mother Medical History: Diabetes Sister Medical History: Cancer Notes: pancreatic - Social History Smoking Status: Unknown if ever smoked Alcohol use: No CD- Drugs: Yes Caffeine use: Yes Review of Systems 10-point ROS is otherwise unremarkable Physical Examination Temp Pulse Resp BP Pulse Ox 97.7 F 125 H 22 H 158/112 H 94 12/05/24 08:00 12/05/24 08:37 12/05/24 08:00 12/05/24 08:37 12/05/24 08:00 General: Alert, In no apparent distress HEENT: Atraumatic, PERRLA, Mucous membr. moist/pink, EOMI, Sclerae nonicteric Neck: Supple, 2+ carotid pulse no bruit, No LAD, Without JVD or thyroid abnormality Respiratory: Clear to auscultation bilaterally, Normal air movement Cardiovascular: Regular rate/rhythm, Normal S1 S2 Gastrointestinal: Normal bowel sounds, No tenderness Musculoskeletal: No tenderness Integumentary: No rashes Neurological: Normal gait, Normal speech, Normal tone, Normal affect Lymphatics: No axilla or inguinal lymphadenopathy Laboratory Data (last 24 hrs) 12/04/24 12/04/24 12/04/24 10:16 10:16 10:16 WBC 7.60 Hgb 12.8 Hct 38.9 Plt Count 398 PT 15.4 H INR 1.38 Sodium 135 L Potassium 4.5 BUN 16 Creatinine 0.71 Glucose 89 Magnesium 2.4 Total Bilirubin 0.2 AST 15 ALT 26 Alkaline Phosphatase 160 H - Problems (1) Atrial flutter Current Visit: Yes Status: Acute Plan: Sotalol 80 mg po BID (EKG after 3rd dose) continue Eliquis 5 mg po BID Continue metoprolol for now NPO after midnight for GEORGI DCCV in am (2) Stenosis of right carotid artery greater than 50% Current Visit: No Status: Acute Plan: repeat carotid duplex as outpatient continue plavix 75 mg daily, patient with history of stroke. (3) HLD (hyperlipidemia) Current Visit: No Status: Chronic Plan: continue lipitor 20 mg daily Qualifiers: Hyperlipidemia type: unspecified Qualified Code(s): E78.5 - Hyperlipidemia, unspecified (4) HTN (hypertension) Current Visit: No Status: Chronic Plan: continue lopressor 50 mg po bid consider adding losartan 25 mg daily continue to monitor Qualifiers: Hypertension type: essential hypertension
[2024-12-05] MEDS: SOTALOL HCL 80 MG TAB PO SCH (10:27)
--- NOTE | 2024-12-05 10:38 | P.PN ---
Subjective Date of Service: 12/05/24 Chief Complaint: Atrial flutter Subjective: Improving (Patient is improving doing well no further episodes of significant tachycardia) Review of Systems 10-point ROS is otherwise unremarkable Physical Examination - Vital Signs Temperature: 97.7 F Blood Pressure: 158/112 Pulse: 125 Respirations: 22 Pulse Ox (%): 94 - Physical Exam General: Alert, Oriented x3 Respiratory: Clear to auscultation bilaterally Cardiovascular: Normal pulses, Irregular heart rate/rhythm - Studies Laboratory Data (last 24 hrs) 12/04/24 10:16 Sodium 135 L Potassium 4.5 BUN 16 Creatinine 0.71 Glucose 89 Magnesium 2.4 Total Bilirubin 0.2 AST 15 ALT 26 Alkaline Phosphatase 160 H Assessment And Plan - Current Problems (Diagnosis) (1) Atrial flutter Current Visit: Yes Status: Acute Plan: Patient is 69 years of age admitted with new onset of atrial flutter seen by cardiology was changed over to sotalol plan for GEORGI tomorrow possible cardioversion and discharge he is already anticoagulated labs chemistries reviewed seen by cardiology to continue with metoprolol labs chemistries reviewed otherwise unremarkable patient understands was explained about GEORGI and cardioversion tomorrow Qualifiers: Atrial flutter type: typical Qualified Code(s): I48.3 - Typical atrial flutter (2) Hypertension Current Visit: Yes Status: Acute Plan: Patient's blood pressure is elevated patient is on amlodipine add losartan with hydrochlorothiazide
[2024-12-05] MEDS: LOSARTAN/HCTZ 50-12.5 PO SCH (11:23)
[2024-12-06] MEDS ORDERED: NA CHLORIDE 0.9% 500 ML ONE (08:31)
[2024-12-06] MEDS ORDERED: LIDOCAINE 2% MPF 5 ML VIAL ONE (09:08)
[2024-12-06] MEDS ORDERED: EPHEDRINE SULF 50 MG/ML VIAL ONE (09:57)
--- NOTE | 2024-12-06 10:25 | P.PN ---
Subjective Date of Service: 12/06/24 Chief Complaint: Atrial flutter Subjective: No new changes, No C/O voiced, Tolerating diet, Ambulating, Improving Review of Systems 10-point ROS is otherwise unremarkable Physical Examination - Vital Signs Temperature: 97.6 F Blood Pressure: 53/21 Pulse: 55 Respirations: 18 Pulse Ox (%): 95 - Physical Exam General: Alert, In no apparent distress HEENT: Atraumatic, PERRLA, EOMI Neck: Supple, JVD not distended Respiratory: Clear to auscultation bilaterally, Normal air movement Cardiovascular: Regular rate/rhythm, Normal S1 S2 Gastrointestinal: Normal bowel sounds, No tenderness Musculoskeletal: No tenderness Integumentary: No rashes Neurological: Normal speech, Normal tone, Normal affect Lymphatics: No axilla or inguinal lymphadenopathy - Studies Medications List Reviewed: Yes Assessment And Plan - Current Problems (Diagnosis) (1) Atrial flutter Current Visit: Yes Status: Acute Plan: GEORGI DCCV Sotalol 80 mg po BID (EKG normal QT interval) continue Eliquis 5 mg po BID d/c Metoprolol. Qualifiers: Atrial flutter type: typical Qualified Code(s): I48.3 - Typical atrial flutter (2) Stenosis of right carotid artery greater than 50% Current Visit: No Status: Acute Plan: repeat carotid duplex as outpatient continue plavix 75 mg daily, patient with history of stroke. (3) HLD (hyperlipidemia) Current Visit: No Status: Chronic Plan: continue lipitor 20 mg daily Qualifiers: Hyperlipidemia type: unspecified Qualified Code(s): E78.5 - Hyperlipidemia, unspecified (4) HTN (hypertension) Current Visit: No Status: Chronic Plan: consider adding losartan 25 mg daily continue to monitor Qualifiers: Hypertension type: essential hypertension
[2024-12-06 11:20] VITALS: O2SAT 96
--- NOTE | 2024-12-06 13:14 | P.DS ---
Admission Date: 12/04/24 Discharge Date: 12/06/24 Disposition: ROUTINE DISCHARGE Discharge Condition: FAIR Reason for Admission: Atrial flutter Brief History of Present Illness: Patient is 69 years of age and skilled nursing resident admitted with tachycardia- found to have new onset of atrial flutter patient denies any palpitation shortness of breath no prior history of SVT currently denies any problems. Upon admission cardiology was consulted. She underwent cardioversion successfully. She is now on sotalol and will continue Plavix and Eliquis upon discharge. Her metoprolol has been discontinued. She will follow-up with her PCP and nail technician as outpatient. She is medically optimized for discharge Hospital Course: Review of Systems 10-point ROS is otherwise unremarkable Physical Examination - Vital Signs Temperature: 97.7 F Blood Pressure: 158/112 Pulse: 125 Respirations: 22 Pulse Ox (%): 94 - Physical Exam General: Alert, Oriented x3 Respiratory: Clear to auscultation bilaterally Cardiovascular: Normal pulses, Irregular heart rate/rhythm - Studies Laboratory Data (last 24 hrs) 12/04/24 10:16 Sodium 135 L Potassium 4.5 BUN 16 Creatinine 0.71 Glucose 89 Magnesium 2.4 Total Bilirubin 0.2 AST 15 ALT 26 Alkaline Phosphatase 160 H Assessment And Plan - Current Problems (Diagnosis) (1) Atrial flutter Current Visit: Yes Status: Acute Plan: Patient is 69 years of age admitted with new onset of atrial flutter seen by cardiology was changed over to sotalol plan for GEORGI tomorrow possible cardio version and discharge he is already anticoagulated labs chemistries reviewed seen by cardiology to continue with metoprolol labs chemistries reviewed otherwise unremarkable patient understands was explained about GEORGI and cardioversion tomorrow Qualifiers: Atrial flutter type: typical Qualified Code(s): I48.3 - Typical atrial flutter (2) Hypertension Current Visit: Yes Status: Acute Plan: Patient's blood pressure is elevated patient is on amlodipine add losartan with hydrochlorothiazide Vital Signs/Physical Exam: Temp Pulse Resp BP Pulse Ox 97.4 F 67 16 124/59 L 94 12/06/24 12:00 12/06/24 12:00 12/06/24 12:00 12/06/24 12:00 12/06/24 12:00 Laboratory Data at Discharge: WBC 7.60 thou/uL (4.3-10.9) 10/05/25 06:26 Hgb 13.9 g/dL (12.0-15.0) D 12/05/24 06:26 Hct 41.1 % (36.0-45.0) 12/05/24 06:26 Plt Count 391 thou/uL (152-406) 12/05/24 06:26 PT 15.4 SECONDS (10-13.0) H 12/04/24 10:16 INR 1.38 12/04/24 10:16 Sodium 137 mEq/L (136-145) 12/05/24 06:26 Potassium 4.0 mEq/L (3.5-5.1) 12/05/24 06:26 BUN 15 mg/dL (7-18) 12/05/24 06:26 Creatinine 0.76 mg/dL (0.55-1.02) 12/05/24 06:26 Glucose 104 mg/dL (74-106) 12/05/24 06:26 Magnesium 2.4 mg/dL (1.6-2.4) 12/04/24 10:16 Total Bilirubin 0.3 mg/dL (0.2-1.0) 12/05/24 06:26 AST 15 U/L (15-37) 12/05/24 06:26 ALT 21 U/L (13-56) 12/05/24 06:26 Alkaline Phosphatase 167 U/L (45-117) H 12/05/24 06:26 Home Medications: Carbamazepine [Tegretol] 300 mg PO BID 08/29/16 Gabapentin 300 mg PO BID 08/29/16 Venlafaxine HCl [Venlafaxine HCl ER] 75 mg PO DAILY 06/01/20 Clopidogrel Bisulfate [Plavix] 75 mg PO DAILY #30 tablet 06/08/20 Buspirone HCl [Buspar*] 30 mg PO BID 07/04/23 Famotidine [Pepcid*] 20 mg PO BEDTIME 07/04/23 Ferrous Sulfate [Feosol] 325 mg PO DAILY 07/04/23 Mirtazapine [Remeron*] 15 mg PO BEDTIME 07/04/23 OLANZapine [Olanzapine] 5 mg PO BEDTIME 07/04/23 Amlodipine [Norvasc*] 10 mg PO DAILY 12/04/24 Apixaban [Eliquis] 5 mg PO BID 12/04/24 Atorvastatin Calcium [Lipitor] 20 mg PO BEDTIME 12/04/24 Budesonide/Formoterol Fumarate [Symbicort 160-4.5 Mcg Inhaler] 1 puff IN BID 12/04/24 Docusate Sodium 200 mg PO DAILY 12/04/24 Loratadine [Claritin*] 10 mg PO DAILY PRN 12/04/24 Mirtazapine 7.5 mg PO BEDTIME 12/04/24 clonazePAM [Clonazepam] 0.125 mg PO BID 12/04/24 oxyBUTYnin chloride [Oxybutynin Chloride] 5 mg PO TID 12/04/24 Apixaban [Eliquis] 5 mg PO BID 30 Days #60 tab 12/06/24 Sotalol HCl [Betapace*] 80 mg PO BID 6AM 6PM 30 Days #60 tab 12/06/24 New Medications: Sotalol HCl [Betapace*] 80 mg PO BID 6AM 6PM 30 Days #60 tab Apixaban [Eliquis] 5 mg PO BID 30 Days #60 tab Followup: Rufino Otoole MD [ACTIVE - CAN ADMIT] - 1-2 Weeks NONE,NONE [Primary Care Provider] -
[2024-12-06] MEDS: LOPERAMIDE HCL 2 MG CAPSULE PO ONE (14:33)
[2024-12-06 16:30] VITALS: BP 129/78; TEMP 97.9
--- NOTE | 2024-12-06 21:44 | OP ---
Date of Procedure: 12/06/2024 Surgeon: Rufino Otoole Procedure Performed: Synchronized GEORGI cardioversion. Indication For Procedure: Atrial fibrillation/flutter. Complications: None. Estimated Blood Loss: None. Sedation: Done by Anesthesia Team. Description Of Procedure: After risks, benefits, and alternatives were explained to the patient, the patient agreed to proceed with procedure and signed informed consent. The patient was brought back to the OR. Time-out was performed. Sedation was administered by Anesthesia Team. GEORGI probe was ins erted. Images were obtained and then GEORGI probe out. Synchronized cardioversion was done with 200 suni ules. The patient converted back into sinus rhythm. The patient was moved to recovery in stable con dition. Assessment And Plan: 1. Atrial fibrillation, status post synchronized GEORGI cardioversion. 2. Plan is to continue sotalol 80 mg p.o. b.i.d. 3. Continue Eliquis 5 mg p.o. b.i.d. 4. Stop metoprolol. JOANNA/ADAN Voice ID: [id number] Report ID: [id number]
== END 2024-12-06 14:53 | DRG 309 ==
LOC: ER 09:37 → ERHOLD 11:40 → 2ND 12:53
PROVIDERS: ADMIT Internal Medicine Sleep Medicine; ATTEND Family Medicine
PROC: B24BZZ4 Ultrasonography of Heart with Aorta, Transesophageal (ICD-10-PCS; principal; 2024-12-06)
PROC: 5A2204Z Restoration of Cardiac Rhythm, Single (ICD-10-PCS; 2024-12-06)
DX: I48.3 Typical atrial flutter (principal); I69.354 Hemiplegia and hemiparesis following cerebral infarction affecting left non-dominant side; I10 Essential (primary) hypertension; G89.29 Other chronic pain; I65.21 Occlusion and stenosis of right carotid artery; E78.00 Pure hypercholesterolemia, unspecified; R00.0 Tachycardia, unspecified; Z79.01 Long term (current) use of anticoagulants; Z86.718 Personal history of other venous thrombosis and embolism; Z79.02 Long term (current) use of antithrombotics/antiplatelets; Z79.899 Other long term (current) drug therapy; Z90.710 Acquired absence of both cervix and uterus
CPT/HCPCS: 36415; 71045; 80048; 80053; 80076; 81001; 83735; 83880; 84439; 84443; 84484; 85025; 85610; 92960; 93005; 93312; 96374; 99285; J2003; J2704; J7040

== ENCOUNTER 2024-12-31 10:09 | Emergency (ER) | payer OTHER, MEDICAID ==
[2024-12-31 11:05] LABS: Absolute Lymphocytes (CBC) 1.3 K/uL (0.7-4.9); Hematocrit 37.0 % (36.0-45.0); Hemoglobin 12.6 g/dL (12.0-15.0); MCH 29.3 pg (27.0-35.0); MCHC 34.1 g/dL (32.0-36.0); MCV 85.9 fL (80-100); MPV 7.2 fL (7.6-11.3); Nucleated RBC Absolute Count 0.0 (0-0); Nucleated Red Blood Cells % 0.1 % (0-0); RBC Red Blood Cell Count 4.31 M/uL (3.86-4.86); White Blood Count 7.80 thou/uL (4.3-10.9)
[2024-12-31 11:09] LABS: PT Prothrombin Time 13.5 SECONDS (10-13.0); PTT, Activated Partial Thromb 20.4 SECONDS (27.2-37.4); Protime INR 1.2
[2024-12-31 11:15] LABS: ALT/SGPT 16.0 U/L (13-56); AST/SGOT 12.0 U/L (15-37); Albumin 3.6 g/dL (3.4-5.0); Albumin/Globulin Ratio 0.9 (1.1-1.8); Alkaline Phosphatase 135.0 U/L (45-117); Anion Gap 9.3 mEq/L (5.0-15.0); BUN Blood Urea Nitrogen 14.0 mg/dL (7-18); Globulin 3.8 g/dL (2.3-3.5); Glucose Level 101.0 mg/dL (74-106); Lipase 29.0 U/L (13-75); Potassium 4.3 mEq/L (3.5-5.1)
[2024-12-31 12:11] LABS: Sqamous Epithelial None Seen /HPF (None Seen); Urine Crystals Unidentified Many /HPF (None Seen); Urine Culture Reflex Order REFLEXED; Urine Microscopic Reflex YN ORDER UMIC
--- NOTE | 2024-12-31 12:13 | RAD REPORT ---
EXAMINATION: Abdomen Pelvis Wo Contrast CLINICAL INDICATION: Female, 69 years old.BLOOD IN DIAPER TECHNIQUE: CTA abdomen and pelvis was performed, before and after the administration of IV contrast, as per department protocol. MIPS were created. Axial, sagittal and coronal reconstructions were obtained. One or more of the following dose reduction techniques were used: Automated exposure contro l, adjustment of the mA and/or kV according to patient size, and/or iterative reconstruction. Unless otherwise specified, incidental findings do not require dedicated imaging follow-up. [id number]. COMPARISON: 09/24/2020 FINDINGS: LOWER CHEST: No acute process identified. Small pericardial effusion. Mild circumferential thickening of the distal esophagus which could reflect esophagitis. UPPER GI: No significant abnormality. LIVER: Mildly nodular liver contour. GALLBLADDER/BILE DUCTS: No biliary ductal dilatation.? PANCREAS: 7 mm cystic lesion at the pancreatic body may represent a small intraductal papillary mucin ous neoplasm. No pancreatic duct dilatation. SPLEEN: Unremarkable. ADRENALS: Bilateral adrenal thickening. KIDNEYS AND URETERS: Mild right-sided hydroureteronephrosis. Delayed enhancement of the right kidney. No obstructing stone or mass. The right ureter is dilated down to near the UVJ. Low density and/or too small to characterize renal lesions which are statistically benign. No ureteral calculi. Left col lecting system fullness. ABDOMINAL AORTA AND OTHER VESSELS: Mild atherosclerotic changes. PERITONEUM: No abnormal free fluid. No free air. LYMPH NODES: No pathologic lymphadenopathy. ABDOMINAL WALL: Unremarkable SMALL BOWEL/COLON: Small bowel has normal course and caliber. No colonic wall thickening or pericolon ic inflammatory changes. URINARY BLADDER: Distended bladder. REPRODUCTIVE ORGANS: Hysterectomy. Pessary. MUSCULOSKELETAL: Multilevel degenerative changes in the spine. No acute fracture. ADDITIONAL FINDINGS: None. IMPRESSION: No evidence of active gastrointestinal bleeding. Moderate right-sided hydroureteronephrosis. No obstructing stone is identified. The bladder is disten ded. This could be related to urinary retention or possibly right ureteral stricture. Distended bladder. Correlate for urinary retention.
--- NOTE | 2024-12-31 12:14 | RAD REPORT ---
EXAMINATION: Abdomen Angio CLINICAL INDICATION: Female, 69 years old.BLOOD IN DIAPER TECHNIQUE: CTA abdomen and pelvis was performed, before and after the administration of IV contrast, as per department protocol. MIPS were created. Axial, sagittal and coronal reconstructions were obtained. One or more of the following dose reduction techniques were used: Automated exposure contro l, adjustment of the mA and/or kV according to patient size, and/or iterative reconstruction. Unless otherwise specified, incidental findings do not require dedicated imaging follow-up. [id number]. COMPARISON: 09/24/2020 FINDINGS: LOWER CHEST: No acute process identified. Small pericardial effusion. Mild circumferential thickening of the distal esophagus which could reflect esophagitis. UPPER GI: No significant abnormality. LIVER: Mildly nodular liver contour. GALLBLADDER/BILE DUCTS: No biliary ductal dilatation.? PANCREAS: 7 mm cystic lesion at the pancreatic body may represent a small intraductal papillary mucin ous neoplasm. No pancreatic duct dilatation. SPLEEN: Unremarkable. ADRENALS: Bilateral adrenal thickening. KIDNEYS AND URETERS: Mild right-sided hydroureteronephrosis. Delayed enhancement of the right kidney. No obstructing stone or mass. The right ureter is dilated down to near the UVJ. Low density and/or too small to characterize renal lesions which are statistically benign. No ureteral calculi. Left col lecting system fullness. ABDOMINAL AORTA AND OTHER VESSELS: Mild atherosclerotic changes. PERITONEUM: No abnormal free fluid. No free air. LYMPH NODES: No pathologic lymphadenopathy. ABDOMINAL WALL: Unremarkable SMALL BOWEL/COLON: Small bowel has normal course and caliber. No colonic wall thickening or pericolon ic inflammatory changes. URINARY BLADDER: Distended bladder. REPRODUCTIVE ORGANS: Hysterectomy. Pessary. MUSCULOSKELETAL: Multilevel degenerative changes in the spine. No acute fracture. ADDITIONAL FINDINGS: None. IMPRESSION: No evidence of active gastrointestinal bleeding. Moderate right-sided hydroureteronephrosis. No obstructing stone is identified. The bladder is disten ded. This could be related to urinary retention or possibly right ureteral stricture. Distended bladder. Correlate for urinary retention. Subcentimeter cystic lesion at the pancreatic body may represent a small intraductal papillary mucino us neoplasm or possibly invaginated fat. Could consider 12 month follow-up MRCP.
--- NOTE | 2024-12-31 15:05 | EDPHYS ---
Physician Documentation [facility] Name: Lynne Urena Age: 69 yrs Sex: Female : 1955 Arrival Date: 12/31/2024 Time: 10:09 Bed 7 Private MD: ED Physician Ti Cordova HPI: 12/31 10:20 This 69 yrs old Female presents to ER via EMS with complaints of blood in diaper. rn 10:20 Onset: The symptoms/episode began/occurred yesterday. The patient has been recently rn seen by a physician:. Patient presents because halfway noticed blood in diaper. Began yesterday. Small amount. They do not know where it is coming from. Patient reports she urinates and when staff cleans her diaper or changes her diaper there is blood. Patient does not believe this to be in the stool. Denies constipation or diarrhea. Recently started Eliquis for new onset A-fib. Denies trauma. Does report suprapubic fullness. Patient states able to urinate and able to completely empty.. Historical: - Allergies: 10:17 NKA; hb - PMHx: 10:17 CVA; left side paralysis; epilepsy; Chronic pain; High Cholesterol; Hypertension; hb - Immunization history:: Adult Immunizations up to date. - Infectious Disease History:: Denies. - Social history:: Smoking status: Patient denies any tobacco usage or history of. - Family history:: not pertinent. - Hospitalizations: : No recent hospitalization is reported. ROS: 10:20 Constitutional: Negative for fever, chills, and weight loss, Cardiovascular: Negative rn for chest pain, palpitations, and edema, Respiratory: Negative for shortness of breath, cough, wheezing, and pleuritic chest pain, Abdomen/GI: Negative for nausea, vomiting, diarrhea, and constipation, : Negative for injury, discharge, and swelling, MS/Extremity: Negative for injury and deformity, Skin: Negative for injury, rash, and discoloration, Neuro: Negative for headache, weakness, numbness, tingling, and seizure, Exam: 10:20 Constitutional: This is a well developed, well nourished patient who is awake, alert, rn and in no acute distress. Cardiovascular: Regular rate and rhythm. No pulse deficits. Respiratory: No increased work of breathing, no retractions or nasal flaring. Abdomen/GI: Soft, mild suprapubic tenderness. No rebound or masses Vital Signs: 10:15 BP 145 / 107; Pulse 77; Resp 16; Temp 98.2; Pulse Ox 100% on R/A; Weight 74.39 kg; Pain hb 0/10; 11:00 BP 120 / 76; Pulse 72; Resp 16; Pulse Ox 94% ; kb4 14:27 BP 124 / 71; Pulse 78; Resp 16; Pulse Ox 100% on R/A; kb4 15:16 BP 132 / 76; Pulse 94; Resp 18; Pulse Ox 96% on R/A; kb4 17:52 BP 135 / 86; Pulse 84; Resp 16; Pulse Ox 99% on R/A; kb4 20:18 BP 129 / 99; Pulse 90; Resp 18; Pulse Ox 98% on R/A; af3 10:15 Pain Scale: Adult hb MDM: 10:13 Medical Screening Exam initiated rn 15:01 Differential diagnosis: urinary tract infection, Urinary retention, hematuria. Data rn reviewed: vital signs, nurses notes, lab test result(s), radiologic studies, CT scan, and as a result, I will discharge patient. Consideration of Admission/Observation Escalation of care including admission/observation considered. Bladder irrigated and urine cleared. Will discharge home with indwelling Black catheter for urinary retention and improving hematuria. Normal H\T\H.. Independent interpretation of the following test(s) in the Emergency Department CT Scan: My interpretation is CT abdomen pelvis images negative for urinary calculus per my interpretation. 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 Counseling: I had a detailed discussion with the patient and/or guardian regarding the historical points, exam findings, and any diagnostic results supporting the discharge/admit diagnosis, lab results, radiology results, the need for outpatient follow up, to return to the emergency department if symptoms worsen or persist or if there are any questions or concerns that arise at home. Response to treatment: the patient's symptoms have markedly improved after treatment, and as a result, I will discharge patient. Special discussion: I discussed with the patient/guardian in detail that at this point there is no indication for admission to the hospital. It is understood, however, that if the symptoms persist or worsen the patient needs to return immediately for re-evaluation. 12/31 10:18 Order name: CBC with Diff; Complete Time: 11:53 rn 12/31 10:18 Order name: CMP; Complete Time: 11:53 rn 12/31 10:18 Order name: Lipase; Complete Time: 11:53 rn 12/31 10:18 Order name: Protime (+inr); Complete Time: 11:53 rn 12/31 10:18 Order name: Ptt, Activated; Complete Time: 11:53 rn 12/31 10:18 Order name: UA Rfx Nakul Cult if indicated; Complete Time: 12:24 rn 12/31 10:18 Order name: Type And Screen; Complete Time: 11:53 rn 12/31 12:14 Order name: Urine Culture EDIA 12/31 10:18 Order name: CT Abdomen - Angio; Complete Time: 12:24 rn 12/31 11:19 Order name: Pelvis Angio; Complete Time: 12:24 EDIA 12/31 11:19 Order name: Abdomen ; Complete Time: 12:24 EDIA 12/31 10:18 Order name: IV Saline Lock; Complete Time: 10:51 rn 12/31 10:18 Order name: Labs collected and sent; Complete Time: 10:51 rn 12/31 10:52 Order name: Straight Cath - Urine; Complete Time: 11:48 aa5 12/31 11:54 Order name: Black: VO at 1140; Complete Time: 11:54 aa5 12/31 13:39 Order name: Bladder Irrigation; Complete Time: 13:58 rn Administered Medications: No medications were administered Disposition Summary: 12/31/24 15:05 Discharge Ordered Notes: Location: Home rn Problem: new rn Symptoms: have improved rn Condition: Stable rn Diagnosis - Hematuria, unspecified rn - Retention of urine, unspecified rn Followup: rn - With: Private Physician - When: As needed - Reason: Recheck today's complaints, Re-evaluation by your physician Discharge Instructions: - Discharge Summary Sheet rn - Indwelling Urinary Catheter Care, Adult rn - Hematuria, Adult rn - Acute Urinary Retention, Female rn Forms: - Medication Reconciliation Form rn - 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 EDMS EDMS 10:24 10:20 Constitutional: Negative for fever, chills, and weight loss, Cardiovascular: rn Negative for chest pain, palpitations, and edema, Respiratory: Negative for shortness of breath, cough, wheezing, and pleuritic chest pain, Abdomen/GI: Negative for nausea, vomiting, diarrhea, and constipation, MS/Extremity: Negative for injury and deformity, Skin: Negative for injury, rash, and discoloration, Neuro: Negative for headache, weakness, numbness, tingling, and seizure, rn
--- NOTE | 2024-12-31 15:05 | ER ---
Nurse's Notes [facility] Name: Lynne Urena Age: 69 yrs Sex: Female : 1955 Arrival Date: 12/31/2024 Time: 10:09 Bed 7 Private MD: Diagnosis: Hematuria, unspecified;Retention of urine, unspecified Presentation: 12/31 10:15 Chief complaint: EMS states: Small amount of blood noted in brief this morning per [place] nursing staff. Denies pain/N/V. Takes Eliquis and ASA. Coronavirus screen: At this time, the client does not indicate any symptoms associated with coronavirus-19. Ebola Screen: No symptoms or risks identified at this time. Initial Sepsis Screen: Does the patient meet any 2 criteria? No. Patient's initial sepsis screen is negative. Does the patient have a suspected source of infection? No. Patient's initial sepsis screen is negative. Risk Assessment: Do you want to hurt yourself or someone else? Patient reports no desire to harm self or others. Onset of symptoms was December 31, 2024. 10:15 Method Of Arrival: EMS: [facility] 10:15 Acuity: YEIMI 3 hb Triage Assessment: 14:29 General: Appears in no apparent distress. comfortable, Behavior is calm, cooperative. kb4 Historical: - Allergies: 10:17 NKA; hb - PMHx: 10:17 CVA; left side paralysis; epilepsy; Chronic pain; High Cholesterol; Hypertension; hb - Immunization history:: Adult Immunizations up to date. - Infectious Disease History:: Denies. - Social history:: Smoking status: Patient denies any tobacco usage or history of. - Family history:: not pertinent. - Hospitalizations: : No recent hospitalization is reported. Screenin:15 [facility] ED Fall Risk Assessment (Adult) History of falling in the last 3 months, including since admission No falls in past 3 months (0 pts) Confusion or Disorientation No (0 pts) Intoxicated or Sedated No (0 pts) Impaired Gait Yes (1 pt) Mobility Assist Device Used No (0 pt) Altered Elimination Yes (1 pt) Score/Fall Risk Level 0 - 2 = Low Risk Oriented to surroundings, Maintained a safe environment, Educated pt \T\ family on fall prevention, incl call for assistance when getting out of bed. Abuse screen: Denies threats or abuse. Denies injuries from another. Nutritional screening: No deficits noted. Tuberculosis screening: No symptoms or risk factors identified. Assessment: 11:49 Reassessment: Patient is alert, oriented x 3, equal unlabored respirations, skin aa5 warm/dry/pink. Pt cleaned, new brief applied, no blood was noted from rectal area, bloody urine noted from meatus. . 13:55 Reassessment: bladder irrigation initiated, pt tolerating well. kb4 14:24 Reassessment: Patient and/or family updated on plan of care and expected duration. Pain kb4 level reassessed. Patient is alert, oriented x 3, equal unlabored respirations, skin warm/dry/pink. Pain: Complains of pain in abdomen. Neuro: Level of Consciousness is awake, alert, obeys commands, Oriented to person, place, time, situation. Cardiovascular: Patient's skin is warm and dry. Respiratory: Airway is patent Respiratory effort is even, unlabored, Respiratory pattern is regular, symmetrical. Derm: Skin is pink, warm \T\ dry. 15:12 Reassessment: Patient and/or family updated on plan of care and expected duration. Pain kb4 level reassessed. Patient is alert, oriented x 3, equal unlabored respirations, skin warm/dry/pink. report called to [facility], report given to receiving RN. 15:41 Reassessment: pt ripped out Alcazar catheter with 30cc balloon inflated, balloon intact, kb4 pt reports pain in urethral area, no visible damage noted at this time. 15:57 Reassessment: pt refused alcazar reinsertion. kb4 17:51 Reassessment: Patient and/or family updated on plan of care and expected duration. Pain kb4 level reassessed. Patient is alert, oriented x 3, equal unlabored respirations, skin warm/dry/pink. 18:39 Reassessment: waiting for [facility] home transport. kb4 19:10 General: Appears in no apparent distress. comfortable, well developed, Behavior is af3 calm, cooperative, appropriate for age. Pain: Denies pain. Neuro: Level of Consciousness is awake, alert, obeys commands, Oriented to person, place, time, situation, Appropriate for age. Cardiovascular: Patient's skin is warm and dry. Respiratory: Airway is patent Respiratory effort is even, unlabored, Respiratory pattern is regular, symmetrical. Derm: Skin is intact, Skin is pink, warm \T\ dry. 20:18 Reassessment: Patient appears in no apparent distress at this time. No changes from af3 previously documented assessment. Patient and/or family updated on plan of care and expected duration. Pain level reassessed. Patient is alert, oriented x 3, equal unlabored respirations, skin warm/dry/pink. Vital Signs: 10:15 BP 145 / 107; Pulse 77; Resp 16; Temp 98.2; Pulse Ox 100% on R/A; Weight 74.39 kg; Pain hb 0/10; 11:00 BP 120 / 76; Pulse 72; Resp 16; Pulse Ox 94% ; kb4 14:27 BP 124 / 71; Pulse 78; Resp 16; Pulse Ox 100% on R/A; kb4 15:16 BP 132 / 76; Pulse 94; Resp 18; Pulse Ox 96% on R/A; kb4 17:52 BP 135 / 86; Pulse 84; Resp 16; Pulse Ox 99% on R/A; kb4 20:18 BP 129 / 99; Pulse 90; Resp 18; Pulse Ox 98% on R/A; af3 10:15 Pain Scale: Adult hb ED Course: 10:13 Patient arrived in ED. ll1 10:13 Ti Cordova MD is Attending Physician. rn 10:17 Triage completed. hb 10:17 Arm band placed on. hb 10:48 intact, bleeding controlled, Pressure dressing applied, 20G to R AC dc'd, swelling to aa5 site upon flushing. 10:51 Inserted saline lock: 22 gauge in right antecubital area, using aseptic technique. aa5 11:13 Shannan Leyva, RN is Primary Nurse. hb 11:15 Patient has correct armband on for positive identification. Bed in low position. Call hb light in reach. Provided Education on: call light . 11:32 CT Abdomen - Angio In Process Unspecified. EDMS 11:32 Pelvis Angio In Process Unspecified. EDMS 11:32 Abdomen In Process Unspecified. EDMS 11:49 Alcazar cath inserted, using sterile technique, 18 Fr., by mt, balloon inflated, to aa5 gravity drainage, urine specimen collected. returned MD was notified of hematuria . Patient tolerated well. 14:30 No provider procedures requiring assistance completed. kb4 15:09 Bladder irrigated via Alcazar with 2500mls NS normal saline returned Pinkish urine with aa5 no blood clots at this time. Total output return: 2850mls Patient tolerated well. 15:15 IV discontinued, intact, bleeding controlled, No redness/swelling at site. Pressure aa5 dressing applied. 18:28 called [facility] to get estimate time for [facility]. Nurse stated sp will be after 8 pm for grape picker. 18:39 One-on-one care X 15 minutes. kb4 19:00 Report received from NEGRA Alvarez. af3 Administered Medications: No medications were administered Medication: 14:30 VIS not applicable for this client. kb4 Outcome: 15:05 Discharge ordered by . rn 20:27 [facility]. af3 20:27 Condition: stable 20:27 Discharge instructions given to patient, Instructed on discharge instructions, follow up and referral plans. medication usage, Demonstrated understanding of instructions, follow-up care, medications, Prescriptions given X 1, 20:29 Patient left the ED. af3 Signatures: Dispatcher [employer] EDMS Tracey Reilly Roman, MD MD rn Calderon, Audri, RN RN aa5 Shannan Leyva, RN NEGRA Leonie Guallpa RN RN ll1 Deann Xiao RN RN af3 Kim Nieves, NEGRA RN kb4 Corrections: (The following items were deleted from the chart) 15:13 15:09 Bladder irrigated via Alcazar with 2500mls NS normal saline returned Pinkish urine aa5 with no blood clots at this time. Patient tolerated well aa5
[2024-12-31 20:53] VITALS: TEMP 98.2
[2024-12-31 20:59] VITALS: BP 129/99; O2SAT 98
== END 2024-12-31 20:29 | disposition home or self-care (01) ==
LOC: ER 10:09
DX: R31.9 Hematuria, unspecified (principal); R33.9 Retention of urine, unspecified
CPT/HCPCS: 87088; 85025; 81001; 87086; 36415; 86900; 86850; 85610; 86901; 85730; 83690; 80053; 72191; 74175; 74176; 51700; 51702; 99285; Q9967